=== PATIENT | female | born 1975 | race Caucasian/White ===

== ENCOUNTER 2019-07-19 14:01 | Emergency (ER) | payer SELFPAY ==
[2019-07-19 14:10] VITALS: BP 116/72; PULSE 78; RESP 16; TEMP 36.6; O2SAT 99
--- NOTE | 2019-07-19 14:37 | ED.URI ---
HPI - URI/Sore Throat General Chief Complaint: Upper Respiratory Infection Stated Complaint: Headache/ear pain/dizziness Time Seen by Provider: 07/19/19 14:38 Source: patient and RN notes reviewed Mode of arrival: ambulatory Limitations: no limitations History of Present Illness HPI Narrative: 44-year-old female presents with concern for 3 to 5-day history of sinus congestion, sinus pressure, ear pain, postnasal drainage, generalized body aches, headache, malaise, fatigue. She denies fever,, chills, sweats. Reports taking Aleve with little relief. MD elicited complaint: other (ear pain) Related Data Home Medications Medication Instructions Recorded Confirmed Probiotic 04/23/19 Allergies Allergy/AdvReac Type Severity Reaction Status Date / Time codeine Allergy Unknown Unknown Verified 07/19/19 14:07 latex Allergy Unknown Unknown Verified 07/19/19 14:07 aspirin AdvReac Mild Nausea Verified 07/19/19 14:07 hydrocodone AdvReac Unknown MAKES HER Verified 07/19/19 14:07 JO Review of Systems Review of Systems: Narrative: CONSTITUTIONAL: Reports malaise, fatigue. Denies chills, sweats, or fever. EYES: Denies visual changes, redness, or discharge. ENT: Reports rhinorrhea, congestion, otalgia. Denies sinus pain and sore throat. CARDIOVASCULAR: Denies chest pain, palpitations, or edema. RESPIRATORY: Reports morning cough. Denies dyspnea. GASTROINTESTINAL: Denies abdominal pain, nausea, vomiting, diarrhea SKIN: Denies rash or itching. MUSCULOSKELETAL: Reports myalgia. NEUROLOGIC: Reports headache. All systems reviewed & are unremarkable except as noted in HPI and below PMFSH Social History Social History Smoking status: Smoker, status unknown Alcohol intake: never Gender identity (if verbalized by the patient): Female Comments At time of signature, agree with nursing past medical, surgical, social and family history. There is no relevant family history pertinent to the presenting complaint Exam Narrative: Exam Narrative: GENERAL: Well-appearing, well-nourished, and in no acute distress. HEAD: Normocephalic EYES: PERRLA, conjunctivae clear ENT: Nares clear, turbinates edematous and erythematous, clear discharge. Mucous membranes moist. TM pearly patel with dull light reflex bilaterally; no tragal tenderness. Oropharynx not erythematous without lesions. Tonsils not enlarged and without exudate, no drooling, no hoarseness, no trismus. NECK: Supple. No lymphadenopathy CHEST: Clear to auscultation, breath sounds equal. No wheezing, rhonchi, rales, or stridor. No respiratory distress, speaks in full sentences. HEART: Regular rate and rhythm. No murmur heard. Normal peripheral pulses. SKIN: Warm, dry, no rash. NEURO: Alert and oriented x3. PSYCH: Normal mood and affect Course Course Emergency Course: Patient is aware of diagnosis, understands and agrees to treatment plan. Anticipatory guidance given. Patient agrees to follow-up as directed and is aware of reasons to seek care at the emergency department. Portions of this record may have been created with voice recognition software Vital Signs Vital signs: Vital Signs Temperature 97.8 F 07/19/19 14:10 Pulse Rate 78 07/19/19 14:10 Respiratory Rate 16 07/19/19 14:10 Blood Pressure 116/72 07/19/19 14:10 Pulse Oximetry 99 07/19/19 14:10 Temperature 97.8 F 07/19/19 14:10 Pulse Rate 78 07/19/19 14:10 Respiratory Rate 16 07/19/19 14:10 Blood Pressure 116/72 07/19/19 14:10 Pulse Oximetry 99 07/19/19 14:10 Reviewed. MDM - URI/Sore Throat MDM Narrative Medical decision making narrative: Differential diagnosis considered: Strep pharyngitis, allergic rhinitis, upper respiratory tract infection, sinusitis, rhinosinusitis, nasopharyngitis. viral pharyngitis, otitis media, otitis externa, pneumonia, bronchitis, viral cough syndrome, viral syndrome, and influenza.
== END 2019-07-19 14:52 | disposition home or self-care (01) ==
PROVIDERS: Emergency Provider Nurse Practitioner; PCP Family Medicine
DX: J06.9 Acute upper respiratory infection, unspecified (principal)
CPT/HCPCS: 99213; G0463

== ENCOUNTER 2019-12-14 10:55 | Outpatient (CLI) | payer OTHER, SELFPAY ==
--- NOTE | ~2019-12-14 | XR_ITS ---
EXAMINATION: XR shoulder RT min 2V DATE: 12/14/2019 11:19 INDICATION: Right shoulder pain. TECHNIQUE: 4 views of right shoulder were obtained. COMPARISON: Right shoulder radiographs 02/08/2011 FINDINGS: Bone alignment is normal. No fracture. Glenohumeral joint is normal. There is mild acromioc lavicular joint osteoarthritis. IMPRESSION: 1. Mild right acromioclavicular joint osteoarthritis. Reviewed, dictated and finalized at location A.
== END 2019-12-14 10:56 | disposition home or self-care (01) ==
LOC: ANHIMG 11:00
PROVIDERS: PCP Family Medicine; Visit Provider Nurse Practitioner Family
DX: M19.011 Primary osteoarthritis, right shoulder (principal)
CPT/HCPCS: 73030

== ENCOUNTER 2020-01-17 14:15 | Outpatient (RCR) | payer OTHER, SELFPAY ==
[2019-12-27 09:26] VITALS: BP_SYST 110
--- NOTE | 2019-12-27 10:28 | PTOPEVAL ---
PHYSICAL THERAPY EVALUATION AND PLAN OF CARE Thank you for referring Kathy Almonte to [facility]. Kathy has been scheduled to participate in physical therapy 2x/week for 3weeks. Please review, sign, date and return this plan of care ZHANG. I agree with and certify that the following plan of care is medically necessary. 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 Started taking Gabapenton 2 days ago and notes maybe a very mild relief. She does have a history of neck and back pain that radiates to the shoulder, but has never had this lack of ROM before. Work, driving, sleep, grooming all are difficult Self Report Pain Assessment Right Shoulder(s) Reported Pain Level 8 Pain Description Aching,Soreness Pain Frequency Chronic,Continuous Lowest Pain Intensity 5 Greatest Pain Intensity 9 Pain Aggravating Factors Lifting Other Pain Aggravating Factors lying on that side Scapular/ Shoulder Range of Motion Right Shoulder Flexion - Active 119 Shoulder Flexion - Passive 140 Shoulder Abduction - Active 78 Shoulder Abduction - Passive 110 Shoulder Medial Rotation - Active PSIS Query Text:Reach Behind the Back Shoulder Lateral Rotation - Active ear lobe Query Text:Reach Behind the Head Scapular/Shoulder Range of Motion Muscle Length Restriction,Soft Limitations Tissue Restriction Scapular/Shoulder Right Shoulder Flexion Strength 3- Fair - Shoulder Extension Strength 3 Fair Shoulder Abduction Strength 3- Fair - Shoulder Medial Rotation Strength 3 Fair Shoulder Lateral Rotation Strength 3 Fair Posture Head/C-Spine Posture Neutral Position Thoracic Spine Posture Fixed Scoliosis on (R) Scapula Posture (L) Protracted,(R) Protracted, (L) Elevated,(R) Elevated Palpation generally tender to palpation throughout shoulder and periscapular muscualature;
--- NOTE | 2020-01-17 15:07 | PTOPEVAL ---
PHYSICAL THERAPY DISCHARGE NOTE Thank you for referring Kathy Almonte to [facility].?I recommend d/c from PT at this time. I am unable to rule out rotator cuff tear despite some progress toward meeting functional goals. I recommend further imaging studies before further intervention. Please review, sign, date and return this plan of care ZHANG. I agree with and certify that the following plan of care is medically necessary. Referring Physician Date Attending Provider: Yevgeniy Agrawal, SENIOR FINANCIAL ACCOUNTANT Discharge Diagnosis right shoulder pain Onset September 2019 Additional Evaluation Detail chronic neck and back pain Subjective Information reports that her shoulder is Query Text:As Reported By Patient/ so-so. States that today she Family continues to feel symptoms pulling down from the neck into the shoulder blade and in the shoulder. She stopped taking gabapenton and prednisone because they were affecting her poorly and has been taking Aleeve. Notes that even writing while she is studying is very painful on the shoulder. She notes some progress in function, but pain levels remain about the same as initial visit. Self Report Pain Assessment Right Shoulder(s) Reported Pain Level 5 Pain Description Aching,Soreness Pain Frequency Chronic,Continuous Pain Aggravating Factors Lifting Other Pain Aggravating Factors lying on that side Pain Score Pain Score 5: Self Report Additional Pain Score Comments with movements increase pain; when relaxed no pain Upper Extremity Range of Motion Scapular/ Shoulder Range of Motion Right Shoulder Flexion - Active 141 Shoulder Abduction - Active 100 Shoulder Medial Rotation - Active PSIS Query Text:Reach Behind the Back Shoulder Lateral Rotation - Active C7 Query Text:Reach Behind the Head Scapular/Shoulder Range of Motion Muscle Length Restriction,Soft Limitations Tissue Restriction Scapular/Shoulder Range of Motion continues to have a catch in Comments shoulder when performing ROM Upper Extremity Muscle Strength Testing Scapular/Shoulder Right Shoulder Flexion Strength 3 Fair Shoulder Extension Strength 3+ Fair + Shoulder Abduction Strength 3 Fair Shoulder Medial Rotation Strength 4 Good Shoulder Lateral Rotation Strength 3+ Fair + Special Tests-Upper Extremity Shoulder Special Tests Empty Can (supraspinatus) Test Positive Right Drop Arm Evi
== END 2020-03-13 14:02 | disposition home or self-care (01) ==
LOC: ANHPT 14:15
PROVIDERS: PCP Family Medicine; Visit Provider Nurse Practitioner Family
DX: M25.511 Pain in right shoulder (principal)
CPT/HCPCS: 97110; 97140; 97161

== ENCOUNTER 2020-02-07 09:20 | Outpatient (CLI) | payer OTHER, SELFPAY ==
--- NOTE | ~2020-02-07 | MR_ITS ---
EXAMINATION: MR shoulder RT wo con DATE: 02/07/2020 14:49 INDICATION: Partial right rotator cuff tear. TECHNIQUE: Magnetic resonance imaging (MRI) of the right shoulder was performed without intravenous c ontrast. Sequences included axial PD-weighted FS FSE, coronal oblique PD-weighted FS FSE and T2-weigh norma FS FSE, and sagittal oblique T2-weighted FS FSE and T1-weighted FSE. COMPARISON: Right shoulder radiographs 12/14/2019 FINDINGS: Coracoacromial arch: The acromion undersurface is curved in morphology (type II). Subacromial spurring is noted. There is mild acromioclavicular joint osteoarthritis. There is mild subacromial/subdeltoid bursitis. Rotator cuff: There is mild supraspinatus and infraspinatus tendinopathy. Teres minor tendon is normal. There is mi ld subscapularis tendinopathy. No tear. There is no asymmetric fatty atrophy of the rotator cuff musc le bellies. Biceps tendon and glenoid labrum: Biceps tendon is in bicipital groove. There is degeneration of superior labrum without well-defined t ear. Fluid: There is no glenohumeral joint effusion. Bones/cartilage: Glenoid cartilage is normal. Humeral head cartilage is normal. IMPRESSION: 1. Mild rotator cuff tendinopathy. No tear. 2. Mild subacromial/subdeltoid bursitis. 3. Mild acromioclavicular joint osteoarthritis. Reviewed, dictated and finalized at location A.
== END 2020-02-07 09:21 | disposition home or self-care (01) ==
PROVIDERS: PCP Family Medicine; Visit Provider Orthopaedic Surgery
DX: M75.101 Unspecified rotator cuff tear or rupture of right shoulder, not specified as traumatic (principal); M19.011 Primary osteoarthritis, right shoulder; M75.51 Bursitis of right shoulder
CPT/HCPCS: 73221

== ENCOUNTER 2020-06-23 10:40 | Outpatient (CLI) | payer OTHER, SELFPAY ==
--- NOTE | ~2020-06-23 | MR_ITS ---
EXAMINATION: MR cervical spine wo con EXAM DATE: 06/23/2020 11:51 INDICATION: Cervical spinal stenosis. TECHNIQUE: Multi-sequential, multiplanar MR images of the cervical spine were obtained without contra st. Axial T2, axial T2 MERGE sequence. Sagittal T1, T2, T2 fat saturation images also obtained. Cor relation is made to CT cervical spine 06/20/2017. FINDINGS: There is a hemangioma in posterior aspect of T3. There is moderate loss of the C5-C6 disc height. The spinal cord signal intensity and intrinsic morphology is normal. Cervicomedullary junctio n is normal in appearance. The vertebral bodies are aligned in the AP dimension. Paraspinal soft tiss ue is unremarkable. Level by level evaluation: C2-C3: Disc does not extend beyond the endplate margin. Uncovertebral joint arthropathy: None. Facet joint arthropathy: Mild bilateral. Neural foraminal stenosis: No stenosis. Central canal stenosis: No stenosis. C3-C4: Disc does not extend beyond the endplate margin. Uncovertebral joint arthropathy: None. Facet joint arthropathy: Mild bilateral. Neural foraminal stenosis: No stenosis. Central canal stenosis: No stenosis. C4-C5: Disc does not extend beyond the endplate margin. Uncovertebral joint arthropathy: Mild left. Facet joint arthropathy: Mild bilateral. Neural foraminal stenosis: No stenosis. Central canal stenosis: No stenosis. C5-C6: There is a mild diffuse disc bulge. Uncovertebral joint arthropathy: Moderate left, mild to moderate right. Facet joint arthropathy: Mild bilateral. Neural foraminal stenosis: Moderate left. Central canal stenosis: Mild. C6-C7: There is a minimal diffuse disc bulge. Uncovertebral joint arthropathy: Mild bilateral. Facet joint arthropathy: Mild bilateral. Neural foraminal stenosis: No stenosis. Central canal stenosis: No stenosis. C7-T1: Disc does not extend beyond the endplate margin. Uncovertebral joint arthropathy: Minimal. Facet joint arthropathy: Minimal. Neural foraminal stenosis: No stenosis. Central canal stenosis: No stenosis. IMPRESSION: 1. C5-6 moderate left neural foraminal stenosis. 2. Otherwise mild spondylosis. Reviewed, dictated and finalized at location B. EL CUTTER
== END 2020-06-23 10:41 | disposition home or self-care (01) ==
PROVIDERS: PCP Family Medicine; Visit Provider Physician Assistant Surgical
DX: M48.02 Spinal stenosis, cervical region (principal); M47.892 Other spondylosis, cervical region
CPT/HCPCS: 72141

== ENCOUNTER 2020-11-12 11:51 | Emergency (ER) | payer OTHER, SELFPAY ==
--- NOTE | ~2020-11-12 | XR_ITS ---
[XR ribs RT 2V w CXR 2V ] INDICATION: Right rib pain after twisting injury TECHNIQUE: Frontal projection of the upper right ribs, frontal projection of the lower right ribs, ob lique projection of all the right ribs, frontal inspiratory chest x-ray for interpretation. FINDINGS: There are no displaced rib fractures identified. There are no soft tissue abnormality see n. The lungs are clear. There is a hiatal hernia. IMPRESSION: 1:No displaced rib fractures. Reviewed, dictated and finalized at location A.
[2020-11-12 11:53] VITALS: BP 138/85; PULSE 106; RESP 18; TEMP 35.9; O2SAT 97
[2020-11-12 12:02] VITALS: BP 138/85; PULSE 106; RESP 18; TEMP 35.9; O2SAT 97
[2020-11-12] MEDS: KETOROLAC (*BKC) 60 MG/2 ML VIAL IM (13:02)
--- NOTE | 2020-11-12 13:31 | ED.GENADULT ---
HPI - General Adult General Chief complaint: Unspecified <Connor Cash PA-C - Last Filed: 11/12/20 13:40> Stated complaint: something popped in my chest <Connor Cash PA-C - Last Filed: 11/12/20 13:40> Time Seen by Provider: 11/12/20 12:11 <Connor Cash PA-C - Last Filed: 11/12/20 13:40> Source: patient and RN notes reviewed <Connor Cash PA-C - Last Filed: 11/12/20 13:40> Mode of arrival: ambulatory <CRICKET Carrera Last Filed: 11/12/20 13:40> Limitations: no limitations <Connor Cash PA-C - Last Filed: 11/12/20 13:40> History of Present Illness HPI narrative: Patient is a 45-year-old female who presents with right lateral rib pain was bending over an object and felt a pop and has since had moderate aching pain symptoms began today just prior to arrival has not taken anything for symptoms denies URI symptoms or other complaints radiation of pain on arrival does not appear uncomfortable or distressed <Connor Cash PA-C - Last Filed: 11/12/20 13:40> Related Data Home medications: Home Medications Medication Instructions Recorded Confirmed azithromycin 11/12/20 cetirizine mg 11/12/20 prednisone 11/12/20 <Connor Cash PA-C - Last Filed: 11/12/20 13:40> Allergies/adverse reactions: Allergies Allergy/AdvReac Type Severity Reaction Status Date / Time codeine Allergy Unknown Unknown Verified 11/12/20 11:54 latex Allergy Unknown Unknown Verified 11/12/20 11:54 aspirin AdvReac Mild Nausea Verified 11/12/20 11:54 hydrocodone AdvReac Unknown MAKES HER Verified 11/12/20 11:54 LOOPY AND SHAKEY <Connor Cash PA-C - Last Filed: 11/12/20 13:40> Review of Systems Review of Systems: All systems reviewed & are unremarkable except as noted in HPI and below <Connor Cash PA-C - Last Filed: 11/12/20 13:40> PMFSH Past Medical History Medical History: Medical History (Updated 11/12/20 @ 13:40 by Connor Cash PA-C) Anxiety Arthritis Celiac disease Depression Hiatal hernia with GERD and esophagitis HSV-1 (herpes simplex virus 1) infection IBS (irritable bowel syndrome) Migraine PMDD (premenstrual dysphoric disorder) Vulvar cancer <Connor Cash PA-C - Last Filed: 11/12/20 13:40> Surgical History Surgical History: Surgical History H/O tubal ligation History of bladder surgery Ablation 2011 History of orthopedic surgery Right ankle, hardware from a trampoline accident <Connor Cash PA-C - Last Filed: 11/12/20 13:40> Family History Family History: Family History Grandparent Family history of cardiac disorder Father Family history of heart disease in male family member before age 55 Other Hypertension <Connor Cash PA-C - Last Filed: 11/12/20 13:40> Social History Social History: Social History Smoking status: Smoker, status unknown Alcohol intake: never Gender identity (if verbalized by the patient): Female <Connor Cash PA-C - Last Filed: 11/12/20 13:40> Exam Narrative: Exam Narrative: GENERAL: Well-appearing, obese, and in no acute distress. HEAD: Normocephalic, atraumatic. EYES: PERRLA and EOMI. ENT: Nares clear, no rhinorrhea or epistaxis. Mucous membranes moist. CHEST: Clear to auscultation. No respiratory distress. No wheezes rales or rhonchi. Tenderness of the right lateral breast rib region HEART: Regular rate and rhythm. No murmur heard. EXTREMITIES: Normal range of motion. No edema. SKIN: Warm, dry, no rash. NEURO: No focal deficits. Alert and oriented x3. Cranial nerves II through XII grossly intact PSYCH: Normal mood and affect. <Connor Cash PA-C - Last Filed: 11/12/20 13:40> Course Course Emergency Course: Patient in the room
[2020-11-12 13:55] VITALS: BP 146/81; PULSE 87; RESP 18; O2SAT 99
== END 2020-11-12 13:56 | disposition home or self-care (01) ==
PROVIDERS: Emergency Provider General Practice; PCP Nurse Practitioner Family
DX: R07.89 Other chest pain (principal); K90.0 Celiac disease; F31.9 Bipolar disorder, unspecified; K21.00 Gastro-esophageal reflux disease with esophagitis, without bleeding; K44.9 Diaphragmatic hernia without obstruction or gangrene; K58.9 Irritable bowel syndrome, unspecified; M19.90 Unspecified osteoarthritis, unspecified site; Z85.44 Personal history of malignant neoplasm of other female genital organs
CPT/HCPCS: 71046; 71100; 96372; 99283; J1885

== ENCOUNTER 2021-07-18 10:53 | Outpatient (CLI) | payer OTHER, SELFPAY ==
--- NOTE | ~2021-07-18 | MR_ITS ---
EXAMINATION: MR wrist RT wo con DATE: 07/18/2021 12:13 INDICATION: Right hand pain. TECHNIQUE: Magnetic resonance imaging (MRI) of the wrist was performed without intravenous contrast. Sequences performed include coronal T1-weighted FSE, coronal PD-weighted FS FSE, axial PD-weighted FS FSE, axial PD-weighted FSE, sagittal PD-weighted FSE, and sagittal PD-weighted FS FSE. COMPARISON: Right wrist radiographs 09/21/2012, right forearm radiographs 10/07/2018 FINDINGS: Intrinsic ligaments: The scapholunate and lunotriquetral ligaments are intact, but motion artifact decreases sensitivity. Triangular fibrocartilage complex (TFCC): The triangular fibrocartilage is intact, but motion artifact decreases sensitivity. Extensor wrist: The extensor tendons are normal. Flexor wrist: The flexor tendons are normal. The median nerve is unremarkable. Guyon's canal: The ulnar nerve is normal. Bones/other: Bone alignment is normal. No fracture. There is a 6 mm nonaggressive lytic lesion in proximal scaphoi d, likely a subchondral cyst. There is a 12 x 11 x 8 mm ganglion cyst palmar to radioscaphoid joint. IMPRESSION: 1. Mild osteoarthritis of radioscaphoid joint. 2. 12 mm ganglion cyst palmar to radioscaphoid joint. Reviewed, dictated and finalized at location A. NICAL TRAINING MANAGER
== END 2021-07-18 10:54 | disposition home or self-care (01) ==
LOC: ANHIMG 10:58
PROVIDERS: PCP Nurse Practitioner Family; Visit Provider Orthopaedic Surgery Hand Surgery
DX: M79.641 Pain in right hand (principal)
CPT/HCPCS: 73221

== ENCOUNTER 2021-10-25 16:01 | Outpatient (CLI) | payer OTHER, SELFPAY ==
--- NOTE | ~2021-10-25 | XR_ITS ---
XR ribs LT 2V DATE: 10/25/2021 16:15 INDICATION: Left rib pain. [place] pop under left breast today TECHNIQUE: 3 views of left ribs COMPARISON: 11/12/2020 PA and lateral chest FINDINGS: No left rib fracture is detected. Normal heart size. The left lung appears clear. No left pleural effusion or pneumothorax is detected. Moderately large hiatal hernia with air-fluid level. IMPRESSION: No detected left rib fracture Hiatal hernia Reviewed, dictated and finalized at location A.
== END 2021-10-25 16:02 | disposition home or self-care (01) ==
PROVIDERS: PCP Nurse Practitioner Family; Visit Provider Nurse Practitioner Family
DX: R07.81 Pleurodynia (principal); K44.9 Diaphragmatic hernia without obstruction or gangrene
CPT/HCPCS: 71100

== ENCOUNTER 2021-11-08 10:03 | Outpatient (CLI) | payer OTHER, SELFPAY ==
--- NOTE | ~2021-11-08 | MR_ITS ---
EXAMINATION: MR shoulder RT wo con DATE: 11/08/2021 10:50 INDICATION: Right shoulder tendinitis TECHNIQUE: Magnetic resonance imaging (MRI) of the right shoulder was performed without intravenous c ontrast. Sequences included axial PD-weighted FS FSE, coronal oblique PD-weighted FS FSE, coronal obl ique T2-weighted FS FSE, sagittal PD-weighted FS FSE, and sagittal T1-weighted SE. COMPARISON: None. FINDINGS: Coracoacromial arch: The acromion undersurface is curved in morphology (type II). The coracoacromial ligament is normal. A cromioclavicular joint is normal. Rotator cuff: Mild supraspinatus tendinopathy with small partial-thickness tear extending 6 mm AP along the superio r facet footplate and involving up to one half of the tendon thickness with a thin intact bursal side of the tendon. No evident retraction of the bursal side of the tendon suggesting the tear remains in trasubstance although bursal sided involvement cannot be absolutely excluded. The infraspinatus, chau s minor and subscapularis tendons are normal. Normal rotator cuff muscle bulk and signal. Biceps tendon, glenoid labrum and glenohumeral cartilage: Moderate tendinopathy without discrete tear of the intra-articular portion of the long head biceps te ndon. The extra articular portion of the tendon is normal with small amount of surrounding fluid sign al consistent with mild tenosynovitis. There is associated SLAP tear of the superior glenoid labrum b eginning anteriorly at the 1:00 position and extends posteriorly to the 10:00 position. Glenohumeral cartilage is normal. Fluid: Physiologic amount of fluid in the glenohumeral joint. No loose osteochondral bodies. Small amount o f fluid in the subacromial/subdeltoid bursa consistent with mild bursitis. Bones: Normal marrow signal with no edema, fracture or abnormal marrow replacing process. Mild cystic change at the superior facet of the greater tuberosity likely related to chronic supraspinatus tendon disea se. IMPRESSION: 1. Mild subscapularis tendinopathy with small moderate severity partial-thickness tear, unclear wheth er intrasubstance bursal sided although favor the former. 2. SLAP tear of the superior to posterosuperior glenoid labrum. 3. Mild bicipital tenosynovitis with moderate tendinopathy without discrete tear of the intra-articul ar portion of the tendon. Reviewed, dictated and finalized at location B. IMPRESSION: 1. Mild subscapularis tendinopathy with small moderate severity partial-thickne ss tear, unclear whether intrasubstance bursal sided although favor the former. 2. SLAP tear of the superior to posterosuperior glenoid labrum. 3. Mild bicipital tenosynovitis with moderate tendinopathy without discrete tea r of the intra-articular portion of the tendon.
== END 2021-11-08 10:04 | disposition home or self-care (01) ==
PROVIDERS: PCP Nurse Practitioner Family; Visit Provider Orthopaedic Surgery
DX: S43.431A Superior glenoid labrum lesion of right shoulder, initial encounter (principal); X58.XXXA Exposure to other specified factors, initial encounter; M75.21 Bicipital tendinitis, right shoulder
CPT/HCPCS: 73221

== ENCOUNTER 2022-05-29 16:57 | Emergency (ER) | payer OTHER, SELFPAY ==
[2022-05-29 17:46] VITALS: BP 122/71; PULSE 64; RESP 16; TEMP 36.3; O2SAT 100
--- NOTE | 2022-05-29 18:10 | ED.URI ---
HPI - URI/Sore Throat General Chief Complaint: Upper Respiratory Infection Stated Complaint: mckinnon/diarrhea Time Seen by Provider: 05/29/22 18:10 Source: patient and RN notes reviewed Mode of arrival: ambulatory Limitations: no limitations History of Present Illness HPI Narrative: 47-year-old female here for complaint of sinus pressure, postnasal drainage, headache for 1 week. Endorses she started with diarrhea today. History of IBS. She reports associated abdominal cramping and mild intermittent nausea, and felt shaky today. Denies dizziness, vision changes, cough, shortness of breath, wheezing, fevers or chills. She is taking cetirizine and Flonase for symptoms. 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 She has had 2 negative COVID tests at home since onset of symptoms. MD elicited complaint: cough Related Data Home Medications Medication Instructions Recorded Confirmed cetirizine 10 mg tablet (Zyrtec) 10 mg PO DAILY 11/12/20 03/06/22 acidophilus 100 million 1 cap PO DAILY 03/06/22 03/06/22 cell-pectin, citrus 10 mg capsule bupropion HCl 100 mg tablet,12 hr 100 mg PO BID 03/06/22 03/06/22 sustained-release celecoxib 200 mg capsule 200 mg PO DAILY 03/06/22 03/06/22 cyanocobalamin (vitamin B-12) 1,000 mcg subcut DAILY 03/06/22 03/06/22 1,000 mcg/mL injection solution ergocalciferol (vitamin D2) 1,250 1,250 mcg PO WEEKLY 03/06/22 03/06/22 mcg (50,000 unit) capsule naltrexone 50 mg tablet 50 mg PO DAILY 03/06/22 03/06/22 pantoprazole 40 mg tablet,delayed mg PO 05/29/22 05/29/22 release Allergies Allergy/AdvReac Type Severity Reaction Status Date / Time latex Allergy Severe Rash Verified 05/29/22 17:47 codeine Allergy Intermediate Nausea and Verified 05/29/22 17:47 Vomiting hydrocodone AdvReac Intermediate MAKES HER Verified 05/29/22 17:47 LOOPY AND SHAKEY aspirin AdvReac Mild Other Verified 05/29/22 17:47 Review of Systems Review of Systems: Per HPI [facility] Past Medical History Medical History Anxiety Arthritis Celiac disease Depression Hiatal hernia with GERD and esophagitis HSV-1 (herpes simplex virus 1) infection IBS (irritable bowel syndrome) Migraine Obesity PMDD (premenstrual dysphoric disorder) Vulvar cancer Surgical History Surgical History H/O tubal ligation History of bladder surgery Ablation 2011 History of orthopedic surgery Right ankle, hardware from a trampoline accident Family History Family History Grandparent Family history of cardiac disorder Father Family history of heart disease in male family member before age 55 Other Hypertension Social History Social History Smoking packs per day: 0.5 Smoking cigarettes per day: 10.0 Years smoked: 28 Smoking pack-years: 14.00 Smoking status: Current every day smoker Tobacco type: cigarettes Alcohol intake: never Substance use: current Gender identity (if verbalized by the patient): Female Spiritual care concerns: No Exam Narrative: GENERAL: well-appearing EYES: PERRLA, conjunctivae clear ENT: Mucous membranes moist. TMs pearly patel with dull light reflex bilaterally; no tragal tenderness. Oropharynx without lesions or exudate CHEST: Clear to auscultation, breath sounds equal. No wheezing, rhonchi, rales, or stridor. No respiratory distress, speaks in full sentences. HEART: Regular rate and rhythm. No murmur heard. SKIN: Warm, dry, no rash. NEURO: Alert and oriented x3. PSYCH: Normal mood and affect Course Course Emergency Course: Patient is aware of diagnosis, understands and agrees to treatment plan. Anticipatory guidance given. Patient agrees to follow-up as directed and is aware of reasons to seek care at the emergency department.
== END 2022-05-29 18:34 | disposition home or self-care (01) ==
PROVIDERS: Emergency Provider Nurse Practitioner Family; PCP Family Medicine
DX: J06.9 Acute upper respiratory infection, unspecified (principal); R19.7 Diarrhea, unspecified; F17.210 Nicotine dependence, cigarettes, uncomplicated; M19.90 Unspecified osteoarthritis, unspecified site; K90.0 Celiac disease; E66.9 Obesity, unspecified; Z68.35 Body mass index [BMI] 35.0-35.9, adult; Z85.44 Personal history of malignant neoplasm of other female genital organs; F41.9 Anxiety disorder, unspecified; F32.A Depression, unspecified
CPT/HCPCS: 99211; G0463

== ENCOUNTER 2022-06-27 10:39 | Emergency (ER) | payer OTHER, SELFPAY ==
[2022-06-27 10:48] VITALS: BP 121/80; PULSE 75; RESP 14; TEMP 36.5; O2SAT 100
[2022-06-27 10:50] VITALS: BP 121/80; PULSE 75; RESP 14; TEMP 36.5; O2SAT 100
--- NOTE | 2022-06-27 11:25 | ECG_ITS ---
Measurements Intervals [place] Rate: 68 P: 29 [place]: 152 QRS: -7 QRSD: 88 T: 29 QT: 369 QTc: 392 Interpretive Statements SINUS RHYTHM LOW QRS VOLTAGE IN PRECORDIAL LEADS [QRS DEFLECTION < 1.0 mV IN CHEST LEADS] INTERPRETATION BASED ON A DEFAULT AGE OF 40 YEARS COMPARED TO ECG 08/13/2018 12:17:22 NO SIGNIFICANT CHANGES Electronically Signed On 06-27-2022 15:47:29 RIFLE CASE REPAIRER by Leyla Padilla M.D.
--- NOTE | 2022-06-27 11:25 | ED.DIZZY ---
HPI - Dizziness General Chief Complaint: Dizziness Stated Complaint: Dizziness Time Seen by Provider: 06/27/22 11:08 Source: patient Mode of arrival: ambulatory Limitations: no limitations History of Present Illness HPI Narrative: Patient presents today complaining of 2 episodes of near-syncope yesterday. First was when she returned to work after having COVID last week. 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 States she felt like she was moving back and forth but was not. She managed to finish cutting her client's hair, but then had to go sit down. States it took approximately 90 minutes for her to feel better. She left work to return home to lay down. States she has felt increased weakness in her body from head to toe and developed a right frontal headache that she currently rates 4/10. Later on in the night she was bending over for hare in her kitchen and felt another episode of dizziness. Patient states, ?I have not felt the same since? these episodes. States, ?I don't feel functional. Patient had COVID last week and was prescribed Paxlovid by her PCP. States she finished this medication 4 days ago. Reports that her symptoms had been improving until she started feeling these symptoms yesterday. History of migraines. Patient states she is unable to tell whether or not her current headache is similar to previous headaches because her headaches are variable. She had an appointment this morning to follow-up with her PCP regarding these episodes, but they called her to cancel. Denies chest pain, shortness of breath, abdominal pain. Related Data Home Medications Medication Instructions Recorded Confirmed cetirizine 10 mg tablet (Zyrtec) 10 mg PO DAILY 11/12/20 06/27/22 bupropion HCl 100 mg tablet,12 hr 100 mg PO BID 03/06/22 06/27/22 sustained-release celecoxib 200 mg capsule 200 mg PO DAILY 03/06/22 06/27/22 cyanocobalamin (vitamin B-12) 1,000 mcg subcut DAILY 03/06/22 06/27/22 1,000 mcg/mL injection solution ergocalciferol (vitamin D2) 1,250 1,250 mcg PO WEEKLY 03/06/22 06/27/22 mcg (50,000 unit) capsule naltrexone 50 mg tablet 50 mg PO DAILY 03/06/22 06/27/22 pantoprazole 40 mg tablet,delayed 40 mg PO DIRECTED 05/29/22 06/27/22 release Allergies Allergy/AdvReac Type Severity Reaction Status Date / Time latex Allergy Severe Rash Verified 05/29/22 17:47 codeine Allergy Intermediate Nausea and Verified 05/29/22 17:47 Vomiting hydrocodone AdvReac Intermediate MAKES HER Verified 05/29/22 17:47 LOOPY AND SHAKEY aspirin AdvReac Mild Other Verified 05/29/22 17:47 Review of Systems Review of Systems: CONSTITUTIONAL: Denies body aches, fever, chills, or sweats. EYES: Denies visual changes, redness, or discharge. ENT: Denies rhinorrhea, congestion, sore throat, or otalgia. CARDIOVASCULAR: Denies chest pain, palpitations, or edema. RESPIRATORY: Denies cough or dyspnea. GASTROINTESTINAL: Denies abdominal pain, vomiting, or diarrhea.+ nausea GENITOURINARY: Denies dysuria or hematuria. SKIN: Denies rash, itching, or wounds. MUSCULOSKELETAL: Denies back pain, joint pain, or myalgia. NEUROLOGIC: Denies numbness, tingling. + weakness, headache PSYCH: Denies depression or anxiety. [facility] Past Medical History Medical History Anxiety Arthritis Celiac disease Depression Hiatal hernia with GERD and esophagitis HSV-1 (herpes simplex virus 1) infection IBS (irritable bowel syndrome) Migraine Obesity PMDD (premenstrual dysphoric disorder) Vulvar cancer Surgical History Surgical History H/O tubal ligation History of bladder surgery Ablation 2011 History of orthopedic surgery Right ankle, hardware from a trampoline accident Family History Family History Grandpare
== END 2022-06-27 11:39 | disposition short-term general hospital (02) ==
PROVIDERS: Emergency Provider Nurse Practitioner; PCP Nurse Practitioner Family
DX: R55 Syncope and collapse (principal); R51.9 Headache, unspecified; F17.210 Nicotine dependence, cigarettes, uncomplicated; M19.90 Unspecified osteoarthritis, unspecified site; K90.0 Celiac disease; E66.9 Obesity, unspecified; Z68.34 Body mass index [BMI] 34.0-34.9, adult; Z85.40 Personal history of malignant neoplasm of unspecified female genital organ
CPT/HCPCS: 93005; 99213; G0463

== ENCOUNTER 2022-06-27 12:28 | Emergency (ER) | payer OTHER, SELFPAY ==
[2022-06-27] VITALS (13 sets, daily range): BP systolic 106–134; BP diastolic 61–92; PULSE 72–107; RESP 8–17; TEMP 36.4; O2SAT 91–100
--- NOTE | ~2022-06-27 | CT_ITS ---
EXAMINATION: CTA BRAIN/CAROTID DATE: 06/27/2022 18:36 INDICATION: Dizziness TECHNIQUE: Computed tomographic angiography (CTA) of the head and neck was performed with 100 mL Omni paque-350 intravenous contrast. Multiplanar reconstructions and maximum intensity projection 3D-recon structions of the carotid arteries and of the intracranial arteries were created by the technologist on a separate workstation. Precontrast CT of the head was also obtained. Automated exposure control and iterative reconstruction technique were employed.The dose-length product was 1577.03 mGy-cm. COMPARISON: Head CT dated 06/20/2017 FINDINGS: Carotid arteries: Normal caliber aortic arch with no atherosclerotic plaque or dissection. Normal variant common origin of the innominate and left common carotid arteries. There is minimal atherosclerotic plaque with 0% stenosis of the right carotid bulb relative to normal distal artery lumen diameter (NASCET criteria). There is small amount of atherosclerotic plaque with 0% stenosis of the left carotid bulb relative t o normal distal artery lumen diameter. Visualized upper lungs are clear. Superior mediastinum and cer vical soft tissues are unremarkable. Moderate cervical spondylosis. Head: No acute intracranial hemorrhage, acute infarction or abnormal extra axial fluid collection. Ventricl es are normal and symmetric. No mass/mass effect. The orbits, paranasal sinuses and mastoid air cells are normal. No abnormally enhancing brain lesions on the CT angiogram images. Intracranial arteries There is no hemodynamically significant stenosis in the vertebral, basilar and internal carotid arter ies. Vertebral arteries are codominant. There are no aneurysms identified. Both A1 and P1 segments a re patent. Cerebral arterial arborization appears symmetric. IMPRESSION: 1. Normal brain. No acute intracranial process or abnormally enhancing brain lesions. 2. 0% stenosis of the right and left carotid bulbs relative to normal distal artery lumen diameter (N ASCET criteria). 3. Normal cerebral CT angiogram. Reviewed, dictated and finalized at location A. ER'S ASSISTANT IMPRESSION: 1. Normal brain. No acute intracranial process or abnormally enhancing brain le sions. 2. 0% stenosis of the right and left carotid bulbs relative to normal distal ar andrea lumen diameter (NASCET criteria). 3. Normal cerebral CT angiogram.
--- NOTE | ~2022-06-27 | XR_ITS ---
EXAMINATION: XR chest 1V portable DATE: 06/27/2022 18:04 INDICATION: 2 episodes of syncope TECHNIQUE: frontal view of the chest was obtained. COMPARISON: Chest radiograph dated 11/12/2020 FINDINGS: The lungs remain clear with no focal airspace opacities, pulmonary edema, pleural effusion or pneumot horax. Heart size is normal. Small hiatal hernia projecting along the left side of the lower thoracic spine. IMPRESSION: 1. No acute cardiopulmonary disease. 2. Small hiatal hernia. Reviewed, dictated and finalized at location A. E EATER
--- NOTE | 2022-06-27 12:40 | ECG_ITS ---
Measurements Intervals [place] Rate: 85 P: 40 [place]: 143 QRS: -7 QRSD: 91 T: 25 QT: 336 QTc: 401 Interpretive Statements SINUS RHYTHM WITH MARKED SINUS ARRHYTHMIA LOW QRS VOLTAGE IN PRECORDIAL LEADS [QRS DEFLECTION < 1.0 mV IN CHEST LEADS] COMPARED TO ECG 06/27/2022 11:34:53 SINUS ARRHYTHMIA NOW PRESENT Electronically Signed On 06-27-2022 15:48:45 PRIVACY COMPLIANCE MANAGER by Leyla Padilla M.D.
[2022-06-27 12:56] LABS: Basophils Percent Auto 0.4 % (0.2-1.2); Eosinophils Absolute Auto 0.1 K/mm3 (0-0.3); Eosinophils Percent Auto 1.7 % (0-4.4); Hematocrit 38.8 % (37.0-47.0); Hemoglobin 12.9 g/dL (12.0-15.0); Immature Granulocyte Absolute 0.02 K/mm3 (0.00-0.031); Immature Granulocyte Percent A 0.3 % (0-0.5); Lymphocytes Absolute Auto 2.61 K/mm3 (0.9-3.2); Lymphocytes Percent Auto 33.8 % (18.3-44.2); Mean Corpuscular HGB Conc 33.2 g/dl (32-36); Mean Corpuscular Hemoglobin 29.5 pg (26-34); Mean Corpuscular Volume 88.8 fl (80-100); Mean Platelet Volume 9.2 fl (7.4-10.4); Monocytes Absolute Auto 0.4 K/mm3 (0.1-0.6); Monocytes Percent Auto 5.7 % (2.6-8.5); Neutrophils Absolute Auto 4.5 K/mm3 (1.3-6.7); Neutrophils Percent Auto 58.1 % (45.5-73.1); Platelet Count Result 298 k/mm3 (150-375); Red Blood Count 4.37 M/mm3 (4.2-5.4); Red Cell Distribution Width 12.2 % (11.5-14.5); White Blood Count 7.7 K/mm3 (4.5-10.0)
[2022-06-27 13:04] LABS: Alanine Aminotransferase 18 U/L (6-35); Albumin Level 4.6 g/dL (3.5-5.1); Alkaline Phosphatase 69 U/L (38-126); Anion Gap 7 mmol/L (8-16); Aspartate Amino Transferase 19 U/L (14-36); Bilirubin,Total 0.5 mg/dL (0.2-1.3); Blood Urea Nitrogen 12 mg/dL (7-17); Calcium 9.4 mg/dL (8.4-10.2); Carbon Dioxide 30 mmol/L (22-30); Chloride 104 mmol/L (98-107); Estimated CRCL calculation 97 ml/min; Estimated Glomerular Filt Rate > 60; Glucose 93 mg/dL (65-110); Potassium 4.1 mmol/L (3.4-5.0); Sodium 141 mmol/L (137-145)
[2022-06-27 16:27] LABS: Appearance Urine Slightly Cloudy (Clear); Bilirubin Urine Negative (Negative); Blood Urine Negative (Negative); Color Urine Yellow (Yellow); Glucose Urine UA Negative (Negative); Ketones Urine Negative (Negative); Leukocyte Esterase Ur Negative LEU/UL (Negative); Nitrate Urine Negative (Negative); Protein Urine Negative (Negative); Urobilinogen Urine 0.2 mg/dL (<2.0); pH Urine 5.5 (5.0-9.0)
[2022-06-27] MEDS: SODIUM CHLORIDE 0.9% IV 1,000 ML 999 ML IV CONT (16:30)
[2022-06-27 16:31] LABS: Mucus Urine Rare /lpf; Squamous Epithelial Cell Urine Rare /hpf (Few); WBC Urine 0-3 /hpf
[2022-06-27 16:36] LABS: Add Urine Microscopic? YES
[2022-06-27 16:37] LABS: Partial Thromboplastin Time 23.9 SECONDS (22.3-36.8); Prothrombin Time 12.6 Seconds (11.1-14.7)
[2022-06-27 16:39] LABS: Troponin I < 0.012 ng/mL (0.000-0.034)
[2022-06-27 17:34] LABS: D Dimer 0.31 ug/mL (<0.48)
--- NOTE | 2022-06-27 19:35 | PC.NURSE ---
First encounter w/ pt. Pt resting comfortably in bed, updated pt on POC, all needs addressed, no question at this time.
--- NOTE | 2022-06-27 20:29 | ED.GENADULT ---
HPI - General Adult General Chief complaint: Syncope Stated complaint: near syncope Time Seen by Provider: 06/27/22 15:35 Source: RN notes reviewed History of Present Illness HPI narrative: Patient presents emergency department from home for near syncopal episode. Patient states that last night she had been cutting hair when she had approximately 45-minute episode where she felt slightly off balance and fell like the people in front of her were getting closer and farther away from her she said that resolved after approximately 45 seconds and about a minute later had another 15-second episode. She states that during that time she had no feelings that her heart was racing and she had no chest pain or shortness of breath she had no numbness or weakness to the extremities. She states that she was in 5 to the rest the evening and then had a brief episode of dizziness and she returned home. She states that she has had no symptoms today she denies any vision changes chest pain shortness of breath numbness or weakness to the extremities abdominal pain nausea or vomiting. She states that she did have COVID-19 last week and was diagnosed last Friday and been on Paxlovid with last dose this past Friday states she has not been experiencing any shortness of breath Related Data Home Medications Medication Instructions Recorded Confirmed cetirizine 10 mg tablet (Zyrtec) 10 mg PO DAILY 11/12/20 06/27/22 bupropion HCl 100 mg tablet,12 hr 100 mg PO BID 03/06/22 06/27/22 sustained-release celecoxib 200 mg capsule 200 mg PO DAILY 03/06/22 06/27/22 cyanocobalamin (vitamin B-12) 1,000 mcg subcut DAILY 03/06/22 06/27/22 1,000 mcg/mL injection solution ergocalciferol (vitamin D2) 1,250 1,250 mcg PO WEEKLY 03/06/22 06/27/22 mcg (50,000 unit) capsule naltrexone 50 mg tablet 50 mg PO DAILY 03/06/22 06/27/22 pantoprazole 40 mg tablet,delayed 40 mg PO DIRECTED 05/29/22 06/27/22 release Allergies Allergy/AdvReac Type Severity Reaction Status Date / Time latex Allergy Severe Rash Verified 05/29/22 17:47 codeine Allergy Intermediate Nausea and Verified 05/29/22 17:47 Vomiting hydrocodone AdvReac Intermediate MAKES HER Verified 05/29/22 17:47 LOOPY AND SHAKEY aspirin AdvReac Mild Other Verified 05/29/22 17:47 Review of Systems Review of Systems: Gen.: Denies fevers or chills Eyes: Denies eye pain or visual change ENT: Denies congestion Respiratory: Denies shortness of breath or cough CV: Denies chest pain or palpitations GI: Denies abdominal pain nausea, emesis or diarrhea Musculoskeletal: Denies back pain or muscle pain Neuro: See HPI Skin: Denies rash Except as documented, all other systems reviewed and negative [facility] Past Medical History Medical History Anxiety Arthritis Celiac disease Depression Hiatal hernia with GERD and esophagitis HSV-1 (herpes simplex virus 1) infection IBS (irritable bowel syndrome) Migraine Obesity PMDD (premenstrual dysphoric disorder) Vulvar cancer Surgical History Surgical History H/O tubal ligation History of bladder surgery Ablation 2011 History of orthopedic surgery Right ankle, hardware from a trampoline accident Family History Family History Grandparent Family history of cardiac disorder Father Family history of heart disease in male family member before age 55 Other Hypertension Social History Social History Smoking packs per day: 0.5 Smoking cigarettes per day: 10.0 Years smoked: 28 Smoking pack-years: 14.00 Smoking status: Current every day smoker Tobacco type: cigarettes Alcohol intake: never Substance use: current Living arrangements: with family Gender identity (if verbalized by the patient): Female Yvan
== END 2022-06-27 21:22 | disposition home or self-care (01) ==
PROVIDERS: Emergency Medicine; Emergency Provider Emergency Medicine; PCP Nurse Practitioner Family
DX: R55 Syncope and collapse (principal); R42 Dizziness and giddiness; F17.210 Nicotine dependence, cigarettes, uncomplicated; F41.9 Anxiety disorder, unspecified; M19.90 Unspecified osteoarthritis, unspecified site; F32.9 Major depressive disorder, single episode, unspecified
CPT/HCPCS: 36415; 70496; 70498; 71045; 80053; 81001; 81025; 84484; 85025; 85380; 85610; 85730; 93005; 96360; 99284; J7030; Q9967

== ENCOUNTER 2022-10-02 08:57 | Outpatient (CLI) | payer OTHER, SELFPAY | END 2022-10-02 08:58 | disposition home or self-care (01) | LOC: ANHAUDIO 08:58 | PROVIDERS: PCP Nurse Practitioner Family; Visit Provider Nurse Practitioner Family | DX: H91.90 Unspecified hearing loss, unspecified ear (principal) | CPT/HCPCS: 92552; 92556; 92567 ==

== ENCOUNTER 2022-10-09 01:41 | Day surgery (SDC) | payer OTHER, SELFPAY ==
[2022-10-02 11:23] VITALS: BMI 35.2
--- NOTE | 2022-10-02 11:31 | PC.NURSE ---
Report to the Outpatient Waiting Room, entrance under the green pavilion located off [facility], at time 0800 on date 10/09/22. Planned Procedure Time: 1000. Time changes happen often and if your time is changed the preop area will call you the afternoon before. - You and your visitor will be asked to self-screen and do not enter if you have any COVID symptoms. - A mask is optional within the hospital at this time. Patients may have clear liquids (water, carbonated beverages, clear teas, apple juice) until 3 hours prior to surgery with a maximum of 20 ounces. - No food from midnight until time of surgery Take the following medications with a SIP of water the morning of surgery: BUPROPION DO NOT STOP ANY OF YOUR OTHER PRESCRIPTION MEDICATIONS PRIOR TO SURGERY?EXCEPT THE FOLLOWING Medications to discontinue per physician: VITAMINS/SUPPLEMENTS Date to take last dose: 10/05/22 Please no make-up, nail serbian, hairspray, perfume, deodorant, or body powder the day of surgery. No jewelry (including any body piercings) or valuables the day of surgery, leave them at home. Please take a shower or bath the night before, or the morning of, surgery with an antibacterial soap. Wear comfortable, loose fitting clothing. - Jewelry must be removed prior to entering the operating room. Rings and piercings that are not removed may be cut off. - The hospital will not accept responsibility for valuables. - Please leave all valuables, including medications, at home the day of surgery. If you are going home after surgery, a licensed armored truck driver must drive you home. - NO public transportation without another adult if you receive anesthesia. - We recommend that an adult stay with you for 24 hours following discharge. - We also recommend that you do not drive, make important decision, drink alcoholic beverages, or take any drugs that were not prescribed by your health care provider for at least 24 hours after your discharge time. Follow any additional instructions given to you from your surgeon. If you or anyone in your household have experienced Covid symptoms in the past week, please notify your surgeon or the nurse liaison at the phone number below for possible testing. Telephone instructions given to PT - TOBIAS HERNANDEZ and asked if any additional questions and then verbalized understanding. Patient advised to call surgeon office or pre surgery nurse liaison [phone] if any additional questions.
--- NOTE | 2022-10-03 11:59 | PM.IMHP ---
H&P: HPI History of Present Illness Date/Time: 10/03/22 11:59 Chief Complaint: The patient is a 47-year-old female who sees Dr. Munroe regarding her right shoulder. The patient has a chronic ongoing history of pain in the right shoulder that radiates into her upper arm. She has pain with trying to do anything heavy repetitive, particular with overhead motion reports painful giving way with trying to do anything heavy. The patient has tried anti-inflammatories cortisone and physical therapy without significant relief. The patient underwent an MRI scan of the right shoulder that shows supraspinatus tendinopathy with small partial-thickness tear extending 6 mm AP along the superior footplate of all Coulter 50% of the tendon thickness with a thin intact bursal side of the tendon. Infraspinatus and teres minor and subscapularis tendons appear to be normal. Normal rotator cuff muscle bulk and signal are noted. There is moderate tendinopathy of the biceps tendon without discrete tear of the intra-articular portion of the long head of the biceps tendon. There is an associated SLAP tear with superior glenoid labrum beginning at the anterior 1 o'clock position extending to the posterior 10 o'clock position. Glenohumeral cartilage appears to be normal. Mild cystic changes are noted at the greater tuberosity related to chronic supraspinatus tendinopathy. At this point the patient has failed conservative measures as discussed further treatment options in detail with Dr. Munroe she would now like to proceed with surgical intervention. Review of Systems Review of Systems: Ten point review of systems otherwise negative [facility] Past Medical History Medical History Anxiety Arthritis Celiac disease Depression Hiatal hernia with GERD and esophagitis HSV-1 (herpes simplex virus 1) infection IBS (irritable bowel syndrome) Migraine Obesity PMDD (premenstrual dysphoric disorder) Vulvar cancer Surgical History Surgical History H/O tubal ligation History of bladder surgery Ablation 2011 History of orthopedic surgery Right ankle, hardware from a trampoline accident Family History Family History Grandparent Family history of cardiac disorder Father Family history of heart disease in male family member before age 55 Other Hypertension Social History Social History Smoking packs per day: 0.25 Smoking cigarettes per day: 5.0 Years smoked: 30 Smoking pack-years: 7.50 Smoking status: Current some day smoker Tobacco type: cigarettes Additional smoking assessment comments: HAS BEEN CUTING BACK RECENTLY Alcohol intake: never Substance use: never Substance use type: does not use Living arrangements: with family Gender identity (if verbalized by the patient): Female Spiritual care concerns: No Meds Home Medications and Allergies Home Medications Medication Instructions Recorded Confirmed Type cetirizine 10 mg tablet (Zyrtec) 10 mg PO DAILY 11/12/20 10/02/22 History bupropion HCl 100 mg tablet,12 hr 100 mg PO BID 03/06/22 10/02/22 History sustained-release celecoxib 200 mg capsule 200 mg PO DAILY 03/06/22 10/02/22 History naltrexone 50 mg tablet 50 mg PO HS 03/06/22 10/02/22 History pantoprazole 40 mg tablet,delayed 40 mg PO DIRECTED 05/29/22 10/02/22 History release meclizine 12.5 mg tablet 12.5 mg PO TID PRN dizziness #10 06/27/22 10/02/22 Rx tabs Lactobacillus 1 cap PO DAILY 10/02/22 10/02/22 History acidophilus-Bifidobac.animalis 2.5 billion cell capsule (Daily Probiotic) cyanocobalamin (vitamin B-12) 1,000 mcg PO DAILY 10/02/22 10/02/22 History 1,000 mcg tablet Allergies Allergy/AdvReac Type Severity Reaction Status Date / Time latex Allergy Severe Rash Verif
[2022-10-09] VITALS (7 sets, daily range): BP systolic 96–113; BP diastolic 48–82; PULSE 60–82; RESP 11–16; TEMP 36.1–36.3; O2SAT 92–100
--- NOTE | 2022-10-09 06:43 | WPDHPUPDATE1 ---
History and Physical Update Update Date/Time: 10/09/22 06:43 History and Physical has been reviewed, including an updated exam of the patient. There are NO changes in the patient's condition. Risks, benefits, and alternatives have been discussed and questions answered. Patient agrees to proceed with procedure.
[2022-10-09] MEDS: LACTATED RINGERS 1,000 ML 30 ML IV CONT ×2 (08:40→11:47)
[2022-10-09] MEDS: ACETAMINOPHEN 500 MG TABLET 1000 MG PO (08:54)
[2022-10-09] MEDS: KETOROLAC 15 MG/ML VIAL (*BKC) IV PUSH (08:58)
--- NOTE | 2022-10-09 09:23 | WPDANESEPPF ---
Anes - Initial Pre Proc Eval Procedure: Operation Date: 10/09/22 10:00 Proposed Procedures p Right Shoulder Arthroscopy, Acromioplasty, Open Distal Clavicle Excision, Right Rotator Cuff Repair, Proceed as Indicated - Eyal Munroe MD Date/Time: 10/09/22 09:23 Surgeon: Eyal Munroe MD Pre Op Diagnosis: Rot Cuff Tear Rt Shoulder Patient Data Age: 47 Gender: F Height: 1.55 m Weight: 86 kg Allergies Allergy/AdvReac Type Severity Reaction Status Date / Time latex Allergy Severe Rash Verified 10/09/22 08:15 codeine Allergy Intermediate Nausea and Verified 10/09/22 08:15 Vomiting hydrocodone AdvReac Intermediate MAKES HER Verified 10/09/22 08:15 LOOPY AND SHAKEY aspirin AdvReac Mild Other Verified 10/09/22 08:15 Home Medications Medication Instructions Recorded Confirmed Type cetirizine 10 mg tablet (Zyrtec) 10 mg PO DAILY 11/12/20 10/09/22 History bupropion HCl 100 mg tablet,12 hr 100 mg PO BID 03/06/22 10/09/22 History sustained-release celecoxib 200 mg capsule 200 mg PO DAILY 03/06/22 10/09/22 History naltrexone 50 mg tablet 50 mg PO HS 03/06/22 10/09/22 History pantoprazole 40 mg tablet,delayed 40 mg PO DIRECTED 05/29/22 10/09/22 History release meclizine 12.5 mg tablet 12.5 mg PO TID PRN dizziness #10 06/27/22 10/09/22 Rx tabs Lactobacillus 1 cap PO DAILY 10/02/22 10/09/22 History acidophilus-Bifidobac.animalis 2.5 billion cell capsule (Daily Probiotic) cyanocobalamin (vitamin B-12) 1,000 mcg PO DAILY 10/02/22 10/09/22 History 1,000 mcg tablet Patient hx anesthesia problems: none Family hx anesthesia problems: none Results Review: All pre-operative results and documents have been reviewed as part of the pre-operative evaluation. [facility] Past Medical History Medical History Anxiety Arthritis Celiac disease Depression Hiatal hernia with GERD and esophagitis HSV-1 (herpes simplex virus 1) infection IBS (irritable bowel syndrome) Migraine Obesity PMDD (premenstrual dysphoric disorder) Vulvar cancer Surgical History Surgical History H/O tubal ligation History of bladder surgery Ablation 2011 History of orthopedic surgery Right ankle, hardware from a trampoline accident Family History Family History Grandparent Family history of cardiac disorder Father Family history of heart disease in male family member before age 55 Other Hypertension Social History Social History Smoking packs per day: 0.25 Smoking cigarettes per day: 5.0 Years smoked: 30 Smoking pack-years: 7.50 Smoking status: Current some day smoker Tobacco type: cigarettes Additional smoking assessment comments: HAS BEEN CUTING BACK RECENTLY Alcohol intake: never Substance use: never Substance use type: does not use Living arrangements: with family Gender identity (if verbalized by the patient): Female Spiritual care concerns: No Anes - Eval Final PreProcedure Day of Procedure 10/09/22 09:23 Patient weight: obese Heart: regular rate and rhythm Lungs: clear to auscultation Airway: Mallampati scale class II Neurological: alert and oriented Last oral intake: >/= 8 hours ASA classification: II Emergent: no Anesthetic plan: proceed Anesthesia type and monitoring: general ETT and standard monitoring Results Review: All pre-operative results and documents have been reviewed as part of the pre-operative evaluation. Informed Consent: The patient's anesthetic plan and its attendant risks and benefits were discussed with the patient/family/POA. Questions were solicited and answers provided to the satisfaction of the patient/family/POA.
--- NOTE | 2022-10-09 09:34 | WPDANESPNB ---
Anes - Peripheral Nerve Block Date/Time: 10/09/22 09:34 I have discussed with the patient/family/POA the placement of a peripheral nerve block for post-operative pain management, including associated risks, benefits, complications, and side effects. Alternative methods of post-operative analgesia were detailed. Questions were solicited and answers provided to the satisfaction of the patient/family/POA. Time-Out: A pre-procedural Time-Out was completed immediately before starting the procedure and confirmed: Patient Identification, Site, Procedure, Patient Position and the Availability of Requisite Equipment. Clinical Indications: Acute post-operative pain management requested by the operative surgeon. Nerve Block Insertion Note Anes-nerve block: interscalene right Patient position: supine Skin prep: chlorhexidine Needle: 22 gauge, stimulating, insulated echogenic needle. Needle length: 50 mm Technique: ultrasound Injectate: bupivacaine 0.5% with epi 5 mcg/ml (30cc- no epi) Observations: tolerated well Complications: none Procedure start time:: 951 Procedure end time:: 954
[2022-10-09] MEDS: ceFAZolin 2 GM/D5W 50 ML 2 GM/50 ML BAG IVPB (10:16)
[2022-10-09] MEDS: LIDO 1%/EPINEPHRINE 1:100,000 20 ML VIAL 30 ML INFILTRATE (10:53)
--- NOTE | 2022-10-09 11:24 | P.OP_ITS ---
Procedure Note - Detailed Date of Procedure 10/09/22 Pre-op Diagnosis Rot Cuff Tear Rt Shoulder A/C joint Arthrosis Right Post-op Diagnosis Same Procedure Performed Rotator cuff repair, distal clavicle excision Surgeon Eyal Munroe MD Junior Software Developer Adarsh Nicole Anesthesia General Description of Procedure Patient brought to the operative room #9. A general anesthetic was administered placed in the beach chair position the RIGHT shoulder exposed.? After sterile prep and drape standard posterior and lateral portals were used for arthroscopy. The joint itself looked reasonably good the biceps tendon was intact.? She had labral tearing which was debrided. She had fraying and tearing of the rotator cuff area in the supraspinatus tear region. This was gently debrided.? The subacromial space had an intense bursa, this was debrided with a shaver and acromioplasty performed arthroscopically.? She was quite tight initially. I then proceeded to open the shoulder. A longitudinal incision made from the AC joint distalward over the shoulder.? Dissection carried down to the fascia. The fascia overlying the acromioclavicular joint was split. The AC joint found and a distal clavicle excision performed removing 3 to 4 millimeters of bone.? The edges beveled.? The deltoid was then split from the tip of the acromion. The remainder of the bursa was debrided.? The rotator cuff was torn in the supraspinatous area. The tear was dime-nickel size. This was debrided and repaired to bone using #2 Ethibond suture.? At this point the deltoid was repaired to itself,the acromion and the trapezius #2 Ethibond. The skin was closed with 2-0 Vicryl and lisy.? Sterile dressing applied patient tolerated well left the operating room satisfactory condition. Estimated Blood Loss 50 Drains No Packing No Pathology None sent Complications No immediate complications Condition Stable Disposition PACU
--- NOTE | 2022-10-09 12:15 | PM.OP ---
Procedure Note - Brief Procedure Note - Brief Date of procedure: 10/09/22 Preop diagnosis- impingement, AC joint arthrosis, slap tear, Rot Cuff Tear Rt Shoulder postop diagnosis -same, status post right shoulder arthroscopy acromioplasty, debridement SLAP tear, open distal clavicle excision rotator cuff debridement and repair right shoulder Procedure performed: right shoulder arthroscopy acromioplasty debridement of SLAP tear, open distal clavicle excision, debridement near full-thickness tear rotator cuff tendon and repair of the rotator cuff tendon right shoulder Surgeon: surgeon -Eyal Munroe MD event marketing assistant-NAN Bill Description of procedure: patient was taken the operating room on August 09 2022 I entered the room at 10:20 a.m.. At that point I assisted with positioning the patient on the operating table in the beach chair positioner, and then assisted with a sterile prep and drape. Dr. Munroe then entered the room and commence with the surgical procedure throughout the surgery assisted with positioning of the right arm, manipulation of the arthroscope, then wound retraction during the open portion of the procedure and the hemostasis with suction and cautery, and again manipulation of the right arm. Once the surgical procedure was complete I then irrigated the wound thoroughly cauterized eating remaining bleeders and began with closure of the subcutaneous layers with 2-0 Vicryl followed by surgical lisy on his superficial portion of the skin. I then applied a sterile dressing with Xeroform gauze 4 x 4 gauze and foam tape. I then applied a shoulder immobilizer to the right upper extremity. The patient was then awakened from anesthesia and I assisted with transport of the patient from the operating table to the stretcher for discharge to recovery. Total blood loss was approximately 20 cc. No intraoperative complications were noted. Patient was in stable condition to and expected to be discharged from the recovery room to home. I exited the room at 11:40 a.m.
[2022-10-09] MEDS: ONDANSETRON HCL ODT 4 MG TABLET PO (14:28)
--- NOTE | 2022-10-09 14:28 | SUR.PHASEII ---
PATIENT DRESSED WITH ASSISTANCE FROM 2 RN'S AND SPOUSE. RIGHT SHOULDER IMMOBILIZER REMOVED AND REATTACHED.
== END 2022-10-09 14:29 | disposition home or self-care (01) ==
PROVIDERS: PCP Nurse Practitioner Family; Visit Provider Orthopaedic Surgery
PROC: (CPT 29805; principal; 2022-10-09 10:00)
DX: M75.101 Unspecified rotator cuff tear or rupture of right shoulder, not specified as traumatic (principal); M19.011 Primary osteoarthritis, right shoulder; G89.18 Other acute postprocedural pain; K90.0 Celiac disease; F32.A Depression, unspecified; F41.9 Anxiety disorder, unspecified; E66.9 Obesity, unspecified; Z68.35 Body mass index [BMI] 35.0-35.9, adult; F17.210 Nicotine dependence, cigarettes, uncomplicated
CPT/HCPCS: 23412; 23120; 64415; A4565; A9270; J0330; J0690; J1100; J1170; J1885; J2250; J2405; J2704; J3010; J7120

== ENCOUNTER 2023-07-08 13:01 | Emergency (ER) | payer OTHER, SELFPAY ==
[2023-07-08 13:10] VITALS: BP 105/57; PULSE 80; RESP 16; TEMP 36.8; O2SAT 100
--- NOTE | 2023-07-08 13:28 | ED.SKABFB ---
HPI - Skin/Abscess/Foreign Bdy General Chief complaint: Skin/Abscess/Foreign Body Stated complaint: right finger irritated Time Seen by Provider: 07/08/23 13:28 History of Present Illness HPI narrative: 48-year-old female presents to [facility] with complaint of dull pain and redness at cuticle of 2nd digit right hand x2 days that is worse with movement. Patient endorses history of paronychia. Patient endorses stiffness in joint of 2nd digit left hand for 2 days. Patient denies radiating pain, numbness, tingling. Patient has not attempted to treat at home. Related Data Home Medications Medication Instructions Recorded Confirmed cetirizine 10 mg tablet (Zyrtec) 10 mg PO DAILY 11/12/20 07/08/23 bupropion HCl 100 mg tablet,12 hr 100 mg PO BID 03/06/22 07/08/23 sustained-release celecoxib 200 mg capsule 200 mg PO DAILY 03/06/22 07/08/23 naltrexone 50 mg tablet 50 mg PO HS 03/06/22 07/08/23 pantoprazole 40 mg tablet,delayed 40 mg PO DIRECTED 05/29/22 07/08/23 release Lactobacillus 1 cap PO DAILY 10/02/22 07/08/23 acidophilus-Bifidobac.animalis 2.5 billion cell capsule (Daily Probiotic) cyanocobalamin (vitamin B-12) 1,000 mcg PO DAILY 10/02/22 07/08/23 1,000 mcg tablet Allergies Allergy/AdvReac Type Severity Reaction Status Date / Time latex Allergy Severe Rash Verified 07/08/23 13:24 codeine Allergy Intermediate Nausea and Verified 07/08/23 13:24 Vomiting hydrocodone AdvReac Intermediate MAKES HER Verified 07/08/23 13:24 LOOPY AND SHAKEY aspirin AdvReac Mild Other Verified 07/08/23 13:24 Review of Systems Constitutional: Constitutional: Reports as per HPI, Denies chills and Denies fever(s) Eyes: Eyes: Reports no additional eye complaints Cardiovascular: Cardiovascular: Reports as per HPI and Reports no additional cardiovascular complaints Respiratory: Respiratory: Reports no additional respiratory complaints Musculoskeletal: Musculoskeletal: Reports stiffness (2nd digit of right hand) Integumentary/Breasts: Skin/Breast: Reports skin pain and Reports skin swelling (2nd digit of right hand) Neurologic: Reports system reviewed and no additional complaints, except as documented, Reports numbness and Reports tingling PMFSH Past Medical History Medical History Anxiety Arthritis Celiac disease Depression Hiatal hernia with GERD and esophagitis HSV-1 (herpes simplex virus 1) infection IBS (irritable bowel syndrome) Migraine Obesity PMDD (premenstrual dysphoric disorder) Vulvar cancer Surgical History Surgical History H/O tubal ligation History of bladder surgery Ablation 2011 History of orthopedic surgery Right ankle, hardware from a trampoline accident Family History Family History Grandparent Family history of cardiac disorder Father Family history of heart disease in male family member before age 55 Other Hypertension Social History Social History Smoking packs per day: 0.25 Smoking cigarettes per day: 5.0 Years smoked: 30 Smoking pack-years: 7.50 Smoking status: Current some day smoker Tobacco type: cigarettes Additional smoking assessment comments: HAS BEEN CUTING BACK RECENTLY Alcohol intake: never Substance use: never Substance use type: does not use Living arrangements: with family Gender identity (if verbalized by the patient): Female Spiritual care concerns: No Exam Const: General: cooperative, no acute distress, well developed, alert, awake, Physically active, well groomed and well nourished Orientation/consciousness: patient oriented x3 Limitations: no limitations HENMT: Head: normal to inspection Ears: external ears normal Face/Nose/Sinus: Normal external nose present Eyes: General: appearance normal, b
== END 2023-07-08 13:59 | disposition home or self-care (01) ==
PROVIDERS: Emergency Provider Nurse Practitioner Family; PCP Nurse Practitioner Family
DX: L03.011 Cellulitis of right finger (principal); F17.210 Nicotine dependence, cigarettes, uncomplicated; M19.90 Unspecified osteoarthritis, unspecified site; K90.0 Celiac disease; E66.9 Obesity, unspecified; Z68.35 Body mass index [BMI] 35.0-35.9, adult; F41.9 Anxiety disorder, unspecified; F32.A Depression, unspecified; Z85.44 Personal history of malignant neoplasm of other female genital organs
CPT/HCPCS: 99213; G0463

== ENCOUNTER 2023-08-21 16:28 | Emergency (ER) | payer OTHER, SELFPAY ==
--- NOTE | 2023-08-21 16:34 | ED.GENADULT ---
HPI - General Adult General Chief complaint: Back Pain/Injury Stated complaint: Lower Back Irritation Time Seen by Provider: 08/21/23 16:40 Source: patient, RN notes reviewed and old records reviewed Mode of arrival: ambulatory Limitations: no limitations History of Present Illness HPI narrative: 48-year-old female with complaints of low back pain. Denies any loss retention bowel or bladder. No rashes, erythema, ecchymosis . Denies any abdominal pain. A walks with a normal gait. Describes it in more of a pulling or sharp pain comes and goes. Nothing constant. No midline tenderness. No trauma Symptoms started this morning Onset (ago): hour(s) Related Data Home Medications Medication Instructions Recorded Confirmed cetirizine 10 mg tablet (Zyrtec) 10 mg PO DAILY 11/12/20 08/21/23 bupropion HCl 100 mg tablet,12 hr 100 mg PO BID 03/06/22 08/21/23 sustained-release celecoxib 200 mg capsule 200 mg PO DAILY 03/06/22 08/21/23 naltrexone 50 mg tablet 50 mg PO HS 03/06/22 08/21/23 pantoprazole 40 mg tablet,delayed 40 mg PO DIRECTED 05/29/22 08/21/23 release Lactobacillus 1 cap PO DAILY 10/02/22 08/21/23 acidophilus-Bifidobac.animalis 2.5 billion cell capsule (Daily Probiotic) cyanocobalamin (vitamin B-12) 1,000 mcg PO DAILY 10/02/22 08/21/23 1,000 mcg tablet Allergies Allergy/AdvReac Type Severity Reaction Status Date / Time latex Allergy Severe Rash Verified 08/21/23 16:40 codeine Allergy Intermediate Nausea and Verified 08/21/23 16:40 Vomiting hydrocodone AdvReac Intermediate MAKES HER Verified 08/21/23 16:40 LOOPY AND SHAKEY aspirin AdvReac Mild Other Verified 08/21/23 16:40 Review of Systems Review of Systems: All systems reviewed & are unremarkable except as noted in HPI and below Constitutional: Constitutional: Reports no additional constitutional complaints Eyes: Eyes: Reports no additional eye complaints ENT: Reports system reviewed and no additional complaints, except as documented Cardiovascular: Cardiovascular: Reports no additional cardiovascular complaints, Denies chest pain and Denies dyspnea Respiratory: Respiratory: Reports no additional respiratory complaints, Denies chest congestion, Denies cough and Denies dyspnea Gastrointestinal: Gastrointestinal: Reports no additional gastrointestinal complaints, Denies abdominal pain, Denies nausea and Denies vomiting Musculoskeletal: Musculoskeletal: Reports as per HPI Integumentary/Breasts: Skin/Breast: Reports system reviewed and no additional complaints, except as docu Neurologic: Reports system reviewed and no additional complaints, except as documented Psychiatric: Psychiatric: Reports no additional psychiatric complaints Allergic/Immunologic: Allergic/Immunologic: Reports no additional allergic/immunologic complaints PMFSH Past Medical History Medical History Anxiety Arthritis Celiac disease Depression Hiatal hernia with GERD and esophagitis HSV-1 (herpes simplex virus 1) infection IBS (irritable bowel syndrome) Migraine Obesity PMDD (premenstrual dysphoric disorder) Vulvar cancer Surgical History Surgical History H/O tubal ligation History of bladder surgery Ablation 2011 History of orthopedic surgery Right ankle, hardware from a trampoline accident Family History Family History Grandparent Family history of cardiac disorder Father Family history of heart disease in male family member before age 55 Other Hypertension Social History Social History Smoking packs per day: 0.25 Smoking cigarettes per day: 5.0 Years smoked: 30 Smoking pack-years: 7.50 Smoking status: Current some day smoker Tobacco type: cigarettes Additional smoking assessment comments: HAS BEEN
[2023-08-21 16:38] VITALS: BP 115/88; PULSE 80; RESP 16; TEMP 36.8; O2SAT 99
== END 2023-08-21 17:05 | disposition home or self-care (01) ==
PROVIDERS: Emergency Provider Nurse Practitioner; PCP Family Medicine
DX: S39.012A Strain of muscle, fascia and tendon of lower back, initial encounter (principal); X58.XXXA Exposure to other specified factors, initial encounter; M62.830 Muscle spasm of back; F41.9 Anxiety disorder, unspecified; F17.210 Nicotine dependence, cigarettes, uncomplicated; M19.90 Unspecified osteoarthritis, unspecified site; K90.0 Celiac disease; E66.9 Obesity, unspecified; Z68.35 Body mass index [BMI] 35.0-35.9, adult; Z85.44 Personal history of malignant neoplasm of other female genital organs
CPT/HCPCS: 99213; G0463

== ENCOUNTER 2024-03-30 09:51 | Outpatient (CLI) | payer OTHER, SELFPAY ==
--- NOTE | ~2024-03-30 | CT_ITS ---
EXAMINATION: CT abdomen pelvis w con DATE: 03/30/2024 10:17 INDICATION: Neoplasm of vulva. TECHNIQUE: Computed tomography (CT) of the abdomen and pelvis was performed with 100 mL Omnipaque 350 intravenous contrast. Automated exposure control and iterative reconstruction technique were employe d. The dose-length product was 1033.37 mGy-cm. COMPARISON: CT abdomen and pelvis 12/31/2018 FINDINGS: The visualized portions of the lung bases are clear without pneumonia or pleural effusion. The heart size is normal. No pericardial effusion. There is a moderate-sized sliding hiatal hernia. T he liver, gallbladder, pancreas, adrenal glands, and kidneys are normal. Calcifications in the spleen are consistent with old granulomatous disease. There is diverticulosis of the colon without evidence of diverticulitis. The appendix is normal. There are no pathologically enlarged lymph nodes. There i s physiologic fluid in the pelvis. There is mild thoracolumbar spondylosis. IMPRESSION: 1. No evidence of metastatic disease. 2. Moderate-sized sliding hiatal hernia. Reviewed, dictated and finalized at location A. [place] [employer]
== END 2024-03-30 09:52 | disposition home or self-care (01) ==
LOC: ANHIMG 09:52
PROVIDERS: PCP Nurse Practitioner Family; Visit Provider Obstetrics & Gynecology Gynecology
DX: C51.9 Malignant neoplasm of vulva, unspecified (principal); K44.9 Diaphragmatic hernia without obstruction or gangrene
CPT/HCPCS: 74177; Q9967

== ENCOUNTER 2024-06-21 18:56 | Emergency (ER) | payer OTHER, SELFPAY ==
--- NOTE | ~2024-06-21 | XR_ITS ---
EXAM: XR thoracic spine 3V DATE: 06/21/2024 21:26 HISTORY: trauma . COMPARISON: x-ray chest and ribs 11/12/2020. FINDINGS: Vertebral body alignment intact. Decreased mineralization. Mild stable anterior wedge defo rmity at multiple levels in the midthoracic spine. Mild multilevel degenerative disc disease. No trau matic malalignment or fracture. Visualized lung parenchyma is clear. IMPRESSION: No traumatic malalignment or fracture detected in the thoracic spine. Reviewed, dictated and finalized at location K. WELL FISHING TOOL TECHNICIAN IMPRESSION: No traumatic malalignment or fracture detected in the thoracic spin e.
--- NOTE | ~2024-06-21 | XR_ITS ---
EXAMINATION: [id number] Exam Date/Time: 06/21/2024 21:15 SCRAP KETTLE TENDER HISTORY: Fall/SOA Comparison: 11/12/2020, 10/25/2021. RESULT: Lines, tubes, and devices: None. Lungs and pleura: Clear. Cardiomediastinal silhouette: Hiatal hernia. Otherwise normal. Other: No acute osseous or upper abdominal finding. IMPRESSION: No acute cardiopulmonary process. No acute osseous finding in the ribs. Reviewed, dictated and finalized at location K. P KETTLE TENDER
--- NOTE | ~2024-06-21 | CT_ITS ---
EXAMINATION: CT brain wo con DATE: 06/21/2024 21:17 INDICATION: head injury . TECHNIQUE: Computed tomography (CT) of the head was performed without intravenous contrast. The mA wa s adjusted according to patient size. Iterative reconstruction technique was employed. The dose-lengt h product was 605.33 mGy-cm. COMPARISON: 06/27/2022. FINDINGS: No acute intracranial hemorrhage or extra-axial fluid collection. No hydrocephalus, mass, or herniation. No acute ischemic infarct. Unremarkable dural venous sinus attenuation. No acute osseous abnormality. The aerated spaces are clear. IMPRESSION: No acute intracranial process. Reviewed, dictated and finalized at location K. FACTURING INSPECTOR
--- OUTSIDE RECORDS SUMMARY | 2024-06-21 18:59 | XMS_ITS | Encounter Summary ---
Author Organization [facility] Health Address [address] [place] [address] Care Team Providers Care Environmental Services Specialist Name Role Phone Unknown, Provider Primary Care Provider Geri Alatorre MD Primary Care Provider Yevgeniy Agrawal [facility] Primary Care Provider Shy Lafleur [facility] Primary Care Provider + Reason for Visit * Reason Onset Date Comments Results 09/29/2019 Encounter Details Date Type Department Care Team (Late st Contact Info) Description 09/29/2019 Telephone [facility] [address] [place], [place] [id number] Rober Villatoro MD [address] [facility] [address] [place], [place] [id number] Results Social History Tobacco Use Types Packs/Day Years Used Date Smoking Tobacco: Every Day Smokeless Tobacco: Never Alcohol Use Standard Drinks/Week Comments No 0 (1 standard drink = 0.6 oz pur e alcohol) Sex and Gender Information Value Date Recorded Sex Assigned at Not on file Gender Identity Not on file Sexual Orientation Not on file documented as of this encounter Miscellaneous Notes * Telephone Encounter - Meliza Gan RN - 09/29/2019 10:42 AM CDT Patient aware will discuss with Irving and call patient on Thurs * Telephone Encounter - Mary Crouch - 09/29/2019 10:24 AM CDT Pt called in wanting to review her test results. Pt can be reached at . documented in this encounter Plan of Treatment Upcoming Encounters Date Type Department Care Team (Late st Contact Info) Description 03/14/2025 2:30 PM CDT Office Visit [facility] - CLINICAL ATHLETIC INSTRUCTOR [address] [place] [address] Rober Villatoro MD [address] [facility] [address] [place] [address] documented as of this encounter Visit Diagnoses Not on filedocumented in this encounter Care Teams Environmental Services Specialist Relationship Specialty Start Date End Date Unknown, Provider PCP - General 10/09/17 04/26/20 Geri Garcia MD [address] [place] [id number] PCP - General 04/27/20 10/03/20 Yevgeniy Agrawal [facility] [address] [place] [id number] PCP - General 10/04/20 03/14/24 Shy Lafleur [employer] MACHINE OPERATOR [address] [place] [id number] PCP - General Family Medicine 03/15/24 documented as of this encounter
--- OUTSIDE RECORDS SUMMARY | 2024-06-21 18:59 | XMS_ITS | CONTINUITY OF CARE DOCUMENT ---
Author Name daquan markdior Address Unknown Organization [facility] Address [address] [place] [address] Phone [phone] Care Team Providers Care Curtain Mender Name Role Phone Mayelin CARDOSO, Chente Unavailable [phone] BOUCHRA CARDOSO RASHMIN Unavailable BOUCHRA CARDOSO RASHMIN Unavailable PROBLEMS Condition Status Date Provider Notes CHEST PAIN-06/30 NUC EF 59 active ? León Pearsno RN OBESITY active ? Chente Dick MD SYNCOPE active ? Chente Dick MD DIZZINESS-06/30 ECHO EF 60 active ? León Pearson RN SLEEP APNEA active Chente Dick MD ENCOUNTERS Date Type Provider Location Encounter Diagnosis - In-person encounter Office Visit Chente Dick MD [facility] - In-person encounter Office Visit Chente Dick MD [facility] - In-person encounter Office Visit Chente Dick MD [facility] CHEST PAIN-06/30 NUC EF 59OBESITYSYNCOPEDI ZZINESS-06/30 ECHO EF 60SLEEP APNEA VITAL SIGNS Date Observation Value Provider blood pressure, diastolic 68 mm[Hg] Donnell Pearson RN blood pressure, systolic 113 mm[Hg] León Pearson RN pulse rate 64 /min León Pearson RN oxygen saturation, oximetry 98 % León Pearson RN respiratory rate E&M 16 /min León gipson RN Body Mass Index (Ratio) 32.27 kg/m2 León Pearson RN height E&M 61.5 [in_i] León Pearson RN weight E&M 173 [lb_av] León Pearson RN blood pressure, diastolic 80 mm[Hg] Brit seph [place] blood pressure, systolic 120 mm[Hg] Gilberto eph [place] pulse rate 90 /min Juan [place] oxygen saturation, oximetry 97 % Juan [place] respiratory rate E&M 16 /min Juan [place] weight E&M 192 [lb_av] Juan [place] blood pressure, diastolic 70 mm[Hg] Donnell Pearson RN blood pressure, systolic 109 mm[Hg] León Pearson RN pulse rate 78 /min León Pearson RN oxygen saturation, oximetry 100 % León Pearson RN respiratory rate E&M 16 /min León gipson RN weight E&M 195 [lb_av] León Pearson RN ALLERGIES Allergy Name Onset Date Reaction Criticality Status CODEINE High Criticality active ASPIRIN High Criticality active RESULTS Date Observation Value Provider Reference Range Interpretation Location 7 D-dimer quantitative mcg/mL 0.8 ug/mL Juan Diego Saavedra 7 platelet count 231 10*3/mm3 Juan Diego Saavedra 7 hematocrit, blood 38.7 % Juan Diego Saavedra 7 B-type natriuretic peptide <10 Juan Diego Saavedra 7 creatinine, serum 0.61 mg/dL Juan Diego Saavedra 7 potassium, serum 3.7 mmol/L Juan Diego Saavedra 7 sodium, serum 139 mmol/L Juan Diego Saavedra HISTORY OF MEDICATION USE Medication Status Instructions Dates Provider Indications Com ments CHANTIX 0.5 MG ORAL TABLET active in the evening León Pearson RN BUSPIRONE HCL 5 MG ORAL TABLET completed 1 tab twice a day - 3 León Pearson RN AUGMENTIN TABS completed 500mg once a day - 3 León Pearson RN ACIDOPHILUS PROBIOTIC CAPSULE completed daily - 3 León Pearson RN MULTIVITAMINS TABS completed 1 tablet by mouth daily - 3 León Pearson RN VALTREX TABLET completed as needed - 3 León Pearson RN ALEVE TABLET active as needed Juan Patelcherelle FLONASE 50 MCG/ACT NASAL SUSPENSION completed 1 spray into each nostril at bedtime - 4 León Pearson RN TRAZODONE HCL 50 MG ORAL TABLET completed 1 tablet by mouth at bedtime - 4 León Pearson RN SOCIAL HISTORY Date Observation Value Provider smoking history, tot al pack/year 24 León Pearson RN seatbelt usage 100 % Chente Dick MD alcohol counseling no Chente lundberg MD drug use no Chente Torres passive cigarette sm lane exposure no León Pearson RN smoking history, tot al pack/day 3 cigs León Pearson RN smoking history, tot al pack/year 23 León Pearson RN cigarette use yes León Pearson RN smoking, date started 1989 Rod vides RN social history revie wed E&M reviewed León Pearson RN smoking status smoker - current status un known Chente Dick MD social history E&M L leydi with family/friends E thnicity: CaucasianMarital Status: Chente Dick MD social history revie wed E&M reviewed León Pearson RN drug use none Chente Torres social history E&M L leydi with family/friends E thnicity: León Pearson RN social history revie wed E&M reviewed León Pearson RN physical exercise, frequency, days per week yes [employer] caffeine use, averag e drinks per day yes [employer] alcohol use, average drinks per day social basis only [employer] number of years as a smoker 10 years or more [employer] smoking status Smoker [employer] MENTAL STATUS Date Observation Value Provider assessment of judgme nt and insight E&M Alert and oriented to time, place and person. Mood and affect are normal. León Pearson RN assessment of judgme nt and insight E&M Alert and oriented to time, place and person. Mood and affect are normal. León Pearson RN assessment of judgme nt and insight E&M Alert and oriented to time, place and person. Mood and affect are normal. León Pearson RN INSURANCE PROVIDERS Payer name Policy type / Coverage type [place] red green party ID [facility] Medicaid 0 [id number] TREATMENT PLAN Date Name Performer routine: B P today: 113/68 Prior BP: 120/80 (08/20/2011) N uclear Stress Findings: 1. Normal myocardial perfusion imaging after vasodilator stress with Regadenoson. 2 . Normal left ventricular systolic function with a calculated ejection fraction of 59%. 3 . No obvious significant scintigraphic evidence of myocardial ischemia or scar. (07/04/2011) S tress Echo Findings: Contrast enhancement was employed after initial imaging due t o sub-optimal quality related to co-morbidity defined by p atient's body habitus. Maximal Exercise Stress Echocardiogram, NEGATIVE for myocardial ischemia. - [facility] (07/25/2011) H CT: 38.7 (07/24/2011) Platelets: 231 (07/24/2011) C reat: 0.61 (07/24/2011) Na+: 139 (07/24/2011) K+: 3.7 (07/24/2011) O rders: E KG (CPT-39663) Chente Dick MD routine: B P today: 113/68 Prior BP: 120/80 (08/20/2011) H CT: 38.7 (07/24/2011) Platelets: 231 (07/24/2011) C reat: 0.61 (07/24/2011) Na+: 139 (07/24/2011) K+: 3.7 (07/24/2011) Nuclear Stress Findings: 1. Normal myocardial perfusion imaging after vasodilator stress with Regadenoson. 2 . Normal left ventricular systolic function with a calculated ejection fraction of 59%. 3 . No obvious significant scintigraphic evidence of myocardial ischemia or scar. (07/04/2011) S tress Echo Findings: Contrast enhancement was employed after initial imaging due t o sub-optimal quality related to co-morbidity defined by p aleida's body habitus. Maximal Exercise Stress Echocardiogram, NEGATIVE for myocardial ischemia. - [facility] (07/25/2011) Chente Dick MD routine: T he following medications were removed from the medication list: Buspirone Hcl 5 Mg Tabs (Buspirone hcl) ..... 1 tab twice a day BP today: 113/68 Prior BP: 120/80 (08/20/2011) H CT: 38.7 (07/24/2011) Platelets: 231 (07/24/2011) C reat: 0.61 (07/24/2011) Na+: 139 (07/24/2011) K+: 3.7 (07/24/2011) Nuclear Stress Findings: 1. Normal myocardial perfusion imaging after vasodilator stress with Regadenoson. 2 . Normal left ventricular systolic function with a calculated ejection fraction of 59%. 3 . No obvious significant scintigraphic evidence of myocardial ischemia or scar. (07/04/2011) S tress Echo Findings: Contrast enhancement was employed after initial imaging due t o sub-optimal quality related to co-morbidity defined by p aleida's body habitus. Maximal Exercise Stress Echocardiogram, NEGATIVE for myocardial ischemia. - [facility] (07/25/2011) Chente Dick MD follow up: O rders: E KG (CPT-08219) BP today: 120/80 Prior BP: 109/70 (07/02/2011) N uclear Stress Findings: 1. Normal myocardial perfusion imaging after vasodilator stress with Regadenoson. 2 . Normal left ventricular systolic function with a calculated ejection fraction of 59%. 3 . No obvious significant scintigraphic evidence of myocardial ischemia or scar. (07/04/2011) E chocardiogram: Normal left ventricular systolic function. Normal left ventricular size. Normal left ventricular wall thickness. Normal left ventricular diastolic function. Normal E/E` 9.0. Left ventricular ejection fraction is estimated at 60%. The mitral valve is normal in appearance and function. Aortic valve leaflets appear structurally normal. Velocities, as well as gradients across the aortic valve are normal. No evidence of aortic insufficiency. Normal appearing tricuspid valve leaflets. There is mild tricuspid regurgitation. IVC is normal in size with normal respiratory response. Estimated peak pulmonary a rtery systolic pressure is 29.0 mmHg. - [facility] (07/02/2011) Chente Dick MD follow up: B P today: 120/80 Prior BP: 109/70 (07/02/2011) N uclear Stress Findings: 1. Normal myocardial perfusion imaging after vasodilator stress with Regadenoson. 2 . Normal left ventricular systolic function with a calculated ejection fraction of 59%. 3 . No obvious significant scintigraphic evidence of myocardial ischemia or scar. (07/04/2011) E chocardiogram: Normal left ventricular systolic function. Normal left ventricular size. Normal left ventricular wall thickness. Normal left ventricular diastolic function. Normal E/E` 9.0. Left ventricular ejection fraction is estimated at 60%. The mitral valve is normal in appearance and function. Aortic valve leaflets appear structurally normal. Velocities, as well as gradients across the aortic valve are normal. No evidence of aortic insufficiency. Normal appearing tricuspid valve leaflets. There is mild tricuspid regurgitation. IVC is normal in size with normal respiratory response. Estimated peak pulmonary artery systolic pressure is 29.0 mmHg. - [facility] (07/02/2011) Chente Dick MD follow up: H er updated medication list for this problem includes: Buspirone Hcl 5 Mg Tabs (Buspirone hcl) ..... 1 tab twice a day BP today: 120/80 Prior BP: 109/70 (07/02/2011) N uclear Stress Findings: 1. Normal myocardial perfusion imaging after vasodilator stress with Regadenoson. 2 . Normal left ventricular systolic function with a calculated ejection fraction of 59%. 3. No obvious significant scintigraphic evidence of myocardial ischemia or scar. (07/04/2011) E chocardiogram: Normal left ventricular systolic function. Normal left ventricular size. Normal left ventricular wall thickness. Normal left ventricular diastolic function. Normal E/E` 9.0. Left ventricular ejection fraction is estimated at 60%. The mitral valve is normal in appearance and function. Aortic valve leaflets appear structurally normal. Velocities, as well as gradients across the aortic valve are normal. No evidence of aortic insufficiency. Normal appearing tricuspid valve leaflets. There is mild tricuspid regurgitation. IVC is normal in size with normal respiratory response. Estimated peak pulmonary a rtery systolic pressure is 29.0 mmHg. - [facility] (07/02/2011) Chente Dick MD chest pain : B P today: 109/70 Prior BP: / () Orders: S tress Test - Adenosine (51631) C omplete Echo (CPT-80893) Chente Dick MD chest pain : O rders: S tress Test - Adenosine (59289) C omplete Echo (CPT-77523) S leep Study (*) Chente Dick MD chest pain : B P today: 109/70 Prior BP: / () Orders: S tress Test - Adenosine (02837) C omplete Echo (CPT-59465) Chente Dick MD Date Name Sleep Study Complete Echo Stress Test - Adenos ine HISTORY OF PROCEDURES Procedure Date Procedure Name Provider Procedure Notes S tatus EKG Chente Dick MD complete d EKG Cehnte Dick MD complete d
--- OUTSIDE RECORDS SUMMARY | 2024-06-21 18:59 | XMS_ITS | Encounter Summary ---
Author Organization [facility] Health Address [address] [place] [address] Care Team Providers Care Electric Tool Repairer Name Role Phone AgrawalYevgeniy FLIGHT COORDINATOR-LICENSING COORDINATOR Primary Care Provider Shy Lafleur FLIGHT COORDINATOR-LICENSING COORDINATOR Primary Care Provider + Reason for Visit * Reason Onset Date Comments Pre Authorization 03/02/2024 Encounter Details Date Type Department Care Team (Late st Contact Info) Description 03/02/2024 Telephone [facility]OTHER [address] [place] [address] Rober Villatoro MD [address] [facility] [address] [place], [place] [id number] Pre Authorization Social History Tobacco Use Types Packs/Day Years Used Date Smoking Tobacco: Every Day Cigarettes 0.5 27 Smokeless Tobacco: Never Comments:has cut down Alcohol Use Standard Drinks/Week Comments No 0 (1 standard drink = 0.6 oz pur e alcohol) PHQ-2 Answer Date Recorded PHQ2 TOTAL SCORE 0 02/19/2021 Sex and Gender Information Value Date Recorded Sex Assigned at Not on file Gender Identity Not on file Sexual Orientation Not on file documented as of this encounter Miscellaneous Notes * Telephone Encounter - Solitario Foxa - 03/02/2024 10:44 AM CDT [facility] is calling updating the status for authorization was denied for ct scan 19163 forabdomen and pelvic. CB: [phone] documented in this encounter Plan of Treatment Upcoming Encounters Date Type Department Care Team (Late st Contact Info) Description 03/14/2025 2:30 PM CDT Office Visit [facility] - [place] [place] [address] [place] [address] Rober Villatoro MD [address] [place] [address] documented as of this encounter Goals Goal Patient Goal Type Associated Problems Recent Progress Patient-Stated? Author Mobility General No Dena Hartmann, RN Note: Expected end date: 08/16/2021 The goal is to maintain or improve your mobility at the optimum level for you. Interventions: documented as of this encounter Visit Diagnoses Not on filedocumented in this encounter Care Teams Electric Tool Repairer Relationship Specialty Start Date End Date Yevgeniy Agrawal, FLIGHT COORDINATOR-LICENSING COORDINATOR [address] [place] [address] PCP - General 10/04/20 03/14/24 Shy Lafleur FLIGHT COORDINATOR-LICENSING COORDINATOR [address] [place] [phone] PCP - General Family Medicine 03/15/24 documented as of this encounter
--- OUTSIDE RECORDS SUMMARY | 2024-06-21 18:59 | XMS_ITS | Encounter Summary ---
Author Organization [facility] Health Address [address] [place] [address] Care Team Providers Care Wire Technician Name Role Phone AgrawalYevgeniy DOOR TO DOOR SELLING DISTRIBUTOR-COP WINDER Primary Care Provider Shy Lafleur DOOR TO DOOR SELLING DISTRIBUTOR-COP WINDER Primary Care Provider + Encounter Details Date Type Department Care Team (Late st Contact Info) Description 02/19/2021 Telephone [facility] [address] [place] [address] Mariya Enciso MD [address] [phone] Social History Tobacco Use Types Packs/Day Years [...] on file Sexual Orientation Not on file COVID-19 Exposure Response Date Recorded In the last month, have you been in contact with someone who was confirmed or suspected to have Coronavirus / COVID-19? No / Unsure 02/01/2021 11:22 AM CDT documented as of this encounter Miscellaneous Notes * Telephone Encounter - Jazzy Rivera - 02/19/2021 8:08 AM CDT Current Provider name: Dr. Mariya Enciso Reason for call: Ms. Kathy Medina just called in and had sent [employer] message, she can't drive over to this morn's appt because of her arm, she would like to know if we could change her 9:20 Appt w/Dr. Enciso to TEL or VID what ever is best. Please advise. Patient Call Back number: [phone] documented in this encounter Plan of Treatment Upcoming Encounters Date Type Department Care Team (Late st Contact Info) Description 03/14/2025 2:30 PM CDT Office Visit [facility] - [facility]E RECYCLER [address] [place] [address] Rober Villatoro MD [address] [facility] [address] [place] [address] documented as of this encounter Visit Diagnoses Not on filedocumented in this encounter Care Teams Wire Technician Relationship Specialty Start Date End Date Yevgeniy Agrawal APRN-NICOLAS [address] [place] [phone] PCP - General 10/04/20 03/14/24 Shy Lafleur APRN-COP WINDER [address] [place] [phone] PCP - General Family Medicine 03/15/24 documented as of this encounter
--- OUTSIDE RECORDS SUMMARY | 2024-06-21 18:59 | XMS_ITS | Referral Summary ---
Author Organization [facility] Address [address] [place] [address] Care Team Providers Care Respiratory Clinician Name Role Phone Shy Lafleur Cyn GOTTLIEB-CAR SERVICER Primary Care Provider + Source Comments [facility],non[facility] Affiliates and Associated Physician Practices is amultiple site organization consisting of ambulatory clinics and hospital sitesin [place], [place], [place]. This disclosure is being madepursuant to the Care Everywhere program and may not contain all information available regarding this patient. Last updated 18.[facility] [employer] Encounters Date Type Department Care Team Description 03/23/2024 Telephone [facility] - CIGARETTE MAKING MACHINE HOPPER FEEDER [address], [facility] [address] [place] [address] Rober Villatoro MD Question from Last 3 Months Allergies Active Allergy Reactions Criticality Noted Date Comments Adhesive Sensitivity Urticaria Medium 11/04/2019 Aspirin GI Discomfort Low 11/04/2019 Reaction: GI upset, Codeine Nausea and/or Vomiting Low 12/21/2018 Hydrocodone-Acetaminop hen Dizziness Low 11/04/2019 Reaction: Dizziness, Latex Urticaria High 11/04/2019 Hives Medications * Be aware that medications may not be up to date on this document. Alwaysverify current medications with the patient. Medication Sig Dispensed Refills Start Date End Date Status Lactobacillus (PROBIOTIC ACIDOPHILUS PO) Take 500 mg by mouth once daily Active VITAMIN D PO Take 3,000 Units by mouth once daily Active CELECOXIB PO Take by mouth once daily Active pantoprazole EC (Protonix) 20 MG tablet Take 1 (one) tablet by mouth once daily Active cetirizine (ZyrTEC) 10 MG tablet Active buPROPion SR 12hr (Wellbutrin-SR) 150 MG tablet Take 1 (one) tablet by mouth 2 times daily 09/03/2023 Active Active Problems Problem Noted Date Diagnosed Date Ankle pain 04/27/2020 Anxiety 04/27/2020 Cellulitis and abscess of toe 04/27/2020 Herpes simplex 04/27/2020 Irritable bowel syndrome 04/27/2020 Migraine 04/27/2020 Obesity 04/27/2020 Premenstrual dysphoric disorder 04/27/2020 Tobacco dependence syndrome 04/27/2020 Tonsillitis 04/27/2020 Vertigo 04/27/2020 Pain in joint of right shoulder 02/08/2020 Tendinitis of right shoulder 02/08/2020 Incomplete tear of rotator cuff 2020 Spinal stenosis in cervical region 2020 Malignant neoplasm of vulva 01/02/2015 Tobacco use 01/02/2015 Sleep apnea 07/02/2011 Resolved Problems Problem Noted Date Diagnosed Date Resolved Date Diarrhea 04/27/2020 05/25/2020 Sinusitis 04/27/2020 05/25/2020 Immunizations Name Administration Dates Next Due INFLUENZA VACCINE, QUADR. (F LUZONE; FLULAVAL; FLUARIX; AFLURIA QUADRIVALENT; 6MO+), 0.5 ML (IIV4) 03/10/2020,03/18/2014 MMR 05/21/2019 TDAP (7yrs+) 03/15/2014 Social History Tobacco Use Types Packs/Day Years [...] on file Sexual Orientation Not on file Last Filed Vital Signs Vital Sign Reading Time Taken Comments Blood Pressure 118/70 03/15/2024 2:27 PM CDT Pulse 72 02/01/2021 10:37 AM CDT irre g Temperature 36.9 ??C (98.4 ??F) 02/01/2021 10:37 AM C DT Respiratory Rate - - Oxygen Saturation - - Inhaled Oxygen Concentration - - Weight 82 kg (180 lb 12.8 oz) 03/15/2024 2:27 PM CDT Height 154.9 cm (5' 1 ) 03/15/2024 2:27 PM CDT Body Mass Index 34.16 03/15/2024 2:27 PM CDT Plan of Treatment Upcoming Encounters Date Type Department Care Team (Late st Contact Info) Description 03/14/2025 2:30 PM CDT Office Visit [facility] - CIGARETTE MAKING MACHINE HOPPER FEEDER [address] [place] [phone] Rober Villatoro MD [address] [place] [address] Goals Goal Patient Goal Type Associated Problems Recent Progress Patient-Stated? Author Mobility General No Dena Hartmann RN Note: Expected end date: 08/16/2021 The goal is to maintain or improve your mobility at the optimum level for you. Interventions: Procedures Procedure Name Priority Date/Time Associated Diagnosis Comments HPV DETECTION HIGH RISK FITO Routine 02/18/2022 10:47 AM CDT Malignant neoplasm of vulva (HCC) HEPATITIS C RNA QUANTITATIVE 02/05/2021 12:06 PM CDT Polyarthralgia from Last 3 Months or Most Recently Relevant to Health Maintenance Results * HPV DETECTION HIGH RISK FITO (02/18/2022 10:47 AM CDT) High Risk Human Papilloma Result Not detected Not detected 02/22/2022 3:14 PM CDT [facility] High Risk Human Papilloma Interp 02/22/2022 3:14 PM CDT [facility] Comment:High Risk Human Brian lloma Virus was Not Detected. Pathology/Cytolo gy MISCELLANEOUS SAMPLES / Unknown 02/18/2022 10:47 AM CDT 02/19/2022 11:54 AM CDT Narrative [facility] - 02/22/2022 3:14 PM CDT Nucleic acid isolated from the specimen was analyzed with a nucleic acid amplification test (FDA approved Gen-Probe HPV Assay) to detect high risk human papilloma virus (Types: 16, 18, 31, 33, 35, 39, 45, 51, 52, 56, 58, 59, 66, and 68). ??The reference range is Not Detected . Comment: These test results should not be used as the sole basis for clinical assessment and treatment of patients. ??These results should always be correlated with other available data (cytology, histology, and clinical information). Rober Villatoro MD LAB - MICROBIOLOGY O RODRIGUEZ Performing Organization Address [facility] Co de Phone Number [facility] [phone] * HEPATITIS C RNA QUANTITATIVE (02/05/2021 12:06 PM CDT) Pathologist [facility] Hepatitis C Virus RNA, Quantitative Real Time PCR <15 NOT DETECTED NOT DETECTED IU/mL [employer] Hepatitis C Virus RNA, Quantitative Real Time PCR <1.18 NOT DETECTED NOT DETECTED Log IU/mL [employer] Comment: This test was performed using Real-Time Polymerase Chain Reaction. Reportable Range: 15 IU/mL to 100,000,000 IU/mL (1.18 Log IU/mL to 8.00 Log IU/mL). ?? The analytical performance characteristics of this assay have been determined by [employer]. The modifications have not been cleared or approved by the FDA. This assay has been validated pursuant to the CLIA regulations and is used for clinical purposes. ?? For more information on this test, go to: http://education.Formula XO.Lvmae/faq/XGV25e8 (This link is being provided for informational/ educational purposes only.) Test Performed at: [employer] ??[id number] CARLOS MANUEL SALCEDO DO,MPH 02/05/2021 12:0 6 PM CDT 02/05/2021 12:13 PM CDT Mariya Enciso MD LAB - CHEMISTRY [address] [address] [place] [address] from Last 3 Months or Most Recently Relevant to Health Maintenance Care Teams Respiratory Clinician Relationship Specialty Start Date End Date Shy Lafleur, COMPENSATION COORDINATOR-CAR SERVICER [address] [place] [address] [place] [address] PCP - General Family Medicine 03/15/24
--- OUTSIDE RECORDS SUMMARY | 2024-06-21 18:59 | XMS_ITS ---
Author Organization [facility] [address] Address [address] [place] [address] Care Team Providers Care Automotive Manager Name Role Phone Shy Lafleur NP Primary Care Provider [phone] Active Problems Patient Care Coordination No te Formatting of this note migh t be different from the original. Haydee Harding NP 02/26/2023 12:07 PM This is a 48-year-old female patient presenting to the clinic today in consultation for a hiatal hernia. Patient was referred to the clinic by Dr. Riley Briceño. She has a medical history significant for migraines, vulvar cancer, IBS, arthritis, depression, STIs, heartburn, and torn rotator cuff. She is a current everyday half a pack per day smoker. She underwent an EGD on 01/09/[address] Riley Briceño which reveals: Findings: The duodenum was normal. No ulcers, lesions, or masses were noted. Biopsies were taken to rule out malabsorption given her history of villous blunting in her small bowel. Stomach was grossly normal. AJ turn maneuver revealed a normal fundus. Esophagus revealed a hiatal hernia and possible Gandhi's. Biopsies were taken. Again noted was a large esophageal diverticulum in the esophagus. Blood loss: Minimal. Impression: As above. Plan: Check biopsy results. Continue with PPI. Referred to surgery for her hiatal hernia (and diverticulum). Final pathology on the biopsies obtained during EGD on 01/09/2023 reveal: Esophagus, endoscopic biopsy: Gastric type glandular mucosa without intestinal metaplasia or dysplasia. Duodenum, endoscopic biopsy: No pathologic findings. There is mention of a previous CT of the abdomen and pelvis completed in 2019 which revealed a mild to moderate sliding hiatal hernia. She underwent an esophagram on 02/17/2023 which revealed the following: FINDINGS: Emergency Medical Technician/Driver image is unremarkable. Limited evaluation of the pharynx demonstrates no aspiration or penetration. Mucosal relief image demonstrates no obvious ulceration. Esophageal motility is normal. Cine images demonstrate filling of a approximately 5.4 x 4.3 cm rounded structure projecting to the left of the distal esophagus. Subsequently, there is injection of contrast from this structure retrograde into the esophagus. There appears to be a small sliding type hiatal hernia. No free spillage of contrast is seen. Visualized portions of the duodenum grossly are unremarkable. IMPRESSION: Cine images demonstrate filling of approximately 5.4 x 4.3 cm rounded structure to the left of the distal esophagus. Contrast subsequently ejects from this rounded structure retrograde into the distal esophagus. 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 Additionally, there is a small sliding type hiatal hernia. Recommend correlation with endoscopic findings. Additionally, a CT may be helpful for further evaluation A CT chest was ordered and is scheduled to be completed prior to her appointment on 03/10/2023. She is here for further surgical evaluation and discussion. Haydee Harding NP 04/23/2023 10:11 AM This is a 48-year-old female patient returning to the clinic today regarding a symptomatic esophageal diverticulum. She was originally referred to the clinic by Dr. Riley Briceño. She has a medical history significant for migraines, vulvar cancer, IBS, arthritis, depression, STIs, heartburn, and torn rotator cuff. She is a current everyday half a pack per day smoker. She was last seen in the clinic on 03/10/2023 and at that time the following plan was determined: Typically this is felt to be associated with a motility disorder, possibly achalasia. On the CT scan today she did have a fluid-filled esophagus for much of the length. This would also fit with a motility disorder. The treatment would be to resect the diverticulum but to do myotomy that extends from the level of the diverticulum down onto the stomach. The operation could be done with a minimally invasive approach, but her BMI of 36.6 [address] logging operator the way of excellent visualization for the minimally invasive approach. I am also disappointed that she is smoking. I asked her to consider stopping smoking. She recently got back to work after taking time off from work due to her shoulder surgery. She was asking if it would be possible that she could not have the operation until after the of the year. She seems to be pretty stable with the current level of obstruction to her swallowing. I could do the operation sooner, but it is up to her. We decided on having her return on April 14, Friday, (of note, patient had to cancel for illness and is therefore following up today, 04/28/2023) for a follow-up visit. We will discuss her swallowing. We will check progress on her weight loss and check progress on her smoking cessation. At that point we could book a specific day for the operation and set her up for some pre testing. She is here for further evaluation and discussion. Haydee Harding NP 07/04/2023 11:24 AM This is a 48-year-old female patient returning to the clinic today for further evaluation regarding undergoing surgery for achalasia and epiphrenic diverticulum. She was originally referred to the clinic by Dr. Riley Briceño. She has a medical history significant for migraines, vulvar cancer, IBS, arthritis, depression, STIs, heartburn, and torn rotator cuff. She is a current everyday half a pack per day smoker. She was last seen on 04/28/2023 and at that time wanted to try to lose some more weight prior to surgery and we agreed see her back in 3 months to follow-up on weight loss and see if she is ready to have surgery. She is here for further evaluation and discussion. Haydee Harding NP 10/08/2023 1424 This is a 48-year-old female patient returning to the clinic today for a three- month follow-up. She was last seen in the clinic on 07/14/2023 for an epiphrenic diverticulum. She has a past medical history significant for achalasia, arthritis, depression, epiphrenic diverticulum, heartburn, hiatal hernia, irritable bowel syndrome, malignant neoplasm of vulva, migraines, and rotator cuff tear. She continues to be a quarter pack per day smoker. 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 She will need a myotomy of the distal esophagus and proximal stomach. She will also need a resection of the diverticulum and extension of the myotomy up onto the esophagus along the level equal to or higher than the neck of the diverticulum. Likely this would require laparoscopic and possibly thoracoscopic access. Right now she is just barely meeting the threshold of a BMI of 35 or lower. She wants to continue to try to lose some weight. We discussed all of this during our visit. I am very pleased with her progress. 1. Esophageal function and dysphagia: Return in 3 months with a follow-up visit. 2. Smoking Cessation - she is continues to smoke. We discussed the impact of continued tobacco use and offered tobacco cessation counseling. . 3. Nutrition - BMI is Body mass index is 34.96 kg/m??. and stable for the past year. 4. Dyspnea - she has has mild dyspnea on exertion but is functioning well Return to clinic 3 months . She is here for further discussion and evaluation. Haydee HardingPARVIN 02/17/2024 1528 This is a 49-year-old female patient returning to the clinic today for a three- month follow-up regarding achalasia and an acquired epinephric diverticulum. She was initially referred to the clinic by Dr. Riley Briceño. She has a past medical history significant for achalasia, arthritis, depression, epiphrenic diverticulum, heartburn, hiatal hernia, irritable bowel syndrome, malignant neoplasm of vulva, migraines, and rotator cuff tear. She continues to be a quarter pack per day smoker. She was last seen in the clinic on 10/20/2023 at which time the plan consisted of: She is back for follow-up visit. We have been having multiple follow-up visits as she addresses issues such as smoking and obesity while planning for an elective operation on her epiphrenic diverticulum and achalasia. She has not made much progress on the smoking or obesity issue. Her weight is up a few lb and she continues to smoke. She is currently in a gap at her primary care office. Her primary care left and a couple of the mid levels left and they physician continuing the practice is inundated. She does not think she will get in for a while. She has been trying different foods to maintain her nutrition while decreasing calories. She has issues with gluten intolerance and lactose intolerance as well as solid food intolerance due to the achalasia. The combination of all these things makes it very difficult for her to the diet and lose weight. We discussed all of this during our visit. I we talked about the possibility of just doing the operation. Even though she has morbidly obese, she has a hard time eating a good diet and it seems increasingly hard to imagine that she will be able to stop smoking to reduce the morbidity of the operation. However, after some discussion, she really wants to try 1 more time. We can send her to a dietitian to get some ideas about foods that she might be able to eat which are high nutrition low-calorie and tolerable for someone with achalasia. I would also consider offering her a nicotine replacement therapy in the form of a patch. She has had Chantix in the past which gave her some vivid dreams. She is open to the idea of trying nicotine replacement therapy in the form of a patch. Since last visit, the patient has had a telephone visit with a registered dietitian who has helped her come up with healthy food choices as well as a restricted calorie diet. She also reports that she has been started on Phentermine by her PCP since last visit. She is here for further discussion and evaluation. Problem Noted Date Diagnosed Date Lipoma 10/20/2023 Dry eyes 06/01/2023 Achalasia 04/28/2023 Abdominal pain 04/21/2023 Chest pain, unspecified 04/21/2023 [place] 04/21/2023 Depressive disorder 04/21/2023 Diarrhea 04/21/2023 Syncope 04/21/2023 Acquired esophageal diverticulum 04/21/2023 Acute sinusitis 04/20/2023 Carpal tunnel syndrome of right wrist 01/16/2023 Low serum creatinine 09/18/2022 Upper respiratory infection 09/04/2022 Hearing loss 08/27/2022 Tear of right rotator cuff 11/15/2021 Ganglion cyst of volar aspect of right wrist Hyperlipidemia 07/31/2021 Vitamin D deficiency 07/31/2021 Pain in right hand 07/23/2021 Neck pain 06/28/2020 Obesity 04/27/2020 Overview (07/14/2023): BMI 35 recent outpatient visit Ankle pain 04/27/2020 Anxiety 04/27/2020 Cellulitis and abscess of toe 04/27/2020 Herpes simplex 04/27/2020 Irritable bowel syndrome 04/27/2020 Migraine 04/27/2020 Premenstrual dysphoric disorder 04/27/2020 Tonsillitis 04/27/2020 Tobacco dependence syndrome 04/27/2020 Vertigo 04/27/2020 Pain in joint of right shoulder 02/08/2020 Tendinitis of right shoulder 02/08/2020 Incomplete tear of rotator cuff 2020 Spinal stenosis in cervical region 2020 Tobacco use 01/02/2015 Malignant neoplasm of vulva 05/01/2012 Overview (04/21/2023): colpo Dec 2014 Sleep apnea 07/02/2011 Current Oncology Plans No current plan information found. Past Plans No past plan information found. Radiation Treatments * No radiation treatments are documented for this patient in [facility]. Treatments may have been administered in another system. Lifetime Dose Tracking * Chemical Lifetime Dose Automatic Entry Manual Entr y Fluoro Time 0.85 minutes 0.85 minutes 0 minutes Air kerma at the reference point (Ka,r) 17.6 mGy 1 7.6 mGy 0 mGy
--- OUTSIDE RECORDS SUMMARY | 2024-06-21 18:59 | XMS_ITS | Patient Health Summary ---
Author Organization [facility] iPling Address [address] [place] [address] Care Team Providers Care Asian Studies Professor Name Role Phone Shy Lafleur Cyn GOTTLIEB-SECURITY MESSENGER Primary Care Provider + Note from [facility] [place],non-owned Affiliates and Associated Physician Practices is amultiple site organization consisting of ambulatory clinics and hospital sitesin [place], [place], [place] and [place]. This disclosure is being madepursuant to the Care Everywhere program and may not contain all information available regarding this patient. Last updated 18.[facility] Allergies * Adhesive Sensitivity(Urticaria) -Medium Criticality * Aspirin(GI Discomfort) -Low Criticality * Codeine(Nausea and/or Vomiting) -Low Criticality * Hydrocodone-Acetaminophen(Dizziness) -Low Criticality * Latex(Urticaria) -High Criticality Medications * Be aware that medications may not be up to date on this document. Alwaysverify current medications with the patient. * Lactobacillus (PROBIOTIC ACIDOPHILUS PO) Take 500 mg by mouth once daily * VITAMIN D PO Take 3,000 Units by mouth once daily * CELECOXIB PO Take by mouth once daily * pantoprazole EC (Protonix) 20 MG tablet Take 1 (one) tablet by mouth once daily * cetirizine (ZyrTEC) 10 MG tablet * buPROPion SR 12hr (Wellbutrin-SR) 150 MG tablet(Started 09/03/2023) Take 1 (one) tablet by mouth 2 times daily Active Problems Problem Noted Date Diagnosed Date [...] Diarrhea 04/27/2020 05/25/2020 Sinusitis 04/27/2020 05/25/2020 Immunizations * INFLUENZA VACCINE, QUADR. (FLUZONE; FLULAVAL; FLUARIX; AFLURIA QUADRIVALENT; 6MO+), 0.5 ML (IIV4)(Given 03/10/2020, 03/18/2014) * MMR(Given 05/21/2019) * TDAP (7yrs+)(Given 03/15/2014) Social History Tobacco Use Types Packs/Day Years [...] Mass Index 34.16 03/15/2024 2:27 PM CDT Procedures * PAP IMAGE-GUIDED(Performed 03/15/2024) Performed for Malignant neoplasm of vulva (HCC) * PAP IMAGE-GUIDED(Performed 02/24/2023) Performed for Malignant neoplasm of vulva (HCC) * PAP IMAGE-GUIDED W HPV(Performed 02/18/2022) Performed for Malignant neoplasm of vulva (HCC) * HPV DETECTION HIGH RISK FTIO(Performed 02/18/2022) Performed for Malignant neoplasm of vulva (HCC) * XR CERVICAL SPINE 2 OR 3VW(Performed 04/20/2021) Performed for Back pain, unspecified back location, unspecified back pain laterality, unspecified chronicity * XR LUMBAR SPINE 2 OR 3VW(Performed 04/20/2021) Performed for Back pain, unspecified back location, unspecified back pain laterality, unspecified chronicity * XR THORACIC SPINE 2VW(Performed 04/20/2021) Performed for Back pain, unspecified back location, unspecified back pain laterality, unspecified chronicity * LAB RESULTS ORDER(Performed 02/09/2021) * QUANTIFERON-TB GOLD PLUS 1-TUBE(Performed 02/05/2021) Performed for Polyarthralgia * ALDOLASE(Performed 02/05/2021) Performed for Polyarthralgia * HEPATITIS C RNA QUANTITATIVE(Performed 02/05/2021) Performed for Polyarthralgia * HEPATITIS B CORE ANTIBODY TOTAL(Performed 02/05/2021) Performed for Polyarthralgia * HEPATITIS B SURFACE ANTIBODY(Performed 02/05/2021) Performed for Polyarthralgia * DNA ANTIBODY DS CRITHIDIA W/REFLEX TITER(Performed 02/05/2021) Performed for Polyarthralgia * CENTROMERE B ANTIBODIES(Performed 02/05/2021) Performed for Polyarthralgia * CYCLIC CITRULLINATED PEPTIDE(CCP) AB IGG(Performed 02/05/2021) Performed for Polyarthralgia * SS-A/SS-B (SJOGREN'S) ANTIBODY PANEL(Performed 02/05/2021) Performed for Polyarthralgia * STARR (SM)+CORONER TECHNICIAN ANTIBODY PANEL(Performed 02/05/2021) Performed for Polyarthralgia * SCLERODERMA 70 (SCL) ANTIBODY(Performed 02/05/2021) Performed for Polyarthralgia * C-REACTIVE PROTEIN(Performed 02/05/2021) Performed for Polyarthralgia * RHEUMATOID FACTOR BLOOD QUANTITATIVE(Performed 02/05/2021) Performed for Polyarthralgia * DNA ANTIBODY DOUBLE STRANDED(Performed 02/05/2021) Performed for Polyarthralgia * BLOOD SCREEN W/REFLEX TITER(Performed 02/05/2021) Performed for Polyarthralgia * CBC W AUTO DIFFERENTIAL(Performed 02/05/2021) Performed for Polyarthralgia * ERYTHROCYTE SEDIMENTATION RATE(Performed 02/05/2021) Performed for Polyarthralgia * HLA TYPING B27(Performed 02/05/2021) Performed for Polyarthralgia * CK BLOOD(Performed 02/05/2021) Performed for Polyarthralgia * HEPATIC FUNCTION PANEL(Performed 02/05/2021) Performed for Polyarthralgia * CREATININE BLOOD(Performed 02/05/2021) Performed for Polyarthralgia * IMAGING/RADIOLOGY/XRAY RESULTS ORDER(Performed 11/05/2019) * PA BIOPSY OF UTERUS LINING(Performed 11/04/2019) Performed for Thickened endometrium, Pap smear abnormality of cervix/human papillomavirus (HPV) positive * PAP IMAGE-GUIDED W HPV(Performed 11/04/2019) Performed for Pap smear abnormality of cervix/human papillomavirus (HPV) positive * HPV DETECTION HIGH RISK FITO(Performed 11/04/2019) Performed for Pap smear abnormality of cervix/human papillomavirus (HPV) positive * PATHOLOGY TISSUE(Performed 11/04/2019) Performed for Thickened endometrium * PA US PELVIC NONOB REAL-TIME IMG COMPLETE(Performed 11/04/2019) Performed for Amenorrhea, Absence of menstruation * PA SONO EXAM, TRANSVAGINAL(Performed 11/04/2019) Performed for Amenorrhea, Absence of menstruation * ESTRADIOL(Performed 09/27/2019) Performed for Fatigue, unspecified type, Absence of menstruation * FSH + LH PANEL(Performed 09/27/2019) Performed for Fatigue, unspecified type, Absence of menstruation * THYROID PANEL W TSH (TSH,T4,T3 UPTAKE,FTI)(Performed 09/27/2019) Performed for Fatigue, unspecified type, Absence of menstruation * PAP IMAGE-GUIDED W HPV(Performed 02/13/2018) Performed for KHRIS III (vulvar intraepithelial neoplasia III) * HPV DETECTION HIGH RISK FITO(Performed 02/13/2018) Performed for KHRIS III (vulvar intraepithelial neoplasia III) * PATHOLOGY/GENETICS HISTORICAL-ONBASE(Performed 07/10/2017) * PATHOLOGY/GENETICS HISTORICAL-ONBASE(Performed 07/10/2017) * PATHOLOGY TISSUE(Performed 09/26/2016) * PATHOLOGY TISSUE(Performed 09/26/2016) * PATHOLOGY/GENETICS HISTORICAL-ONBASE(Performed 09/26/2016) * LAB HISTORICAL RESULTS-ONBASE(Performed 09/26/2016) * LAB HISTORICAL RESULTS-ONBASE(Performed 09/26/2016) * TSH+FREE T4 PANEL(Performed 07/05/2016) * PATHOLOGY/GENETICS HISTORICAL-ONBASE(Performed 07/05/2016) * PATHOLOGY/GENETICS HISTORICAL-ONBASE(Performed 07/05/2016) * CULTURE STREP GROUP A(Performed 11/08/2013) Results * PAP IMAGE-GUIDED (03/15/2024 3:49 PM CDT) Only the most recent of2 resultswithin the time period is included. Case Report Gynecologic Cytology Report ? Case: [id number] ? Authorizing Provider: ??Rober Villatoro MD ? Collected: ? 03/15/2024 03:49 PM ? Ordering Location: ? [facility] - ??Received: ?03/16/2024 11:42 AM ? FUR DYER ? First Screen: ?Lizandro Weinberg, CT(ASCP) ? Rescreen: ?Moisés Aranda ? Specimen: ?THINPREP - IMAGE GUIDED, Cervix/Endocervix ? 03/18/2024 9:48 AM CDT [facility] LMP postmenopausal 03/18/2024 9:48 AM CDT [facility] Menstrual Status Postmenopausal 02/18 9:48 AM CDT [facility] Specimen Adequacy Satisfactory for evaluation, endocervical/tranf ormation zone absent in a menopausal/post menopausal patient. 03/18/2024 9:48 AM CDT [facility] Categorization Negative for intraepithelial lesion or malignancy. 03/18/2024 9:48 AM CDT [facility] Interpretation DRUM SAW OPERATOR Negative for intraepithelial lesion or malignancy. 03/18/2024 9:48 AM CDT [facility] Other Atrophic changes. 9:48 AM CDT [facility] Pap Footnote The Pap Smear is a screening test. False positive and false negative results occur. Negative results do not preclude abnormalities, thus clinical correlation is required. This specimen was evaluated by the ThinPrep Imaging System along with an additional manual rescreening by a political science faculty member and/or pathologist. 03/18/2024 9:48 AM CDT [facility] Embedded Images 9:48 AM CDT [facility] Pathology/Cytolo gy MISCELLANEOUS SAMPLES / Unknown 03/15/2024 3:49 PM CDT 03/16/2024 11:42 AM CDT Rober Villatoro MD LAB - PATHOLOGY/CYTO LOGY ORDERABLES Performing Organization Address [facility] de Phone Number [facility] [address] [phone] * HPV DETECTION HIGH RISK FITO (02/18/2022 10:47 AM CDT) Only the most recent of3 resultswithin the time period is included. High Risk Human Papilloma Result Not detected Not detected 02/22/2022 3:14 PM CDT [facility] High Risk Human Papilloma Interp 02/22/2022 3:14 PM CDT [facility] Comment:High Risk Human Brian lloma Virus was Not Detected. Pathology/Cytolo gy MISCELLANEOUS SAMPLES / Unknown 02/18/2022 10:47 AM CDT 02/19/2022 11:54 AM CDT Narrative [facility] - 02/22/2022 3:14 PM CDT [...] Rober Villatoro MD LAB - MICROBIOLOGY O RDERABLES Performing Organization Address [facility] Co de Phone Number [facility] [address] [place] [address], [facility] [phone] * PAP IMAGE-GUIDED W HPV (02/18/2022 10:47 AM CDT) Only the most recent of3 resultswithin the time period is included. Case Report Gynecologic Cytology Report ? Case: [id number] ? Authorizing Provider: ??Rober Villatoro MD ? Collected: ? 02/18/2022 10:47 AM ? Ordering Location: ? [facility] ? Received: ?02/19/2022 11:54 AM ? Gynecology and Women's ? [facility] ? First Screen: ?George Todd ? Specimen: ?THINPREP - NON ??IMAGE GUIDED, Cervix/Endocervix ? 02/22/2022 3:45 PM CDT [facility] LMP tubal ligation 02/22/2022 3:45 PM CDT [facility] Menstrual Status None Applicable 11/2021 3:45 PM CDT [facility] Specimen Adequacy Satisfactory for evaluation, endocervical/tranf ormation zone absent in a menopausal/post menopausal patient. 02/22/2022 3:45 PM CDT [facility] Categorization Negative for intraepithelial lesion or malignancy. 02/22/2022 3:45 PM CDT [facility] Interpretation DRUM SAW OPERATOR Negative for intraepithelial lesion or malignancy. 02/22/2022 3:45 PM CDT [facility] Pap Footnote The Pap Smear is a screening test. False positive and false negative results occur. Negative results do not preclude abnormalities, thus clinical correlation is required. This specimen was evaluated by the ThinPrep Imaging System along with an additional manual rescreening by a political science faculty member and/or pathologist. 02/22/2022 3:45 PM CDT [facility] Embedded Images 3:45 PM CDT [facility] Pathology/Cytolo gy MISCELLANEOUS SAMPLES / Unknown 02/18/2022 10:47 AM CDT 02/19/2022 11:54 AM CDT Rober Villatoro MD LAB - PATHOLOGY/CYTO LOGY ORDERABLES Performing Organization Address City/State/[facility] Co de Phone Number [facility] [address] [phone] * XR CERVICAL SPINE 2 OR 3VW (04/20/2021 12:09 PM GYMNASTICS INSTRUCTOR) Anatomical Region Laterality Modality Spine Radiographic Angelique ging 04/20/2021 1:09 PM GYMNASTICS INSTRUCTOR Impressions 04/20/2021 1:12 PM GYMNASTICS INSTRUCTOR IMPRESSION: 1. Cervical spine: Mild degenerative changes at C5-6 and C6-7. 2. Thoracic spine: Normal. 3. Lumbar spine: Minimal facet degeneration in the lower lumbar spine. This report was electronically signed by CALIXTO SANCHEZ MD ??on 04/20/2021 1:12 PM . Narrative 04/20/2021 1:12 PM GYMNASTICS INSTRUCTOR Exam: XR THORACIC SPINE 2VW XR CERVICAL SPINE 2 VW XR LUMBAR SPINE 2 VW History: ??M54.9: Back pain, unspecified back location, unspecified back pain laterality, unspecified chronicity Comparison: None Findings: Cervical spine: C7 is partly obscured by the shoulders on the lateral view. There is no fracture or subluxation. There is mild degenerative disc and joint disease at C5-6 and C6-7. The upper cervical disc spaces are maintained. There is nonspecific straightening. Thoracic spine: There is no fracture or subluxation. The intervertebral disc spaces are maintained. Lumbar spine: There is no fracture or subluxation. Intervertebral disc spaces are maintained. There is mild facet sclerosis in the lower lumbar spine. Procedure Note Calixto Sanchez MD - 04/20/2021 Exam: XR THORACIC SPINE 2VW XR CERVICAL SPINE 2 VW XR LUMBAR SPINE 2 VW History: M54.9: Back pain, unspecified back location, unspecified back pain laterality, unspecified chronicity Comparison: None Findings: Cervical spine: C7 is partly obscured by the shoulders on the lateral view. There is no fracture or subluxation. There is mild degenerative disc and jointdisease at C5-6 and C6-7. The upper cervical disc spaces are maintained. Thereis nonspecific straightening. Thoracic spine: There is no fracture or subluxation. The intervertebral disc spaces are maintained. Lumbar spine: There is no fracture or subluxation. Intervertebral disc spaces are maintained. There is mild facet sclerosis in the lower lumbar spine. IMPRESSION: 1. Cervical spine: Mild degenerative changes at C5-6 and C6-7. 2. Thoracic spine: Normal. 3. Lumbar spine: Minimal facet degeneration in the lower lumbar spine. This report was electronically signed by CALIXTO SANCHEZ MD on04/20/2021 1:12 PM . [facility] * XR LUMBAR SPINE 2 OR 3VW (04/20/2021 12:08 PM GYMNASTICS INSTRUCTOR) Anatomical Region Laterality Modality Spine Radiographic Angelique ging 04/20/2021 1:09 PM GYMNASTICS INSTRUCTOR Impressions 04/20/2021 1:12 PM GYMNASTICS INSTRUCTOR IMPRESSION: 1. Cervical spine: Mild degenerative changes at C5-6 and C6-7. 2. Thoracic spine: Normal. 3. Lumbar spine: Minimal facet degeneration in the lower lumbar spine. This report was electronically signed by CALIXTO SANCHEZ MD ??on 04/20/2021 1:12 PM . Narrative 04/20/2021 1:12 PM GYMNASTICS INSTRUCTOR Exam: XR THORACIC SPINE 2VW XR CERVICAL SPINE 2 VW XR LUMBAR SPINE 2 VW History: ??M54.9: Back pain, unspecified back location, unspecified back pain laterality, unspecified chronicity Comparison: None Findings: Cervical spine: C7 is partly obscured by the shoulders on the lateral view. There is no fracture or subluxation. There is mild degenerative disc and joint disease at C5-6 and C6-7. The upper cervical disc spaces are maintained. There is nonspecific straightening. Thoracic spine: There is no fracture or subluxation. The intervertebral disc spaces are maintained. Lumbar spine: There is no fracture or subluxation. Intervertebral disc spaces are maintained. There is mild facet sclerosis in the lower lumbar spine. Procedure Note Calixto Sanchez MD - 04/20/2021 Exam: XR THORACIC SPINE 2VW XR CERVICAL SPINE 2 VW XR LUMBAR SPINE 2 VW History: M54.9: Back pain, unspecified back location, unspecified back pain laterality, unspecified chronicity Comparison: None Findings: Cervical spine: C7 is partly obscured by the shoulders on the lateral view. There is no fracture or subluxation. There is mild degenerative disc and jointdisease at C5-6 and C6-7. The upper cervical disc spaces are maintained. Thereis nonspecific straightening. Thoracic spine: There is no fracture or subluxation. The intervertebral disc spaces are maintained. Lumbar spine: There is no fracture or subluxation. Intervertebral disc spaces are maintained. There is mild facet sclerosis in the lower lumbar spine. IMPRESSION: 1. Cervical spine: Mild degenerative changes at C5-6 and C6-7. 2. Thoracic spine: Normal. 3. Lumbar spine: Minimal facet degeneration in the lower lumbar spine. This report was electronically signed by CALIXTO SANCHEZ MD on04/20/2021 1:12 PM . [facility]DER[facility] * XR THORACIC SPINE 2VW (04/20/2021 12:08 PM GYMNASTICS INSTRUCTOR) Anatomical Region Laterality Modality Spine Radiographic Angelique ging 04/20/2021 1:09 PM GYMNASTICS INSTRUCTOR Impressions 04/20/2021 1:12 PM GYMNASTICS INSTRUCTOR IMPRESSION: 1. Cervical spine: Mild degenerative changes at C5-6 and C6-7. 2. Thoracic spine: Normal. 3. Lumbar spine: Minimal facet degeneration in the lower lumbar spine. This report was electronically signed by CALIXTO SANCHEZ MD ??on 04/20/2021 1:12 PM . Narrative 04/20/2021 1:12 PM GYMNASTICS INSTRUCTOR Exam: XR THORACIC SPINE 2VW XR CERVICAL SPINE 2 VW XR LUMBAR SPINE 2 VW History: ??M54.9: Back pain, unspecified back location, unspecified back pain laterality, unspecified chronicity Comparison: None Findings: Cervical spine: C7 is partly obscured by the shoulders on the lateral view. There is no fracture or subluxation. There is mild degenerative disc and joint disease at C5-6 and C6-7. The upper cervical disc spaces are maintained. There is nonspecific straightening. Thoracic spine: There is no fracture or subluxation. The intervertebral disc spaces are maintained. Lumbar spine: There is no fracture or subluxation. Intervertebral disc spaces are maintained. There is mild facet sclerosis in the lower lumbar spine. Procedure Note Calixto Sanchez MD - 04/20/2021 Exam: XR THORACIC SPINE 2VW XR CERVICAL SPINE 2 VW XR LUMBAR SPINE 2 VW History: M54.9: Back pain, unspecified back location, unspecified back pain laterality, unspecified chronicity Comparison: None Findings: Cervical spine: C7 is partly obscured by the shoulders on the lateral view. There is no fracture or subluxation. There is mild degenerative disc and jointdisease at C5-6 and C6-7. The upper cervical disc spaces are maintained. Thereis nonspecific straightening. Thoracic spine: There is no fracture or subluxation. The intervertebral disc spaces are maintained. Lumbar spine: There is no fracture or subluxation. Intervertebral disc spaces are maintained. There is mild facet sclerosis in the lower lumbar spine. IMPRESSION: 1. Cervical spine: Mild degenerative changes at C5-6 and C6-7. 2. Thoracic spine: Normal. 3. Lumbar spine: Minimal facet degeneration in the lower lumbar spine. This report was electronically signed by CALIXTO SANCHEZ MD on04/20/2021 1:12 PM . [facility] * LAB RESULTS ORDER (02/09/2021) 02/09/2021 Narrative 02/09/2021 Ordered by an unspecified provider. Scanned Document LAB - THERAPEUTIC DR HILLIARD MONITORING ORDERABLES * QUANTIFERON-TB GOLD PLUS 1-TUBE (02/05/2021 12:06 PM CDT) Pathologist [facility] QuantiFERON TB Gold Plus NEGATIVE NEGATIVE [facility] Comment: Negative test result. M. tuberculosis complex infection unlikely. NIL 0.01 IU/mL [facility] MITOGEN MINUS NIL RESULT 9.76 IU/mL [facility] TB1-NIL 0.01 IU/mL [facility] TB2-NIL 0.00 IU/mL [facility] Comment: The Nil tube value reflects the background interferon gamma immune response of the patient's blood sample. This value has been subtracted from the patient's displayed TB and Mitogen results. Lower than expected results with the Mitogen tube prevent false-negative Quantiferon readings by detecting a patient with a potential immune suppressive condition and/or suboptimal pre-analytical specimen handling. The TB1 Antigen tube is coated with the M. tuberculosis-specific antigens designed to elicit responses from TB antigen primed CD4+ helper T-lymphocytes. The TB2 Antigen tube is coated with the M. tuberculosis-specific antigens designed to elicit responses from TB antigen primed CD4+ helper and CD8+ cytotoxic T-lymphocytes. For additional information, please refer to https://education.[employer]/faq/ZMS758 (This link is being provided for informational/ educational purposes only.) Test Performed at: [facility] [id number] [place], [place] ??[phone] CARLOS MANUEL SALCEDO DO,MPH 02/05/2021 12:0 6 PM CDT 02/05/2021 12:13 PM CDT Mariya Enciso MD LAB - CHEMISTRY LYNNETTE BUTCHER [facility] Organization Address City/State/ZIP Co de Phone Number [facility] [address] [place] [phone] * STARR (SM)+CORONER TECHNICIAN ANTIBODY PANEL (02/05/2021 12:06 PM CDT) SM Antibody <1.0 NEG <1.0 NEG AI [facility] SM/CORONER TECHNICIAN Antibody <1.0 NEG <1.0 NEG AI [facility] Comment: Test Performed at: [facility] [id number] [place], [place] ??[phone] CARLOS MANUEL SALCEDO DO,MPH 02/05/2021 12:0 6 PM CDT 02/05/2021 12:13 PM CDT Mariya Enciso MD LAB - SEROLOGY ORDER SACHI Performing Organization Address City/[facility] [place] [address] * DNA ANTIBODY DS CRITHIDIA W/REFLEX TITER (02/05/2021 12:06 PM CDT) dsDNA Antibody Crithidia IFA NEGATIVE NEGATIVE [facility] Comment: Test Performed at: [facility] [address] ??[phone] BARBARA JUAREZ MD 02/05/2021 12:0 6 PM CDT 02/05/2021 12:13 PM CDT Mariya Enciso MD LAB - HEMATOLOGY ORD ERABLES Performing Organization Address City/[facility]/[place] [address] * CENTROMERE B ANTIBODIES (02/05/2021 12:06 PM CDT) Centromere B Antibody <1.0 NEG <1.0 NEG AI [facility] Comment: Test Performed at: [facility] [address] [place], [place] ??[phone] CARLOS MANUEL SALCEDO DO,MPH 02/05/2021 12:0 6 PM CDT 02/05/2021 12:13 PM CDT Mariya Enciso MD LAB - SEROLOGY ORDER SACHI Performing Organization Address [facility] de Phone Number [facility] [address] [place] [address] * HEPATITIS C RNA QUANTITATIVE (02/05/2021 12:06 PM CDT) Pathologist [facility] Hepatitis C Virus RNA, Quantitative Real Time PCR <15 NOT DETECTED NOT DETECTED IU/mL [facility] Hepatitis C Virus RNA, Quantitative Real Time PCR <1.18 NOT DETECTED NOT DETECTED Log IU/mL [facility] Comment: This test was performed using Real-Time Polymerase Chain Reaction. Reportable Range: 15 IU/mL to 100,000,000 IU/mL (1.18 Log IU/mL to 8.00 Log IU/mL). ?? The analytical performance characteristics of this assay have been determined by [facility]. The modifications have not been cleared or approved by the FDA. This assay has been validated pursuant to the CLIA regulations and is used for clinical purposes. ?? For more information on this test, go to: http://education.[employer]/faq/XXV73q8 (This link is being provided for informational/ educational purposes only.) Test Performed at: [facility] [id number] [place], [place] ??[phone] CARLOS MANUEL SALCEDO DO,MPH 02/05/2021 12:0 6 PM CDT 02/05/2021 12:13 PM CDT Mariya Enciso MD LAB - CHEMISTRY LYNNETTE BUTCHER Performing Organization Address [facility] Co de Phone Number [facility] [id number] [place] [address] * RHEUMATOID FACTOR BLOOD QUANTITATIVE (02/05/2021 12:06 PM CDT) Pathologist [facility] Rheumatoid Factor <14 <14 IU/mL [facility] Comment: Test Performed at: [facility] [id number] [place], [place] ??[phone] CARLOS MANUEL SALCEDO DO,MPH 02/05/2021 12:0 6 PM CDT 02/05/2021 12:13 PM CDT Mariya Enciso MD LAB - CHEMISTRY LYNNETTE BUTCHER Performing Organization Address [facility] Co de Phone Number [facility] [id number] [place] [address] * C-REACTIVE PROTEIN (02/05/2021 12:06 PM CDT) Pathologist [facility] C-Reactive Protein 3.0 <8.0 mg/L [facility] Comment: Test Performed at: [facility] [address] [place], [place] ??[phone] CARLOS MANUEL SALCEDO DO,MPH 02/05/2021 12:0 6 PM CDT 02/05/2021 12:13 PM CDT Mariya Enciso MD LAB - CHEMISTRY LYNNETTE BUTCHER Performing Organization Address [facility] de Phone Number [address] [address] * BLOOD SCREEN W/REFLEX TITER (02/05/2021 12:06 PM CDT) [facility] Screen NEGATIVE NEGATIVE [facility] Comment: IFA is a first line screen for detecting the presence of up to approximately 150 autoantibodies in various autoimmune diseases. A negative IFA result suggests an -associated autoimmune disease is not present at this time, but is not definitive. If there is high clinical suspicion for Sjogren's syndrome, testing for anti-SS-A/Ro antibody should be considered. Anti-Brit-1 antibody should be considered for clinically suspected inflammatory myopathies. AC-0: Negative International Consensus on Patterns (https://doi.org/10.1515/nwsj-4103-2323) For additional information, please refer to http://education.Visual Mining.Smart Energy/faq/WRF571 (This link is being provided for informational/ educational purposes only.) ?? Test Performed at: [facility] [address] [place], [place] ??[address] CARLO SMANUEL SALCEDO DO,MPH 02/05/2021 12:0 6 PM CDT 02/05/2021 12:13 PM CDT Mariya Enciso MD LAB - CHEMISTRY LYNNETTE BUTCHER Performing Organization Address [facility] Co de Phone Number [facility] [address] [place] [address] * SS-A/SS-B (SJOGREN'S) ANTIBODY PANEL (02/05/2021 12:06 PM CDT) Sjogren's Antibodies (SSA) <1.0 NEG <1.0 NEG AI [facility] Sjogren's Antibodies (SSB) <1.0 NEG <1.0 NEG AI [facility] Comment: Test Performed at: [facility] [address] [place], [place] ??[address] CARLOS MANUEL SALCEDO DO,MPH 02/05/2021 12:0 6 PM CDT 02/05/2021 12:13 PM CDT Mariya Enciso MD LAB - CHEMISTRY LYNNETTE BUTCHER Performing Organization Address [facility] de Phone Number [facility] [address] [place] [address] * HLA TYPING B27 (02/05/2021 12:06 PM CDT) HLA-B27 Antigen NEGATIVE NEGATIVE [facility] Comment: Test Performed at: [facility] [address] ??[phone] BARBARA JUAREZ MD 02/05/2021 12:0 6 PM CDT 02/05/2021 12:13 PM CDT Mariya Enciso MD LAB - CHEMISTRY LYNNETTE BUTCHER Performing Organization Address [facility] Co de Phone Number [facility] [address] [place] [address] * SCLERODERMA 70 (SCL) ANTIBODY (02/05/2021 12:06 PM CDT) SCL-70 Antibody <1.0 NEG <1.0 NEG AI [facility] Comment: Test Performed at: [facility] [address] [place], [place] ??[address] CARLOS MANUEL SALCEDO DO,MPH 02/05/2021 12:0 6 PM CDT 02/05/2021 12:13 PM CDT Mariya Enciso MD LAB - CHEMISTRY TRUDIEnedina LOOCOURTNEY Performing Organization Address [facility] Phone Number [facility] [address] [place] [address] * DNA ANTIBODY DOUBLE STRANDED (02/05/2021 12:06 PM CDT) dsDNA Antibody <1 IU/mL [facility] Comment: ? IU/mL ? Interpretation ? < or = 4 ?Negative ? 5-9 ? Indeterminate ? > or = 10 ?? Positive Test Performed at: [facility] [address] [place], [place] ??[address] CARLOS MANUEL SALCEDO DO,MPH 02/05/2021 12:0 6 PM CDT 02/05/2021 12:13 PM CDT Mariya Enciso MD LAB - HEMATOLOGY TRUDI WALLER Performing Organization Address [facility] de Phone Number [facility] [address] [place] [address] * ALDOLASE (02/05/2021 12:06 PM CDT) Aldolase 4.4 < OR = 8.1 U/L [facility] Comment: Test Performed at: [facility] [address] [facility], [place] ??[phone] CARLOS MANUEL SALCEDO DO,MPH 02/05/2021 12:0 6 PM CDT 02/05/2021 12:13 PM CDT Mariya Enciso MD LAB - CHEMISTRY LYNNETTE BUTCHER Performing Organization Address [facility] Co de Phone Number [facility] [address] [place] [address] * CYCLIC CITRULLINATED PEPTIDE(CCP) AB IGG (02/05/2021 12:06 PM CDT) Pathologist [facility] Cyclic Citrullinated Peptide Antibody IgG <16 UNITS [facility] Comment: Reference Range Negative: ?<20 Weak Positive: ? 20-39 Moderate Positive: ?? 40-59 Strong Positive: ? >59 Test Performed at: [facility] [address] [place], [place] ??[address] CARLOS MANUEL SALCEDO DO,MPH 02/05/2021 12:0 6 PM CDT 02/05/2021 12:13 PM CDT Mariya Enciso MD LAB - CHEMISTRY LYNNETTE BUTCHER Performing Organization Address [facility] Co de Phone Number [facility] [address] [place] [phone] * ERYTHROCYTE SEDIMENTATION RATE (02/05/2021 12:06 PM CDT) [facility] Erythrocyte Sedimentation Rate Westergren 14 < OR = 20 mm/h [facility] Comment: Test Performed at: [facility] [address] [place], [place] ??[address] CARLOS MANUEL SALCEDO DO,MPH 02/05/2021 12:0 6 PM CDT 02/05/2021 12:13 PM CDT Mariya Enciso MD LAB - HEMATOLOGY ORD SRIDHAR Performing Organization Address [facility] Co de Phone Number [facility] [address] [place] [address] * CBC WITH DIFFERENTIAL (02/05/2021 12:06 PM CDT) [facility] White Blood Cell Count 7.6 3.8 - 10.8 Thousand/u L [facility] RBC 4.41 3.80 - 5.10 Million/uL [facility] Hemoglobin 12.7 11.7 - 15.5 g/dL [facility] Hematocrit 38.6 35.0 - 45.0 % [facility] MCV 87.5 80.0 - 100.0 fL [facility] MCH 28.8 27.0 - 33.0 pg [facility] MCHC 32.9 32.0 - 36.0 g/dL [facility] RDW 13.0 11.0 - 15.0 % [facility] Platelet Count 251 140 - 400 Thousand/u L [facility] MPV 9.9 7.5 - 12.5 fL [facility] Neutrophil Absolute 4636 1500 - 7800 cells/uL [facility] Lymphocytes Absolute 2272 850 - 3900 cells/uL [facility] Absolute Monocytes 441 200 - 950 cells/uL [facility] Eosinophils Absolute 182 15 - 500 cells/uL [facility] Basophils Absolute 68 0 - 200 cells/uL [facility] Granulocytes % 61 % [facility] Lymphocytes % 29.9 % [facility] Monocytes % 5.8 % [facility] Eosinophils % 2.4 % [facility] Basophils % 0.9 % [facility] Comment: Test Performed at: [facility] [address] [place], [place] ??[address] CARLOS MANUEL SALCEDO DO,MPH 02/05/2021 12:0 6 PM CDT 02/05/2021 12:13 PM CDT Mariya Enciso MD LAB - HEMATOLOGY ORD ERABLES [facility] [address] [place] [address] * HEPATIC FUNCTION PANEL (02/05/2021 12:06 PM CDT) Protein Total 6.3 6.1 - 8.1 g/dL [facility] Albumin 4.0 3.6 - 5.1 g/dL [facility] Globulin Total 2.3 1.9 - 3.7 g/dL (calc) [facility] Albumin/Globulin Ratio 1.7 1.0 - 2.5 (calc) [facility] Bilirubin Total 0.3 0.2 - 1.2 mg/dL [facility] Bilirubin Direct 0.1 < OR = 0.2 mg/dL [facility] Bilirubin Indirect 0.2 0.2 - 1.2 mg/dL (calc) [facility] Alkaline Phosphatase 64 31 - 125 U/L [facility] AST 13 10 - 35 U/L [facility] ALT 12 6 - 29 U/L [facility] Comment: Test Performed at: [facility] [place], [place] ??[address] CARLOS MANUEL SALCEDO DO,MPH 02/05/2021 12:0 6 PM CDT 02/05/2021 12:13 PM CDT Mariya Enciso MD LAB - CHEMISTRY LYNNETTE BUTCHER Performing Organization Address [facility] Co de Phone Number [facility] [phone] [place], [place] [phone] * HEPATITIS B SURFACE ANTIBODY (02/05/2021 12:06 PM CDT) Hepatitis B Virus Surface Antibody NON-REACTI VE NON-REACT CARL [facility] Comment: Test Performed at: [facility] [address] [place], [place] ??[address] CARLOS MANUEL SALCEDO DO,MPH 02/05/2021 12:0 6 PM CDT 02/05/2021 12:13 PM CDT Mariya Enciso MD LAB - CHEMISTRY LYNNETTE BUTCHER Performing Organization Address [facility] Co de Phone Number [facility] [address] [place] [address] * HEPATITIS B CORE ANTIBODY (02/05/2021 12:06 PM CDT) Pathologist [facility] Hepatitis B Core Virus Antibody Total NON-REACTI VE NON-REACT CARL [facility] Comment: Test Performed at: [facility] [address] [place], [place] ??[address] CARLOS MANUEL SALCEDO DO,MPH 02/05/2021 12:0 6 PM CDT 02/05/2021 12:13 PM CDT Mariya Enciso MD LAB - CHEMISTRY LYNNETTE BUTCHER Performing Organization Address [facility] Co de Phone Number [facility] [address] [place] [address] * CREATININE BLOOD (02/05/2021 12:06 PM CDT) Pathologist [facility] Creatinine 0.58 0.50 - 1.10 mg/dL [facility] eGFR by MDRD 110 > OR = 60 mL/min/1.7 3m2 [facility] eGFR by MDRD 127 > OR = 60 mL/min/1.7 3m2 [facility] Comment: Test Performed at: [facility] [address] [place], [place] ??[address] CARLOS MANUEL SALCEDO DO,MPH 02/05/2021 12:0 6 PM CDT 02/05/2021 12:13 PM CDT Mariya Enciso MD LAB - CHEMISTRY LYNNETTE BUTCHER Performing Organization Address [facility] Co de Phone Number [facility] [address] [place] [address] * CK BLOOD (02/05/2021 12:06 PM CDT) CK 37 29 - 143 U/L [facility] Comment: Test Performed at: [facility] [address] [place] [address] ??[phone] CARLOS MANUEL SALCEDO DO,MPH 02/05/2021 12:0 6 PM CDT 02/05/2021 12:13 PM CDT Mariya Enciso MD LAB - CHEMISTRY LYNNETTE BUTCHER Performing Organization Address [facility] de Phone Number [facility] [address] [place] [address] * IMAGING RADIOLOGY XRAY RESULTS ORDER (11/05/2019 7:09 AM CDT) Anatomical Region Laterality Modality Other Narrative 11/05/2019 7:09 AM CDT Ordered by an unspecified provider. Scanned Document IMAGING * PA BIOPSY OF UTERUS LINING (11/04/2019 3:43 PM CDT) Narrative Rober Villatoro MD - 11/04/2019 3:43 PM CDT Rober Villatoro MD ? 11/04/2019 ??3:45 PM Endometrial Biopsy - Procedure Note Pre-operative diagnosis:postmenopausal bleeding Post-operative diagnosis: postmenopausal bleeding Procedure Details: The patient was assured to not be either because of menopause or by a negative urine test. ??The risks, benefits, and alternatives were discussed in detail with the patient with emphasis on infection, pain,and perforation. ??The patient was placed in a dorsal lithotomy position. ??A speculum was used to visualize the cervical os after an exam was performed to confirm uterine position and size. ??The cervix was cleaned with multiple swabs of Betadine (unless allergic to topical iodine, in which case hibiclens was used). ??The cervix was grasped with a ring forceps, and a Pipelle was placed through the cervix into the endometrial cavity.Moderate tissue was recovered and sent for pathological examination in formalin. ??The grasping instrument was removed, and the cervix assured to be haemostatic. The patient tolerated the procedure well. Condition: Good Complications: None Sample: Endometrial sample to pathology. Plan: The patient was instructed to watch for a fever and to call with any problems. ??She was asked to take 400 mg of ibuprofen if not allergic and to follow up in 3 weeks. Rober Villatoro MD PROCEDURE/MINOR SURG ICAL ORDERABLES * PATHOLOGY TISSUE (11/04/2019 3:29 PM CDT) Only the most recent of3 resultswithin the time period is included. Case Report Surgical Pathology Report ? Case: [id number] ? Authorizing Provider: ??Rober Villatoro MD ? Collected: ? 11/04/2019 03:29 PM ? Ordering Location: ? [facility] ? Received: ?11/08/2019 02:06 PM ? Gynecology and Women's ? [facility] ? Pathologist: ? Jerica Valiente MD ? Specimen: ?Endometrium ? 11/09/2019 11:31 AM [facility] Final Diagnosis Endometrium, biopsy: - Scant benign endometrial epithelium - Benign cervical tissue - Negative for dysplasia or malignancy 11/09/2019 11:31 AM [facility] Microscopic Description and Comment Performed. 11/09/2019 11:31 AM [facility] Clinical History 11/09/2019 11:31 AM [facility] Gross Description The requisition and specimen(s) are labeled with the patient's name, Kathy Medina. Received in formalin, specimen A, EMB , is an aggregate of brown-monte tissue measuring 2.0 x 1.2 x 0.1 cm. Submitted in toto cassette A1. KK 11/09/2019 11:31 AM [facility] Disclaimer The performance characteristics of all immunohistochemical and indirect immunofluorescence stains (if any) cited in this report were determined by the Histopathology Laboratory of [facility]. Some of these tests were developed by our own laboratory and have not been cleared or approved by the US Food and Drug Administration. The FDA does not require this test to go through premarket FDA review. These tests are used for clinical purposes. They should not be regarded as investigational or for research. This laboratory is certified under the Clinical Laboratory Improvement Amendments (CLIA) as qualified to perform high complexity clinical laboratory testing. This case has been personally reviewed and interpreted by the attending (teaching) pathologist. 11/09/2019 11:31 AM CDT [facility] Embedded Images 11/09/2019 11:31 AM CDT [facility] Pathology/Cytolo gy ENTIRE ENDOMETRIUM / Unknown 11/04/2019 3:29 PM CDT 11/08/2019 2:06 PM CDT Rober Villatoro MD LAB - PATHOLOGY/CYTO LOGY ORDERABLES [facility] [address] [place] [address], [facility] [phone] * PA SONO EXAM, TRANSVAGINAL, PA US PELVIC NONOB REAL-TIME IMG COMPLETE (11/04/2019 2:00 PM CDT) Narrative , May - 11/04/2019 2:00 PM CDT May ? 11/04/2019 ??2:01 PM Documentation in [employer]. Rober Villatoro MD PROCEDURE/MINOR SURG ICAL ORDERABLES * THYROID PANEL W TSH (TSH,T4,T3 UPTAKE,FTI) (09/27/2019 11:13 AM CDT) T3 Uptake 26 22 - 35 % [facility] T4 Total 6.7 5.1 - 11.9 mcg/dL [facility] Thyroxine Free Index 1.7 1.4 - 3.8 [facility] TSH 1.04 mIU/L [facility] Comment: ?Reference Range ?> or = 20 Years ??0.40-4.50 ? Ranges ?First trimester ?0.26-2.66 ?Second trimester ?? 0.55-2.73 ?Third trimester ?0.43-2.91 Test Performed at: [facility] [address] [place], [place] ??[address] CARLOS MANUEL SALCEDO DO,MPH Blood BLOOD SPECIMEN / Unknown 09/27/2019 11:13 AM CDT 09/27/2019 11:14 AM CDT Rober Villatoro MD LAB - CHEMISTRY LYNNETTE BUTCHER [facility] [address] [place] [address] * ESTRADIOL (09/27/2019 11:13 AM CDT) [facility] Estradiol 148 pg/mL [facility] Comment: ?Reference Range ?Follicular Phase: ?19-144 ?Mid-Cycle: ? 64-357 ?Luteal Phase: ?56-214 ?Postmenopausal: ?< or = 31 ? Reference range established on post-pubertal patient population. No pre-pubertal reference range established using this assay. For any patients for whom low Estradiol levels are anticipated (e.g. males, pre-pubertal children and hypogonadal/post-menopausal females), the NPC III [facility] Estradiol, Ultrasensitive, LCMSMS assay is recommended (order code 07647). ?? Please note: patients being treated with the drug fulvestrant (Faslodex(R)) have demonstrated significant interference in immunoassay methods for estradiol measurement. The cross reactivity could lead to falsely elevated estradiol test results leading to an inappropriate clinical assessment of estrogen status. NPC III order code 62539-[id number], Ultrasensitive LC/MS/MS demonstrates negligible cross reactivity with fulvestrant. REPORT COMMENT: FASTING:NO Test Performed at: [facility] [address] [place], [place] ??[address] CARLOS MANUEL SALCEDO DO,MPH Blood BLOOD SPECIMEN / Unknown 09/27/2019 11:13 AM CDT 09/27/2019 11:14 AM CDT Rober Villatoro MD LAB - CHEMISTRY LYNNETTE BUTCHER Performing Organization Address [facility] de Phone Number [facility] [address] [place] [phone] * FSH + LH PANEL (09/27/2019 11:13 AM CDT) FSH 27.9 mIU/mL [facility] Comment: ?Reference Range ? Follicular Phase ? 2.5-10.2 ? Mid-cycle Peak ? 3.1-17.7 ? Luteal Phase ? 1.5- 9.1 ? Postmenopausal ? 23.0-116.3 ? LH 26.7 mIU/mL [facility] Comment: ?Reference Range Follicular Phase ??1.9-12.5 Mid-Cycle Peak ?8.7-76.3 Luteal Phase ?0.5-16.9 Postmenopausal ?10.0-54.7 Test Performed at: [facility] [address] [place], [place] ??[address] CARLOS MANUEL SALCEDO DO,MPH Blood BLOOD SPECIMEN / Unknown 09/27/2019 11:13 AM CDT 09/27/2019 11:14 AM CDT Rober Villatoro MD LAB - CHEMISTRY LYNNETTE BUTCHER Performing Organization Address [facility] de Phone Number [facility] [address] [place] [address] * PATHOLOGY/GENETICS HISTORICAL-ONBASE (07/10/2017) Only the most recent of5 resultswithin the time period is included. 07/10/2017 Rober Villatoro MD LAB - CHEMISTRY LYNNETTE BUTCHER Performing Organization Address [facility] de Phone Number [facility] [address] * LAB HISTORICAL RESULTS-ONBASE (09/26/2016) Only the most recent of2 resultswithin the time period is included. 09/26/2016 Historical Provider LAB - CHEMISTRY Napoleon FRIAS Performing Organization Address [facility] de Phone Number [facility] [address] * TSH+FREE T4 PANEL (07/05/2016 4:16 PM GYMNASTICS INSTRUCTOR) TSH 0.73 mIU/L [facility]) Comment: ?Reference Range ?> or = 20 Years ??0.40-4.50 ? Ranges ?First trimester ?0.26-2.66 ?Second trimester ?? 0.55-2.73 ?Third trimester ?0.43-2.91 T4 Free 1.1 0.8 - 1.8 ng/dL [facility] ([facility]) Comment: REPORT COMMENT: FASTING:NO Test Performed at: [facility] [address] [place], [place] ??[address] CARLOS MANUEL SALCEDO DO,MPH 07/05/2016 4:16 PM GYMNASTICS INSTRUCTOR 07/05/2016 4:17 PM GYMNASTICS INSTRUCTOR Rober Villatoro MD LAB - CHEMISTRY LYNNETTE BUTCHER Performing Organization Address [facility] de Phone Number [facility] ([facility]) * CULTURE STREP GROUP A (11/08/2013 12:45 PM CDT) Culture Beta Strep No Growth of Groups A, C or G Beta Streptococc us. [facility] Throat swab (specimen) ENTIRE THROAT (SURFACE REGION OF NECK) / Unknown 11/08/2013 12:45 PM CDT 11/08/2013 9:55 PM CDT Narrative [facility] - 11/10/2013 1:07 PM CDT LudwigSpecimen#[id number] Ludwig Loc/Rm/Bed: EXPCARE C// Historical Provider MD LAB - MICROBIOLOG Y ORDERABLES [facility] [address] [phone] Care Teams Asian Studies Professor Relationship Specialty Start Date End Date Shy Lafleur, PRODUCT SAFETY TECHNICAL ASSISTANT-SECURITY MESSENGER [address] [place] [phone] PCP - General Family Medicine 03/15/24
--- OUTSIDE RECORDS SUMMARY | 2024-06-21 18:59 | XMS_ITS | Referral Summary ---
Author Organization [facility] [address] Address [address] [place] [address] Care Team Providers Care Dental Assistant Teacher Name Role Phone Shy Lafleur NP Primary Care Provider Encounters Date Type Department Care Team Description 06/14/2024 Orders Only [facility] PreAdmission Testing [address] [place] [address] Lilian Lafleur RN 05/14/2024 Orders Only [facility] [address] [facility] [address] [place] [address] Haydee Harding NP 05/14/2024 Telephone [facility] Floor 5 [place] [address] Zee Ryan NP 05/04/2024 Orders Only [facility] Floor 5 [place] [address] Brady Duran NP Gastroesophageal reflux disease, unspecified whether esophagitis present (Primary Dx) 04/29/2024 Orders Only [facility] [address] [place] [address] Unknown, Notinfile from Last 3 Months Allergies Active Allergy Reactions Criticality Noted Date Comments Adhesive Tape-Silicones Aspirin Stomach upset Reaction: GI upset, Codeine Nausea And Vomiting,Nausea & Vomiting Low 12/21/2018 Hydrocodone-Acetamino phen Dizziness Reaction: Dizziness, Latex Hives High Reaction: Hives, Phentermine-Topiramat e Swelling Medium 02/23/2024 Medications buPROPion SR (WELLBUTRIN SR) 100 mg 12 hr tablet Take 150 mg by mouth 2 (two) times a day Active cetirizine (ZyrTEC) 10 mg tablet Take 1 tablet (10 mg total) by mouth daily Active cholecalciferol, vitamin D3, (cholecalciferol , vit D3,,bulk,) 100,000 unit/gram powder Take 3,000 Units by mouth daily Active Lactobacillus acidophilus (Probiotic Acidophilus) 250 million cell capsule Take 500 mg by mouth daily Active celecoxib, bulk, 100 % powder Take by mouth daily Active vitamin B complex/folic acid (B COMPLEX 1, WITH FOLIC ACID, ORAL) Take by mouth Acti ve ergocalciferol (VITAMIN D) 50,000 unit capsule Take 1 capsule (50,000 Units total) by mouth [address] (PROTONIX) 40 mg EC tabletIndication s:Gastroesophage al reflux disease, unspecified whether esophagitis present Take 1 tablet (40 mg total) by mouth daily 30 tablet 4 Active chlorhexidine (PERIDEX) 0.12 % oral rinseIndications :Mouth Infection Prevention Swish and spit 15 mL 3 (three) times a day for 5 days Bronte teeth three times daily. After brushing teeth, swish solution in mouth for 30 seconds and then spit out. Do not rinse mouth, eat, or drink for 1 hour after using. 225 mL 5 06/02/19 25 Active Problems Patient Care Coordination No te [...] on 02/17/2023 which revealed the following: FINDINGS: Supervisor Multifocal Lens image is unremarkable. Limited evaluation of the [...] approach, but her BMI of 36.[address] of excellent visualization for the [...] decided on having her return on April 14Friday, (of note, patient had to cancel for [...] here for further discussion and evaluation. Haydee Harding NP 02/17/2024 1528 This is a 49-year-old female [...] Abdominal pain 04/21/2023 Chest pain, unspecified 04/21/2023 [place] 04/21/2023 Depressive disorder 04/21/2023 Diarrhea 04/21/2023 Syncope [...] (04/21/2023): colpo Dec 2014 Sleep apnea 07/02/2011 Immunizations Name Administration Dates Next Due Influenza, Unspecified 03/03/2023 Sars-CoV-2, Unspecified 03/03/2023 Social History Tobacco Use Types Packs/Day Years Used Date Smoking Tobacco: Every Day Cigarettes Smokeless Tobacco: Never Tobacco Cessation:Ready to Q uit: Not Asked; Counseling Given: Not Answered Alcohol Use Standard Drinks/Week Comments Not Currently 0 (1 standard drink = 0.6 oz pur e alcohol) AUDIT-C Answer Date Recorded Frequency of Alcohol Consumption Not on file 03/10/2023 Q2: How many drinks containi ng alcohol do you have on a typical day when you are drinking? Patient does not drink Frequency of Binge Drinking Not on file 02/17 Personal Safety Answer Date Recorded Have you ever been in or are you currently in a harmful physical or emotional relationship or is someone making you feel afraid or unsafe? Denies 10/09/2023 Comments No Sex and Gender Information Value Date Recorded Sex Assigned at Not on file Legal Sex Female 4:05 AM SCOURER Gender Identity Not on file Sexual Orientation Not on file Last Filed Vital Signs Vital Sign Reading Time Taken Comments Blood Pressure 126/78 02/23/2024 1:36 PM CDT Pulse 80 02/23/2024 1:36 PM CDT Temperature 36.7 ??C (98.1 ??F) 02/23/2024 1:36 PM CD T Respiratory Rate 16 02/23/2024 1:36 PM CDT Oxygen Saturation 98% 02/23/2024 1:36 PM CDT Inhaled Oxygen Concentration - - Weight 82.3 kg (181 lb 6.4 oz) 02/23/2024 1:36 P M CDT Height 154.9 cm (5' 1 ) 10/09/2023 1:43 PM CDT Body Mass Index 34.28 10/09/2023 1:43 PM CDT Plan of Treatment Upcoming Encounters Date Type Department Care Team (Latest Contact Info) Description 06/30/2024 8:25 AM SCOURER Hospital Encounter [facility] [place] [address] [place] [address] Jeyson Angelo MD [address] [facility] 8233-09-17 [place] [address] 06/30/2024 8:25 AM SCOURER Anesthesia Event [facility] OR [address] [place] [address] Janae Myers NP [address] [place] [address] 06/30/2024 8:25 AM SCOURER - 06/30/2024 11:55 AM SCOURER Surgery [facility] OR [address] [place] [address] Jeyson Angelo MD [address] [facility] 8233-09-17 [place] [address] ROBOTIC ASSISTED LAPAROSCOPIC HELLER MYOTOMY WITH RESECTION OF AN ESOPHAGEAL DIVERTICULUM Scheduled Procedures Name Priority Associated Diagnoses Date/Ti me XI MYOTOMY - LAPAROSCOPIC ROBOTIC ASSISTED - HELLER Achalasia 06/30/2024 8:25 AM SCOURER Procedures Procedure Name Priority Date/Time Associated Diagnosis Comments SURGICAL PATHOLOGY Routine 04/29/2024 12 :00 AM SCOURER from Last 3 Months Results * Surgical pathology (04/29/2024 12:00 AM SCOURER) Skin, shave biopsy 04/29/2024 04/30/2024 7:21 AM SCOURER Narrative 05/04/2024 11:03 AM SCOURER [facility] results best viewed via link to PDF [facility] [address] [place] [address] [address], [place] [address] ? [email or web address] Note to Patients: ??This report may contain a detailed description of human tissue sent by a health care provider to the laboratory for pathologic evaluation. ??The content of this report is essential for diagnosis and may provide important critical findings. ??This information may be unfamiliar to patients to review without a medical professional present. ?? It is advised that the patient review this report in the presence of a health care provider who can answer questions and explain the details. FINAL REPORT Patient Information: PATIENT NAME: ??KATHY MEDINA ? SEX: ??F ? : ??1975 (Age: 49) ? Specimen Information: COLLECTED: ??04/29/2024 ? RECEIVED: ??04/30/2024 ? REPORTED: ??05/04/2024 ? Submitting Physician Information: Malka Barber, [facility], [address] [place] [address] ??[phone], ? DERMATOPATHOLOGY REPORT RESULTS ?? DIAGNOSIS: SKIN, RIGHT FOREHEAD, SHAVE BIOPSY: ? 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 Note: The specimen reveals an unremarkable epidermis with some pityrosporum yeast forms in the stratum corneum adjacent to follicular ostia. Within the dermis, there is mild superficial fibrosis and increased vasculature. A mixed lymphohistiocytic inflammatory infiltrate is also seen in association with follicular structures. There is no evidence of a malignant neoplasm in the sections examined. The differential diagnosis includes pityrosporum perifolliculitis or an early fibrous papule. Multiple sections have been cut and studied. chaya/spng By this signature, I attest that the above diagnosis is based upon my personal examination of the slides(and/or other material indicated in the diagnosis). Emmanuel Mireles MD, PhD ?? Report Electronically Reviewed and Signed Out By ??Emmanuel Mireles MD, PhD 05/04/2024 11:03:23 CLINICAL INFORMATION NEOPLASM, OF UNCERTAIN ??BEHAVIOR VS BASAL CELL CARCINOMA VS ACTINIC DAMAGE ?? SPECIMEN DATA MICROSCOPIC DESCRIPTION: The epidermis is unremarkable. There are dilated blood vessels within the upper part of the dermis with mild fibrosis. There are lymphocytes and histiocytes around hair follicles. Pityrosporum yeast forms are seen within the stratum corneum. (L73.8, R23.8) GROSS DESCRIPTION: Received in a formalin-containing bottle is a superficial fragment of pale monte, finely scaling, and semi-translucent skin measuring 0.6 by 0.5 by 0.1 cm. The surgical margin is inked blue. The specimen is sectioned into 2 pieces and submitted entirely in a single cassette. Due to shrinkage, measurements may be different than those at the time of procedure. chaya/mxf ICD-9 A; ZSD.27 ? Clerical Data A; 74701 The characteristics of special, immunohistochemical, and immunofluorescence stains and in-situ hybridization tests performed by the [facility] were deemed acceptable in ongoing quality assurance coach measures and in compliance with regulations drawn from the Clinical Laboratory Improvement Act le3902 (CLIA '88). Control reactions for all stains performed were deemed adequate and appropriate by a pathologist prior to evaluation of patient tissue. Some diagnoses were rendered with the assistance of laboratory-developed tests utilizing analyte-specific reagents; the performance characteristic of these tests were determined by [facility] and are not cleared or approved by the [place] Food an Drug administration. Laboratory developed test may only be performed in a facility that is certified by the [facility] as a high-complexity laboratory under CLIA '88. These tests are used for clinical purposes and are not investigational. us Notinfile Unknown LAB PATHOLOGY ORDERABLES Final Result from Last 3 Months Insurance [facility] Care Teams Dental Assistant Teacher Relationship Specialty Start Date End Date Shy Lafleur NP [address] [place] [address] [place] [address] PCP - General Family Medicine 02/23/24
--- OUTSIDE RECORDS SUMMARY | 2024-06-21 18:59 | XMS_ITS | Clinical Summary ---
Author Organization [facility] Address [facility] [place], [place] [address] [place] [address] Care Team Providers Care Industrial Cafeteria Manager Name Role Phone Unavailable Primary Care Provider Unavailabl e Social History Tobacco Use Types Packs/Day Years Used Date Smoking Tobacco: Never Assessed Comments Unknown Sex and Gender Information Value Date Recorded Sex Assigned at Not on file Legal Sex Female 7:22 PM CDT Gender Identity Not on file Sexual Orientation Not on file Plan of Treatment Health Maintenance Due Date Last Done Comments Cervical Cancer Screening Pa p Smear (Age 30 to 64) Every 3 Years 1974 Colorectal Cancer Screening Colonoscopy (10 Years) 1974 Annual Physical 1977 Hepatitis C 01/05/1992 DTaP, Tdap and Td Vaccines ( 1 - Tdap) 1993 Hepatitis B Vaccines (1 of 3 - 19+ 3-dose series) 1993 Cervical Cancer Screening Pa p with HPV Testing (Age 30 to 64) Every 5 Years 01/05/2004 Cervical Cancer Screening with HPV 01/05/2004 Mammogram Screening 2014 Zoster Vaccines (1 of 2) 01/05/2024 COVID-19 Vaccine (2023-2 5 season) 2024 Influenza Adult (#1) 2024 Meningococcal B Vaccine Aged Out No l onger eligible based on patient's age to complete this topic Meningococcal Vaccine Aged Out No oleg ronald eligible based on patient's age to complete this topic Pneumococcal Vaccine: Pediat rics (0 to 5 Years) and At-Risk Patients (6 to 64 Years) Aged Out No longer eligible b ased on patient's age to complete this topic RSV Immunizations Under 20 Months Aged Out No longer eligible based on patient's age to complete this topic
--- OUTSIDE RECORDS SUMMARY | 2024-06-21 18:59 | XMS_ITS | Continuity of Care Document ---
Author Organization [facility] Address [address] [place] [address] Phone Care Team Providers Care Business Account Specialist Name Role Phone Bunch OD, Griffin Unavailable Unavailable Procedures Procedure Date Eye Exam & Treatment Refraction Advance Directives Directive Yes / No Effective Date File Name No Information Encounters Encounter Description Practice Location Reason(s) For Visit Diagnoses Date Provider Providers Copied on Encounter [facility], [address], [place], [place], [id number], [place] tel:[phone] [address] [facility] No Information [phone] Bunch OD Griffin. [address] , [address], [place], [address], [place]. tel:[phone] Family History Family Member Type Diagnosis Age At Onset No Information Payers Payer name Insurance type Covered alliance party ID Authoriza tion(s) [facility] [id number] Social History Type Description Quantity Date Captured Comments Sex Female Smoking Status No Information Chief Complaint And Reason For Visit No Information Reason For Referral Reason For Referral No Information History Of Present Illness Encounter Date Complaint History Of Prese nt Illness No Information Functional Status Date Functional Assessmen t No Information Instructions Date Instruction Additional Infor mation No Information Assessments Type Assessment Date No Information Patient Care Teams Name Effective Dates (start - stop) Status Members No Information
--- OUTSIDE RECORDS SUMMARY | 2024-06-21 18:59 | XMS_ITS | Clinical Summary ---
Author Organization [facility] Address [address] [place] [address] Care Team Providers Care Cotton Broker Name Role Phone Miquel Shykate Addison APRN-INSURANCE VERIFICATION CLERK Primary Care Provider + Source Comments [facility],non-[facility] Affiliates and Associated Physician Practices is amultiple site organization consisting of ambulatory clinics and hospital sitesin [place], [place], [place] and [place]. This disclosure is being madepursuant to the Care Everywhere program and may not contain all information available regarding this patient. Last updated 18.[facility] Allergies Active Allergy Reactions Criticality Noted Date [...] Date Diarrhea 04/27/2020 05/25/2020 Sinusitis 04/27/2020 05/25/2020 Encounters Date Type Department Care Team Description 03/23/2024 Telephone [facility] - SOYFREEZE OPERATOR [address], [facility] [address] [place] [address] Rober Villatoro MD Question from Last 3 Months Immunizations Name Administration Dates Next Due INFLUENZA VACCINE, QUADR. (F LUZONE; FLULAVAL; FLUARIX; AFLURIA QUADRIVALENT; 6MO+), 0.5 ML (IIV4) 03/10/2020,03/18/2014 MMR 05/21/2019 TDAP (7yrs+) 03/15/2014 Family History Medical History Relation Name Comments Arthritis - Osteo Mother Cancer - Breast Other Cancer - Prostate Paternal Grandfather Relation Name Status Comments Mother Other Paternal Grandfather Social History Tobacco Use Types Packs/Day Years [...] Description 03/14/2025 2:30 PM CDT Office Visit [facility] - SOYFREEZE OPERATOR [address] [facility] [address] [place] [address] Rober Villatoro MD [address] [facility] [address] [place] [address] Health Maintenance Due Date Last Done Comments COLOGUARD (AGES 45-75) - COLON CA SCREENING 1974 COLON MONITORING 1974 COLONOSCOPY - COLON CA SCREENING 1974 CT COLONOGRAPHY - COLON CA SCREENING 1974 Colorectal Cancer Screening 1974 FIT - COLON CA SCREENING 1974 FLEX SIG - COLON CA SCREENING 1974 LIPID TESTING 1974 MAMMOGRAM 1974 HIV SCREENING 1989 HEPATITIS B VACCINE (1 of 3 - 19+ 3-dose series) 1993 PNEUMOCOCCAL VACCINE 50+ (1 of 2 - PCV) 1993 SCREENING FOR DIABETES 02/24/2023 ZOSTER VACCINE (1 of 2) 01/05/2024 COVID-19 VACCINE ( season) 2024 05/15/2021, 04/18/2021, 09/04/2020, Additional history exists INFLUENZA VACCINE (#1) 2024 , 03/10/2020, 03/18/2014 DTAP/TDAP/TD VACCINES (2 - Td or Tdap) 03/15/2024 03/15/2014 DEPRESSION SCREENING 05/19/2024 PAP with HPV 02/18/2027 02/18/2022, 10/17, 02/13/2018 HEPATITIS C SCREENING Completed 02/05/2021 HIB VACCINE Aged Out No longer eligi ble based on patient's age to complete this topic HPV VACCINE Aged Out No longer eligi ble based on patient's age to complete this topic MENINGOCOCCAL (Group B) VACCINE Aged Out No longer eligible based on patient's age to complete this topic MENINGOCOCCAL VACCINE Aged Out No oleg ronald eligible based on patient's age to complete this topic Goals Goal Patient Goal Type Associated Problems [...] detected Not detected 02/22/2022 3:14 PM CDT [facility] High Risk Human Papilloma Interp 02/22/2022 3:14 PM CDT [facility] Comment:High Risk Human Brian lloma Virus was Not Detected. Pathology/Cytolo gy MISCELLANEOUS SAMPLES / Unknown 02/18/2022 10:47 AM CDT 02/19/2022 11:54 AM CDT Narrative [facility] - 02/22/2022 3:14 PM CDT [...] information). Rober Villatoro MD LAB - MICROBIOLOGY Napoleon FRIAS [facility] [address] [facility] [place] [address], [facility] [phone] * HEPATITIS C RNA QUANTITATIVE (02/05/2021 12:06 PM CDT) Hepatitis C Virus RNA, Quantitative Real Time [...] of this assay have been determined by [employer]. The modifications have not been cleared or approved by the FDA. This assay has been validated pursuant to the CLIA regulations and is used for clinical purposes. ?? For more information on this test, go to: http://education.Rapid[employer]/faq/TFZ66o0 (This link is being provided for informational/ educational purposes only.) Test Performed at: [facility] [address] [place], [place] ??[address] CARLOS MANUEL SALCEDO DO,MPH 02/05/2021 12:0 6 PM CDT 02/05/2021 12:13 PM CDT Mariya Enciso MD LAB - CHEMISTRY LYNNETTE BUTCHER Performing Organization Address City/[facility]/ZIP Co de Phone Number [facility] [address] [place] [address] from Last 3 Months or Most Recently Relevant to Health Maintenance Care Teams Cotton Broker Relationship Specialty Start Date End Date Shy Lafleur, JEWEL BEARING TURNER-INSURANCE VERIFICATION CLERK [address] [place] [address] JACQUELINE Martins [address] PCP - General Family Medicine 03/15/24
--- OUTSIDE RECORDS SUMMARY | 2024-06-21 18:59 | XMS_ITS | Encounter Summary ---
Author Organization [facility] Address [address] [facility] [place] [address] Care Team Providers Care Lift Truck Operator Name Role Phone Shy Lafleur Cyn EXHAUST AND MUFFLER FITTER-DEMAND INSPECTOR Primary Care Provider + Reason for Visit * Reason Onset Date Comments Question 03/19/2024 Encounter Details Date Type Department Care Team (Late st Contact Info) Description 03/19/2024 Telephone [facility] - LOCKSTITCH WAISTBAND SETTER [address] [facility], [address] [place] [address] Rober Villatoro MD [address] [facility] [address] [place] [address] Question Social History Tobacco Use Types Packs/Day Years [...] encounter Miscellaneous Notes * Telephone Encounter - Janneth Rose - 03/19/2024 1:09 PM CDT Regino from [facility] calling to get an authorization from the insurance co. for pt to get a ct abdomin [place] .. ( [place] [id number]) Please fx to #[phone] B# [phone] documented in this encounter Plan of Treatment Upcoming Encounters Date Type Department Care Team (Late st Contact Info) Description 03/14/2025 2:30 PM CDT Office Visit [facility] - LOCKSTITCH WAISTBAND SETTER [address] [facility] [address] [place] [address] Rober Villatoro MD [address] [facility] [address] [place] [address] documented as of this encounter Goals Goal Patient Goal Type Associated Problems Recent Progress Patient-Stated? Author Mobility General No Dena Hartmann, RN Note: Expected end date: 08/16/2021 The goal is to maintain or improve your mobility at the optimum level for you. Interventions: documented as of this encounter Visit Diagnoses Not on filedocumented in this encounter Care Teams Lift Truck Operator Relationship Specialty Start Date End Date Shy Lafleur, EXHAUST AND MUFFLER FITTER-DEMAND INSPECTOR [address] [place] [address] [place] [phone] PCP - General Family Medicine 03/15/24 documented as of this encounter
--- OUTSIDE RECORDS SUMMARY | 2024-06-21 19:00 | XMS_ITS | Encounter Summary ---
Author Organization [facility] Address [address] [facility] [place] [address] Care Team Providers Care Oim Architect Name Role Phone AgrawalYevgeniy ENVIRONMENTAL DIRECTOR-OCCUP THER Primary Care Provider Shy Lalfeur ENVIRONMENTAL DIRECTOR-OCCUP THER Primary Care Provider + Reason for Visit * Reason Onset Date Comments Reschedule Appointment 01/31/2022 Encounter Details Date Type Department Care Team (Late st Contact Info) Description 01/31/2022 Telephone [facility] [address] [place], [place] [id number] Rober Villatoro MD [address] [facility] [address] [place], [place] [id number] Reschedule Appointment Social History Tobacco Use Types Packs/Day Years [...] encounter Miscellaneous Notes * Telephone Encounter - Skylar Bella - 01/31/2022 10:38 AM CDT Pt called to cancel appointemnt and reschedule visit with nurse. She is not feeling well. documented in this encounter Plan of Treatment Upcoming Encounters Date Type Department Care Team (Late st Contact Info) Description 03/14/2025 2:30 PM CDT Office Visit [facility] - RN AMBULATORY [address] [facility] [address] [place] [address] Rober Villatoro MD [address] [facility] [address] [place] [address] documented as of this encounter Goals Goal Patient Goal Type Associated Problems Recent Progress Patient-Stated? Author Mobility General No Dena Hartmann, RN Note: Expected end date: 08/16/2021 The goal is to maintain or improve your mobility at the optimum level for you. Interventions: documented as of this encounter Visit Diagnoses Not on filedocumented in this encounter Care Teams Oim Architect Relationship Specialty Start Date End Date Yevgeniy Agrawal, ENVIRONMENTAL DIRECTOR-OCCUP THER [address] [place] [phone] PCP - General 10/04/20 03/14/24 Shy Lafleur APRN-OCCUP THER [address] [place] [phone] PCP - General Family Medicine 03/15/24 documented as of this encounter
--- OUTSIDE RECORDS SUMMARY | 2024-06-21 19:00 | XMS_ITS | Clinical Summary ---
Author Organization [facility] [address] Address [address] [place] [address] Care Team Providers Care Services Host Name Role Phone Shy Lafleur NP Primary Care Provider Allergies Active Allergy Reactions Criticality Noted Date [...] 1 capsule (50,000 Units total) by mouth 02/12/[address] (PROTONIX) 40 mg EC tabletIndication s:Gastroesophage al reflux disease, unspecified whether esophagitis present Take 1 tablet (40 mg total) by mouth daily 30 tablet 4 Active chlorhexidine (PERIDEX) 0.12 % oral rinseIndications :Mouth Infection Prevention Swish and spit 15 mL 3 (three) times a day for 5 days [place] teeth three times daily. 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 Limited evaluation of the [...] approach, but her BMI of 36.[address] of excellent visualization for the [...] here for further evaluation and discussion. Haydee Harding, PARVIN 07/04/2023 11:24 AM This is a 48-year-old [...] evaluation and discussion. Haydee Harding NP 10/08/2023 1421 This is a 48-year-old female patient returning [...] Abdominal pain 04/21/2023 Chest pain, unspecified 04/21/2023 [place] 04/21/2023 Depressive disorder 04/21/2023 Diarrhea 04/21/2023 Syncope [...] (04/21/2023): colpo Dec 2014 Sleep apnea 07/02/2011 Encounters Date Type Department Care Team Description 06/14/2024 Orders Only [facility] PreAdmission Testing [address] [place] [address] Lilian Lafleur RN 05/14/2024 Orders Only [facility] Surgery [address] [place] [id number] Haydee Harding NP 05/14/2024 Telephone [facility] Surgery [address] [place] [address] Zee Ryan NP 05/04/2024 Orders Only [facility] Surgery [address] [place] [address] Brady Duran NP Gastroesophageal reflux disease, unspecified whether esophagitis present (Primary Dx) 04/29/2024 Orders Only [facility] [address] [place] [address] Unknown, Notinfile from Last 3 Months Immunizations Name Administration Dates Next Due Influenza, Unspecified 03/03/2023 Sars-CoV-2, Unspecified 03/03/2023 Surgical History Surgery Date Site/Laterality Comments TUBAL LIGATION ANKLE SURGERY VULVA SURGERY ablation Medical History Medical History Date Comments Migraines Malignant neoplasm of vulva (HCC) IBS (irritable bowel syndrome) Arthritis Depression Heartburn Rotator cuff tear Epiphrenic diverticulum Achalasia Hiatal hernia Family History Medical History Relation Name Comments Breast cancer Father's Sister 1 Breast cancer Father's Sister 2 Prostate cancer Maternal Grandfather Relation Name Status Comments Father Alive Father's Sister 1 Father's Sister 2 Alive Maternal Grandfather Mother Alive Social History Tobacco Use Types Packs/Day Years [...] on file Legal Sex Female 4:05 AM SENIOR TECHNICAL RECRUITER Gender Identity Not on file Sexual Orientation Not on file Obstetrics History Last Filed Vital Signs Vital Sign Reading [...] (Latest Contact Info) Description 06/30/2024 8:25 AM SENIOR TECHNICAL RECRUITER Hospital Encounter [facility] OR [address] [place] [address] Jeyson Angelo MD [address] [facility] [id number] [place], [place] [id number] 06/30/2024 8:25 AM SENIOR TECHNICAL RECRUITER Anesthesia Event [facility] OR [address] [place] [address] Janae Myers, SPEECH LANGUAGE PATHOLOGY ASSISTANT [address] [place] [address] 06/30/2024 8:25 AM SENIOR TECHNICAL RECRUITER - 06/30/2024 11:55 AM SENIOR TECHNICAL RECRUITER Surgery [facility] OR [address] [place] [address] Jeyson Angelo MD [address] [facility] [id number] [place] [address] ROBOTIC ASSISTED LAPAROSCOPIC HELLER MYOTOMY WITH RESECTION OF AN ESOPHAGEAL DIVERTICULUM Scheduled Procedures Name Priority Associated Diagnoses Date/Ti me XI MYOTOMY - LAPAROSCOPIC ROBOTIC ASSISTED - HELLER Achalasia 06/30/2024 8:25 AM SENIOR TECHNICAL RECRUITER Health Maintenance Due Date Last Done Comments Breast Cancer Screening-Mammogram 1974 Colon Cancer Screening-Colonoscopy 1974 Depression Screening 1974 Hepatitis C Screening 1974 Pneumococcal vaccine <65 (1 of 2 - PCV) 01/05/1980 Hepatitis B Screening 01/05/1992 Regular Well Visit/Exam 18-64 01/05/1992 Cervical Cancer Screening 02/18/2023 02/18/2022 Zoster Vaccine (1 of 2) 01/05/2024 Covid-19 Vaccine (6 - 2023-2 5 season) 2024 03/03/2023, 05/15/2021, 04/18/2021, Additional history exists Influenza Vaccine (#1) 2024 , 03/10/2020, 03/18/2014 DTaP/Tdap/Td Vaccine (2 - Td or Tdap) 03/15/2024 03/15/2014 Procedures Procedure Name Priority Date/Time Associated Diagnosis Comments SURGICAL PATHOLOGY Routine 04/29/2024 12 :00 AM SENIOR TECHNICAL RECRUITER from Last 3 Months Results * Surgical pathology (04/29/2024 12:00 AM SENIOR TECHNICAL RECRUITER) Skin, shave biopsy 04/29/2024 04/30/2024 7:21 AM SENIOR TECHNICAL RECRUITER Narrative 05/04/2024 11:03 AM SENIOR TECHNICAL RECRUITER [facility] results best viewed via link to PDF [facility] [address] [place] [address] [address] ??[address] [address] ? [email or web address] Note to Patients: ??This report may contain [...] ??05/04/2024 ? Submitting Physician Information: Malka Barber, [facility], [address] [place] [address] ??[id number], ? DERMATOPATHOLOGY REPORT RESULTS ?? DIAGNOSIS: SKIN, [...] ICD-9 A; ZSD.27 ? Clerical Data A; 88588 The characteristics of special, immunohistochemical, and immunofluorescence stains and in-situ hybridization tests performed by the [facility] were deemed acceptable in ongoing supplier quality manager measures and in compliance with regulations drawn from the Clinical Laboratory Improvement Act gs7304 (CLIA '88). Control reactions for all stains performed were deemed adequate and appropriate by a pathologist prior to evaluation of patient tissue. Some diagnoses were rendered with the assistance of laboratory-developed tests utilizing analyte-specific reagents; the performance characteristic of these tests were determined by [facility] and are not cleared or approved by the [place] Food an Drug administration. Laboratory developed test may only be performed in a facility that is certified by the [facility] as a high-complexity laboratory under CLIA '88. These tests are used for clinical purposes and are not investigational. us Notinfile Unknown LAB PATHOLOGY ORDERABLES Final Result from Last 3 Months Insurance [facility] Care Teams Services Host Relationship Specialty Start Date End Date Shy Lafleur NP [address] [place] [address] [address] [place] [phone] PCP - General Family Medicine 02/23/24
--- OUTSIDE RECORDS SUMMARY | 2024-06-21 19:00 | XMS_ITS | Data Portability ---
Author Organization [place] [facility], Main Office Address [address] [place] [address] Care Team Providers Care Feed Preparation Operator Name Role Phone DONNA THORPE Primary Care Provider [phone] DONNA THORPE Referring Provider Assessment Encounter Date Assessment Date Assessment LastModified by Organization Details LastModified Time 03/15/2024 03/15/2024 The patient has some recurrent neck pain that radiates to the shoulder a bit on the right side. She has had a previous rotator cuff repair done a little over a year ago done by Dr. Munroe. She is thinking that the shoulder is functioning well she thinks most of the pain is radiating from the neck, x-rays today do show some degenerative changes mostly at C5-6 with loss of disc height and small marginal osteophytes. I also reviewed the patient's previous MRI scan done 3-1/2 years ago of the C-spine this did show some mild disc bulging without significant stenosis around C5-6 and C6-7. We talked about treatment options today in detail for now she would like to have a course of physical therapy and get a refill of her Celebrex. She was given Celebrex 200 mg to take daily we will try 6 weeks of physical therapy it I will see her back if her symptoms continue or worsen we will get an MRI scan of her neck and possibly refer her for epidural steroid injections. For now the pain is not limiting her daily activities does keep her awake at night a little bit at worst her pain is about a 4 on a scale of 1-10 it is livable but she would like to be better if she could we will try the above measures and go from there. She voiced understanding agrees above plan certainly if her symptoms worsen suddenly or change she will call. [email or web address] Not available 03/15/2024 12:41:04 Plan of Treatment Reminders Order Date Submit Date Provider Last Modified By Organization Details Last Modified Time Details Appointments None recorded. Lab vitamin D, 25-hydroxy , total, serum 2023 024 [email or web address] 477 [facility] (Lab), [address] [place], [address], 4 08:06:24 CBC w/ auto diff 2023 024 [email or web address] ([facility]), [address] [place], [address], 4 08:19:19 TSH, serum or plasma 2023 024 [email or web address] (Lab), [address] [place], [address], 4 08:19:19 CMP, serum or plasma 2023 [email or web address] [place] [address] (Lab), [address] [place], [address], 4 08:06:24 glycohemog lobin, total, blood 2023 [email or web address] [place] [address] (Lab), [address] [place], [address], 4 08:06:24 lipid panel, serum 2023 [email or web address] [place] [address] (Lab), [address] [place], [address], 4 08:06:24 hepatic function panel, serum 2023 [email or web address] [place] [address] (Lab), [address] [place], [address], 08:06:[address] referral - Please call patient to schedule an appointmen t. Thank you. 2023 [email or web address] [facility], [address] [facility] Gianni Gutierrez, [address], [place], [address], 08:55:09 physical therapist referral [address] [facility], [address], [place], [address], 13:21:50 dermatolog ist referral - Please call patient to schedule an appointmen t. Thank you. 2023 024 [email or web address] Malka Barber REUSE TECHNICIAN, [address] [facility], [place], [address], 08:53:55 Procedures None recorded. Surgeries None recorded. Imaging XR, cervical spine, 2 or 3 view 2023 [email or web address] [facility], [address], [place], [address], 4 12:38:58 XR, shoulder 2023 024 [email or web address] [facility], [address], [place], [address], 4 12:36:33 Medication Orders phentermin e 15 mg capsule 2023 [id number], [address] [facility], [place], [place], [id number], 4 10:59:58 bupropion HCl SR 150 mg tablet,12 hr sustained- release 2023 024 [facility]808, [address] [place], [place], [id number], 11:16:21 loratadine 10 mg tablet 2023 024 [facility]80722, [address] [place], [place], [id number], 4 10:59:41 celecoxib 200 mg capsule 2023 024 [email or web address] [facility]87406, [address] [place], [place], [id number], 4 12:24:05 ergocalcif trung (vitamin D2) 1,250 mcg (50,000 unit) capsule 2023 [facility] #65725, [address] [place], [place], [id number], 4 10:11:10 Zepbound 2.5 mg/0.5 mL subcutaneo us pen injector 2023 [facility] #39772, [address] [place], [place], [id number], 10:26:46 Patient TargetsNo targets recorded. Patient InstructionsNo instructions recorded. Reason for Referral Psychologist Referral for Po or focus Please call patient to schedule an appointment. Thank you. Referring Physician: [facility], Encounter Date: 01/26/2024 Physical Therapist Referral for Neck pain Referring Physician: Adarsh Nicole, Orthopedic Surgery, Encounter Date: 03/15/2024 Evaluation Analyst Referral for S kin lesion Please call patient to schedule an appointment. Thank you. Referring Physician: [facility], Encounter Date: 03/16/2024 Results Created Date Observation Date Name Description Value Unit Range Abnormal Flag Note LastModifiedBy Organization Detail LastModifiedTime 06/16/19 25 06/16/2024 rapid flu (A+B) Flu A negati ve Not Available [address], [place], [address], 06/16/2024 14:31:39 06/16/19 25 06/16/2024 rapid flu (A+B) Flu B negati ve Not Available [address], [place], [address], 06/16/2024 14:31:39 06/16/19 25 06/16/2024 rapid strep group A, throa t STREP A negati ve Not Available [address], [place], [address], 06/16/2024 14:31:23 03/15/20 24 XR, shoul juan No observ ation record ed. [email or web address] [facility] [address] [facility] [address], [place], [address], 03/15/2024 12:36:31 03/15/20 24 XR, cervi evelina spine , 2 or 3 view No observ ation record ed. [email or web address] [facility] [address] [facility] [address], [place], [address], 03/15/2024 12:38:56 03/30/20 24 03/30/2024 CT, abdom en + pelvi s, w/ contr ast No observ ation record ed. [email or web address] [facility] [address] [facility] [address] [facility] [address], [place], [address], 03/31/2024 12:00:41 Result Notes None recorded. Problems Name Problem SNOMED Code Status Onset Date Resolution Date Notes Provider Name and Address Organization Details Recorded Time Irritable bowel syndrome 65804100 Active Not Available [facility] 3 02:50:48 Tendinitis of right shoulder 4340168577249 101 Active 2019 Not Available [facility] 3 02:50:48 Rupture of rotator cuff of right shoulder 5956454144293 9103 Active 2021 Not Available [facility] 3 02:50:48 Ganglion cyst of right volar wrist 9903054074619 9109 Active 2021 Not Available [facility] 3 02:50:48 Pain of right shoulder joint 6028531181648 9100 Active 2019 Not Available [facility] 3 02:50:48 Cobalamin deficiency 961242778 Active 2021 Not Available [facility] 3 02:50:48 Cellulitis and abscess of toe 368979885 Active Not Available [facility] 3 02:50:48 [place] - lesion 550337543 Active Not Available [facility] 3 02:50:48 Partial thickness rotator cuff tear 734165703 Active 2019 Not Available [facility] 3 02:50:48 Abdominal pain 05199301 Active Not Available [facility] 3 02:50:48 Ankle pain 840688248 Active Not Available [facility] 3 02:50:48 Pain in right hand 8995430492188 09 Active 2021 Not Available [facility] 3 02:50:48 Vitamin D deficiency 89379023 Active 2021 Not Available [facility] 3 02:50:48 Depressive disorder 27515848 Active Not Available [facility] 3 02:50:49 Sinusitis 20590305 Active Not Available [facility] 3 02:50:49 Migraine 30946418 Active Not Available [facility] 3 02:50:49 Vertigo 179189106 Active Not Available [facility] 3 02:50:49 Obesity 858035115 Active Not Available [facility] 3 02:50:49 Anxiety 13085065 Active Not Available [facility] 3 02:50:49 Hyperlipid emia 20834845 Active 2021 Not Available [facility] 3 02:50:49 Premenstru al dysphoric disorder 495285 Active Not Available [facility] 3 02:50:49 Diarrhea 62608245 Active Not Available [facility] 3 02:50:49 Obstructiv e sleep apnea syndrome 08839131 Active Not Available [facility] 3 02:50:49 Neck pain 11368121 Active 2020 Not Available [facility] 3 02:50:49 Spinal stenosis in cervical region 50934219 Active 2019 Not Available [facility] 3 02:50:50 Herpes simplex 53442429 Active Not Available [facility] 3 02:50:50 Tobacco dependence syndrome 07161972 Active Not Available [facility] 3 02:50:50 Tonsilliti s 06906285 Active Not Available [facility] 3 02:50:50 Lipoma 48053730 Active Not Available [facility] 3 02:50:50 Primary malignant neoplasm of vulva 50929526 Active colpo Dec 2014 Not Available [facility] 3 02:50:50 Hearing loss 80801876 Active 2022 BOBBY Hahn [address], [address] [facility], [place], [address] , [facility] 3 18:08:50 Upper respirator y infection 32708160 Active 2022 BOBBY Hahn [address], [address], [place], [address] , [place] [facility] 3 10:40:54 Serum creatinine below reference range 701805419 Active 2022 BOBBY Hahn [address], [address], [place], [address] , [place] [facility] 3 11:23:11 Partial thickness rotator cuff tear 676768639 Active 2022 Any restrepo, [facility] 3 16:53:57 Carpal tunnel syndrome of right wrist 5859113961225 08 Active 2022 Any restrepo, [facility] 3 13:01:55 Acute sinusitis 70736185 Active 2022 Geri Garcia MD [address], [address], [place], [address] , [facility] 3 13:10:43 Dry eyes 368067870 Active 2023 Geri Garcia MD [address], [address], [place], [address] , [facility] 4 12:57:41 Seasonal allergic rhinitis 859685417 Active 2023 MAYRA Spence [address], [address], [place], [address] , [facility] 4 09:51:37 Poor focus 749180075 Active 2023 MAYRA Spence [address], [address], [place], [address] , [facility] 4 09:58:13 Cervical spondylosi s 824458163 Active 2023 NAN Bustos [address], [address], [place], [address] , [facility] 4 12:39:15 Skin lesion 98050870 Active 2023 MAYRA Spence [address], [address], [place], [address] , [facility] 4 10:27:07 Seasonal allergy 248995618 Active 2024 MAYRA Spence [address], [address], [place], [address] , [facility] 5 12:05:26 Sore throat 582492511 Active 2024 Chaparrita Gomez RN null, [place] [facility] 14:31:30 Problem Notes None recorded. Procedures Surgical History Date Name Laterality Status Provider Name and Address Organization Details Recorded Time 08/16/19 Ortho - Cortisone Injection completed Eyal Munroe MD [address] [facility], [facility] [address], [place], [address], [place] [facility] 28msec 08/15/2022 11:38:00 procedure on ankle completed Clarissa Satish, [employer] [place] [facility] 03/15/2024 10:56:12 Shoulder completed Clarissa Satish, [employer] [place] [facility] 03/15/2024 10:56:38 Ablation completed Clarissa Satish, [employer] [place] [facility] 03/15/2024 10:57:42 Endoscopy completed Not Available [facility] 0 07/17/2022 02:44:34 Tubal Ligation completed Clarissa Gas s, [employer] [place] [facility] 03/15/2024 10:56:23 Colonoscopy completed Not Available [facility] 07/17/2022 02:44:34 Imaging Results Imaging Date Name Status LastModified by Organiz ation Details LastModified Time 03/15/2024 XR, shoulder completed [email or web address] [facility] [address] [facility] [address], [place], [address], 03/15/2024 12:36:31 03/15/2024 XR, cervical spine, 2 or 3 view completed [email or web address] [facility] [address] [facility] [address], [place], [address], 03/15/2024 12:38:56 03/30/2024 CT, abdomen + pelvis, w/ contrast completed [address] [facility] [facility] [address], [place], [address], 03/31/2024 12:00:41 Procedure Notes None recorded. Medical Equipment None Reported. Allergies Allergen ID Allergen Name Allergen Category Reaction Reaction Severity Criticality Documentation Date Start Date Code Code System Note Provider Name and Address Organization Details Recorded Time 4748 acetamino phen / hydrocodo ne medicatio n Not available Not available Not available 07/17/2022 48648 2 RxNorm Not Available [facility] 3 03:00:32 4749 acetamino phen / oxycodone medicatio n Not available Not available Not available 07/17/2022 96122 3 RxNorm Not Available [facility] 3 03:00:32 4750 codeine medicatio n Not available Not available Not available 07/17/2022 2670 RxNorm sick, dizzy Clarissa Satish, FLARE BRE[employer]ER null, [facility] 3 10:48:56 4751 aspirin medicatio n Not available Not available Not available 07/17/2022 1191 RxNorm Not Available [facility] 3 03:00:32 25822 phentermi ne medicatio n facial swelling severe high 02/09/20242023 8152 RxNorm Juaquin Damon RN null, [facility] 4 10:11:33 Medications Name Sig Start Date Stop Date Status Note LastModified by Organization Details LastModified Time pain relief lidocaine 4% patch 5s APPLY 1 PATCH TOPICALLY TO THE SKIN EVERY DAY NEEDED 08/15 completed Not Available Not Available Not Available celecoxib 200 mg capsule TAKE 1 CAPSULE BY MOUTH EVERY DAY active Not Available Not Available No t Available cyclobenzap rine 10 mg tablet TAKE 1 TABLET BY MOUTH THREE TIMES DAILY NEEDED FOR MUSCLE SPASM 06/27 completed Not Available Not Available Not Available amoxicillin 500 mg capsule TK 1 C PO TID FOR 10 DAYS active Not Available Not Available No t Available medroxyprog esterone 10 mg tablet 10/04 completed Not Available Not Available Not Available bupropion HCl SR 150 mg tablet,12 hr sustained-r elease TAKE 1 TABLET BY MOUTH TWICE DAILY active Not Available Not Available No t Available Colace 100 mg capsule Take 1 capsule twice a day by oral route. 10/04 completed Not Available Not Available Not Available prednisone 10 mg tablet Take 1 tablet every day by oral route for 10 days. 08/15 completed Not Available Not Available Not Available nicotine 14 mg/24 hr daily transdermal patch Apply 1 patch every day by transderm al route. active Not Available Not Available No t Available cetirizine 10 mg tablet TAKE 1 TABLET BY MOUTH EVERY DAY active Not Available Not Available No t Available azithromyci n 250 mg tablet TK 2 TS PO ON DAY 1, THEN TK 1 T PO D FOR 4 DAYS 01/25 completed Not Available Not Available Not Available valacyclovi r 1 gram tablet Take 1 tablet every 8 hours by oral route for 7 days. active Not Available Not Available No t Available hydrocodone 5 mg-acetamin ophen 325 mg tablet TK 1 T PO Q 6 H active Not Available Not Available No t Available ondansetron HCl 8 mg tablet TK 1 T PO Q 8 H FOR 14 DAYS PRN active Not Available Not Available No t Available promethazin e 12.5 mg tablet TK 1 T PO Q 6 H PRN FOR NAUSEA/VO MITING 10/04 completed Not Available Not Available Not Available naltrexone 50 mg tablet TAKE 1 TABLET BY MOUTH EVERY DAY 01/25 completed Not Available Not Available Not Available prednisone 20 mg tablet TAKE 2 TABLETS BY MOUTH DAILY FOR 5 DAYS 08/15 completed Not Available Not Available Not Available rizatriptan 10 mg tablet TK 1 T PO Q 2 H PRF MIGRAINE HENDRICKS UNTIL RESPONSE. NOT TO EXCEED 3 DOSES IN 24 H 10/04 completed Not Available Not Available Not Available prednisone 5 mg tablet TAKE 1 TABLET BY MOUTH EVERY DAY FOR 5 DAYS 06/27 completed Not Available Not Available Not Available phentermine 15 mg capsule TAKE 1 CAPSULE BY MOUTH EVERY DAY 03/15 completed Not Available Not Available Not Available hydroxyzine pamoate 50 mg capsule 1-2 po x 1 30 minutes prior to flight active Not Available Not Available No t Available diphenoxyla te-atropine 2.5 mg-0.025 mg tablet 10/04 completed Not Available Not Available Not Available topiramate 25 mg tablet TAKE 1 TABLET BY MOUTH TWICE DAILY 03/20 completed Not Available Not Available Not Available meclizine 12.5 mg tablet TAKE 1 TABLET BY MOUTH THREE TIMES DAILY NEEDED FOR DIZZINESS 11/21 completed Not Available Not Available Not Available phentermine 37.5 mg tablet Take 1 tablet every day by oral route for 30 days. active Not Available Not Available No t Available valacyclovi r 500 mg tablet TK ONE T PO D active Not Available Not Available No t Available ciprofloxac in 500 mg tablet TK 1 T PO Q 12 H 10/04 completed Not Available Not Available Not Available sulfamethox azole 800 mg-trimetho prim 160 mg tablet TAKE 1 TABLET BY MOUTH EVERY 12 HOURS 01/25 completed Not Available Not Available Not Available peg-electro lyte solution 420 gram oral solution TAKE DIRECTED BY OFFICE 08/15 completed Not Available Not Available Not Available tramadol 50 mg tablet Take 1 tablet every 6 hours by oral route. 08/15 completed Not Available Not Available Not Available bupropion HCl SR 100 mg tablet,12 hr sustained-r elease TAKE 1 TABLET BY MOUTH TWICE DAILY 01/25 completed Not Available Not Available Not Available prednisone 10 mg tablets in a dose pack Take 1 tab by mouth, 3 times a day for 3 daysTake 1 tab by mouth 2 times a day for 2 daysTake 1 tab by mouth once a day for 1 day 08/15 completed Not Available Not Available Not Available meloxicam 7.5 mg tablet TK 1 T PO QD PRN 10/04 completed Not Available Not Available Not Available amoxicillin 875 mg tablet Take 1 tablet every 12 hours by oral route for 7 days. active Not Available Not Available No t Available famotidine 20 mg tablet 10/04 completed Not Available Not Available Not Available dicyclomine 20 mg tablet TK 1 T PO TID PRF ABD CRAMPS active Not Available Not Available No t Available Kenalog 10 mg/mL suspension for injection Take 20 mg by injection route. 11/21 completed [facility]: 0003- 0494- 20 Not Available Not Available Not Available baclofen 10 mg tablet TAKE 1 TABLET BY MOUTH THREE TIMES DAILY NEEDED FOR MUSCLE PAIN 01/25 completed Not Available Not Available Not Available hydrocodone 7.5 mg-acetamin ophen 325 mg tablet TAKE 1 TABLET BY MOUTH EVERY 4 HOURS NEEDED FOR PAIN 11/21 completed Not Available Not Available Not Available cephalexin 500 mg capsule TK ONE C PO Q 6 H active Not Available Not Available No t Available pantoprazol e 40 mg tablet,terra yed release TAKE 1 TABLET BY MOUTH DAILY active Not Available Not Available No t Available neomycin-po lymyxin-dex ameth 3.5 mg/mL-10,00 0 unit/mL-0.1 % eye drops INSTILL 1 DROP INTO AFFECTED EYE(S) BY OPHTHALMI C ROUTE EVERY 4 hours while awake x 7 days 01/25 completed Not Available Not Available Not Available buspirone 10 mg tablet Take 1/2 tab by oral route twice a day as directed. 10/04 completed Not Available Not Available Not Available lidocaine 5 % topical patch APPLY ONE PATCH TOPICALLY TO MOST PAINFUL AREA ONCE DAILY. LEAVE ON FOR UP TO 12 HOURS. 01/25 completed Not Available Not Available Not Available promethazin e 25 mg tablet TAKE 1/2 TABLET BY MOUTH EVERY 6 HOURS NEEDED FOR NAUSEA 08/15 completed Not Available Not Available Not Available gabapentin 300 mg capsule Take 2 capsules 3 times a day by oral route as needed for 30 days. 06/29 completed Not Available Not Available Not Available diclofenac sodium 75 mg tablet,terra yed release Take 1 tablet twice a day by oral route. 11/21 completed Not Available Not Available Not Available ergocalcife rol (vitamin D2) 1,250 mcg (50,000 unit) capsule TAKE 1 CAPSULE BY MOUTH EVERY WEEK active Not Available Not Available No t Available Cheratussin AC 10 mg-100 mg/5 mL oral liquid TK 10ML PO QHS active Not Available Not Available No t Available ibuprofen 600 mg tablet TAKE 1 TABLET BY MOUTH FOUR TIMES DAILY NEEDED FOR FEVER OR PAIN 06/27 completed Not Available Not Available Not Available polyethylen e glycol 3350 17 gram/dose oral powder 1 capful in 4-8 ounces liquid po qday prn constipat ion 10/04 completed Not Available Not Available Not Available levofloxaci n 500 mg tablet Take 1 tablet every 24 hours by oral route for 7 days. active Not Available Not Available No t Available levofloxaci n 750 mg tablet Take 1 tablet every day by oral route for 5 days. active Not Available Not Available No t Available methylpredn isolone 4 mg tablets in a dose pack FOLLOW PACKAGE DIRECTION S 06/27 completed Not Available Not Available Not Available ondansetron 4 mg disintegrat ing tablet 10/04 completed Not Available Not Available Not Available fluoxetine 20 mg capsule TK 2 CS PO QD active Not Available Not Available No t Available fluticasone propionate 50 mcg/actuati on nasal spray,suspe nsion SHAKE LIQUID AND USE 2 SPRAYS IN EACH NOSTRIL EVERY NIGHT AT BEDTIME 08/15 completed Not Available Not Available Not Available dicyclomine 10 mg capsule Take 1 capsule 3 times a day by oral route as needed. active Not Available Not Available No t Available ipratropium bromide 21 mcg (0.03 %) nasal spray INSTILL 2 SPRAYS IN EACH NOSTRIL TID PRN FOR DRAINAGE 06/29 completed Not Available Not Available Not Available loratadine 10 mg tablet TAKE 1 TABLET BY MOUTH EVERY DAY. 03/15 completed Not Available Not Available Not Available amoxicillin 875 mg-potassiu m clavulanate 125 mg tablet TK 1 T PO BID active Not Available Not Available No t Available Ventolin HFA 90 mcg/actuati on aerosol inhaler INL 2 PUFFS PO Q 4 H active Not Available Not Available No t Available hydroxyzine pamoate 25 mg capsule TAKE 1 CAPSULE BY MOUTH THREE TIMES DAILY NEEDED active Not Available Not Available No t Available nicotine 21mg/24hr-1 4mg/24hr-7m g/24hr daily transderm patches,seq uentl FOLLOW PACKAGE DIRECTION S active Not Available Not Available No t Available cyclobenzap rine 5 mg tablet TAKE 1 TABLET THREE TIMES DAILY NEEDED FOR PAIN 03/15 completed Not Available Not Available Not Available chlorhexidi ne gluconate 0.12 % mouthwash active Not Available Not Available No t Available sumatriptan 06/27 completed Not Available Not Available Not Available lidocaine (PF) 10 mg/mL (1 %) injection solution In office injection administe red by the provider 06/29 completed [facility]: 0409- 4276- 17 Not Available Not Available Not Available lidocaine (PF) 20 mg/mL (2 %) injection solution Take 80 mg by injection route. 08/15 completed Not Available Not Available Not Available Chantix 0.5 mg tablet TK 1 T PO QD active Not Available Not Available No t Available peg 3350 240 gram-electr olytes 22.72 gram-6.72 g-5.84 g powdr for soln 10/04 completed Not Available Not Available Not Available ketorolac 30 mg/mL injection solution Inject 1 mL every 6 hours by intraveno us route. 08/15 completed Not Available Not Available Not Available ropivacaine (PF) 5 mg/mL (0.5 %) injection solution Take 20 mg by injection route. 01/25 completed Not Available Not Available Not Available Chantix Starting Month Box 0.5 mg (11)-1 mg (42) tablets in dose pack U UTD active Not Available Not Available No t Available Contrave 8 mg-90 mg tablet,exte nded release 1 po qhs x 1 week then 1 po bid x 1 week then 1 po qAM and 2 po qhs x 1 week then 2 po bid 08/15 completed Not Available Not Available Not Available Lidocaine Pain Relief 4 % topical patch Apply 1 patch every day by topical route as needed. 08/15 completed Not Available Not Available Not Available ID NOW COVID-19 Test Kit TEST DIRECTED TODAY 07/03 completed Not Available Not Available Not Available BinaxNOW COVID-19 Ag Self Test kit TEST DIRECTED TODAY active Not Available Not Available No t Available Paxlovid 300 mg (150 mg x 2)-100 mg tablets in a dose pack TK 2 NIRMATREL VIR TS AND 1 RITONAVIR T TOGETHER PO BID FOR 5 DAYS TWICE DAILY 08/15 completed Not Available Not Available Not Available Zepbound 2.5 mg/0.5 mL subcutaneou s pen injector ADMINISTE R 2.5 MG UNDER THE SKIN EVERY WEEK active Not Available Not Available No t Available Vitals Date Recorded Body height Body mass index (BMI) Body weight Body temperature Heart rate Oxygen saturation Oxygen saturation in Arterial blood by Pulse oximetry Systolic blood pressure Diastolic blood pressure Provider Name and Address Organization Details Last Updated DateTime 4 154.94 cm 35.4 kg/m2 59965.5 2 g 97.3 [degF] 65 /min 99 % 99 % 139 mm[Hg] 65 mm[Hg] Socorro Ron MA [facility] 4 09:11:05 Date Recorded Body height Body mass index (BMI) Body weight Provider Name and Address Organization Details Last Updated DateTime 03/15/2024 154.94 cm 34 kg/m2 32142.63 g Clarissa Covarrubias CNA [facility] 03/15/2024 10:53:05 Date Recorded Body height Body mass index (BMI) Body weight Body temperature Heart rate Oxygen saturation Oxygen saturation in Arterial blood by Pulse oximetry Systolic blood pressure Diastolic blood pressure Provider Name and Address Organization Details Last Updated DateTime 154.94 cm 34.2 kg/m2 96642.2 2 g 97.7 [degF] 70 /min 99 % 99 % 130 mm[Hg] 76 mm[Hg] Juaquin Damon RN [employer] [facility] 4 10:05:39 Date Recorded Body height Provider Name an d Address Organization Details Last Updated DateTime 06/16/2024 154.94 cm Chaparrita Gomez RN [employer] 06/16/2024 14:30:22 Social History Question Answer Notes LastModified by Organizat ion Details LastModified Time Tobacco Smoking Status Current Every Day Smoker Marlin restrepo [employer] [facility] 11/21/2022 13:56:41 Do You Have An Advance Directive? No [id number] Information not available 07/17/2022 What Is Your Level Of Alcohol Consumption? None [email or web address] Information not available 11/21/2022 What Is Your Level Of Caffeine Consumption? Moderate [id number] Information not available 07/17/2022 How Much Tobacco Do You Chew? None [id number] Information not available 07/17/2022 In The 14 Days Before Symptom Onset, Have You Had Close Contact With A Laboratory-confir med COVID-19 While That Case Was Ill? No Information not available 09/18/2022 In The 14 Days Before Symptom Onset, Have You Had Close Contact With A Person Who Is Under Investigation For COVID-19 While That Person Was Ill? No [email or web address] Information not available 09/18/2022 What Type Of Diet Are You Following? REGULAR [id number] Information not available 07/17/2022 Which Illicit Or Recreational Drugs Have You Used? None Information not available 09/18/2022 Do You Or Have You Ever Used E-cigarettes Or Vape? Never Used Electronic Cigarettes [email or web address] Information not available 09/18/2022 Are There Any Guns Present In Your Home? No [email or web address] Information not available 09/18/2022 What Was The Date Of Your Most Recent Tobacco Screening? 07/03/2021 [email or web address] Information not available 09/18/2022 Do You Use Your Seat Belt Or Car Seat Routinely? Yes [email or web address] Information not available 09/18/2022 At What Age Did You Start Smoking Tobacco? 17 [email or web address] Information not available 09/18/2022 Do You Or Have You Ever Used Smokeless Tobacco? Never Used Smokeless Tobacco [id number] Information not available 07/17/2022 How Much Tobacco Do You Smoke? 0.25 PPD 1 Pack In 2 Weeks Information not available 03/15/2024 Do You Participate In Social Media? Yes [email or web address] Information not available 09/18/2022 Do You Feel Stressed (tense, Restless, Nervous, Or Anxious, Or Unable To Sleep At Night)? [id number] [email or web address] Information not available 09/18/2022 Do You Use Sunscreen Routinely? Yes [email or web address] Information not available 09/18/2022 Sex: Female Functional Status Question Answer Note LastModified by Organizat ion Details LastModified Time What is your exercise level? None [id number] Information not available 07/17/2022 Mental Status None recorded. Family History Relationship Description Onset Age of this Age Resolved Age Notes LastModified by Organization Details LastModified Time Maternal Grandfather Mitral valve prolapse Not available 2022 10:28:34 Maternal Grandfather Family history of malignant neoplasm [email or web address] Not available 2022 10:28:34 Maternal Grandmother Mitral valve prolapse [email or web address] Not available 2022 10:28:34 Maternal Grandmother Hypertensive disorder [id number] Not available 07/17/2022 02:44:37 Father Family history of stroke [email or web address] Not available 2022 10:28:34 Father Hypertensive disorder Not available 2022 10:52:48 Father Heart disease [id number] Not available 07/17/2022 02:44:37 Paternal Grandmother Diabetes mellitus Not available 2022 10:53:29 Mother Complication of anesthesia Not available 03/15 10:53:50 Mother Diabetes mellitus Not available 2023 10:55:02 Sister Family history of stroke multip le sister s Not available 03/15/2024 10:54:36 Unspecified Relation Blood coagulation disorder mother 's side Not available 03/15/2024 10:54:52 Medical History Condition Response BLINDNESS N RHEUMATIC FEVER N KIDNEY STONES N BLADDER PROBLEMS N MRSA N OTHER # 1 N POLIO N LUNG DISEASE/DISORDER N RADIATION / CHEMOTHERAPY N COPD N Other # 2 N BLOOD DISEASES N SURGERY N EAR OR HEARING PROBLEMS N MUMPS N BOWEL PROBLEMS N FEMALE PROBLEMS / INFECTIONS N DEPRESSION (INCLUDING POST ) N STROKE/TIA N THYROID DISEASE N ULCERS N BENIGN PROSTATIC HYPERPLASIA N MEASLES N CERVICALGIA N TB SKIN TEST N MYOCARDIAL INFARCTION N PARAPELGIA N OBESITY N GERD/NAUSEA N ANEURYSM N URINARY/BLADDER/KIDNEY PROBLEMS Y CORONARY ARTERY DISEASE (CAD) N MENIERE'S DISEASE N ADDICTION CONCERNS N ENDOMETRIOSIS N USE OF BLOOD THINNERS N SKIN PROBLEMS Y EMPHYSEMA N GASTROINTESTINAL DISORDER N MUSCLE,JOINT OR BONE PROBLEMS N GASTROINTESTINAL BLEEDING N BLOOD CLOTS N ASTHMA N CATARACTS N USE OF NSAIDS Y ERECTILE DYSFUNCTION N GI PROBLEMS N CHF N Low Testosterone N NEUROPATHY N INFERTILITY N AIDS/HIV N FRACTURES N CHEMOTHERAPY / RADIATION N VISION/EYE PROBLEMS N LIVER DISEASE N MALE HYPOGONADISM N HYPERTENSION N TOURETTE'S N ANXIETY DISORDER N BLOOD TRANSFUSION N ANEMIA/BLOOD DISORDER N CHRONIC EAR INFECTIONS N BRONCHITIS N TUBERCULOSIS N GLAUCOMA N FOOT PROBLEM N DIVERTICULITIS N CHICKENPOX N SLEEP APNEA N ALLERGIES/HAYFEVER N INFECTIOUS DISEASE N HEART ARRHYTHMIA N PROSTATE N INSOMNIA N HIGH CHOLESTEROL / HYPERLIPIDEMIA N HYPERTHYROIDISM N EYE PROBLEMS N EATING DISORDER N EDEMA N CHRONIC PAIN SYNDROME N CONSTIPATION N CAROTID BLOCKAGE N BACK / NECK PROBLEMS N HAVE YOU BEEN HOSPITALIZED OR SEEN IN [facility] IN THE PAST YEAR ? N ATHEROSCLEROSIS N BREAST PROBLEMS N DIALYSIS N ECZEMA N FIBROMYALGIA N OSTEOPOROSIS N ARTHRITIS Y NO SIGNIFICANT PAST MEDICAL HISTORY N APPENDICITIS N DIABETES, TYPE N BAD TEETH N HEARTBURN / REFLUX N ADD/ADHD N AUTISM SPECTRUM DISORDER (ASD) N HEPATITIS / LIVER DISEASE N PULMONARY DISEASE N GOUT N SLEEP DISORDER N ALZHEIMER'S DISEASE N PAIN N HERPES N DEMENTIA N HEADACHES/MIGRAINES N SEIZURES/EPILEPSY N VASCULAR DISEASE N PACEMAKER N DIZZINESS N HEART DISEASE/HEART PROBLEMS N KIDNEY DISEASE N DEVELOPMENTAL OR BEHAVIORAL DISORDERS N MULTIPLE SCLEROSIS N SCARLET FEVER N MENTAL DISORDER/ILLNESS N CARDIAC ARRHYTHMIA N CANCER: SPECIFY Y PNEUMONIA N ATRIAL FIBRILLATION N Gall Stones N PULMONARY EMBOLISM N AUTOIMMUNE DISEASE N Gynecological History Statement/Question Response Abnormal Pap N Date of LMP Sexually Active? Y Weight gain Y Dislike of Light during Menstrual Headac he N Menses Monthly Y STIs/STDs N Current Control Method None Breast Problems none Discharge none Obstetrics History GPAL:G 0 P 0 0 0 0 Immunizations Vaccine Type Date Status Note Provider Nam e and Address Organization Details Recorded Time COVID-19, mRNA, LNP-S, PF, 30 mcg/0.3 mL dose 04/18/2021 completed Danielle Pineda APRN [address], [address], [place], [address], [employer] 01/27/2024 10:53:05 COVID-19, mRNA, LNP-S, PF, 100 mcg/0.5mL dose or 50 mcg/0.25mL dose 09/04/2020 completed Danielle Pineda APRN [address], [address], [place], [address], [employer] 01/27/2024 10:53:04 COVID-19, mRNA, LNP-S, PF, 100 mcg/0.5mL dose or 50 mcg/0.25mL dose 08/13/2020 completed Danielle Pineda APRN [address], [address], [place], [address], [employer] 01/27/2024 10:53:04 MMR 05/21/2019 completed Not Available [facility] 07/17/2022 03:00:18 Influenza, split virus, quadrivalent, PF 03/18/2014 completed Not Available [facility] 3 03:00:18 Tdap 03/15/2014 completed Not Available [facility] 07/17/2022 03:00:18 Influenza, split virus, quadrivalent, PF 03/10/2020 completed Not Available [facility] 3 03:00:18 COVID-19, mRNA, LNP-S, PF, 30 mcg/0.3 mL dose 08/13/2020 completed Danielle Pineda APRN [address], [address], [place], [address], [facility] [employer] 01/27/2024 10:53:04 COVID-19, mRNA, LNP-S, PF, 30 mcg/0.3 mL dose 09/04/2020 completed Danielle Pineda APRN [address], [address], [place], [address], [facility] [facility] 01/27/2024 10:53:04 COVID-19, mRNA, LNP-S, PF, 30 mcg/0.3 mL dose 05/15/2021 completed Danielle Pineda APRN [address], [address], [place], [address], [facility] [employer] [facility] 01/27/2024 10:53:05 Influenza, MDCK, quadrivalent, PF 03/03/2023 completed Danielle Pineda APRN [address], [address], [place], [address], [facility] [employer] [facility] 01/27/2024 10:53:11 COVID-19, mRNA, LNP-S, PF, 50 mcg/0.5 mL 03/03/2023 completed Danielle Pineda APRN [address], [address], [place], [address], [facility] [facility] 01/27/2024 10:53:11 Past Encounters Encounter ID Performer Location Encounter Start Date Encounter Closed Date Diagnosis/Indication Diagnosis SNOMED-CT Code Diagnosis ICD10 Code Diagnosis Note [id number] [facility] [address] [place] [address] 07/27/2020 00:00:00 07/27/2020 11:50:02 [id number] [facility] [place] [address] [place] [address] 08/08/2020 00:00:00 08/08/2020 21:10:42 [id number] [facility] [address] [place] [address] 08/10/2020 00:00:00 08/10/2020 12:29:38 [id number] [facility] [address] [place] [address] 09/15/2020 00:00:00 09/15/2020 12:37:27 [id number] [facility] [place] [address] [place] [address] 10/12/2020 00:00:00 10/12/2020 19:50:33 [id number] [facility] [place] [address] [place] [address] 10/19/2020 00:00:00 10/19/2020 10:34:20 [id number] [facility] [place] [address] [place] [address] 12/06/2020 00:00:00 12/06/2020 10:38:40 [id number] [facility] [place] [address] [place] [address] 12/18/2020 00:00:00 12/18/2020 12:06:11 [id number] [facility] [place] [address] [place] [address] 03/08/2021 00:00:00 03/08/2021 16:12:53 [id number] [facility] [place] [address] [place] [address] 06/05/2021 00:00:00 06/05/2021 13:43:23 [id number] [facility] [place] [address] [place] [address] 07/03/2021 00:00:00 07/03/2021 16:24:09 [id number] [facility] [place] [address] [place] [address] 07/24/2021 00:00:00 07/24/2021 12:32:34 [id number] [facility] [place] [address] [place] [address] 07/30/2021 00:00:00 07/30/2021 16:21:30 [id number] [facility] [place] [address] [place] [address] 08/30/2021 00:00:00 08/30/2021 10:29:55 [id number] [facility] [place] [address] [place] [address] 10/25/2021 00:00:00 10/25/2021 16:40:12 [id number] [facility] [place] [address] [place], [place] [address] 11/13/2021 00:00:00 11/13/2021 10:38:36 [id number] [facility] [place] [address] [place], [place] [address] 11/15/2021 00:00:00 11/15/2021 10:16:46 [id number] [facility] [place] [address] [place] [address] 01/17/2022 00:00:00 01/17/2022 09:46:22 [id number] [facility] [place] [address] [place] [address] 05/17/2022 00:00:00 05/17/2022 20:31:44 [id number] Eyal Munroe MD [facility] [place] [address] [place] [address] 08/15/2022 10:32:19 08/15/2022 12:30:53 Neck pain 34099443 M54.2 Spinal leoncio nosis in cervical region 86883570 M48.02 Partial th ickness rotator cuff tear 997309509 M75.102 Rupture of rotator cuff of right shoulder 5811105523 8774428 M75.101 [id number] BOBBY Hahn [facility] [place] [address] [place] [address] 09/04/2022 10:12:21 09/04/2022 10:47:54 Cobalamin deficiency 545490285 E53.8 Hearing loss 30120593 H9 1.90 New problemAud iology referral generated prior to office visit.Pt in office for problem visit with c/o having hearing loss for a long time. States she has been using closed captioning on her tv for at least 7-8 years. Pt states she feels like the sx have gotten worse over the last 6 months. States she is having a lot of trouble hearing people close to her when there is a lot of ambient noise. Denies any hx of significan t ear infections or ear trauma. States she does remember having to lay on one side more to be able to hear more clearly, but isn't sure which side it is. Hyperlipidemia 67981992 E78.5 Discussed need for regular exercise, increase intake of water/vege tables/fib er. Decrease the amount of greasy/fat ty/fried foods in diet. Consider/s tart taking a daily fish oil supplement . Obesity 182797064 E66.9 Advised eat 3 meals daily with 1-2 healthy snacks, eliminate caloric drinks, no grazing btw meals, reduce packaged foods, portion control, modificati on of cooking style, low fat/low sugar items, 30 minutes of exercise at least 3x/week, reduce emotional/ stress eating, increase fruits/veg etables, take 15-20 minutes to eat. Vitamin D deficiency 347 11350 E55.9 Upper resp iratory infection 67289886 J06.9 New complaintP atient presented with symptoms of upper respirator y infection. Advised to drink plenty of fluids, run a cool-mist humidifier in room at night, gargle salt water for sore throat, and get plenty of rest. Patient should avoid over-exert ion and reduce exposure to irritants such as smoke, cold, dry air, and dust.Treat ment currently involves symptomati c relief. Patient may take acetaminop hen or ibuprofen as directed to reduce fever and body aches. Antihistam ine and decongesta nt usage was discussed and recommenda tions made.Varun nt understood these instructio ns and will follow up in the office in 10 days to 2 weeks if symptoms not improving. [id number] BOBBY Hahn [facility] [address] [place] [address] 09/18/2022 10:28:10 09/18/2022 11:42:54 Hyperlipidemia 08738283 E78.5 Chronictot al 226, ldl 151 (09/04/22)D iscussed need for regular exercise, increase intake of water/vege tables/fib er. Decrease the amount of greasy/fat ty/fried foods in diet. Consider/s tart taking a daily fish oil supplement . Patient in formed - test result 796131512 Z71.2 Reviewed lab results with patient. Discussed abnormal cholestero l levels, low serum creatinine and treatment recommenda tions as above. Serum crea tinine below reference range 505921779 R79.89 New finding on labsEncour aged pt to increase water intake to 2-3L per day, decrease or eliminate intake of sugary/caf feinated beverages. Hearing loss 54279993 H9 1.90 No change since last visit.Jesus ology referral generated prior to office visit. Pt advised referral has been sent twice. Documented sent with fax confirmati ons on 08/28 & 09/04. Pain of ri ght shoulder joint 7243740172 2488836 M25.511 ChronicCur rently scheduled for surgery on 10/09/[address] Munroe. Per patient, clearance completed by NAN Bustos (ortho).Re viewed ortho note from Dr. Munroe (08/15/22): Patient returns shoulder pain right. Note she has made a good effort to live with it and this is failed. She stopped smoking . She would like to try to get her surgery done. She would like a shot of cortisone today this is done with 20 mg Kenalog 4 cc 1% lidocaine we will schedule her for surgery now with rotator cuff repair right presumed discussed risks benefits limitation s and alternativ es in detailpart ial thickness rotator cuff tear [id number] Eyal Munroe MD [facility] [place] [address] [place] [address] 10/22/2022 14:37:59 10/22/2022 15:14:23 Rupture of rotator cuff of right shoulder 8254203234 3630469 M75.101 [id number] Eyal Munroe MD [facility] [place] [address] [place] [address] 11/21/2022 13:34:44 11/21/2022 14:43:31 Tendinitis of right shoulder 5803271504 941815 M75.91 Rupture of rotator cuff of right shoulder 4145645591 2880733 M75.101 Pain of ri ght shoulder joint 1910448739 4066302 M25.[id number] [facility] [place] [address] [place] [address] 12/19/2022 10:47:02 12/19/2022 11:46:23 Rupture of rotator cuff of right shoulder 7052792520 2060787 M75.101 Tendinitis of right shoulder 8913374156 985176 M75.[id number] [facility] [place] [address] [place] [address] 01/16/2023 12:50:55 01/16/2023 13:23:52 Rupture of rotator cuff of right shoulder 5540096123 5860978 M75.101 Tendinitis of right shoulder 1396278999 969066 M75.91 Carpal scott nancy syndrome of right wrist 5326410824 09745 G56.[id number] [facility] [place] [address] [place] [address] 02/13/2023 14:04:28 02/13/2023 14:40:49 Partial thickness rotator cuff tear 550471444 M75.102 Carpal scott nancy syndrome of right wrist 9033788216 43128 G56.01 [id number] MD [facility] [place] [address] [place] [address] 06/05/2023 14:46:04 06/05/2023 17:33:[id number] [facility] [place] [address] [place] [address] 01/26/2024 08:58:49 01/26/2024 10:38:45 Adult health examination 986194259 Z00.00 Z00.01 Discussed medication compliance and routine follow up.Discuss ed annual eye and dental exams.Disc ussed healthy diet and exercise.W ill check screening labs as listed below.Moody noscopy and Mammogram UTD.Review ed vaccine records and made recommenda tions. Hyperlipidemia 19750729 E78.5 Will check labs as listed below. Vitamin D deficiency 347 67897 E55.9 Will update labs as listed below. Tobacco de pendence syndrome 85713822 F17.200 Patient has attempted to quit smoking, was successful for a few weeks and then started again. Patient is not open to assistance with smoking cessation. Primary ma lignant neoplasm of vulva 43520698 C51.[address] Villatoro at [facility]-n ext appt in February.NAN Sanchez will be updated in February. Rupture of rotator cuff of right shoulder 9399029244 0749496 M75.101 Doing well, no concerns at this time. Depressive disorder 3548 9007 F32.A Patient is doing well.Will continue medication as listed below. Obesity 758771380 E66.9 Will start medication as listed below. Patient will follow up in one month, sooner if needed.Susie fair is aware that this medication is a controlled substance and a stimulant. Discussed controlled substance policy with patient, patient verbalized understand ing.Patien t verbalized understand ing of potential side effects. Seasonal a llergic rhinitis 488015848 J30.2 Patient does not believe that Cetirizine is working like it use to, would like to switch to Loratadine . Poor focus 873813564 H52 .7 Patient would like to speak with therapist about OCD/ADHD. Patient does not want to be put on medication , patient would like to learn ways to work through symptoms. [id number] MAYRA Spence [facility] [place] [address] [place] [address] 02/06/2024 09:14:27 02/06/2024 09:31:01 [id number] NAN Bustos [facility] [place] [address] [place] [address] 03/15/2024 10:39:59 03/15/2024 11:54:34 Tendinitis of right shoulder 0815483679 749693 M75.91 Pain of ri ght shoulder joint 7960972337 2708962 M25.511 Neck pain 89949148 M54.2 Cervical spondylosis 387 922157 M47.945 [id number] MAYRA Spence [facility] [place] [facility] [address] [place] [address] 03/16/2024 10:00:44 03/16/2024 11:18:15 Vitamin D deficiency 69253519 E55.9 Will update labs as listed below. Dietary ma nagement surveillance 418319532 Z71.3 BMI 34.2 Skin lesion 11217357 L98 .[id number] [facility] Primary Care [facility] [address] [place] [address] 06/16/2024 14:16:29 06/16/2024 14:33:30 Health Concerns Section Related Observation LastModified by Organization Detai ls LastModified Time None Recorded Concern Status LastModified by Organization Details LastModified Time None Recorded Advance Directives Directive N: Payers Encounter Date Sequence Insurance Name Policy Number Policy Pires Covered Member ID Pires Member ID Guarantor Name 01/26/2024 1 [facility] ON OR AFTER 11/16/20 (MEDICAID REPLACEMENT - HMO) Kathy Medina [id number] Kathy Medina 02/06/2024 1 [facility] ON OR AFTER 11/16/20 (MEDICAID REPLACEMENT - HMO) Kathy Medina [id number] Kathy Medina 03/15/2024 1 [facility] ON OR AFTER 11/16/20 (MEDICAID REPLACEMENT - HMO) Kathy Medina [id number] Kathy Medina 03/16/2024 1 [facility] ON OR AFTER 11/16/20 (MEDICAID REPLACEMENT - HMO) Kathy Medina [id number] Kathy Medina 06/16/2024 1 [facility] ON OR AFTER 11/16/20 (MEDICAID REPLACEMENT - HMO) Kathy Medina [id number] Kathykate Medina Notes Date Note Type Note Provider Name and Address Organization Details Recorded Time 01/26/2024 text/html Patient is a 49 year old female that presents to the office for annual wellness and to establish care with new provider. Patient reports she is doing well overall. Patient [facility] [facility], next appointment is in February, will have PAP updated at that time. Patient continues to see Dr. Enriquez at [facility] for her epiphrenic diverticulum and celiac disease. Patient reports she is needing to have surgery however she has to lose weight first. Patient has tried numerous diets and has spoken to a legal secretary without success of weight loss. Patient reports her primary problem is low metabolism as she does not have a large appetite and has difficulties eating due to dysphagia. Patient reports it was recommended by her previous PCP to start Ozempic however she has no interest in injectable medications as they have the possibility for causing stomach paralysis which she does not need with her current medical diagnoses. Patient discusses concerns with trouble focusing. Patient reports this has been an issue for many years however she has learned ways to deal with it or adjust her lifestyle to be more accommodating. It was suggested many years ago that patient start medication for ADHD however she does not wish to take medications. She would like to speak with a therapist of some sort to see if they have helpful advice. Patient denies chest pain and shortness of breath, nausea vomiting and diarrhea. labs-orderedmammog indira-unsure (Ludwig)colonosc upz-YLDAka-KRQLkzj o-XZOVtbm-UYSXckdv les-aware Shy Lafleur, INSTALLATION & MAINTENANCE EXECUTIVE-C [address] [facility], [facility] [address], [place], [address], [facility] 28msec 01/26/2024 11:48:11 03/15/2024 text/html The patient returns we have not seen her for over a year now. Dr. Munroe did a rotator cuff repair right shoulder about 13-14 months ago. She states her right shoulder is doing well in terms of function she will occasionally have some discomfort she thinks this is mostly emanating from her neck however. She has been previously known to have some degenerative changes in her neck with some radiating pain from her neck to her shoulder. She denies any weakness or radicular pain down the arm occasionally she will get some numbness and tingling in her hand but she also has a history of carpal tunnel syndrome. She states recently her neck pain has been bothering her more she also ran out of Celebrex which has made her neck pain also more significant. Because we have not seen her for more than a year she was asked to make an appointment. She denies any trauma or injury to her neck or her shoulder nothing new going on basically a recurrence of her neck pain that has been chronic in nature. She had an MRI scan of her neck 3-1/2 years ago which showed some degenerative change around C5-6 and C6-7 and some small disc bulging. She comes in today for recheck and evaluation of recurrent neck pain and shoulder pain as described. Overall though she thinks her rotator cuff is functioning well and she is pleased with the results of the shoulder. New past medical history sheet was reviewed and signed on the intake sheet of today's date drug allergies current medications family social history previous surgical history 10 point review of systems was reviewed and discussed in detail today with the patient. NAN Bustos [address], [address], [place], [address], [place] 03/15/2024 12:41:26 03/16/2024 text/html Patient is a 49 year old female that presents to the office for medication follow up. Patient switched from Loratidine back to Cetirizine as she did not think that Loratidine was helping. Patient has switched to soy shakes and is tolerating them more than her previous protein shakes due to her lactose intolerance. Patient is still unable to eat much. Patient is going to be having surgery in May. Patient requesting referral to dermatology for skin lesion on left forehead. Patient reports it has been present for about 6 months, has not changed in shape or size however she had one about 15 years ago that had to be removed due to history of cancer. Patient's concern came from her MUSICAL THERAPIST when there were changes noticed in her pelvic region which she is currently having testing done on. MAYRA Spence [address], [address], [place], [address], [place] 03/16/2024 10:52:26 OBGyn Episode No OBEpisode recorded.
[2024-06-21 19:11] VITALS: BP 119/78; PULSE 80; RESP 15; TEMP 36.5; O2SAT 100
--- NOTE | 2024-06-21 20:51 | ED.GENADULT ---
HPI - General Adult General Chief complaint: Fall Stated complaint: fall, HI and mid back pain Time Seen by Provider: 06/21/24 20:24 History of Present Illness HPI narrative: Patient is a 49-year-old female who presents ER after a fall. Was walking down a ramp when she slipped and fell backwards striking her head. She had a clipping her here which cause sudden pain on the right posterior aspect. She then developed tingling and hot sensation along the left anterior aspect of her periorbital region. She does not think she lost consciousness. She is not on blood thinners. She has also had some pain shooting down her mid back between the shoulder blades. No numbness or tingling arms or legs. Pain is worse with physical movement and deep breath. No dyspnea. Related Data Home Medications ?Medication ?Instructions ?Recorded ?Confirmed ?Last Taken ?Type cetirizine 10 mg tablet (Zyrtec) 10 mg PO DAILY 11/12/20 08/21/23 Unknown History bupropion HCl 100 mg tablet,12 hr 100 mg PO BID 03/06/22 08/21/23 10/09/22 06:50 History sustained-release celecoxib 200 mg capsule 200 mg PO DAILY 03/06/22 08/21/23 Unknown History naltrexone 50 mg tablet 50 mg PO HS 03/06/22 08/21/23 Unknown History pantoprazole 40 mg tablet,delayed 40 mg PO DIRECTED 05/29/22 08/21/23 Unknown History release Lactobacillus 1 cap PO DAILY 10/02/22 08/21/23 Unknown History acidophilus-Bifidobac.animalis 2.5 billion cell capsule (Daily Probiotic) cyanocobalamin (vitamin B-12) 1,000 mcg PO DAILY 10/02/22 08/21/23 Unknown History 1,000 mcg tablet Allergies Allergy/AdvReac Type Severity Reaction Status Date / Time latex Allergy Severe Rash Verified 08/21/23 16:40 codeine Allergy Intermediate Nausea and Verified 08/21/23 16:40 Vomiting hydrocodone AdvReac Intermediate MAKES HER Verified 08/21/23 16:40 LOOPY AND SHAKEY aspirin AdvReac Mild Other Verified 08/21/23 16:40 phentermine AdvReac Unknown Unknown Verified 06/21/24 19:21 topiramate AdvReac Unknown Unknown Verified 06/21/24 19:21 Review of Systems Review of Systems: All systems reviewed & are unremarkable except as noted in HPI and below Constitutional: Constitutional: Reports no additional constitutional complaints Cardiovascular: Cardiovascular: Reports no additional cardiovascular complaints Respiratory: Respiratory: Reports no additional respiratory complaints Musculoskeletal: Musculoskeletal: Reports no additional musculoskeletal complaints [facility] Past Medical History Medical History Anxiety Arthritis Celiac disease Depression Hiatal hernia with GERD and esophagitis HSV-1 (herpes simplex virus 1) infection IBS (irritable bowel syndrome) Migraine Obesity PMDD (premenstrual dysphoric disorder) Vulvar cancer Surgical History Surgical History H/O tubal ligation History of bladder surgery Ablation 2011 History of orthopedic surgery Right ankle, hardware from a trampoline accident Family History Family History Grandparent Family history of cardiac disorder Father Family history of heart disease in male family member before age 55 Other Hypertension Social History Social History Smoking packs per day: 0.25 Smoking cigarettes per day: 5.0 Years smoked: 30 Smoking pack-years: 7.50 Smoking status: Current some day smoker Tobacco type: cigarettes Additional smoking assessment comments: HAS BEEN CUTING BACK RECENTLY Alcohol intake: never Substance use: never Substance use type: does not use Living arrangements: with family Gender identity (if verbalized by the patient): Female Spiritual care concerns: No Exam Narrative: GENERAL: Well-appearing, well-nourished, and in no acute distress. HEAD: Normocephalic, atraumatic. ENT: Mucous membranes moist. CHEST: Clear to auscultation. No respiratory distress. HEART: Regular rate and rhythm. Normal peripheral pulses. Back: Tenderness in paraspinal regions of the midthoracic vertebrae between the T spine and the scapula. No step-offs or bruising of the back. No midline tenderness of cervical spine or L-spine. EXTREMITIES: Normal range of motion. No edema. SKIN: Warm, dry, no rash. NEURO: Alert and oriented x3. PSYCH: Normal mood and affect. Course Course Emergency Course: No acute fracture injury. Recommend patient continue her anti-inflammatories, add flexeril, discharge. Vital Signs Vital signs: Vital Signs Temperature 97.7 F 06/21/24 19:11 Pulse Rate 80 06/21/24 19:11 Respiratory Rate 15 06/21/24 19:11 Blood Pressure 119/78 06/21/24 19:11 Pulse Oximetry 100 06/21/24 19:11 Oxygen Delivery Room Air 06/21/24 19:11 Temperature 97.7 F 06/21/24 19:11 Pulse Rate 80 06/21/24 19:11 Respiratory Rate 15 06/21/24 19:11 Blood Pressure 119/78 06/21/24 19:11 Pulse Oximetry 100 06/21/24 19:11 Oxygen Delivery Room Air 06/21/24 19:11 Medical Decision Making Vital Signs Vital Signs: Vital Signs Temperature 97.7 F 06/21/24 19:11 Pulse Rate 80 06/21/24 19:11 Respiratory Rate 15 06/21/24 19:11 Blood Pressure 119/78 06/21/24 19:11 Pulse Oximetry 100 06/21/24 19:11 Oxygen Delivery Room Air 06/21/24 19:11 Temperature 97.7 F 06/21/24 19:11 Pulse Rate 80 06/21/24 19:11 Respiratory Rate 15 06/21/24 19:11 Blood Pressure 119/78 06/21/24 19:11 Pulse Oximetry 100 06/21/24 19:11 Oxygen Delivery Room Air 06/21/24 19:11 Imaging Data Radiologist's impression: ITS Impressions Head CT 06/21/24 21:19 IMPRESSION: No acute intracranial process. Ribs w/Chest X-Ray 06/21/24 21:31 IMPRESSION: No acute cardiopulmonary process. No acute osseous finding in the ribs. Thoracic Spine X-Ray 06/21/24 21:40 IMPRESSION: No traumatic malalignment or fracture detected in the thoracic spine. Discharge Plan Discharge Clinical Impression: Strain of thoracic spine Patient Disposition: Home, Self-Care Condition: Stable Instructions: Thoracic Back Strain (ED) Additional Instructions: Please return to the emergency department if you develop severe pain that is not controlled by pain medications or if you are unable to walk because of pain or weakness. Return to the emergency department immediately if you develop fevers, loss of bowel or bladder control (dribbling of urine or having accidents you wouldn't normally have), inability to urinate, numbness of your genital or anal area, or weakness/numbness of your legs or arms as these could all be signs of a serious medical emergency. Patient Language: Frisian Prescriptions: New cyclobenzaprine 10 mg tablet 10 mg PO TID PRN (Reason: muscle spasm) Qty: 20 0RF No Action pantoprazole 40 mg tablet,delayed release (DR/EC) 40 mg PO DIRECTED lidocaine [Lidoderm] 5 % adhesive patch,medicated 1 patch topical DAILY Qty: 15 0RF Rx Instructions: leave on most painful area for up to 12 hrs baclofen 10 mg tablet 10 mg PO TID PRN (Reason: muscle pain) Qty: 10 0RF cetirizine [Zyrtec] 10 mg tablet 10 mg PO DAILY celecoxib 200 mg capsule 200 mg PO DAILY naltrexone 50 mg tablet 50 mg PO HS Rx Instructions: GIVEN FOR WEIGHT LOSS bupropion HCl 100 mg tablet sustained-release 12 hr 100 mg PO BID Rx Instructions: GIVEN FOR WEIGHT LOSS meclizine 12.5 mg tablet 12.5 mg PO TID PRN (Reason: dizziness) Qty: 10 0RF cyanocobalamin (vitamin B-12) 1,000 mcg Tablet 1,000 mcg PO DAILY Daily Probiotic 2.5 billion cell Capsule 1 cap PO DAILY Follow-up/Referrals: Jacki,Shy Bailey VEHICLE MAINTENANCE TECHNICIAN [Primary Care Provider] - 1 Week
--- OUTSIDE RECORDS SUMMARY | 2024-06-21 20:52 | XMS_ITS | Encounter Summary ---
Author Organization [facility] Health Address [address] [place] [address] Care Team Providers Care Serologist Name Role Phone Unknown, Provider Primary Care Provider Geri Alatorre MD Primary Care Provider [phone] Yevgeniy Agrawal J2EE ARCHITECT-[facility] Primary Care Provider Shy Lafleur J2EE ARCHITECT[facility] Primary Care Provider + Reason for Visit * Reason Onset Date Comments Results 09/29/2019 Encounter Details Date Type Department Care Team (Late st Contact Info) Description 09/29/2019 Telephone [facility] [address] [place], [place] [id number] Rober Villatoro MD [address] [facility] [address] [place], [place] [id number] Results Social History Tobacco Use Types Packs/Day [...] Description 03/14/2025 2:30 PM CDT Office Visit [facility] - SOFTWARE REVERSE ENGINEER [address] [facility] [address] [place] [address] Rober Villatoro MD [address] [facility] [address] [place] [address] documented as of this encounter Visit Diagnoses Not on filedocumented in this encounter Care Teams Serologist Relationship Specialty Start Date End Date Unknown, Provider PCP - General 10/09/17 04/26/20 Geri Garcia MD [address] [place] [address] PCP - General 04/27/20 10/03/20 Yevgeniy Agrawal J2EE ARCHITECT-[facility] [employer] CRAFT CREWMAN [address] [place] [address] PCP - General 10/04/20 03/14/24 Shy Lafleur J2EE ARCHITECT-[employer]IVERINE ASSAULT CRAFT CREWMAN [address] [place] [address] PCP - General Family Medicine 03/15/24 documented as of this encounter
--- OUTSIDE RECORDS SUMMARY | 2024-06-21 20:52 | XMS_ITS | Continuity of Care Document ---
Author Organization [facility] Address [address] [place] [address] Phone Care Team Providers Care Choral Director Name Role Phone Bunch OD, Griffin Unavailable Unavailable Procedures Procedure Date Eye Exam & Treatment Refraction Advance Directives Directive Yes / No Effective Date File Name No Information Encounters Encounter Description Practice Location Reason(s) For Visit Diagnoses Date Provider Providers Copied on Encounter [facility], [address], [place], [place], [id number], [place] tel:[phone] [facility] No Information [phone] Bunch OD Griffin. [address] , [address], [place], [address], [place]. tel:[phone] Family History Family Member Type Diagnosis Age At Onset No Information Payers Payer name Insurance type Covered libertarian ID Authoriza tion(s) Medicaid [facility] [id number] Social History Type Description Quantity Date Captured [...]
--- OUTSIDE RECORDS SUMMARY | 2024-06-21 20:52 | XMS_ITS | Encounter Summary ---
Author Organization [facility] Health Address [address] [facility] [place] [address] Care Team Providers Care Scullion Chief Name Role Phone AgrawalYevgeniy FLASH DEVELOPER-CRIMINAL INTELLIGENCE SPECIALIST Primary Care Provider Shy Lafleur FLASH DEVELOPER-CRIMINAL INTELLIGENCE SPECIALIST Primary Care Provider + Reason for Visit * Reason Onset Date Comments Pre Authorization 03/02/2024 Encounter Details Date Type Department Care Team (Late st Contact Info) Description 03/02/2024 Telephone [facility] - DIRECTOR OF AVIATION [address] [facility] [address] [place] [address] Rober Villatoro MD [address] [facility] [address] [place], [place] [id number] Pre Authorization Social History Tobacco Use Types [...] Solitario Foxa - 03/02/2024 10:44 AM CDT [facility] is calling updating the status for authorization was denied [place] scan [address] forabdomen and pelvic. CB: [phone] documented in this encounter Plan of Treatment Upcoming Encounters Date Type Department Care Team (Late st Contact Info) Description 03/14/2025 2:30 PM CDT Office Visit [facility] - DIRECTOR OF AVIATION [address] [facility] [address] [place] [address] Rober Villatoro MD [address] [facility] [address] [place] [address] documented as of this encounter Goals Goal Patient Goal Type Associated Problems Recent Progress Patient-Stated? Author Mobility General No Dena Hartmann, RN Note: Expected end date: 08/16/2021 The goal is to maintain or improve your mobility at the optimum level for you. Interventions: documented as of this encounter Visit Diagnoses Not on filedocumented in this encounter Care Teams Scullion Chief Relationship Specialty Start Date End Date Yevgeniy Agrawal, FLASH DEVELOPER-CRIMINAL INTELLIGENCE SPECIALIST [address] [place] [address] PCP - General 10/04/20 03/14/24 Shy Lafleur FLASH DEVELOPER-CRIMINAL INTELLIGENCE SPECIALIST [address] [place] [phone] PCP - General Family Medicine 03/15/24 documented as of this encounter
--- OUTSIDE RECORDS SUMMARY | 2024-06-21 20:52 | XMS_ITS | Encounter Summary ---
Author Organization [facility] Health Address [address] [facility] [place] [address] Care Team Providers Care Chain Machine Operator Name Role Phone Shy Lafleur Cyn HARD METALS ENGRAVER HAND-REEL FILM INSPECTOR Primary Care Provider + Reason for Visit * Reason Onset Date Comments Question 03/19/2024 Encounter Details Date Type Department Care Team (Late st Contact Info) Description 03/19/2024 Telephone [facility] - PERFORMANCE MANAGEMENT CONSULTANT [address] [facility] [place] [address] Rober Villatoro MD [address] [facility] [address] [place] [address] Question Social History Tobacco Use Types Packs/Day [...] - 03/19/2024 1:09 PM CDT Regino from [facility] calling to get an authorization from the insurance co. for pt to get a ct abdomin scan .. ( [place] [address]) Please fx to #[phone] B# [phone] documented in this encounter Plan of Treatment Upcoming Encounters Date Type Department Care Team (Late st Contact Info) Description 03/14/2025 2:30 PM CDT Office Visit [facility] - PERFORMANCE MANAGEMENT CONSULTANT [address] [facility] [address] [place] [address] Rober Villatoro MD [address] [facility] [address] [place] [address] documented as of this encounter Goals Goal Patient Goal Type Associated Problems Recent Progress Patient-Stated? Author Mobility General No Dena Hartmann, RN Note: Expected end date: 08/16/2021 The goal is to maintain or improve your mobility at the optimum level for you. Interventions: documented as of this encounter Visit Diagnoses Not on filedocumented in this encounter Care Teams Chain Machine Operator Relationship Specialty Start Date End Date Shy Lafleur, HARD METALS ENGRAVER HAND-REEL FILM INSPECTOR [address] [place] [address] [place] [phone] PCP - General Family Medicine 03/15/24 documented as of this encounter
--- OUTSIDE RECORDS SUMMARY | 2024-06-21 20:52 | XMS_ITS | CONTINUITY OF CARE DOCUMENT ---
Author Name daquan markdior Address Unknown Organization [facility] Address [address] [place] [address] Phone [phone] Care Team Providers Care Linux Network Systems Administrator Name Role Phone Mayelin CARDOSO, Chente Unavailable BOUCHRA CARDOSO RASHMIN Unavailable BOUCHRA CARDOSO RASHMIN Unavailable [phone] PROBLEMS Condition Status Date Provider Notes CHEST PAIN-06/30 NUC EF 59 active ? León Pearson RN OBESITY active ? Chente Dick MD SYNCOPE active ? Chente Dick MD DIZZINESS-06/30 ECHO EF 60 active ? León Pearson RN SLEEP APNEA active Chente Dick MD ENCOUNTERS Date Type Provider Location Encounter Diagnosis - In-person encounter Office Visit Chente Dick MD [place] [facility] - In-person encounter Office Visit Chente Dick MD [place] [facility] - In-person encounter Office Visit Chente Dick MD [place] [facility] CHEST PAIN-06/30 NUC EF 59OBESITYSYNCOPEDI ZZINESS-06/30 [...] Policy type / Coverage type [employer] party ID [facility] Medicaid 0 [id number] TREATMENT PLAN Date Name Performer routine: B [...] Stress Echocardiogram, NEGATIVE for myocardial ischemia. - [facility] (07/25/2011) H CT: 38.7 (07/24/2011) Platelets: 231 (07/24/2011) C reat: 0.61 (07/24/2011) Na+: 139 (07/24/2011) K+: 3.7 (07/24/2011) O rders: E KG (CPT-18580) Chente Dick MD routine: B P today: [...] Stress Echocardiogram, NEGATIVE for myocardial ischemia. - [facility] (07/25/2011) Chente Dick MD routine: T he [...] Stress Echocardiogram, NEGATIVE for myocardial ischemia. - [facility] (07/25/2011) Chente Dick MD follow up: O rders: E KG (CPT-34548) BP today: 120/80 Prior BP: 109/70 (07/02/2011) [...] pressure is 29.0 mmHg. - [facility] (07/02/2011) hCente Dick MD chest pain : B P today: 109/70 Prior BP: / () Orders: S tress Test - Adenosine (78122) C omplete Echo (CPT-25234) Chente Dick MD chest pain : O rders: S tress Test - Adenosine (77816) C omplete Echo (CPT-13827) S leep Study (*) Chente Dick MD chest pain : B P today: 109/70 Prior BP: / () Orders: S tress Test - Adenosine (23334) C omplete Echo (CPT-83267) Chente Dick MD Date Name Sleep Study Complete Echo Stress Test - Adenos ine HISTORY OF PROCEDURES Procedure Date Procedure Name Provider Procedure Notes S tatus EKG Chente Dick MD complete d EKG Chente Dick MD complete d
--- OUTSIDE RECORDS SUMMARY | 2024-06-21 20:52 | XMS_ITS | Clinical Summary ---
Author Organization [facility] Address [address] [facility] [place] [address] Care Team Providers Care Loaders Name Role Phone Miquel Shykate Addison APRN-ASPHALT WORKER Primary Care Provider + Source Comments [facility],non-[facility] Affiliates and Associated Physician Practices is amultiple site organization consisting of ambulatory clinics and hospital sitesin [place], [place], [place] and [place]. This disclosure is being madepursuant to the Care Everywhere program and may not contain all information available regarding this patient. Last updated 18.[facility] Allergies Active Allergy Reactions Criticality Noted Date [...] Description 03/23/2024 Telephone [facility] - SURGERY AIDE [address], [facility] [address] [place] [address] Rober Villatoro MD Question from [...] CDT Office Visit [facility] SURGERY AIDE [address] [facility] [address] [place] [address] Rober Villatoro MD [address] [facility] [address] [place] [address] Health Maintenance Due Date Last Done Comments [...] detected Not detected 02/22/2022 3:14 PM CDT [facility] High Risk Human Papilloma Interp 02/22/2022 3:14 PM CDT [facility] Comment:High Risk Human Brian lloma Virus was Not Detected. Pathology/Cytolo gy MISCELLANEOUS SAMPLES / Unknown 02/18/2022 10:47 AM CDT 02/19/2022 11:54 AM CDT Narrative [facility] - 02/22/2022 3:14 PM CDT [...] Villatoro MD LAB - MICROBIOLOGY Napoleon FRIAS [facility] [address] [facility] [place] [address], [facility] [phone] * HEPATITIS C RNA QUANTITATIVE (02/05/2021 12:06 [...] of this assay have been determined by [employer]. The modifications have not been cleared or approved by the FDA. This assay has been validated pursuant to the CLIA regulations and is used for clinical purposes. ?? For more information on this test, go to: http://education.[employer]/faq/WYT56r9 (This link is being provided for informational/ educational purposes only.) Test Performed at: [facility] [address] [place], [place] ??[phone] CARLOS MANUEL SALCEDO DO,MPH 02/05/2021 12:0 6 PM CDT 02/05/2021 12:13 PM CDT Mariya Enciso MD LAB - CHEMISTRY LYNNETTE BUTCHER Performing Organization Address City/[facility]/ZIP Co de Phone Number [facility] [address] [place] [address] from Last 3 Months or Most Recently Relevant to Health Maintenance Care Teams Loaders Relationship Specialty Start Date End Date Shy Lafleur, CLINICAL DIETICIAN-ASPHALT WORKER [address] [place] [address] JACQUELINE Martins [phone] PCP - General Family Medicine 03/15/24
--- OUTSIDE RECORDS SUMMARY | 2024-06-21 20:52 | XMS_ITS | Clinical Summary ---
Author Organization [facility] [address] Address [address] [place] [address] Care Team Providers Care Staff Appraiser Name Role Phone Shy Lafleur NP Primary Care Provider [phone] Allergies Active Allergy Reactions Criticality Noted Date [...] (three) times a day for 5 days [place] teeth three times daily. After brushing teeth, [...] on 02/17/2023 which revealed the following: FINDINGS: Licensed Surveyor image is unremarkable. Limited evaluation of the [...] approach, but her BMI of 36.[address] loader the way of excellent visualization for the [...] evaluation and discussion. Haydee Harding NP 10/08/2023 1422 This is a 48-year-old female patient returning [...] Abdominal pain 04/21/2023 Chest pain, unspecified 04/21/2023 [place] 04/21/2023 Depressive disorder 04/21/2023 Diarrhea 04/21/2023 Syncope [...] Care Team Description 06/14/2024 Orders Only [facility] PreAdmission Testing [address] [place] [address] Lilian Lafleur RN 05/14/[address] [facility] [address] [facility] [address] [place] [phone] Haydee Harding NP 05/14/[address] [facility] Surgery [address] [facility] Floor 5 [place] [address] Zee Ryan NP 05/04/[address] [facility] Surgery [address] [facility] Floor [address] [place] [address] Brady Duran NP Gastroesophageal reflux disease, unspecified whether esophagitis present (Primary Dx) 04/29/2024 Orders Only [facility] [address] [place] [address] Unknown, Notinfile from Last 3 Months Immunizations [...] on file Legal Sex Female 4:05 AM SATELLITE TV TECHNICIAN INSTALLER Gender Identity Not on file Sexual Orientation [...] (Latest Contact Info) Description 06/30/2024 8:25 AM SATELLITE TV TECHNICIAN INSTALLER Hospital Encounter [facility] [place] [address] [place] [address] Jeyson Angelo MD [address] [facility] [id number] [place], [place] [phone] 06/30/2024 8:25 AM SATELLITE TV TECHNICIAN INSTALLER Anesthesia Event [facility] [place] [address] [place] [address] Janae Myers, KNIFE SETTER [address] [place] [address] 06/30/2024 8:25 AM SATELLITE TV TECHNICIAN INSTALLER - 06/30/2024 11:55 AM SATELLITE TV TECHNICIAN INSTALLER Surgery [facility] [place] [address] [place] [address] Jeyson Angelo MD [address] [facility] [id number] [place] [address] ROBOTIC ASSISTED LAPAROSCOPIC HELLER MYOTOMY WITH RESECTION OF AN ESOPHAGEAL DIVERTICULUM Scheduled Procedures Name Priority Associated Diagnoses Date/Ti me XI MYOTOMY - LAPAROSCOPIC ROBOTIC ASSISTED - HELLER Achalasia 06/30/2024 8:25 AM SATELLITE TV TECHNICIAN INSTALLER Health Maintenance Due Date Last Done Comments [...] SURGICAL PATHOLOGY Routine 04/29/2024 12 :00 AM SATELLITE TV TECHNICIAN INSTALLER from Last 3 Months Results * Surgical pathology (04/29/2024 12:00 AM SATELLITE TV TECHNICIAN INSTALLER) Skin, shave biopsy 04/29/2024 04/30/2024 7:21 AM SATELLITE TV TECHNICIAN INSTALLER Narrative 05/04/2024 11:03 AM SATELLITE TV TECHNICIAN INSTALLER [facility] results best viewed via link to PDF [facility] [address] [place] [address] Priyanka., ??[address], [place] [address] ? [email or web address] Note to Patients: ??This report may [...] ??05/04/2024 ? Submitting Physician Information: Malka Barber, [facility] Skin Care Center [facility], [address] [place] [address] ??[id number], ? DERMATOPATHOLOGY REPORT RESULTS ?? DIAGNOSIS: SKIN, [...] ICD-9 A; ZSD.27 ? Clerical Data A; 61914 The characteristics of special, immunohistochemical, and immunofluorescence stains and in-situ hybridization tests performed by the [facility] were deemed acceptable in ongoing supplier quality engineering manager measures and in compliance with regulations drawn from the Clinical Laboratory Improvement Act [id number] (CLIA '88). Control reactions for all stains performed were deemed adequate and appropriate by a pathologist prior to evaluation of patient tissue. Some diagnoses were rendered with the assistance of laboratory-developed tests utilizing analyte-specific reagents; the performance characteristic of these tests were determined by [facility] and are not cleared or approved by the US Food an Drug administration. Laboratory developed test may only be performed in a facility that is certified by the [facility] as a high-complexity laboratory under CLIA '88. These tests are used for clinical purposes and are not investigational. us Notinfile Unknown LAB PATHOLOGY ORDERABLES Final Result from Last 3 Months Insurance [facility] Care Teams Staff Appraiser Relationship Specialty Start Date End Date Shy Lafleur NP [address] [place] [address] DR [place] [phone] PCP - General Family Medicine 02/23/24
--- OUTSIDE RECORDS SUMMARY | 2024-06-21 20:52 | XMS_ITS ---
Author Organization [facility] [address] Address [address] [place] [address] Care Team Providers Care Market Consultant Name Role Phone Shy Lafleur NP Primary Care Provider [phone] Active Problems Patient Care Coordination No te [...] on 02/17/2023 which revealed the following: FINDINGS: Sdet image is unremarkable. 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 Treatments may have been administered in another system. Lifetime Dose Tracking * Chemical Lifetime Dose Automatic Entry Manual Entr y Fluoro Time 0.85 minutes 0.85 minutes 0 minutes Air kerma at the reference point (Ka,r) 17.6 mGy 1 7.6 mGy 0 mGy
--- OUTSIDE RECORDS SUMMARY | 2024-06-21 20:52 | XMS_ITS | Referral Summary ---
Author Organization [facility] Address [address] [facility] [place] [address] Care Team Providers Care Pipeline Superintendent Division Name Role Phone Shy Lafleur Cyn GOTTLIEB-LABORATORY CHIEF Primary Care Provider + Source Comments [facility],non-[facility] Affiliates and Associated Physician Practices is amultiple site organization consisting of ambulatory clinics and hospital sitesin [place], [place], [place] and [place]. This disclosure is being madepursuant to the Care Everywhere program and may not contain all information available regarding this patient. Last updated 18.[facility] [employer] Encounters Date Type Department Care Team Description 03/23/2024 Telephone [facility] - GRIEVANCE AND APPEALS SPECIALIST [address], [facility] [address] [place] [address] Rober Villatoro MD Question from [...] Description 03/14/2025 2:30 PM CDT Office Visit [facility] - GRIEVANCE AND APPEALS SPECIALIST [address] [place] [phone] Rober Villatoro MD [address] [facility] [address] [place] [address] Goals Goal Patient Goal Type Associated Problems [...] Human Papilloma Interp 02/22/2022 3:14 PM CDT [facility] Comment:High Risk Human Brian [...] - MICROBIOLOGY O RODRIGUEZ Performing Organization Address [facility] [[email or web address]] Co de Phone Number [facility] [address] [phone] * HEPATITIS C RNA QUANTITATIVE (02/05/2021 12:06 PM CDT) Pathologist [facility] Hepatitis C Virus RNA, Quantitative Real Time PCR <15 NOT DETECTED NOT DETECTED IU/mL [facility] Hepatitis C Virus RNA, Quantitative Real Time PCR <1.18 NOT DETECTED NOT DETECTED Log IU/mL [employer] Comment: This test was performed using Real-Time Polymerase Chain Reaction. Reportable Range: 15 IU/mL to 100,000,000 IU/mL (1.18 Log IU/mL to 8.00 Log IU/mL). ?? The analytical performance characteristics of this assay have been determined by [employer]. The modifications have not been cleared or approved by the FDA. This assay has been validated pursuant to the CLIA regulations and is used for clinical purposes. ?? For more information on this test, go to: http://education.[employer]/faq/FDP53v7 (This link is being provided for informational/ educational purposes only.) Test Performed at: [facility] ??[phone] CARLOS MANUEL SALCEDO DO,MPH 02/05/2021 12:0 6 PM CDT 02/05/2021 12:13 PM CDT Mariya Enciso MD LAB - CHEMISTRY LYNNETTE BUTCHER [facility] [address] [place] [address] from Last 3 Months or Most Recently Relevant to Health Maintenance Care Teams Pipeline Superintendent Division Relationship Specialty Start Date End Date Shy Lafleur, THERAPEUTIC RECREATION ASSISTANT-LABORATORY CHIEF [address] [place] [address] [place] [phone] PCP - General Family Medicine 03/15/24
--- OUTSIDE RECORDS SUMMARY | 2024-06-21 20:52 | XMS_ITS | Referral Summary ---
Author Organization [facility] [address] Address [address] [place] [address] Care Team Providers Care Candy Packer Name Role Phone Shy Lafleur NP Primary Care Provider Encounters Date Type Department Care Team Description 06/14/2024 Orders Only [facility] PreAdmission Testing [address] [place] [address] Lilian Lafleur RN 05/14/2024 Orders Only [facility] Surgery [address] [facility] [address] [place] [address] Haydee Harding NP 05/14/2024 Telephone [facility] Surgery [facility]0 [facility] Floor 5 [place] [address] Zee Ryan NP 05/04/2024 Orders Only [facility] Surgery [facility] Floor [address] [place] [address] Brady Duran NP Gastroesophageal reflux disease, unspecified whether esophagitis present (Primary Dx) 04/29/2024 Orders Only [facility] [address] [place] [address] Unknown, Notinfile from Last 3 Months Allergies [...] (three) times a day for 5 days [place] teeth three times daily. 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 for [...] Abdominal pain 04/21/2023 Chest pain, unspecified 04/21/2023 [place] 04/21/2023 Depressive disorder 04/21/2023 Diarrhea 04/21/2023 Syncope [...] on file Legal Sex Female 4:05 AM BUILDING ARCHITECTURAL DESIGNER Gender Identity Not on file Sexual Orientation [...] (Latest Contact Info) Description 06/30/2024 8:25 AM BUILDING ARCHITECTURAL DESIGNER Hospital Encounter [facility] OR [address] [place] [address] Jeyson Angelo MD [address] [facility] [id number] [place] [address] 06/30/2024 8:25 AM BUILDING ARCHITECTURAL DESIGNER Anesthesia Event [facility] OR [address] [place] [address] Janae Myers NP [address] [place] [address] 06/30/2024 8:25 AM BUILDING ARCHITECTURAL DESIGNER - 06/30/2024 11:55 AM BUILDING ARCHITECTURAL DESIGNER Surgery [facility] [place] [address] [place] [address] Jeyson Angelo MD [address] [facility] [id number] [place] [address] ROBOTIC ASSISTED LAPAROSCOPIC HELLER MYOTOMY WITH RESECTION OF AN ESOPHAGEAL DIVERTICULUM Scheduled Procedures Name Priority Associated Diagnoses Date/Ti me XI MYOTOMY - LAPAROSCOPIC ROBOTIC ASSISTED - HELLER Achalasia 06/30/2024 8:25 AM BUILDING ARCHITECTURAL DESIGNER Procedures Procedure Name Priority Date/Time Associated Diagnosis Comments SURGICAL PATHOLOGY Routine 04/29/2024 12 :00 AM BUILDING ARCHITECTURAL DESIGNER from Last 3 Months Results * Surgical pathology (04/29/2024 12:00 AM BUILDING ARCHITECTURAL DESIGNER) Skin, shave biopsy 04/29/2024 04/30/2024 7:21 AM BUILDING ARCHITECTURAL DESIGNER Narrative 05/04/2024 11:03 AM BUILDING ARCHITECTURAL DESIGNER [facility] results best viewed via link to PDF [facility] Derm[facility] [address] [place] [address] [employer]o., ??[address] [address] ? [email or web address] Note to Patients: ??This report may contain [...] [facility]- Skin Care Center [facility], [address] [place] [address] ??[phone], ? DERMATOPATHOLOGY REPORT RESULTS ?? DIAGNOSIS: SKIN, [...] slides(and/or other material indicated in the diagnosis). Emmanule Mireles MD, PhD ?? Report Electronically Reviewed [...] ICD-9 A; ZSD.27 ? Clerical Data A; 86610 The characteristics of special, immunohistochemical, and immunofluorescence stains and in-situ hybridization tests performed by the [facility] were deemed acceptable in ongoing quality control director measures and in compliance with regulations drawn from the Clinical Laboratory Improvement Act [id number] (CLIA '88). Control reactions for all stains performed were deemed adequate and appropriate by a pathologist prior to evaluation of patient tissue. Some diagnoses were rendered with the assistance of laboratory-developed tests utilizing analyte-specific reagents; the performance characteristic of these tests were determined by [facility] and are not cleared or approved by the US Food an Drug administration. Laboratory developed test may only be performed in a facility that is certified by the [facility] as a high-complexity laboratory under CLIA '88. These tests are used for clinical purposes and are not investigational. us Notinfile Unknown LAB PATHOLOGY ORDERABLES Final Result from Last 3 Months Insurance [facility] Care Teams Candy Packer Relationship Specialty Start Date End Date Shy Lafleur NP [address] [place] [address] [place] [address] PCP - General Family Medicine 02/23/24
--- OUTSIDE RECORDS SUMMARY | 2024-06-21 20:52 | XMS_ITS | Encounter Summary ---
Author Organization [facility] Address [address] [facility] [place] [address] Care Team Providers Care Membership Coordinator Name Role Phone AgrawalYevgeniy LAUNDRY PRESS OPERATOR-SENIOR LANDSCAPE ARCHITECT Primary Care Provider Shy Lafleur LAUNDRY PRESS OPERATOR-SENIOR LANDSCAPE ARCHITECT Primary Care Provider + Reason for Visit * Reason Onset Date Comments Reschedule Appointment 01/31/2022 Encounter Details Date Type Department Care Team (Late st Contact Info) Description 01/31/2022 Telephone [facility] [address] [place], [place] [phone] Rober Villatoro MD [address] [facility] [address] [place], [place] [id number] Reschedule Appointment Social History Tobacco Use Types [...] CDT Office Visit [facility] - MANAGER REPORT [address] [facility] [address] [place] [address] Rober Villatoro MD [address] [facility] [address] [place] [address] documented as of this encounter Goals Goal Patient Goal Type Associated Problems Recent Progress Patient-Stated? Author Mobility General No Dena Hartmann, RN Note: Expected end date: 08/16/2021 The goal is to maintain or improve your mobility at the optimum level for you. Interventions: documented as of this encounter Visit Diagnoses Not on filedocumented in this encounter Care Teams Membership Coordinator Relationship Specialty Start Date End Date Yevgeniy Agrawal, LAUNDRY PRESS OPERATOR-SENIOR LANDSCAPE ARCHITECT [address] [place] [address] PCP - General 10/04/20 03/14/24 Shy Lafleur APRN-SENIOR LANDSCAPE ARCHITECT [address] [place] [address] PCP - General Family Medicine 03/15/24 documented as of this encounter
--- OUTSIDE RECORDS SUMMARY | 2024-06-21 20:52 | XMS_ITS | Encounter Summary ---
Author Organization [facility] Address [address] [facility] [place] [address] Care Team Providers Care Pmo Lead Name Role Phone AgrawalYevgeniy BALANCE WHEEL HAND FILER-SUPERVISOR TANK CLEANING Primary Care Provider Shy Lafleur BALANCE WHEEL HAND FILER-SUPERVISOR TANK CLEANING Primary Care Provider + Encounter Details Date Type Department Care Team (Late st Contact Info) Description 02/19/2021 Telephone [facility] Rhe[facility] [address] [place] [address] Mariya Enciso MD [address] [address] Social History Tobacco Use Types Packs/Day Years [...] Medina just called in and had sent [employer] message, she can't drive over to this morn's appt because of her arm, she would like to know if we could change her 9:20 Appt w/Dr. Enciso to TEL or VID what ever is best. Please advise. Patient Call Back number: [phone] documented in this encounter Plan of Treatment Upcoming Encounters Date Type Department Care Team (Late st Contact Info) Description 03/14/2025 2:30 PM CDT Office Visit [facility] - GLOBAL REGULATORY LEAD [address] [facility] [address] [place] [address] Rober Villatoro MD [address] [facility] [address] [place] [address] documented as of this encounter Visit Diagnoses Not on filedocumented in this encounter Care Teams Pmo Lead Relationship Specialty Start Date End Date Yevgeniy Agrawal APRN-NICOLAS [address] [place] [phone] PCP - General 10/04/20 03/14/24 Shy Lafleur APRN-SUPERVISOR TANK CLEANING [address] [place] [phone] PCP - General Family Medicine 03/15/24 documented as of this encounter
--- OUTSIDE RECORDS SUMMARY | 2024-06-21 20:52 | XMS_ITS | Clinical Summary ---
Author Organization [facility] Address Counts include 234 beds at the [facility]6 [facility]. [place], [place] [address] [place] [address] Care Team Providers Care Quality Review Specialist Name Role Phone Unavailable Primary Care Provider [...]
--- OUTSIDE RECORDS SUMMARY | 2024-06-21 20:52 | XMS_ITS | Patient Health Summary ---
Author Organization [facility] Road[facility] Address [address] [facility] [place] [address] Care Team Providers Care Radar Air Traffic Controller Name Role Phone Shy Lafleur Cyn GOTTLIEB-CAR VARNISHER Primary Care Provider + Note from [facility],non-owned Affiliates and Associated Physician Practices is amultiple site organization consisting of ambulatory clinics and hospital sitesin [place], [place], [place] and [place]. This disclosure is being madepursuant to the Care Everywhere program and may not contain all information available regarding this patient. Last updated 18.[facility] Allergies * Adhesive Sensitivity(Urticaria) -Medium Criticality * [...] vulva (HCC) * HPV DETECTION HIGH RISK FITO(Performed 02/18/2022) Performed for Malignant neoplasm of vulva [...] PANEL(Performed 02/05/2021) Performed for Polyarthralgia * STARR (SM)+PLASTICS SUPERVISOR ANTIBODY PANEL(Performed 02/05/2021) Performed for Polyarthralgia * [...] Polyarthralgia * IMAGING/RADIOLOGY/XRAY RESULTS ORDER(Performed 11/05/2019) * LA BIOPSY OF UTERUS LINING(Performed 11/04/2019) Performed for Thickened endometrium, Pap smear abnormality of cervix/human papillomavirus (HPV) positive * PAP IMAGE-GUIDED W HPV(Performed 11/04/2019) Performed for Pap smear abnormality of cervix/human papillomavirus (HPV) positive * HPV DETECTION HIGH RISK FITO(Performed 11/04/2019) Performed for Pap smear abnormality of cervix/human papillomavirus (HPV) positive * PATHOLOGY TISSUE(Performed 11/04/2019) Performed for Thickened endometrium * LA US PELVIC NONOB REAL-TIME IMG COMPLETE(Performed 11/04/2019) Performed for Amenorrhea, Absence of menstruation * LA SONO EXAM, TRANSVAGINAL(Performed 11/04/2019) Performed for Amenorrhea, [...] Case Report Gynecologic Cytology Report ? Case: [id number] ? Authorizing Provider: ??Rober Villatoro MD ? Collected: ? 03/15/2024 03:49 PM ? Ordering Location: ? [facility] - ??Received: ?03/16/2024 11:42 AM ? LOCKMAKER ? First Screen: ?Lizandro Weinberg, CT(ASCP) ? [...] 9:48 AM CDT [facility] Interpretation DIRECTOR OF ANESTHESIA SERVICES Negative for intraepithelial lesion or malignancy. 03/18/2024 [...] with an additional manual rescreening by a hydro pneumatic tester and/or pathologist. 03/18/2024 9:48 AM CDT [facility] Embedded Images 9:48 AM CDT [facility] Pathology/Cytolo gy MISCELLANEOUS SAMPLES / Unknown 03/15/2024 3:49 PM CDT 03/16/2024 11:42 AM CDT Rober Villatoro MD LAB - PATHOLOGY/CYTO LOGY ORDERABLES Performing Organization Address [facility] de Phone Number [facility] [address] [phone] * HPV DETECTION HIGH RISK FITO (02/18/2022 10:47 AM CDT) Only the most recent of3 resultswithin the time period is included. High Risk Human Papilloma Result Not detected Not detected 02/22/2022 3:14 PM CDT [facility] High Risk Human Papilloma Interp 02/22/2022 3:14 PM CDT [facility] Comment:High Risk Human Brian lloma Virus was Not Detected. Pathology/Cytolo gy MISCELLANEOUS SAMPLES / Unknown 02/18/2022 10:47 AM CDT 02/19/2022 11:54 AM CDT Narrative [facility] - 02/22/2022 3:14 PM [...] - MICROBIOLOGY O RDERABLES Performing Organization Address [facility] Co de Phone Number [facility] [address] [place] [address], [facility] [phone] * PAP IMAGE-GUIDED W HPV (02/18/2022 10:47 AM CDT) Only the most recent of3 resultswithin the time period is included. Case Report Gynecologic Cytology Report ? Case: [id number] ? Authorizing Provider: ??Rober Villatoro MD ? [...] 3:45 PM CDT [facility] Interpretation DIRECTOR OF ANESTHESIA SERVICES Negative for intraepithelial lesion or malignancy. 02/22/2022 3:45 PM CDT [facility] Pap Footnote The Pap Smear is a screening test. False positive and false negative results occur. Negative results do not preclude abnormalities, thus clinical correlation is required. This specimen was evaluated by the ThinPrep Imaging System along with an additional manual rescreening by a hydro pneumatic tester and/or pathologist. 02/22/2022 3:45 PM CDT [facility] Embedded Images 3:45 PM CDT [facility] Pathology/Cytolo gy MISCELLANEOUS SAMPLES / Unknown 02/18/2022 10:47 AM CDT 02/19/2022 11:54 AM CDT Rober Villatoro MD LAB - PATHOLOGY/CYTO LOGY ORDERABLES Performing Organization Address City/State/[facility] Co de Phone Number [facility] [address] [phone] * XR CERVICAL SPINE 2 OR 3VW (04/20/2021 12:09 PM MANAGER MASS) Anatomical Region Laterality Modality Spine Radiographic Angelique ging 04/20/2021 1:09 PM MANAGER MASS Impressions 04/20/2021 1:12 PM MANAGER MASS IMPRESSION: 1. Cervical spine: Mild degenerative changes at C5-6 and C6-7. 2. Thoracic spine: Normal. 3. Lumbar spine: Minimal facet degeneration in the lower lumbar spine. This report was electronically signed by CALIXTO SANCHEZ MD ??on 04/20/2021 1:12 PM . Narrative 04/20/2021 1:12 PM MANAGER MASS Exam: XR THORACIC SPINE 2VW XR CERVICAL [...] SPINE 2 OR 3VW (04/20/2021 12:08 PM MANAGER MASS) Anatomical Region Laterality Modality Spine Radiographic Angelique ging 04/20/2021 1:09 PM MANAGER MASS Impressions 04/20/2021 1:12 PM MANAGER MASS IMPRESSION: 1. Cervical spine: Mild degenerative changes at C5-6 and C6-7. 2. Thoracic spine: Normal. 3. Lumbar spine: Minimal facet degeneration in the lower lumbar spine. This report was electronically signed by CALIXTO SANCHEZ MD ??on 04/20/2021 1:12 PM . Narrative 04/20/2021 1:12 PM MANAGER MASS Exam: XR THORACIC SPINE 2VW XR CERVICAL [...] XR THORACIC SPINE 2VW (04/20/2021 12:08 PM MANAGER MASS) Anatomical Region Laterality Modality Spine Radiographic Angelique ging 04/20/2021 1:09 PM MANAGER MASS Impressions 04/20/2021 1:12 PM MANAGER MASS IMPRESSION: 1. Cervical spine: Mild degenerative changes at C5-6 and C6-7. 2. Thoracic spine: Normal. 3. Lumbar spine: Minimal facet degeneration in the lower lumbar spine. This report was electronically signed by CALIXTO SANCHEZ MD ??on 04/20/2021 1:12 PM . Narrative 04/20/2021 1:12 PM MANAGER MASS Exam: XR THORACIC SPINE 2VW XR CERVICAL [...] 1-TUBE (02/05/2021 12:06 PM CDT) Pathologist [facility] QuantiFERON TB Gold Plus NEGATIVE NEGATIVE [facility] [...] T-lymphocytes. For additional information, please refer to https://education.RuckPack/faq/YUB193 (This link is being provided for informational/ educational purposes only.) Test Performed at: [facility] [address] [place], [place] ??[address] CARLOS MANUEL SALCEDO DO,MPH 02/05/2021 12:0 6 PM CDT 02/05/2021 12:13 PM CDT Mariya Enciso MD LAB - CHEMISTRY LYNNETTE BUTCHER [facility] Organization Address City/State/ZIP Co de Phone Number [facility] [address] [place] [phone] * STARR (SM)+PLASTICS SUPERVISOR ANTIBODY PANEL (02/05/2021 12:06 PM CDT) SM Antibody <1.0 NEG <1.0 NEG AI [facility] SM/PLASTICS SUPERVISOR Antibody <1.0 NEG <1.0 NEG AI [facility] Comment: Test Performed at: [facility] [place] [address] [place] ??[address] CARLOS MANUEL SALCEDO DO,MPH 02/05/2021 12:0 6 PM CDT 02/05/2021 12:13 PM CDT Mariya Enciso MD LAB - SEROLOGY ORDER SACHI Performing Organization Address City/[facility] [place] [address] * DNA ANTIBODY DS CRITHIDIA W/REFLEX TITER (02/05/2021 12:06 PM CDT) dsDNA Antibody Crithidia IFA NEGATIVE NEGATIVE [facility] Comment: Test Performed at: [facility] [address] ??[phone] BARBARA JUAREZ MD 02/05/2021 12:0 6 PM CDT 02/05/2021 12:13 PM CDT Mariya Enciso MD LAB - HEMATOLOGY ORD ERABLES Performing Organization Address City/[facility]/[place] [address] * CENTROMERE B ANTIBODIES (02/05/2021 12:06 PM CDT) Centromere B Antibody <1.0 NEG <1.0 NEG AI [facility] Comment: Test Performed at: [facility] [address] [place] ??[address] CARLOS MANUEL SALCEDO DO,MPH 02/05/2021 12:0 6 PM CDT 02/05/2021 12:13 PM CDT Mariya Enciso MD LAB - SEROLOGY ORDER SACHI Performing Organization Address [facility] de Phone Number [facility] [address] [place] [address] * HEPATITIS C RNA QUANTITATIVE (02/05/2021 12:06 PM CDT) Pathologist [facility] Hepatitis C Virus RNA, Quantitative Real Time [...] of this assay have been determined by [employer]. The modifications have not been cleared or approved by the FDA. This assay has been validated pursuant to the CLIA regulations and is used for clinical purposes. ?? For more information on this test, go to: http://education.RuckPack/faq/RUD07c3 (This link is being provided for informational/ educational purposes only.) Test Performed at: [facility] [address] [place], [place] ??[address] CARLOS MANUEL SALCEDO DO,MPH 02/05/2021 12:0 6 PM CDT 02/05/2021 12:13 PM CDT Mariya Enciso MD LAB - CHEMISTRY LYNNETTE BUTCHER Performing Organization Address [facility] Co de Phone Number [facility] [address] [place] [address] * RHEUMATOID FACTOR BLOOD QUANTITATIVE (02/05/2021 12:06 PM CDT) Pathologist [facility] Rheumatoid Factor <14 <14 IU/mL [facility] Comment: Test Performed at: [facility] [address] [place] ??[address] CARLOS MANUEL SALCEDO DO,MPH 02/05/2021 12:0 6 PM CDT 02/05/2021 12:13 PM CDT Mariya Enciso MD LAB - CHEMISTRY LYNNETTE BUTCHER Performing Organization Address [facility] Co de Phone Number [facility] [address] [place] [address] * C-REACTIVE PROTEIN (02/05/2021 12:06 PM CDT) Pathologist [facility] C-Reactive Protein 3.0 <8.0 mg/L [facility] Comment: Test Performed at: [facility] [place] [address] [place] ??[address] CARLOS MANUEL SALCEDO DO,MPH 02/05/2021 12:0 6 PM CDT 02/05/2021 12:13 PM CDT Mariya Enciso MD LAB - CHEMISTRY LYNNETTE BUTCHER Performing Organization Address [facility] de Phone Number [address] [address] * BLOOD SCREEN W/REFLEX TITER (02/05/2021 12:06 PM CDT) [facility] Screen NEGATIVE NEGATIVE [facility] Comment: IFA is [...] myopathies. AC-0: Negative International Consensus on Patterns (https://doi.org/10.1515/jcye-6136-1743) For additional information, please refer to http://education.Disruptive By Design.CityOdds/faq/AQX489 (This link is being provided for informational/ educational purposes only.) ?? Test Performed at: [facility] [address] [place], [place] ??[address] CARLOS MANUEL SALCEDO DO,MPH 02/05/2021 12:0 6 PM CDT 02/05/2021 12:13 PM CDT Mariya Enciso MD LAB - CHEMISTRY LYNNETTE BUTCHER Performing Organization Address [facility] Co de Phone Number [facility] [address] [place] [address] * SS-A/SS-B (SJOGREN'S) ANTIBODY PANEL (02/05/2021 12:06 PM CDT) Sjogren's Antibodies (SSA) <1.0 NEG <1.0 NEG AI [facility] Sjogren's Antibodies (SSB) <1.0 NEG <1.0 NEG AI [facility] Comment: Test Performed at: [facility] [address] [place] ??[address] CARLOS MANUEL SALCEDO DO,MPH 02/05/2021 12:0 6 PM CDT 02/05/2021 12:13 PM CDT Mariya Enciso MD LAB - CHEMISTRY LYNNETTE BUTCHER Performing Organization Address [facility] de Phone Number [facility] [address] [place] [address] * HLA TYPING B27 (02/05/2021 12:06 PM CDT) HLA-B27 Antigen NEGATIVE NEGATIVE [facility] Comment: Test Performed at: [facility] [address] ??[address] BARBARA JUAREZ MD 02/05/2021 12:0 6 PM CDT 02/05/2021 12:13 PM CDT Mariya Enciso MD LAB - CHEMISTRY LYNNETTE BUTCHER Performing Organization Address [facility] Co de Phone Number [facility] [address] [place] [address] * SCLERODERMA 70 (SCL) ANTIBODY (02/05/2021 12:06 PM CDT) SCL-70 Antibody <1.0 NEG <1.0 NEG AI [facility] Comment: Test Performed at: [facility] [address] [place], [place] ??[address] CARLOS MANUEL SALCEDO DO,MPH 02/05/2021 12:0 6 PM CDT 02/05/2021 12:13 PM CDT Mariya Enciso MD LAB - CHEMISTRY TRUDIEnedina LOOCOURTNEY Performing Organization Address [facility] Phone Number [facility] [address] [place] [address] * DNA ANTIBODY DOUBLE STRANDED (02/05/2021 12:06 PM CDT) dsDNA Antibody <1 IU/mL [facility] Comment: ? IU/mL ? Interpretation ? < or = 4 ?Negative ? 5-9 ? Indeterminate ? > or = 10 ?? Positive Test Performed at: [facility] [place] [address] [place], [place] ??[address] CARLOS MANUEL SALCEDO DO,MPH 02/05/2021 12:0 6 PM CDT 02/05/2021 12:13 PM CDT Mariya Enciso MD LAB - HEMATOLOGY TRUDI WALLER Performing Organization Address [facility] de Phone Number [facility] [address] [place] [address] * ALDOLASE (02/05/2021 12:06 PM CDT) Aldolase 4.4 < OR = 8.1 U/L [facility] Comment: Test Performed at: [facility] [place] [address] [facility] [place] [facility], [place] ??[address] CARLOS MANUEL SALCEDO DO,MPH 02/05/2021 12:0 6 PM CDT 02/05/2021 12:13 PM CDT Mariya Enciso MD LAB - CHEMISTRY LYNNETTE BUTCHER Performing Organization Address [facility] Co de Phone Number [facility] [address] [place] [address] * CYCLIC CITRULLINATED PEPTIDE(CCP) AB IGG (02/05/2021 12:06 PM CDT) Pathologist [facility] Cyclic Citrullinated Peptide Antibody IgG <16 UNITS [facility] Comment: Reference Range Negative: ?<20 Weak Positive: ? 20-39 Moderate Positive: ?? 40-59 Strong Positive: ? >59 Test Performed at: [facility] [address] [place] ??[address] CARLOS MANUEL SALCEDO DO,MPH 02/05/2021 12:0 6 PM CDT 02/05/2021 12:13 PM CDT Mariya Enciso MD LAB - CHEMISTRY LYNNETTE BUTCHER Performing Organization Address [facility] Co de Phone Number [facility] [address] [place] [phone] * ERYTHROCYTE SEDIMENTATION RATE (02/05/2021 12:06 PM CDT) [facility] Erythrocyte Sedimentation Rate Westergren 14 < OR = 20 mm/h [facility] Comment: Test Performed at: [facility] [address] [place] ??[address] CARLOS MANUEL SALCEDO DO,MPH 02/05/2021 12:0 6 PM CDT 02/05/2021 12:13 PM CDT Mariya Enciso MD LAB - HEMATOLOGY ORD SRIDHAR Performing Organization Address [facility] Co de Phone Number [facility] [address] [place] [address] * CBC WITH DIFFERENTIAL (02/05/2021 12:06 PM CDT) [facility] White Blood Cell Count 7.6 3.8 - [...] 0.9 % [facility] Comment: Test Performed at: [facility] [address] [place], [place] ??[address] CARLOS MANUEL SALCEDO DO,MPH 02/05/2021 12:0 6 PM CDT 02/05/2021 12:13 PM CDT Mariya Enciso MD LAB - HEMATOLOGY ORD ERABLES [facility] [address] [place] [address] * HEPATIC FUNCTION PANEL (02/05/2021 12:06 PM [...] 29 U/L [facility] Comment: Test Performed at: [employer] [place] ??[address] CARLOS MANUEL SALCEDO DO,MPH 02/05/2021 12:0 6 PM CDT 02/05/2021 12:13 PM CDT Mariya Enciso MD LAB - CHEMISTRY LYNNETTE BUTCHER Performing Organization Address [facility] Co de Phone Number [facility] [phone] [place], [place] [phone] * HEPATITIS B SURFACE ANTIBODY (02/05/2021 12:06 PM CDT) Hepatitis B Virus Surface Antibody NON-REACTI VE NON-REACT CARL [facility] Comment: Test Performed at: [facility] [address] [place], [place] ??[address] CARLOS MANUEL SALCEDO DO,MPH 02/05/2021 12:0 6 PM CDT 02/05/2021 12:13 PM CDT Mariya Enciso MD LAB - CHEMISTRY LYNNETTE BUTCHER Performing Organization Address [facility] Co de Phone Number [facility] [address] [place] [address] * HEPATITIS B CORE ANTIBODY (02/05/2021 12:06 PM CDT) Pathologist [facility] Hepatitis B Core Virus Antibody Total NON-REACTI VE NON-REACT CARL [facility] Comment: Test Performed at: [facility] [place] [address] [place], [place] ??[address] CARLOS MANUEL SALCEDO DO,MPH 02/05/2021 12:0 6 PM CDT 02/05/2021 12:13 PM CDT Mariya Enciso MD LAB - CHEMISTRY LYNNETTE BUTCHER Performing Organization Address City/[facility] Co de Phone Number [facility] [address] [place] [address] * CREATININE BLOOD (02/05/2021 12:06 PM CDT) Pathologist [facility] Creatinine 0.58 0.50 - 1.10 mg/dL [facility] eGFR by MDRD 110 > OR = 60 mL/min/1.7 3m2 [facility] eGFR by MDRD 127 > OR = 60 mL/min/1.7 3m2 [facility] Comment: Test Performed at: [facility] [address] [place], [place] ??[address] CARLOS MANUEL SALCEDO DO,MPH 02/05/2021 12:0 6 PM CDT 02/05/2021 12:13 PM CDT Mariya Enciso MD LAB - CHEMISTRY LYNNETTE BUTCHER Performing Organization Address [facility] Co de Phone Number [facility] [address] [place] [address] * CK BLOOD (02/05/2021 12:06 PM CDT) CK 37 29 - 143 U/L [facility] Comment: Test Performed at: [facility] [address] [place] [address] ??[phone] CARLOS MANUEL SALCEDO DO,MPH 02/05/2021 12:0 6 PM CDT 02/05/2021 12:13 PM CDT Mariya Enciso MD LAB - CHEMISTRY LYNNETTE BUTCHER Performing Organization Address [facility] de Phone Number [facility] [address] [place] [address] * IMAGING RADIOLOGY XRAY RESULTS ORDER (11/05/2019 7:09 AM CDT) Anatomical Region Laterality Modality Other Narrative 11/05/2019 7:09 AM CDT Ordered by an unspecified provider. Scanned Document IMAGING * LA BIOPSY OF UTERUS LINING (11/04/2019 3:43 PM [...] Case Report Surgical Pathology Report ? Case: [id number] ? Authorizing Provider: ??Rober Villatoro MD ? Collected: ? 11/04/2019 03:29 PM ? Ordering Location: ? [facility] ? Received: ?11/08/2019 02:06 PM ? [facility] ? Pathologist: ? Jerica Valiente MD ? Specimen: ?Endometrium ? 11/09/2019 11:31 AM [facility] Final Diagnosis Endometrium, biopsy: - Scant benign endometrial epithelium - Benign cervical tissue - Negative for dysplasia or malignancy 11/09/2019 11:31 AM [facility] Microscopic Description and Comment Performed. 11/09/2019 11:31 AM [facility] Clinical History 11/09/2019 11:31 AM [facility] Gross Description The requisition and specimen(s) are labeled with the patient's name, Kathy Medina. Received in formalin, specimen A, EMB , is an aggregate of brown-monte tissue measuring 2.0 x 1.2 x 0.1 cm. Submitted in toto cassette A1. KK 11/09/2019 11:31 AM [facility] Disclaimer The performance characteristics of all immunohistochemical and indirect immunofluorescence stains (if any) cited in this report were determined by the Histopathology Laboratory of [facility]. Some of these tests were developed by [...] attending (teaching) pathologist. 11/09/2019 11:31 AM CDT [facility] Embedded Images 11/09/2019 11:31 AM CDT [facility] Pathology/Cytolo gy ENTIRE ENDOMETRIUM / Unknown 11/04/2019 3:29 PM CDT 11/08/2019 2:06 PM CDT Rober Villatoro MD LAB - PATHOLOGY/CYTO LOGY ORDERABLES [facility] [address] [place] [address], [facility] [phone] * LA SONO EXAM, TRANSVAGINAL, LA US PELVIC NONOB REAL-TIME IMG COMPLETE (11/04/2019 [...] 0.55-2.73 ?Third trimester ?0.43-2.91 Test Performed at: [facility] [address] [place], [place] ??[address] CARLOS MANUEL SALCEDO DO,MPH Blood BLOOD SPECIMEN / Unknown 09/27/2019 11:13 AM CDT 09/27/2019 11:14 AM CDT Rober Villatoro MD LAB - CHEMISTRY LYNNETTE BUTCHER [facility] [address] [place] [address] * ESTRADIOL (09/27/2019 11:13 AM CDT) [facility] Estradiol 148 pg/mL [facility] Comment: ?Reference Range ?Follicular Phase: ?19-144 ?Mid-Cycle: ? 64-357 ?Luteal Phase: ?56-214 ?Postmenopausal: ?< or = 31 ? Reference range established on post-pubertal patient population. No pre-pubertal reference range established using this assay. For any patients for whom low Estradiol levels are anticipated (e.g. males, pre-pubertal children and hypogonadal/post-menopausal females), the [employer] Estradiol, Ultrasensitive, LCMSMS assay is recommended (order code 60900). ?? Please note: patients being treated with the drug fulvestrant (Faslodex(R)) have demonstrated significant interference in immunoassay methods for estradiol measurement. The cross reactivity could lead to falsely elevated estradiol test results leading to an inappropriate clinical assessment of estrogen status. [employer] order code 85189-[id number], Ultrasensitive LC/MS/MS demonstrates negligible cross reactivity with fulvestrant. REPORT COMMENT: FASTING:NO Test Performed at: [facility] [address] [place], [place] ??[address] CARLOS MANUEL SALCEDO DO,MPH Blood BLOOD SPECIMEN / Unknown 09/27/2019 11:13 AM CDT 09/27/2019 11:14 AM CDT Rober Villatoro MD LAB - CHEMISTRY LYNNETTE BUTCHER Performing Organization Address [facility] de Phone Number [facility] [address] [place] [phone] * FSH + LH PANEL (09/27/2019 11:13 AM CDT) FSH 27.9 mIU/mL [facility] Comment: ?Reference Range ? Follicular Phase ? 2.5-10.2 ? Mid-cycle Peak ? 3.1-17.7 ? Luteal Phase ? 1.5- 9.1 ? Postmenopausal ? 23.0-116.3 ? LH 26.7 mIU/mL [facility] Comment: ?Reference Range Follicular Phase ??1.9-12.5 Mid-Cycle Peak ?8.7-76.3 Luteal Phase ?0.5-16.9 Postmenopausal ?10.0-54.7 Test Performed at: [facility] [address] [place], [place] ??[address] CARLOS MANUEL SALCEDO DO,MPH Blood BLOOD SPECIMEN / Unknown 09/27/2019 11:13 AM CDT 09/27/2019 11:14 AM CDT Rober Villatoro MD LAB - CHEMISTRY LYNNETTE BUTCHER Performing Organization Address [facility] de Phone Number [facility] [address] [place] [address] * PATHOLOGY/GENETICS HISTORICAL-ONBASE (07/10/2017) Only the most recent of5 resultswithin the time period is included. 07/10/2017 Rober Villatoro MD LAB - CHEMISTRY LYNNETTE BUTCHER Performing Organization Address [facility] de Phone Number [facility] [address] * LAB HISTORICAL RESULTS-ONBASE (09/26/2016) Only the most recent of2 resultswithin the time period is included. 09/26/2016 Historical Provider LAB - CHEMISTRY Napoleon FRIAS Performing Organization Address [facility] de Phone Number [facility] [address] * TSH+FREE T4 PANEL (07/05/2016 4:16 PM MANAGER MASS) TSH 0.73 mIU/L [facility] ([facility]) Comment: ?Reference Range ?> or = 20 Years ??0.40-4.50 ? Ranges ?First trimester ?0.26-2.66 ?Second trimester ?? 0.55-2.73 ?Third trimester ?0.43-2.91 T4 Free 1.1 0.8 - 1.8 ng/dL [facility] ([facility]) Comment: REPORT COMMENT: FASTING:NO Test Performed at: [facility] [place] [address] [place] ??[id number] CARLOS MANUEL SALCEDO DO,MPH 07/05/2016 4:16 PM MANAGER MASS 07/05/2016 4:17 PM MANAGER MASS Rober Villatoro MD LAB - CHEMISTRY [place]NNETTE BUTCHER Performing Organization Address [facility] de Phone Number [facility] ([facility]) * CULTURE STREP GROUP A (11/08/2013 12:45 PM CDT) Culture Beta Strep No Growth of Groups A, C or G Beta Streptococc us. [facility] Throat swab (specimen) ENTIRE THROAT (SURFACE REGION OF NECK) / Unknown 11/08/2013 12:45 PM CDT 11/08/2013 9:55 PM CDT Narrative [facility] - 11/10/2013 1:07 PM CDT LudwigSpecimen#[id number] Ludwig Loc/Rm/Bed: EXPCARE C// Historical Provider MD LAB - MICROBIOLOG Y ORDERABLES [facility] [address] [phone] Care Teams Radar Air Traffic Controller Relationship Specialty Start Date End Date Shy Lafleur, CHIEF MECHANICAL ENGINEER-CAR VARNISHER [address] [place] [id number] PCP - General Family Medicine 03/15/24
[2024-06-21 22:17] VITALS: BP 111/76; PULSE 79; RESP 20; O2SAT 98
== END 2024-06-21 22:25 | disposition home or self-care (01) ==
PROVIDERS: Emergency Provider Emergency Medicine; PCP Nurse Practitioner Family
DX: S29.012A Strain of muscle and tendon of back wall of thorax, initial encounter (principal); M19.90 Unspecified osteoarthritis, unspecified site; K90.0 Celiac disease; K21.00 Gastro-esophageal reflux disease with esophagitis, without bleeding; K44.9 Diaphragmatic hernia without obstruction or gangrene; K58.9 Irritable bowel syndrome, unspecified; F32.A Depression, unspecified; F41.9 Anxiety disorder, unspecified; F17.210 Nicotine dependence, cigarettes, uncomplicated; Z85.44 Personal history of malignant neoplasm of other female genital organs; Z79.899 Other long term (current) drug therapy; W10.2XXA Fall (on)(from) incline, initial encounter
CPT/HCPCS: 70450; 71111; 72072; 99284

== ENCOUNTER 2024-09-11 15:13 | Emergency (ER) | payer MEDICAID, SELFPAY ==
--- NOTE | ~2024-09-11 | CT_ITS ---
CT abdomen pelvis w con Ordering provider: Genevieve Valverde APRN History: 49 years Female with . LLQ abdominal pain . Comparison: March 30, 2024 Technique: CT abdomen and pelvis with IV and without oral contrast. Automated exposure control and it erative reconstruction technique were employed. The dose-length product was 567.72 mGy-cm. 100 mL Omn ipaque 350 was given IV. Findings: VISUALIZED LOWER CHEST: Normal. UPPER ABDOMINAL ORGANS: Liver: Normal. Gallbladder: Contracted. Spleen: Normal. Benign calcifications. Stomach/duodenum: Small sliding hiatus hernia Pancreas: Normal. Adrenals: Normal. Kidneys: Normal. PELVIC ORGANS: The bladder is underfilled. Small follicles seen in the left ovary. BOWEL AND MESENTERY: Colon: No evidence of diverticulitis. Normal appendix. Small Bowel: Normal. No obstruction. Peritoneum/mesentery: No free air or free fluid. No mesenteric lymphadenopathy. RETROPERITONEUM: Mild atheromatous disease of the abdominal aorta. No retroperitoneal lymphadenopat hy. MUSCULOSKELETAL: Superficial soft tissues: Fat stranding is seen in the anterior abdominal wall. May be posttraumatic or injection. Otherwise, The superficial soft tissues are normal. Bones: Normal spine. IMPRESSION: 1. No evidence of appendicitis, diverticulitis or obstruction. 2. Small sliding hiatus hernia. Reviewed, dictated and finalized at location A.
--- OUTSIDE RECORDS SUMMARY | 2024-09-11 15:16 | XMS_ITS | Clinical Summary ---
Author Organization [facility] [address] Address [address] [place] [address] Care Team Providers Care Bulb Grower Name Role Phone Shy Lafleur NP Primary Care Provider [phone] Rober Villatoro MD Unavailable [phone] Jeyson Angelo MD Unavailable [phone] Allergies Active Allergy Reactions Criticality Noted Date Comments Adhesive Tape-Silicones Hives Medium Aspirin Stomach upset Low Reaction: GI upset, Codeine Nausea And Vomiting,Nausea & Vomiting Low 12/21/2018 Latex Hives High Reaction: Hives, Phentermine-Topiramat e Swelling Medium 02/23/2024 Medications buPROPion SR (WELLBUTRIN SR) 100 mg 12 hr tablet Take 150 mg by mouth 2 (two) times a day Active cetirizine (ZyrTEC) 10 mg tablet Take 1 tablet (10 mg total) by mouth daily Active celecoxib (CeleBREX) 50 mg capsule Take 1 capsule (50 mg total) by mouth daily Active nicotine (NICODERM CQ) [address] 1 patch on the skin daily Not using currently Active cyclobenzaprine (FLEXERIL) 10 mg tablet Take 1 tablet (10 mg total) by mouth nightly Active multivitamin tabletIndicatio ns:Vitamin Deficiency Prevention Take 1 tablet by mouth daily Flintstones vitamins Active ondansetron (ZOFRAN) 4 mg tablet Take 1 tablet (4 mg total) by mouth every 8 (eight) hours as needed for nausea or vomiting 20 tablet [address] (PROTONIX) 40 mg EC tabletIndicatio ns:Gastroesopha geal reflux disease, unspecified whether esophagitis present Take 1 tablet (40 mg total) by mouth daily 30 tablet [address] (PROTONIX) 40 mg EC tabletIndicatio ns:Gastroesopha geal reflux disease, unspecified whether esophagitis present Take 1 tablet (40 mg total) by mouth daily 30 tablet 5 025 Discontin ued(Reord er) Active Problems Patient Care Coordination No te [...] on 02/17/2023 which revealed the following: FINDINGS: Room Service Supervisor image is unremarkable. Limited evaluation of the [...] approach, but her BMI of 36.[address] of excellent visualization for the [...] BMI is Body mass index is 34.96 kg/m . and stable for the past year. 4. Dyspnea - she has has mild dyspnea on exertion but is functioning well Return to clinic 3 months . She is here for further discussion and evaluation. Haydee Hrading NP 02/17/2024 1528 This is a 49-year-old [...] Abdominal pain 04/21/2023 Chest pain, unspecified 04/21/2023 [place] 04/21/2023 Depressive disorder 04/21/2023 Diarrhea 04/21/2023 Syncope [...] Encounters Date Type Department Care Team Description 07/27/2024 Telephone [facility] Surgery [address] [place] [address] [place] [phone] Haydee Harding, PARVIN 07/20/2024 Orders Only [facility] Surgery [address] 8th [place] [address] [place] [address] Haydee Harding, PARVIN Hiatal hernia (Primary Dx) 07/19/2024 2:45 PM HAND ETCHER HELPER Office Visit [facility] Surgery [address] [place] [address] Haydee Harding NP Post-operative state (Primary Dx) 07/19/2024 11:15 AM HAND ETCHER HELPER - 07/19/2024 11:59 PM HAND ETCHER HELPER Hospital Encounter [facility] MOB 1 DIAG IMG [address] [place] [address] Achalasia Discharge Disposition: Discharge to home or self care 07/14/2024 Orders Only [facility] Surgery [address] 8th [place] [address] [place] [address] Haydee Harding, PARVIN Achalasia (Primary Dx) 07/06/2024 Orders Only [facility] Surgery [facility] [place] [address] Haydee Harding, PARVIN 07/01/2024 Telephone [facility] Cardiothoracic Surgery [facility] 8[address] Room [address] [address] Albania Schmidt RMA 07/01/2024 Telephone [facility] Surgery [facility] [place] [address] Amanda Rivera 06/30/2024 7:35 AM HAND ETCHER HELPER - 06/30/2024 11:05 AM HAND ETCHER HELPER Surgery [facility] OR [address] [place] [address] Jeyson Angelo MD ROBOTIC ASSISTED LAPAROSCOPIC HELLER MYOTOMY WITH RESECTION OF AN ESOPHAGEAL DIVERTICULUM 06/30/2024 7:29 AM HAND ETCHER HELPER Anesthesia Event [facility] OR [address] [place] [address] Gino Roe MD Taylor-White, Carlotta A., NP 06/30/2024 6:20 AM HAND ETCHER HELPER - 07/02/2024 12:11 PM HAND ETCHER HELPER Hospital Encounter [facility] [address] [place] [address] Jeyson Angelo MD Achalasia Discharge Disposition: Discharge to home or self care 06/23/2024 11:00 AM HAND ETCHER HELPER Pre-Admission Testing [facility] PreAdmission Testing [address] [place] [address] Pre-op exam 06/14/2024 Orders Only [facility] PreAdmission Testing [address] [place] [address] Lilian Lafleur RN from Last 3 Months Immunizations Immunization Administration Dates Next Due Influenza, Unspecified 03/03/2023 Sars-CoV-2, Unspecified 03/03/2023 Surgical History Surgery Date Site/Laterality Comments TUBAL LIGATION 05/19/1998 - 05/18/1999 ANKLE SURGERY 05/19/1995 - 05/18/1996 Right fracture VULVA SURGERY 05/19/2011 - 05/18/2012 ablation COLONOSCOPY SINUS ENDOSCOPY ARTHROSCOPY SHOULDER W/ OPEN ROTATOR CUFF REPAIR 05/19/2022 - 05/18/2023 Right Medical History Medical History Date Comments Migraines Malignant neoplasm of vulva (HCC) IBS (irritable bowel syndrome) Arthritis Depression Heartburn Rotator cuff tear Epiphrenic diverticulum Achalasia Hiatal hernia Acquired esophageal diverticulum Sleep apnea tested 10 years ago- mild- no cpap GERD (gastroesophageal reflux disease) Celiac disease Frequent urinary incontinence us es pad- daytime Anxiety ADHD (attention deficit hype ractivity disorder) not on medications History of fall 06/21/[address] scan and chest x-ray- no fracture- but thoracic brusing from fall Dysphagia sometime Wears glasses Dental crown present Family History Medical History Relation Name Comments Breast cancer Father's Sister 1 Breast cancer Father's Sister 2 Prostate cancer Maternal Grandfather Relation Name Status Comments Father Alive Father's Sister 1 Father's Sister 2 Alive Maternal Grandfather Mother Alive Social History Tobacco Use Types Packs/Day Years Used Date Smoking Tobacco: Former Cigarettes Q uit: 04/18/2024 Passive Smoke Exposure: Past Smokeless Tobacco: Former Tobacco Cessation:Counseling Given: Not Answered Alcohol Use Standard Drinks/Week Comments Not Currently 0 (1 standard drink = 0.6 oz pur e alcohol) [facility] Utilities Answer Date Recorded In the past 12 months has th e electric, gas, oil, or water company threatened to shut off services in your home? No 07/01/2024 Social Connection and Isolat ion Panel [NHANES] Answer Date Recorded In a typical week, how many times do you talk on the phone with family, friends, or neighbors? More than three times a week 07/01/2024 How often do you get togethe r with friends or relatives? More than three times a week 07/01/2024 How often do you attend chur ch or episcopal services? 1 to 4 times per year 07/01/2024 Do you belong to any clubs o r organizations such as tenriism groups, unions, fraternal or athletic groups, or school groups? No 07/01/2024 How often do you attend meet ings of the clubs or organizations you belong to? Never 07/01/2024 Are you , , di vorced, , never , or living with a partner? Living with partner 07/01/2024 AUDIT-C Answer Date Recorded Frequency of Alcohol Consumption Not on file 06/23/2024 Q2: How many drinks containi ng alcohol do you have on a typical day when you are drinking? Patient does not drink Frequency of Binge Drinking Not on file 09/2024 Overall Financial Resource Strain (CARDIA) Answe r Date Recorded How hard is it for you to pa y for the very basics like food, housing, medical care, and heating? Not hard at all 07/01/2024 Hunger Vital Sign Answer Date Recorded Within the past 12 months, y ou worried that your food would run out before you got the money to buy more. Never true 07/01/19 25 Within the past 12 months, t he food you bought just didn't last and you didn't have money to get more. Never true 07/01/2024 PRAPARE - Transportation Answer Date Re corded In the past 12 months, has l ack of transportation kept you from medical appointments or from getting medications? No 06/19 In the past 12 months, has l ack of transportation kept you from meetings, work, or from getting things needed for daily living? No 07/01/2024 Housing Stability Vital Sign Answer Dixon e Recorded In the last 12 months, was t here a time when you were not able to pay the mortgage or rent on time? No 07/01/2024 In the past 12 months, how m any times have you moved where you were living? 0 07/01/2024 At any time in the [facility], were you homeless or living in a halfway (including now)? No 07/01/2024 Personal Safety Answer Date Recorded Have you ever been in or are you currently in a harmful physical or emotional relationship or is someone making you feel afraid or unsafe? Denies 06/30/2024 Comments No Sex and Gender Information Value Date Recorded Sex Assigned at Not on file Legal Sex Female 4:05 AM HAND ETCHER HELPER Gender Identity Not on file Sexual Orientation Not on file Obstetrics History Last Filed Vital Signs Vital Sign Reading Time Taken Comments Blood Pressure 101/70 07/19/2024 2:18 PM HAND ETCHER HELPER Pulse 66 07/19/2024 2:16 PM HAND ETCHER HELPER Temperature 36.5 C (97.7 F) 07/19/2024 2:16 PM HAND ETCHER HELPER Respiratory Rate 16 07/19/2024 2:16 PM HAND ETCHER HELPER Oxygen Saturation 95% 07/19/2024 2:16 PM HAND ETCHER HELPER Inhaled Oxygen Concentration - - Weight 74.4 kg (164 lb) 07/19/2024 2:16 PM HAND ETCHER HELPER n o shoes Height 152.4 cm (5') 07/19/2024 2:16 PM HAND ETCHER HELPER no s hoes Body Mass Index 32.03 07/19/2024 2:16 PM HAND ETCHER HELPER Plan of Treatment Health Maintenance Due Date Last Done Comments Breast Cancer Screening-Mammogram 1974 Colon Cancer Screening-Colonoscopy 1974 Depression Screening 1974 Hepatitis C Screening 1974 Hepatitis B Screening 01/05/1992 Regular Well Visit/Exam 18-64 01/05/1992 Cervical Cancer Screening 02/18/2023 02/18/2022 Zoster Vaccine (1 of 2) 01/05/2024 Covid-19 Vaccine ( season) 2024 03/03/2023, 05/15/2021, 04/18/2021, Additional history exists DTaP/Tdap/Td Vaccine (2 - Td or Tdap) 03/15/2024 03/15/2014 Influenza Vaccine (Season Ended) 2025 03/03/2023, 03/10/2020, 03/18/2014 Pneumococcal vaccine <65 Aged Out No longer eligible based on patient's age to complete this topic Medical Devices Implanted Type Area Ethnoarchaeology Professor Device Identifier Shelf Expiration Date Model / Serial / Lot Wire-Inner Part Of Right Ankle-Plate And 7 Screws Right: Ankle Procedures Procedure Name Priority Date/Time Associated Diagnosis Comments XR CHEST PA LATERAL 2 VIEWS Schedule Routine, Read Routine (OP Routine) 07/19/2024 1:51 PM HAND ETCHER HELPER Achalasia EGFR Routine 07/02/2024 3:56 AM HAND ETCHER HELPER BASIC METABOLIC PANEL Routine 07/02/2024 3:56 AM HAND ETCHER HELPER CBC WITHOUT DIFFERENTIAL Routine 025 3:56 AM HAND ETCHER HELPER ECG 12-LEAD STAT 07/01/2024 3:27 PM HAND ETCHER HELPER FL ESOPHAGRAM, SINGLE CONTRAST IP Routine 0 07/01/2024 10:37 AM HAND ETCHER HELPER EGFR Routine 07/01/2024 2:37 AM HAND ETCHER HELPER BASIC METABOLIC PANEL Routine 07/01/2024 2:37 AM HAND ETCHER HELPER CBC WITHOUT DIFFERENTIAL Routine 025 2:37 AM HAND ETCHER HELPER PHOSPHORUS Routine 06/30/2024 4:43 PM HAND ETCHER HELPER MAGNESIUM Routine 06/30/2024 4:43 PM HAND ETCHER HELPER SURGICAL PATHOLOGY Routine 06/30/2024 9:41 AM HAND ETCHER HELPER Achalasia AK AN PROCEDURE PLACEHOLDER Routine 06/19 7:52 AM HAND ETCHER HELPER AK AN ELECTIVE ENDOTRACHEAL AIRWAY Routine 06/30/2024 7:52 AM HAND ETCHER HELPER ESOPHAGOGASTRODUODENOSCOPY 06/30 7:30 AM HAND ETCHER HELPER Achalasia XI MYOTOMY - LAPAROSCOPIC ROBOTIC ASSISTED - HELLER 06/30/2024 7:30 AM HAND ETCHER HELPER Achalasia B ABO / RH CONFIRMATION TESTING Routine 06/30/2024 6:43 AM HAND ETCHER HELPER EGFR Routine 06/23/2024 11:15 AM HAND ETCHER HELPER Pre-op exam DIFFERENTIAL AUTO Routine 06/23/2024 11:15 AM HAND ETCHER HELPER Pre-op exam ANTIBODY SCREEN Routine 06/23/2024 11:15 AM HAND ETCHER HELPER Pre-op exam ABO/RH Routine 06/23/2024 11:15 AM HAND ETCHER HELPER Pre-op exam COMPREHENSIVE METABOLIC PANEL Routine 11:15 AM HAND ETCHER HELPER Pre-op exam CBC WITH AUTO DIFFERENTIAL Routine 06/23 11:15 AM HAND ETCHER HELPER Pre-op exam TYPE AND SCREEN 14 DAY Routine 11:15 AM HAND ETCHER HELPER Pre-op exam from Last 3 Months Results * XR Chest Pa Lateral 2 Views (07/19/2024 1:51 PM HAND ETCHER HELPER) Anatomical Region Laterality Modality Body, Chest N/A Computed Radiogr aphy 07/22/2024 7:21 AM HAND ETCHER HELPER Narrative 07/22/2024 7:23 AM HAND ETCHER HELPER EXAM DESCRIPTION: XR CHEST PA LATERAL 2 VIEWS REASON FOR STUDY: Achalasia F/u on achalasia x 3 weeks, no complaints TECHNIQUE: Two views COMPARISON: 10/09/2023 FINDINGS: Heart size and vascularity appear normal. Aortic arch well-defined on the left. Band like density left mid lung bruno suggesting platelike atelectasis. No dense consolidations, effusions or pneumothorax. Bony hypertrophic change obscures the apices. IMPRESSION: Platelike atelectasis left mid lung field. THIS IS AN ELECTRONICALLY VERIFIED FINAL REPORT 07/22/2024 7:23 AM - Electronically signed by Thomas Mckeon M.D. RB: RB Report ID: [id number] Reading Location: [id number] Procedure Note Thomas Mckeon MD - 07/22/2024 EXAM DESCRIPTION: XR CHEST PA LATERAL 2 VIEWS REASON FOR STUDY: Achalasia F/u on achalasia x 3 weeks, no complaints TECHNIQUE: Two views COMPARISON: 10/09/2023 FINDINGS: Heart size and vascularity appear normal. Aortic arch well-defined on the left. Band like density left mid lung bruno suggesting platelike atelectasis. No dense consolidations, effusions or pneumothorax. Bony hypertrophic change obscures the apices. IMPRESSION: Platelike atelectasis left mid lung field. THIS IS AN ELECTRONICALLY VERIFIED FINAL REPORT 07/22/2024 7:23 AM - Electronically signed by Thomas Mckeon M.D. RB: TORI Report ID: [id number] Reading Location: [place] [address] [place] Haydee Harding SAMPLE SUPERVISOR IMG XR PROCEDURES Final Re sult * eGFR (07/02/2024 3:56 AM HAND ETCHER HELPER) eGFR >90 >=60 mL/min/1. 73 m2 Comment: Interpretive Data Reference Interval Normal >/= 90 mL/min/1.73m2 Mildly decreased* 60 - 89 mL/min/1.73m2 Mildly to moderately decreased 45 - 59 mL/min/1.73m2 Moderately to severely decreased 30 - 44 mL/min/1.73m2 Severely decreased 15 - 29 mL/min/1.73m2 Kidney Failure < 15 mL/min/1.73m2 *Relative to young adult level Estimated glomerular filtration rate is determined by the 2020 CKD-EPI equation recommended by the National Kidney Foundation (A Unifying Approach to GFR Estimation: Recommendations of the NKF-ASK Task Force on Reassessing the Inclusion of Race in Diagnosing Kidney Disease, JASN 202). The CKD-EPI equation should not be used for patients with unstable renal function and has not been validated in children and those over 70. Current interpretive data was last reviewed 2021. Blood 07/02/2024 3:56 AM HAND ETCHER HELPER 07/02/2024 4:37 AM HAND ETCHER HELPER [facility] [place] [facility] BLOOD ORDERABLES Yeny l Result Performing Organization Address [facility] Co de Phone Number [facility]ENTERFRANCIS[facility] [address] [place] [address] * (ABNORMAL) CBC without differential (07/02/2024 3:56 AM HAND ETCHER HELPER) WBC 14.5(H) 3.8 - 9.9 K/cumm Hgb 10.5(L) 11.9 - 15.5 g/dL [facility] Hct 31.7(L) 35.6 - 45.5 % [facility] Plt 184 150 - 400 K/cumm [facility] MPV 10.0 9.1 - 12.3 fL [facility] RBC 3.56(L) 3.90 - 5.20 M/cumm [facility] MCV 89.0 81.3 - 96.4 fL [facility] MCH 29.5 27.1 - 33.3 pg [facility] MCHC 33.1 32.3 - 35.7 g/dL [facility] RDW CV 12.6 11.1 - 14.9 % [facility] RDW SD 40.9 35.7 - 48.1 fL [facility] NRBC abs 0.00 0.00 - 0.01 K/cumm [facility] Blood 07/02/2024 3:56 AM HAND ETCHER HELPER 07/02/2024 4:37 AM HAND ETCHER HELPER [facility] [place] [facility] BLOOD ORDERABLES Yeny l Result Performing Organization Address [facility]/ZIP Co de Phone Number NAVARRO [address] [place] [address] * Basic metabolic panel (07/02/2024 3:56 AM HAND ETCHER HELPER) [facility] Sodium 138 135 - 145 mmol/L Potassium, pl 3.6 3.3 - 4.9 mmol/L [facility] Chloride 105 97 - 110 mmol/L [facility] CO2 26 22 - 32 mmol/L [facility] Anion gap 7 2 - 15 mmol/L [facility] BUN 13 6 - 25 mg/dL [facility] Creatinine 0.61 0.60 - 1.10 mg/dL [facility] Glucose 103 70 - 199 mg/dL [facility] Comment: Interpretive Data Fasting glucose >/= 126 mg/dl is diagnostic for diabetes. Fasting is defined as no caloric intake for at least 8 hours. Fasting glucose between 100 mg/dl to 125 mg/dl is diagnostic of prediabetes. In a patient with classic symptoms of hyperglycemia or hyperglycemic crisis, a random glucose >/= 200 mg/dl is diagnostic for diabetes. In the absence of unequivocal hyperglycemia, results should be confirmed by repeat testing. The classification and Diagnosis of Diabetes Diabetes Care 2021; 46: S19-S40. Current interpretive data was last revised 2022. Calcium 8.8 8.5 - 10.3 mg/dL [facility] Blood 07/02/2024 3:56 AM HAND ETCHER HELPER 07/02/2024 4:37 AM HAND ETCHER HELPER us Macariochris [place] LAB BLOOD ORDERABLES Yeny tellez Result [facility] [address] [facility] Department [place] [address] * ECG 12 lead (07/01/2024 3:27 PM HAND ETCHER HELPER) [facility] Ventricular Rate EKG/Min 112 BPM [facility] Atrial Rate 112 BPM [facility] AK-Interval (MSEC) 146 ms [facility] QRS-Interval (MSEC) 88 ms [facility] QT-Interval (MSEC) 322 ms [facility] QTc 439 ms [facility] P [place] 35 degrees [facility] R [place] -16 degrees [facility] T [place] 18 degrees [facility] Diagnosis Sinus tachycardia When compared with ECG of 24-JUL-2011 20:27, No significant change Confirmed by OSVALDO DO M.D. ([id number]) on 07/02/2024 8:37:38 PM [facility] 07/01/2024 3:27 PM HAND ETCHER HELPER 07/02/2024 8:37 PM HAND ETCHER HELPER Eyad [place] ECG ORDERABLES Final R esult [facility] * FL Esophagram, Single Contrast (07/01/2024 10:37 AM HAND ETCHER HELPER) Anatomical Region Laterality Modality Body N/A Computed Radiogr aphy, Computed Radiography 07/01/2024 10:4 4 AM HAND ETCHER HELPER Narrative 07/01/2024 10:49 AM HAND ETCHER HELPER EXAM DESCRIPTION: FL ESOPHAGRAM BARIUM SWALLOW TO STOMACH, SINGLE CONTRAST REASON FOR STUDY: Post esophageal diverticulum resection yesterday. Evaluate for leak. COMPARISON: Esophagram 02/17/2023 RADIATION DOSE: Dose: 238.6 mGy Reference Air Kerma (Ka,r) TECHNIQUE: Under fluoroscopic guidance, patient ingested water soluble contrast . FINDINGS: Initial architectural engineering teacher images show mild blunting of the left costophrenic angle likely related to atelectasis. Water-soluble was ingested. No high-grade stricture of the esophagus. Normal transient time across the GE junction. The patient was put in the semi recumbent position and was evaluated in both anterior oblique positions during drinking of water soluble contrast. Normal outline of the gastric fundus. No extraluminal contrast is seen. IMPRESSION: 1. No extraluminal contrast at the GE junction is seen to suggest leak. THIS IS AN ELECTRONICALLY VERIFIED FINAL REPORT 07/01/2024 10:49 AM - Electronically signed by Minor Siddiqui M.D. LB T: Report ID: [id number] Reading Location: [id number] Procedure Note Minor Siddiqui MD - 07/01/2024 EXAM DESCRIPTION: FL ESOPHAGRAM BARIUM SWALLOW TO STOMACH, SINGLECONTRAST REASON FOR STUDY: Post esophageal diverticulum resection yesterday. Evaluate for leak. COMPARISON: Esophagram 02/17/2023 RADIATION DOSE: Dose: 238.6 mGy Reference Air Kerma (Ka,r) TECHNIQUE: Under fluoroscopic guidance, patient ingested water soluble contrast . FINDINGS: Initial architectural engineering teacher images show mild blunting of the left costophrenic angle likely related to atelectasis. Water-soluble was ingested. No high-grade stricture of the esophagus. Normal transient time across theGE junction. The patient was put in the semi recumbent position and was evaluated in both anterior oblique positions during drinking of watersoluble contrast. Normal outline of the gastric fundus. No extraluminal contrastis seen. IMPRESSION: 1. No extraluminal contrast at the GE junction is seen to suggest leak. THIS IS AN ELECTRONICALLY VERIFIED FINAL REPORT 07/01/2024 10:49 AM - Electronically signed by Minor Siddiqui M.D. T: Report ID: [id number] Reading Location: [place] [address] Macario Connor [place] IM FLUOROSCOPY PROCEDURE S Final Result * eGFR (07/01/2024 2:37 AM HAND ETCHER HELPER) eGFR >90 >=60 mL/min/1. 73 m2 Comment: Interpretive Data Reference Interval Normal >/= 90 mL/min/1.73m2 Mildly decreased* 60 - 89 mL/min/1.73m2 Mildly to moderately decreased 45 - 59 mL/min/1.73m2 Moderately to severely decreased 30 - 44 mL/min/1.73m2 Severely decreased 15 - 29 mL/min/1.73m2 Kidney Failure < 15 mL/min/1.73m2 *Relative to young adult level Estimated glomerular filtration rate is determined by the 2020 CKD-EPI equation recommended by the National Kidney Foundation (A Unifying Approach to GFR Estimation: Recommendations of the NKF-ASK Task Force on Reassessing the Inclusion of Race in Diagnosing Kidney Disease, JASN 2020). The CKD-EPI equation should not be used for patients with unstable renal function and has not been validated in children and those over 70. Current interpretive data was last reviewed 2021. Blood 07/01/2024 2:37 AM HAND ETCHER HELPER 07/01/2024 3:24 AM HAND ETCHER HELPER Macario [place] LAB BLOOD ORDERABLES Yeny l Result Performing Organization Address City/[facility]/ZIP Co de Phone Number NAVARRO [address] [place] [place] [address] * (ABNORMAL) CBC without differential (07/01/2024 2:37 AM HAND ETCHER HELPER) WBC 16.8(H) 3.8 - 9.9 K/cumm Hgb 12.0 11.9 - 15.5 g/dL [facility] Hct 37.0 35.6 - 45.5 % [facility] Plt 214 150 - 400 K/cumm [facility] MPV 9.5 9.1 - 12.3 fL [facility] RBC 4.05 3.90 - 5.20 M/cumm [facility] MCV 91.4 81.3 - 96.4 fL [facility] MCH 29.6 27.1 - 33.3 pg [facility] MCHC 32.4 32.3 - 35.7 g/dL [facility] RDW CV 12.7 11.1 - 14.9 % [facility] RDW SD 41.6 35.7 - 48.1 fL [facility] NRBC abs 0.00 0.00 - 0.01 K/cumm [facility] Blood 07/01/2024 2:37 AM HAND ETCHER HELPER 07/01/2024 3:24 AM HAND ETCHER HELPER Macario [place] LAB BLOOD ORDERABLES Yeny l Result Performing Organization Address [facility] [facility]/ZIP Co de Phone Number NAVARRO [address] [address] * Basic metabolic panel (07/01/2024 2:37 AM HAND ETCHER HELPER) Sodium 139 135 - 145 mmol/L Potassium, pl 4.5 3.3 - 4.9 mmol/L [facility] Chloride 104 97 - 110 mmol/L [facility] CO2 28 22 - 32 mmol/L [facility] Anion gap 7 2 - 15 mmol/L [facility] BUN 19 6 - 25 mg/dL [facility] Creatinine 0.72 0.60 - 1.10 mg/dL [facility] Glucose 123 70 - 199 mg/dL [facility] Comment: Interpretive Data Fasting glucose >/= 126 mg/dl is diagnostic for diabetes. Fasting is defined as no caloric intake for at least 8 hours. Fasting glucose between 100 mg/dl to 125 mg/dl is diagnostic of prediabetes. In a patient with classic symptoms of hyperglycemia or hyperglycemic crisis, a random glucose >/= 200 mg/dl is diagnostic for diabetes. In the absence of unequivocal hyperglycemia, results should be confirmed by repeat testing. The classification and Diagnosis of Diabetes Diabetes Care 202; 46: S19-S40. Current interpretive data was last revised 2022. Calcium 9.2 8.5 - 10.3 mg/dL [facility] Blood 07/01/2024 2:37 AM HAND ETCHER HELPER 07/01/2024 3:24 AM HAND ETCHER HELPER [facility] [place] LAB BLOOD ORDERABLES Yeny l Result Performing Organization Address [facility] Co de Phone Number [address] [place] [address] * Phosphorus (06/30/2024 4:43 PM HAND ETCHER HELPER) [facility] Phosphorus, pl 3.7 2.3 - 4.5 mg/dL Blood 06/30/2024 4:43 PM HAND ETCHER HELPER 06/30/2024 5:08 PM HAND ETCHER HELPER [facility] Connor Rivera CO LAB BLOOD ORDERABLES Yeny l Result Performing Organization Address [facility] Co de Phone Number [address] [address] * Magnesium (06/30/2024 4:43 PM HAND ETCHER HELPER) [facility] Magnesium 1.5 1.4 - 2.5 mg/dL Blood 06/30/2024 4:43 PM HAND ETCHER HELPER 06/30/2024 5:08 PM HAND ETCHER HELPER us Macario [place] LAB BLOOD ORDERABLES Yeny rosalinda Result NAVARRO [address] Department [place] [address] * Surgical pathology (06/30/2024 9:41 AM HAND ETCHER HELPER) Tissue specimen (specimen) (Diverticulum, esophageal, small bowel or bladder) 06/30/2024 9:41 AM HAND ETCHER HELPER Narrative PATHOLOGY [facility] - 07/05/2024 1:53 PM HAND ETCHER HELPER [facility] Department of Pathology [address] [place] [id number] Note to Patients: This report may contain a detailed description of human tissue sent by a health care provider to the laboratory for pathologic evaluation. The content of this report is essential for diagnosis and may provide important critical findings. This information may be unfamiliar to patients to review without a medical professional present. It is advised that the patient review this report in the presence of a health care provider who can answer questions and explain the details. Final Report Patient Name: KATHY HERNANDEZ : 1975 (Age: 49) Gender: F Address: [address] [place] [address] Hospital #: [id number] Service: Cardiothoracic Location: Patient Type: [facility] INPATIENT Taken: 06/30/2024 Received: 06/30/2024 Accessioned: 06/30/2024 Reported: 07/05/2024 Physician(s): Susan Harry NP Diagnosis: A. Esophageal diverticulum, excision - Squame-lined diverticulum with chronic inflammation, fibrosis, and reactive epithelial changes - Negative for dysplasia or malignancy Rohit Wong MD Report Electronically Reviewed and Signed Out By Rohit Wong MD 07/05/2024 13:53:16 Specimen(s) Received: A: Esophageal Diverticulum Microscopic Description: Unless gross-only is specified, the final diagnosis for each specimen is based on a microscopic examination of each tissue sample. Clinical History: The patient is a 49-year-old woman with achalasia. Operative procedure: Robotic assisted laparoscopic Heller myotomy with resection of esophageal diverticulum. Gross Description Received in formalin, labeled with the patient s identifiers and esophageal diverticulum and consists of a 4.7 x 4.0 x 2.6 cm markedly disrupted, semi saccular fragment of esophageal tissue with a single stapled resection margin. The adventitial surface is red-brown and shaggy. Opening the specimen reveals a monte-purple, wrinkled, focally congested mucosa with flattened folds. No polyps or masses are grossly identified. Automotive Repair Technician sections are submitted as follows: A1 Stapled resection margin, en face A2-A3 Full-thickness sections of esophagus Sebastian Martinez jjmhb/07/01/2024 09:51 YONG Schaeffer, NAN ([facility]) Microscopic slide review and interpretation for this case was performed at [facility], Department of Surgical Pathology, [address] [facility], [id number], [place] [address] CLIA # [id number] Jeyson Angelo MD LAB PATHOLOGY ORDERABLES Yeny tellez Result PATHOLOGY [facility] * AK AN ELECTIVE ENDOTRACHEAL AIRWAY, AK AN PROCEDURE PLACEHOLDER (06/30/2024 7:52 AM HAND ETCHER HELPER) Narrative Shelley Munroe CRNA - 06/30/2024 7:52 AM HAND ETCHER HELPER Shelley Munroe CRNA 06/30/2024 7:59 AM Airway Patient location: OR Urgency: elective Indications for airway management: anesthesia Difficult airway: no Staff: Placed by: Anesthesiologist: Gino Roe MD DOUGH MAKER: Shelley Munroe CRNA Emergent airway documentation: Risks and benefits discussed: yes Consent obtained: yes Consent given by: patient Airway prep: Preoxygenated: yes Patient position: sniffing MILS maintained throughout: yes Mask difficulty assessment: 2 - vent by mask + OA or adjuvant Spontaneous ventilation during airway: absent Sedation level during airway: GA Final airway details: Final airway type: endotracheal airway Tube type: ETT ETT size: 7.0 mm Cuffed: yes Technique used for successful ETT placement: video laryngoscopy Devices/Methods used in placement: intubating stylet Insertion site: oral Blade type: Refugio Video blade type: CoPilot Blade size: 3 Cormack-Lehane (direct): grade III - view of epiglottis only Cormack-Lehane (video): grade I - full view of glottis Cuff volume: 5 mL Cuff inflated with: air ETT to teeth: 21 cm Placement verified by: auscultation and CO2 detection Airway secured with: prone view tape Number of attempts: 2 Ventilation between attempts: 2 hand mask and BVM Unsuccessful approach(es) for ETT: direct laryngoscopy Additional comments: RSI with cricoid pressure. Missed DL attempt per SRNA with most clear, small amount of particulate in ETT. Suction applied, positioned in trendelenburg, Dr. Roe to room, cricoid pressure maintained during mask ventilation. Successful glidescope placement per Dr. Roe. Bronchoscopy performed per Dr. Baum with small/ minimal amount of particulate removed via suction. SPO2 100% Gino Roe MD ANESTHESIA ORDERABLES Fi nal Result * ABO / Rh Confirmation Testing (06/30/2024 6:43 AM HAND ETCHER HELPER) ABO/Rh Confirmation AB Positive [facility] Blood 06/30/2024 6:43 AM HAND ETCHER HELPER 06/30/2024 6:58 AM HAND ETCHER HELPER Jeyson Angelo MD LAB BLOOD ORDERABLES Final Re sult [facility] [address] [facility] Department [place] [address] [facility] * eGFR (06/23/2024 11:15 AM HAND ETCHER HELPER) Pathologist [facility] eGFR >90 >=60 mL/min/1. 73 m2 Comment: Interpretive Data Reference Interval Normal >/= 90 mL/min/1.73m2 Mildly decreased* 60 - 89 mL/min/1.73m2 Mildly to moderately decreased 45 - 59 mL/min/1.73m2 Moderately to severely decreased 30 - 44 mL/min/1.73m2 Severely decreased 15 - 29 mL/min/1.73m2 Kidney Failure < 15 mL/min/1.73m2 *Relative to young adult level Estimated glomerular filtration rate is determined by the 2020 CKD-EPI equation recommended by the National Kidney Foundation (A Unifying Approach to GFR Estimation: Recommendations of the NKF-ASK Task Force on Reassessing the Inclusion of Race in Diagnosing Kidney Disease, JASN 2020). The CKD-EPI equation should not be used for patients with unstable renal function and has not been validated in children and those over 70. Current interpretive data was last reviewed 2021. Blood 06/23/2024 11:1 5 AM HAND ETCHER HELPER 06/23/2024 11:31 AM HAND ETCHER HELPER Haydee Harding SAMPLE SUPERVISOR LAB BLOOD ORDERABLES Final Result Performing Organization Address City/State/[facility] Co de Phone Number [facility] [address] [facility] Department [place] [address] * Differential, auto (06/23/2024 11:15 AM HAND ETCHER HELPER) Pathologist [facility] Neutrophil abs 3.9 1.5 - 6.5 K/cumm Imm gran abs 0.0 0.0 - 0.1 K/cumm [facility] Lymphocyte abs 2.2 0.8 - 3.3 K/cumm [facility] Monocyte abs 0.4 0.2 - 0.8 K/cumm [facility] Eosinophil abs 0.1 0.0 - 0.5 K/cumm [facility] Basophil abs 0.0 0.0 - 0.1 K/cumm [facility] Neutrophil pct 58.9 % [facility] Comment: Interpretive Data Percent cell count reference ranges are not reported, since discordance with absolute values may lead to misinterpretation of CBC data. Current Interpretive Data was last revised on 2017. Imm gran pct 0.2 % [facility] Comment: Interpretive Data Percent cell count reference ranges are not reported, since discordance with absolute values may lead to misinterpretation of CBC data. Current Interpretive Data was last revised on 2017. Lymphocyte pct 32.6 % [facility] Comment: Interpretive Data Percent cell count reference ranges are not reported, since discordance with absolute values may lead to misinterpretation of CBC data. Current Interpretive Data was last revised on 2017. Monocyte pct 5.9 % [facility] Comment: Interpretive Data Percent cell count reference ranges are not reported, since discordance with absolute values may lead to misinterpretation of CBC data. Current Interpretive Data was last revised on 2017. Eosinophil pct 1.8 % [facility] Comment: Interpretive Data Percent cell count reference ranges are not reported, since discordance with absolute values may lead to misinterpretation of CBC data. Current Interpretive Data was last revised on 2017. Basophil pct 0.6 % [facility] Comment: Interpretive Data Percent cell count reference ranges are not reported, since discordance with absolute values may lead to misinterpretation of CBC data. Current Interpretive Data was last revised on 2017. Blood 06/23/2024 11:1 5 AM HAND ETCHER HELPER 06/23/2024 11:31 AM HAND ETCHER HELPER us Haydee Harding SAMPLE SUPERVISOR LAB BLOOD ORDERABLES Final Result [place] [id number] [facility] Department [place] [address] * (ABNORMAL) CBC with auto differential (06/23/2024 11:15 AM HAND ETCHER HELPER) WBC 6.6 3.8 - 9.9 K/cumm Hgb 13.3 11.9 - 15.5 g/dL [facility] Hct 40.1 35.6 - 45.5 % [facility] Plt 260 150 - 400 K/cumm [facility] MPV 8.9(L) 9.1 - 12.3 fL [facility] RBC 4.57 3.90 - 5.20 M/cumm [facility] MCV 87.7 81.3 - 96.4 fL [facility] MCH 29.1 27.1 - 33.3 pg [facility] MCHC 33.2 32.3 - 35.7 g/dL [facility] RDW CV 12.5 11.1 - 14.9 % [facility] RDW SD 39.7 35.7 - 48.1 fL [facility] NRBC abs 0.00 0.00 - 0.01 K/cumm [facility] Blood 06/23/2024 11:1 5 AM HAND ETCHER HELPER 06/23/2024 11:31 AM HAND ETCHER HELPER us Haydee Harding NP LAB BLOOD ORDERABLES Final Result Performing Organization Address [facility] de Phone Number [address] [address] * ABO/Rh (06/23/2024 11:15 AM HAND ETCHER HELPER) ABO/Rh AB Positive Blood 06/23/2024 11:1 5 AM HAND ETCHER HELPER 06/23/2024 11:30 AM HAND ETCHER HELPER Narrative [facility] - 06/23/2024 12:14 PM HAND ETCHER HELPER Is this test being ordered in advance for a procedure?->Yes Expected date of procedure:->06/02/24 Has the patient been transfused in the past 3 months?->No Has the patient been in the past 3 months?->No us Haydee Harding NP LAB BLOOD BANK TEST ORDERA BLES Final Result Performing Organization Address [facility] de Phone Number [address] [address] * Antibody screen (06/23/2024 11:15 AM HAND ETCHER HELPER) Tom, indirect, Gel Interpretation Negative ABSC Blood 06/23/2024 11:1 5 AM HAND ETCHER HELPER 06/23/2024 11:30 AM HAND ETCHER HELPER Narrative [facility] - 06/23/2024 12:14 PM HAND ETCHER HELPER Is this test being ordered in advance for a procedure?->Yes Expected date of procedure:->06/02/24 Has the patient been transfused in the past 3 months?->No Has the patient been in the past 3 months?->No us Haydee D. Versluys SAMPLE SUPERVISOR LAB BLOOD BANK TEST ORDERA BLES Final Result [facility] [address] [facility] Department [place] [address] * (ABNORMAL) Comprehensive metabolic panel (06/23/2024 11:15 AM HAND ETCHER HELPER) Sodium 138 135 - 145 mmol/L Potassium, pl 4.0 3.3 - 4.9 mmol/L [facility] Comment:Hemolyzed; Potassium value may be falsely elevated by as much as 1.0 mmol/L. Suggest redraw and reanalysis. Chloride 104 97 - 110 mmol/L [facility] CO2 26 22 - 32 mmol/L [facility] Anion gap 8 2 - 15 mmol/L [facility] BUN 14 6 - 25 mg/dL [facility] Creatinine 0.59(L) 0.60 - 1.10 mg/dL [facility] Glucose 76 70 - 199 mg/dL [facility] Comment: Interpretive Data Fasting glucose >/= 126 mg/dl is diagnostic for diabetes. Fasting is defined as no caloric intake for at least 8 hours. Fasting glucose between 100 mg/dl to 125 mg/dl is diagnostic of prediabetes. In a patient with classic symptoms of hyperglycemia or hyperglycemic crisis, a random glucose >/= 200 mg/dl is diagnostic for diabetes. In the absence of unequivocal hyperglycemia, results should be confirmed by repeat testing. The classification and Diagnosis of Diabetes Diabetes Care 202; 46: S19-S40. Current interpretive data was last revised 2022. Calcium 9.4 8.5 - 10.3 mg/dL [facility] Bilirubin, total 0.3 0.1 - 1.2 mg/dL [facility] Protein, pl 7.1 6.5 - 8.5 g/dL [facility] Albumin 4.2 3.5 - 5.0 g/dL [facility] Alk phos 77 40 - 130 Units/L [facility] ALT 5(L) 7 - 45 Units/L [facility] AST 20 10 - 45 Units/L [facility] Comment:Hemolyzed; result ma y be falsely elevated Blood 06/23/2024 11:1 5 AM HAND ETCHER HELPER 06/23/2024 11:31 AM HAND ETCHER HELPER Haydee Harding SAMPLE SUPERVISOR LAB BLOOD ORDERABLES Final Result Performing Organization Address City/State/[facility] Co ar Phone Number [facility] [address] [facility] Department [place] [address] from Last 3 Months Insurance [employer] [facility] Advance Directives For more information, please contact: [phone] * Full Code (Latest Code Status on File) Date Activated Date Inactivated Comments 06/30/2024 2:47 PM 07/02/2024 4:11 PM Care Teams Bulb Grower Relationship Specialty Start Date End Date hSy Lafleur NP [address] [place] [address] PCP - General Family Medicine 02/23/24 Rober Villatoro MD [address] [facility] [address] [place] [address] Referring Physician Obstetrics and Gynecology 06/23/24 Jeyson Angelo MD [id number] [place] [address] Surgeon Thoracic Surgery 07/02/24
--- OUTSIDE RECORDS SUMMARY | 2024-09-11 15:16 | XMS_ITS | CONTINUITY OF CARE DOCUMENT ---
Author Name daquan markdior Address Unknown Organization [facility] Address [address] [facility] [address] [place] [address] Phone [phone] Care Team Providers Care Tile Picker Name Role Phone Mayelin CARDOSO, Chente Unavailable [phone] BOUCHRA CARDOSO RASHMIN Unavailable BOUCHRA CARDOSO RASHMIN [...] In-person encounter Office Visit Chente Dick MD [place] [facility] - In-person encounter Office Visit Chente Dick MD [place] [facility] - In-person encounter Office Visit Chente Dick MD [place] [facility] CHEST PAIN-06/30 NUC EF 59OBESITYSYNCOPEDI ZZINESS-06/30 [...] 7 platelet count 231 10*3/mm3 Juan Diego aSavedra 7 hematocrit, blood 38.7 % Juan Diego [...] PROBIOTIC CAPSULE completed daily - 3 León eParson RN MULTIVITAMINS TABS completed 1 tablet by [...] Policy type / Coverage type [place] [employer] party ID [facility] Medicaid 0 [id number] TREATMENT PLAN Date Name Performer routine: B [...] Stress Echocardiogram, NEGATIVE for myocardial ischemia. - [facility] (07/25/2011) H CT: 38.7 (07/24/2011) Platelets: 231 (07/24/2011) C reat: 0.61 (07/24/2011) Na+: 139 (07/24/2011) K+: 3.7 (07/24/2011) O rders: E KG (CPT-45140) Chente Dick MD routine: B P today: [...] Stress Echocardiogram, NEGATIVE for myocardial ischemia. - [facility] (07/25/2011) Chente Dick MD routine: T he [...] Stress Echocardiogram, NEGATIVE for myocardial ischemia. - [facility] (07/25/2011) Chente Dick MD follow up: O rders: E KG (CPT-12998) BP today: 120/80 Prior BP: 109/70 (07/02/2011) [...] () Orders: S tress Test - Adenosine (19600) C omplete Echo (CPT-83026) Chente Dick MD chest pain : O rders: S tress Test - Adenosine (21592) C omplete Echo (CPT-11928) S leep Study (*) Chente Dick MD chest pain : B P today: 109/70 Prior BP: / () Orders: S tress Test - Adenosine (86770) C omplete Echo (CPT-53145) Chente Dick MD Date Name Sleep Study Complete Echo Stress Test - Adenos ine HISTORY OF PROCEDURES Procedure Date Procedure Name Provider Procedure Notes S tatus EKG Chente Dick MD complete d EKG Chente Dick MD complete d
--- OUTSIDE RECORDS SUMMARY | 2024-09-11 15:16 | XMS_ITS | Referral Summary ---
Author Organization [facility] [address] Address [address] [place] [address] Care Team Providers Care Rda Name Role Phone Shy Lafleur NP Primary Care Provider Rober Villatoro MD Unavailable [phone] Jeyson Angelo MD Unavailable [phone] Encounters Date Type Department Care Team Description 07/27/2024 Telephone [facility] Surgery [address] [place] [address] [address] [place] [address] Haydee Harding, PARVIN 07/20/2024 Orders Only [facility] Surgery [address] [facility] Advanced [facility] 8th [place] [address] [place] [address] Haydee Harding, PROFESSOR OF PUBLIC ADMINISTRATION Hiatal hernia (Primary Dx) 07/19/2024 11:15 AM FORMING PROCESS LINE WORKER - 07/19/2024 11:59 PM FORMING PROCESS LINE WORKER Hospital Encounter [facility] MOB 1 DIAG IMG [address] [place] [address] Achalasia Discharge Disposition: Discharge to home or self care 07/19/2024 2:45 PM FORMING PROCESS LINE WORKER Office Visit [facility] Surgery [address] [place] [address] [address] [place] [address] Haydee Harding, PROFESSOR OF PUBLIC ADMINISTRATION Post-operative state (Primary Dx) 07/14/2024 Orders Only [facility] Surgery [address] [facility] 8th [place] [address] [place] [address] Hyadee Harding NP Achalasia (Primary Dx) 07/06/2024 Orders Only [facility] Surgery [address] [place] [address] Haydee Harding NP 06/30/2024 6:20 AM FORMING PROCESS LINE WORKER - 07/02/2024 12:11 PM FORMING PROCESS LINE WORKER Hospital Encounter [address] [address] Jeyson Angelo MD Achalasia Discharge Disposition: Discharge to home or self care 07/01/2024 Telephone [facility] Cardiothoracic Surgery [address] [facility] 8th Floor [address] Room [address] [address] Albania Schmidt RMA 07/01/2024 Telephone [facility] Surgery [address] [place] [address] Amanda Rivera 06/30/2024 7:35 AM FORMING PROCESS LINE WORKER - 06/30/2024 11:05 AM FORMING PROCESS LINE WORKER Surgery [facility] OR [address] [place] [address] Jeyson Angelo MD ROBOTIC ASSISTED LAPAROSCOPIC HELLER MYOTOMY WITH RESECTION OF AN ESOPHAGEAL DIVERTICULUM 06/30/2024 7:29 AM FORMING PROCESS LINE WORKER Anesthesia Event [facility] OR [address] [place] [address] Gino Roe MD Taylor-White, Carlotta A., NP 06/23/2024 11:00 AM FORMING PROCESS LINE WORKER Pre-Admission Testing [facility] PreAdmission Testing [address] [place] [address] Pre-op exam 06/14/2024 Orders Only [facility] PreAdmission Testing [address] [place] [address] Lilian Lafleur, RN from Last 3 Months Allergies Active Allergy [...] on 02/17/2023 which revealed the following: FINDINGS: Forming Process Line Worker image is unremarkable. Limited evaluation of the [...] approach, but her BMI of 36.6 [address] the way of excellent visualization for the minimally invasive approach. I am also disappointed that she is smoking. I asked her to consider stopping smoking. She recently got back to work after taking time off from work due to her shoulder surgery. She was asking if it would be possible that she could not have the operation until after the 1st of the year. She seems to be [...] evaluation and discussion. Haydee Harding NP 10/08/2023 [id number] This is a 48-year-old female patient returning [...] Abdominal pain 04/21/2023 Chest pain, unspecified 04/21/2023 [place] 04/21/2023 Depressive disorder 04/21/2023 Diarrhea 04/21/2023 Syncope [...] colpo Dec 2014 Sleep apnea 07/02/2011 Immunizations Immunization Administration Dates Next Due Influenza, Unspecified 03/03/2023 Sars-CoV-2, Unspecified 03/03/2023 Social History Tobacco Use Types Packs/Day Years Used Date Smoking Tobacco: Former Cigarettes Q uit: 04/18/2024 Passive Smoke Exposure: Past Smokeless Tobacco: Former Tobacco Cessation:Counseling Given: Not Answered Alcohol Use Standard Drinks/Week Comments Not Currently 0 (1 standard drink = 0.6 oz pur e alcohol) [facility] Utilities Answer Date Recorded In the past 12 months has e electric, gas, oil, or water Cuffed and Wanted threatened to shut off services in your [...] often do you attend chur ch or adventist services? 1 to 4 times per year 07/01/2024 Do you belong to any clubs o r organizations such as methodist groups, unions, fraternal or athletic groups, or [...] any time in the past 12 m [facility], were you homeless or living in a nursing home (including now)? No 07/01/2024 Personal Safety Answer Date Recorded Have you ever been in or are you currently in a harmful physical or emotional relationship or is someone making you feel afraid or unsafe? Denies 06/30/2024 Comments No Sex and Gender Information Value Date Recorded Sex Assigned at Not on file Legal Sex Female 4:05 AM FORMING PROCESS LINE WORKER Gender Identity Not on file Sexual Orientation Not on file Last Filed Vital Signs Vital Sign Reading Time Taken Comments Blood Pressure 101/70 07/19/2024 2:18 PM FORMING PROCESS LINE WORKER Pulse 66 07/19/2024 2:16 PM FORMING PROCESS LINE WORKER Temperature 36.5 C (97.7 F) 07/19/2024 2:16 PM FORMING PROCESS LINE WORKER Respiratory Rate 16 07/19/2024 2:16 PM FORMING PROCESS LINE WORKER Oxygen Saturation 95% 07/19/2024 2:16 PM FORMING PROCESS LINE WORKER Inhaled Oxygen Concentration - - Weight 74.4 kg (164 lb) 07/19/2024 2:16 PM FORMING PROCESS LINE WORKER n o shoes Height 152.4 cm (5') 07/19/2024 2:16 PM FORMING PROCESS LINE WORKER no s hoes Body Mass Index 32.03 07/19/2024 2:16 PM FORMING PROCESS LINE WORKER Plan of Treatment Not on file Medical Devices Implanted Type Area Freight Broker Agent Device Identifier Shelf Expiration Date Model / Serial / Lot Wire-Inner Part Of Right Ankle-Plate And 7 Screws Right: Ankle Procedures Procedure Name Priority Date/Time Associated Diagnosis Comments XR CHEST PA LATERAL 2 VIEWS Schedule Routine, Read Routine (OP Routine) 07/19/2024 1:51 PM FORMING PROCESS LINE WORKER Achalasia EGFR Routine 07/02/2024 3:56 AM FORMING PROCESS LINE WORKER BASIC METABOLIC PANEL Routine 07/02/2024 3:56 AM FORMING PROCESS LINE WORKER CBC WITHOUT DIFFERENTIAL Routine 025 3:56 AM FORMING PROCESS LINE WORKER ECG 12-LEAD STAT 07/01/2024 3:27 PM FORMING PROCESS LINE WORKER FL ESOPHAGRAM, SINGLE CONTRAST IP Routine 0 07/01/2024 10:37 AM FORMING PROCESS LINE WORKER EGFR Routine 07/01/2024 2:37 AM FORMING PROCESS LINE WORKER BASIC METABOLIC PANEL Routine 07/01/2024 2:37 AM FORMING PROCESS LINE WORKER CBC WITHOUT DIFFERENTIAL Routine 025 2:37 AM FORMING PROCESS LINE WORKER PHOSPHORUS Routine 06/30/2024 4:43 PM FORMING PROCESS LINE WORKER MAGNESIUM Routine 06/30/2024 4:43 PM FORMING PROCESS LINE WORKER SURGICAL PATHOLOGY Routine 06/30/2024 9:41 AM FORMING PROCESS LINE WORKER Achalasia MO AN PROCEDURE PLACEHOLDER Routine 06/19 7:52 AM FORMING PROCESS LINE WORKER MO AN ELECTIVE ENDOTRACHEAL AIRWAY Routine 06/30/2024 7:52 AM FORMING PROCESS LINE WORKER ESOPHAGOGASTRODUODENOSCOPY 06/30 7:30 AM FORMING PROCESS LINE WORKER Achalasia XI MYOTOMY - LAPAROSCOPIC ROBOTIC ASSISTED - HELLER 06/30/2024 7:30 AM FORMING PROCESS LINE WORKER Achalasia B ABO / RH CONFIRMATION TESTING Routine 06/30/2024 6:43 AM FORMING PROCESS LINE WORKER EGFR Routine 06/23/2024 11:15 AM FORMING PROCESS LINE WORKER Pre-op exam DIFFERENTIAL AUTO Routine 06/23/2024 11:15 AM FORMING PROCESS LINE WORKER Pre-op exam ANTIBODY SCREEN Routine 06/23/2024 11:15 AM FORMING PROCESS LINE WORKER Pre-op exam ABO/RH Routine 06/23/2024 11:15 AM FORMING PROCESS LINE WORKER Pre-op exam COMPREHENSIVE METABOLIC PANEL Routine 11:15 AM FORMING PROCESS LINE WORKER Pre-op exam CBC WITH AUTO DIFFERENTIAL Routine 06/23 11:15 AM FORMING PROCESS LINE WORKER Pre-op exam TYPE AND SCREEN 14 DAY Routine 11:15 AM FORMING PROCESS LINE WORKER Pre-op exam from Last 3 Months Results * XR Chest Pa Lateral 2 Views (07/19/2024 1:51 PM FORMING PROCESS LINE WORKER) Anatomical Region Laterality Modality Body, Chest N/A Computed Radiogr aphy 07/22/2024 7:21 AM FORMING PROCESS LINE WORKER Narrative 07/22/2024 7:23 AM FORMING PROCESS LINE WORKER EXAM DESCRIPTION: XR CHEST PA LATERAL 2 [...] Thomas Mckeon M.D. RB: RB Report ID: [id number] Reading Location: [place] [address] Procedure Note Thomas Mckeon MD - 07/22/2024 [...] Thomas Mckeon M.D. RB: RB Report ID: [id number] Reading Location: [place] [address] us Haydee Harding PROFESSOR OF PUBLIC ADMINISTRATION IMG XR PROCEDURES Final Re sult * eGFR (07/02/2024 3:56 AM FORMING PROCESS LINE WORKER) eGFR >90 >=60 mL/min/1. 73 m2 Comment: [...] last reviewed 2021. Blood 07/02/2024 3:56 AM FORMING PROCESS LINE WORKER 07/02/2024 4:37 AM FORMING PROCESS LINE WORKER Macario [place] LAB BLOOD ORDERABLES Yeny tellez Result [place] [address] [facility] Department [place] [address] * (ABNORMAL) CBC without differential (07/02/2024 3:56 AM FORMING PROCESS LINE WORKER) WBC 14.5(H) 3.8 - 9.9 K/cumm Hgb 10.5(L) 11.9 - 15.5 g/dL [facility] Hct 31.7(L) 35.6 - 45.5 % [facility] Plt 184 150 - 400 K/cumm [facility] MPV 10.0 9.1 - 12.3 fL [facility] RBC 3.56(L) 3.90 - 5.20 M/cumm [facility] MCV 89.0 81.3 - 96.4 fL [facility] MCH 29.5 27.1 - 33.3 pg [facility] MCHC 33.1 32.3 - 35.7 g/dL [facility] RDW CV 12.6 11.1 - 14.9 % [facility] RDW SD 40.9 35.7 - 48.1 fL [facility] NRBC abs 0.00 0.00 - 0.01 K/cumm [facility] Blood 07/02/2024 3:56 AM FORMING PROCESS LINE WORKER 07/02/2024 4:37 AM FORMING PROCESS LINE WORKER Macario [place] LAB BLOOD ORDERABLES Yeny l Result Performing Organization Address [facility] Co de Phone Number NAVARRO [address] [place] [address] * Basic metabolic panel (07/02/2024 3:56 AM FORMING PROCESS LINE WORKER) [facility] Sodium 138 135 - 145 mmol/L Potassium, pl 3.6 3.3 - 4.9 mmol/L [facility] Chloride 105 97 - 110 mmol/L [facility] CO2 26 22 - 32 mmol/L [facility] Anion gap 7 2 - 15 mmol/L [facility] BUN 13 6 - 25 mg/dL [facility] Creatinine 0.61 0.60 - 1.10 mg/dL [facility] Glucose 103 70 - 199 mg/dL [facility] Comment: Interpretive Data Fasting glucose >/= [...] 2022. Calcium 8.8 8.5 - 10.3 mg/dL [facility] Blood 07/02/2024 3:56 AM FORMING PROCESS LINE WORKER 07/02/2024 4:37 AM FORMING PROCESS LINE WORKER [facility] [place] LAB BLOOD ORDERABLES Yeny l Result Performing Organization Address [facility]/ZIP Co de Phone Number [address] [place] [employer] [place] [address] * ECG 12 lead (07/01/2024 3:27 PM FORMING PROCESS LINE WORKER) [facility] Ventricular Rate EKG/Min 112 BPM [facility] Atrial Rate 112 BPM [facility] MO-Interval (MSEC) 146 ms [facility] QRS-Interval (MSEC) 88 ms [facility] QT-Interval (MSEC) 322 ms [facility] QTc 439 ms [facility] P [place] 35 degrees [facility] R [place] -16 degrees [facility] T [place] 18 degrees [facility] Diagnosis Sinus tachycardia When compared with ECG of 24-JUL-2011 20:27, No significant change Confirmed by OSVALDO DO M.D. ([id number]) on 07/02/2024 8:37:38 PM [facility] 07/01/2024 3:27 PM FORMING PROCESS LINE WORKER 07/02/2024 8:37 PM FORMING PROCESS LINE WORKER us Eyad [place] ECG ORDERABLES Final R esult [facility] * [place] Esophagram, Single Contrast (07/01/2024 10:37 AM FORMING PROCESS LINE WORKER) Anatomical Region Laterality Modality Body N/A Computed Radiogr aphy, Computed Radiography 07/01/2024 10:4 4 AM FORMING PROCESS LINE WORKER Narrative 07/01/2024 10:49 AM FORMING PROCESS LINE WORKER EXAM DESCRIPTION: FL ESOPHAGRAM BARIUM SWALLOW TO STOMACH, SINGLE CONTRAST REASON FOR STUDY: Post esophageal diverticulum resection yesterday. Evaluate for leak. COMPARISON: Esophagram 02/17/2023 RADIATION DOSE: Dose: 238.6 mGy Reference Air Kerma (Ka,r) TECHNIQUE: Under fluoroscopic guidance, patient ingested water soluble contrast . FINDINGS: Initial chief ii dispatcher images show mild blunting of the left [...] Minor Siddiqui M.D. LB T: Report ID: [id number] Reading Location: [id number] Procedure Note Minor Siddiqui MD - 07/01/2024 EXAM DESCRIPTION: FL ESOPHAGRAM BARIUM SWALLOW TO STOMACH, SINGLECONTRAST REASON FOR STUDY: Post esophageal diverticulum resection yesterday. Evaluate for leak. COMPARISON: Esophagram 02/17/2023 RADIATION DOSE: Dose: 238.6 mGy Reference Air Kerma (Ka,r) TECHNIQUE: Under fluoroscopic guidance, patient ingested water soluble contrast . FINDINGS: Initial chief ii dispatcher images show mild blunting of the left [...] by Minor Siddiqui M.D. T: Report ID: [id number] Reading Location: [id number] [facility]ario [place] I[place] FLUOROSCOPY PROCEDURE S Final Result * eGFR (07/01/2024 2:37 AM FORMING PROCESS LINE WORKER) eGFR >90 >=60 mL/min/1. 73 m2 Comment: [...] last reviewed 2021. Blood 07/01/2024 2:37 AM FORMING PROCESS LINE WORKER 07/01/2024 3:24 AM FORMING PROCESS LINE WORKER [facility] [place] LAB BLOOD ORDERABLES Yeny l Result Performing Organization Address [facility] Co de Phone Number NAVARRO [address] [place] [address] * (ABNORMAL) CBC without differential (07/01/2024 2:37 AM FORMING PROCESS LINE WORKER) WBC 16.8(H) 3.8 - 9.9 K/cumm Hgb 12.0 11.9 - 15.5 g/dL [facility] Hct 37.0 35.6 - 45.5 % [facility] Plt 214 150 - 400 K/cumm [facility] MPV 9.5 9.1 - 12.3 fL [facility] RBC 4.05 3.90 - 5.20 M/cumm [facility] MCV 91.4 81.3 - 96.4 fL [facility] MCH 29.6 27.1 - 33.3 pg [facility] MCHC 32.4 32.3 - 35.7 g/dL [facility] RDW CV 12.7 11.1 - 14.9 % [facility] RDW SD 41.6 35.7 - 48.1 fL [facility] NRBC abs 0.00 0.00 - 0.01 K/cumm [facility] Blood 07/01/2024 2:37 AM FORMING PROCESS LINE WORKER 07/01/2024 3:24 AM FORMING PROCESS LINE WORKER [facility] [place] [facility] BLOOD ORDERABLES Yeny l Result Performing Organization Address [facility] Co de Phone Number ROSA[address] [place] [address] * Basic metabolic panel (07/01/2024 2:37 AM FORMING PROCESS LINE WORKER) Sodium 139 135 - 145 mmol/L Potassium, pl 4.5 3.3 - 4.9 mmol/L [facility] Chloride 104 97 - 110 mmol/L [facility] CO2 28 22 - 32 mmol/L [facility] Anion gap 7 2 - 15 mmol/L [facility] BUN 19 6 - 25 mg/dL [facility] Creatinine 0.72 0.60 - 1.10 mg/dL [facility] Glucose 123 70 - 199 mg/dL [facility] Comment: Interpretive Data Fasting glucose >/= [...] 2022. Calcium 9.2 8.5 - 10.3 mg/dL [facility] Blood 07/01/2024 2:37 AM FORMING PROCESS LINE WORKER 07/01/2024 3:24 AM FORMING PROCESS LINE WORKER [facility] Cononr [place] LAB BLOOD ORDERABLES Yeny l Result Performing Organization Address [facility] Co de Phone Number [address] [place] [address] * Phosphorus (06/30/2024 4:43 PM FORMING PROCESS LINE WORKER) Pathologist [facility] Phosphorus, pl 3.7 2.3 - 4.5 mg/dL Blood 06/30/2024 4:43 PM FORMING PROCESS LINE WORKER 06/30/2024 5:08 PM FORMING PROCESS LINE WORKER [facility] Connor [place] [facility] BLOOD ORDERABLES Yeny l Result Performing Organization Address [facility] Co de Phone Number [address] [place] [address] * Magnesium (06/30/2024 4:43 PM FORMING PROCESS LINE WORKER) Magnesium 1.5 1.4 - 2.5 mg/dL Blood 06/30/2024 4:43 PM FORMING PROCESS LINE WORKER 06/30/2024 5:08 PM FORMING PROCESS LINE WORKER Macariochris [place] LAB BLOOD ORDERABLES Yeny rosalinda Result NAVARRO [address] Department [place] [address] * Surgical pathology (06/30/2024 9:41 AM FORMING PROCESS LINE WORKER) Tissue specimen (specimen) (Diverticulum, esophageal, small bowel or bladder) 06/30/2024 9:41 AM FORMING PROCESS LINE WORKER Narrative PATHOLOGY [facility] - 07/05/2024 1:53 PM FORMING PROCESS LINE WORKER [facility] Department of Pathology [address] [place] [address] Note to Patients: This report may contain [...] : 1975 (Age: 49) Gender: F Address: [address] [place] [address] Hospital #: [id number] Service: Cardiothoracic Location: Patient Type: [facility] INPATIENT Taken: 06/30/2024 Received: 06/30/2024 Accessioned: 06/30/2024 [...] No polyps or masses are grossly identified. Quarter Backer sections are submitted as follows: A1 Stapled resection margin, en face A2-A3 Full-thickness sections of esophagus Sebastian Martinez jjmhb/07/01/2024 09:51 YONG Schaeffer, PA ([facility]) Microscopic slide review and interpretation for this case was performed at [facility], Department of Surgical Pathology, [address] [facility], [place] [id number], [place] [id number] CLIA # [id number] Jeyson Angelo MD LAB PATHOLOGY ORDERABLES Yeny rosalinda Result PATHOLOGY [facility] * MO AN ELECTIVE ENDOTRACHEAL AIRWAY, MO AN PROCEDURE PLACEHOLDER (06/30/2024 7:52 AM FORMING PROCESS LINE WORKER) Narrative Shelley Munroe CRNA - 06/30/2024 7:52 AM FORMING PROCESS LINE WORKER Shelley Munroe CRNA 06/30/2024 7:59 AM Airway Patient location: OR Urgency: elective Indications for airway management: anesthesia Difficult airway: no Staff: Placed by: Anesthesiologist: Gino Roe MD DIRECTOR SOFTWARE: Shelley Munroe CRNA Emergent airway documentation: Risks [...] with cricoid pressure. Missed DL attempt per SHALINI with most clear, small amount of particulate in ETT. Suction applied, positioned in trendelenburg, Dr. Roe to room, cricoid pressure maintained during mask ventilation. Successful glidescope placement per Dr. Roe. Bronchoscopy performed per Dr. Baum with small/ minimal amount of particulate removed via suction. SPO2 100% Gino Roe MD ANESTHESIA ORDERABLES Fi nal Result * ABO / Rh Confirmation Testing (06/30/2024 6:43 AM FORMING PROCESS LINE WORKER) Pathologist [facility] ABO/Rh Confirmation AB Positive [facility] Blood 06/30/2024 6:43 AM FORMING PROCESS LINE WORKER 06/30/2024 6:58 AM FORMING PROCESS LINE WORKER Jeyson Angelo MD LAB BLOOD ORDERABLES Final Re sult [facility] [address] [facility] Department [place] [address] [facility]HB * eGFR (06/23/2024 11:15 AM FORMING PROCESS LINE WORKER) Pathologist [facility] eGFR >90 >=60 mL/min/1. 73 m2 Comment: [...] reviewed 2021. Blood 06/23/2024 11:1 5 AM FORMING PROCESS LINE WORKER 06/23/2024 11:31 AM FORMING PROCESS LINE WORKER Haydee Harding PROFESSOR OF PUBLIC ADMINISTRATION LAB BLOOD ORDERABLES Final Result [facility] [address] [facility] Department [place] [address] * Differential, auto (06/23/2024 11:15 AM FORMING PROCESS LINE WORKER) Pathologist [facility] Neutrophil abs 3.9 1.5 - 6.5 K/cumm Imm gran abs 0.0 0.0 - 0.1 K/cumm [facility] Lymphocyte abs 2.2 0.8 - 3.3 K/cumm [facility] Monocyte abs 0.4 0.2 - 0.8 K/cumm [facility] Eosinophil abs 0.1 0.0 - 0.5 K/cumm [facility] Basophil abs 0.0 0.0 - 0.1 K/cumm [facility] Neutrophil pct 58.9 % [facility] Comment: Interpretive Data Percent cell count reference ranges are not reported, since discordance with absolute values may lead to misinterpretation of CBC data. Current Interpretive Data was last revised on 2017. Imm gran pct 0.2 % [facility] Comment: Interpretive Data Percent cell count reference ranges are not reported, since discordance with absolute values may lead to misinterpretation of CBC data. Current Interpretive Data was last revised on 2017. Lymphocyte pct 32.6 % [facility] Comment: Interpretive Data Percent cell count reference ranges are not reported, since discordance with absolute values may lead to misinterpretation of CBC data. Current Interpretive Data was last revised on 2017. Monocyte pct 5.9 % [facility] Comment: Interpretive Data Percent cell count reference ranges are not reported, since discordance with absolute values may lead to misinterpretation of CBC data. Current Interpretive Data was last revised on 2017. Eosinophil pct 1.8 % [facility] Comment: Interpretive Data Percent cell count reference ranges are not reported, since discordance with absolute values may lead to misinterpretation of CBC data. Current Interpretive Data was last revised on 2017. Basophil pct 0.6 % [facility] Comment: Interpretive Data Percent cell count reference ranges are not reported, since discordance with absolute values may lead to misinterpretation of CBC data. Current Interpretive Data was last revised on 2017. Blood 06/23/2024 11:1 5 AM FORMING PROCESS LINE WORKER 06/23/2024 11:31 AM FORMING PROCESS LINE WORKER Haydee Harding PROFESSOR OF PUBLIC ADMINISTRATION LAB BLOOD ORDERABLES Final Result [facility] [address] [facility] Department [place] [address] * (ABNORMAL) CBC with auto differential (06/23/2024 11:15 AM FORMING PROCESS LINE WORKER) WBC 6.6 3.8 - 9.9 K/cumm Hgb 13.3 11.9 - 15.5 g/dL [facility] Hct 40.1 35.6 - 45.5 % [facility] Plt 260 150 - 400 K/cumm [facility] MPV 8.9(L) 9.1 - 12.3 fL [facility] RBC 4.57 3.90 - 5.20 M/cumm [facility] MCV 87.7 81.3 - 96.4 fL [facility] MCH 29.1 27.1 - 33.3 pg [facility] MCHC 33.2 32.3 - 35.7 g/dL [facility] RDW CV 12.5 11.1 - 14.9 % [facility] RDW SD 39.7 35.7 - 48.1 fL [facility] NRBC abs 0.00 0.00 - 0.01 K/cumm [facility] Blood 06/23/2024 11:1 5 AM FORMING PROCESS LINE WORKER 06/23/2024 11:31 AM FORMING PROCESS LINE WORKER Haydee Harding NP LAB BLOOD ORDERABLES Final Result Performing Organization Address [facility] de Phone Number [address] [address] * ABO/Rh (06/23/2024 11:15 AM FORMING PROCESS LINE WORKER) ABO/Rh AB Positive Blood 06/23/2024 11:1 5 AM FORMING PROCESS LINE WORKER 06/23/2024 11:30 AM FORMING PROCESS LINE WORKER Narrative [facility] - 06/23/2024 12:14 PM FORMING PROCESS LINE WORKER Is this test being ordered in advance for a procedure?->Yes Expected date of procedure:->06/02/24 Has the patient been transfused in the past 3 months?->No Has the patient been in the past 3 months?->No Haydee Harding NP LAB BLOOD BANK TEST ORDERA BLES Final Result Performing Organization Address [facility] de Phone Number [address] [address] * Antibody screen (06/23/2024 11:15 AM FORMING PROCESS LINE WORKER) Tom, indirect, Gel Interpretation Negative ABSC Blood 06/23/2024 11:1 5 AM FORMING PROCESS LINE WORKER 06/23/2024 11:30 AM FORMING PROCESS LINE WORKER Narrative [facility] - 06/23/2024 12:14 PM FORMING PROCESS LINE WORKER Is this test being ordered in advance for a procedure?->Yes Expected date of procedure:->1/15/25 Has the patient been transfused in the past 3 months?->No Has the patient been in the past 3 months?->No us Haydee Harding PROFESSOR OF PUBLIC ADMINISTRATION LAB BLOOD BANK TEST ORDERA BLES Final Result [facility] [address] [facility] Department [place] [address] * (ABNORMAL) Comprehensive metabolic panel (06/23/2024 11:15 AM FORMING PROCESS LINE WORKER) Sodium 138 135 - 145 mmol/L Potassium, pl 4.0 3.3 - 4.9 mmol/L [facility] Comment:Hemolyzed; Potassium value may be falsely elevated by as much as 1.0 mmol/L. Suggest redraw and reanalysis. Chloride 104 97 - 110 mmol/L [facility] CO2 26 22 - 32 mmol/L [facility] Anion gap 8 2 - 15 mmol/L [facility] BUN 14 6 - 25 mg/dL [facility] Creatinine 0.59(L) 0.60 - 1.10 mg/dL [facility] Glucose 76 70 - 199 mg/dL [facility] Comment: Interpretive Data Fasting glucose >/= [...] 2022. Calcium 9.4 8.5 - 10.3 mg/dL [facility] Bilirubin, total 0.3 0.1 - 1.2 mg/dL [facility] Protein, pl 7.1 6.5 - 8.5 g/dL [facility] Albumin 4.2 3.5 - 5.0 g/dL [facility] Alk phos 77 40 - 130 Units/L [facility] ALT 5(L) 7 - 45 Units/L [facility] AST 20 10 - 45 Units/L [facility] Comment:Hemolyzed; result ma y be falsely elevated Blood 06/23/2024 11:1 5 AM FORMING PROCESS LINE WORKER 06/23/2024 11:31 AM FORMING PROCESS LINE WORKER Haydee Harding PROFESSOR OF PUBLIC ADMINISTRATION LAB BLOOD ORDERABLES Final Result [facility] [address] [facility] Department [place] [address] from Last 3 Months Insurance [facility] Advance Directives For more information, please contact: [phone] * Full Code (Latest Code Status on File) Date Activated Date Inactivated Comments 06/30/2024 2:47 PM 07/02/2024 4:11 PM Care Teams Rda Relationship Specialty Start Date End Date Shy Lafleur NP [address] [place] [address] PCP - General Family Medicine 02/23/24 Rober Villatoro MD [address] [facility] [address] [place] [address] Referring Physician Obstetrics and Gynecology 06/23/24 Jeyson Angelo MD [id number] [place] [address] Surgeon Thoracic Surgery 07/02/24
--- OUTSIDE RECORDS SUMMARY | 2024-09-11 15:16 | XMS_ITS | Clinical Summary ---
Author Organization [facility] Address [facility] [place] [address] Care Team Providers Care Medical Record Librarian Name Role Phone Unavailable Primary Care Provider [...] Screening with HPV 01/05/2004 Mammogram Screening 2014 Pneumococcal Vaccine: 50+ Ye ars (1 of 1 - PCV) 01/05/2024 Zoster Vaccines (1 of 2) 01/05/2024 COVID-19 Vaccine (2023-2 5 season) 2024 Meningococcal B Vaccine Aged Out No l onger eligible based on patient's age to complete this topic Meningococcal Vaccine Aged Out No oleg ronald eligible based on patient's age to complete this topic RSV Immunizations Under 20 Months Aged Out No longer eligible based on patient's age to complete this topic
--- OUTSIDE RECORDS SUMMARY | 2024-09-11 15:16 | XMS_ITS | Encounter Summary ---
Author Organization [facility] Address [address] [place] [address] Care Team Providers Care Booking Prizer Name Role Phone AgrawalYevgeniy COMPO CASTER-JOURNEYMAN PRESS OPERATOR Primary Care Provider Shy Lafluer COMPO CASTER-JOURNEYMAN PRESS OPERATOR Primary Care Provider + Reason for Visit * Reason Onset Date Comments Pre Authorization 03/02/2024 Encounter Details Date Type Department Care Team (Late st Contact Info) Description 03/02/2024 Telephone [facility] [address] [place] [address] Rober Villatoro MD [address] [facility] [address] [place], [place] [id number] Pre Authorization Social History Tobacco Use Types Packs/Day Years Used Date Smoking Tobacco: Every Day Cigarettes 0.5 27 Smokeless Tobacco: Never Comments:has cut down Alcohol Use Standard Drinks/Week Comments No 0 (1 standard drink = 0.6 oz pur e alcohol) PHQ-2 Answer Date Recorded PHQ2 TOTAL SCORE 0 02/19/2021 Comments No Sex and Gender Information Value Date Recorded Sex Assigned at Not on file 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 CB: [phone] documented in this encounter Plan of Treatment Upcoming Encounters Date Type Department Care Team (Late st Contact Info) Description 03/14/2025 2:30 PM CDT Office Visit [facility] [address] [place] [address] Rober Villatoro MD [address] [place] [address] documented as of this encounter Goals Goal Patient Goal Type Associated Problems Recent Progress Patient-Stated? Author Mobility General No Dena Hartmann RN Note: Expected end date: 08/16/2021 The goal is to maintain or improve your mobility at the optimum level for you. Interventions: documented as of this encounter Visit Diagnoses Not on filedocumented in this encounter Care Teams Booking Prizer Relationship Specialty Start Date End Date Yevgeniy Agrawal APRN-JOURNEYMAN PRESS OPERATOR [address] [place] [address] PCP - General 10/04/20 03/14/24 Shy Lafleur APRN-JOURNEYMAN PRESS OPERATOR [address] [place] [address] PCP - General Family Medicine 03/15/24 documented as of this encounter
--- OUTSIDE RECORDS SUMMARY | 2024-09-11 15:16 | XMS_ITS | Clinical Summary ---
Author Organization [facility] [employer] Address [address] [place] [address] Care Team Providers Care Drapery And Upholstery Measurer Name Role Phone Shy Lafleur Cyn GOTTLIEB-PHP MYSQL WEB DEVELOPER Primary Care Provider + Source Comments [facility] [employer],non-owned Affiliates and Associated Physician Practices is amultiple site organization consisting of ambulatory clinics and hospital sitesin [place], [place], [place] and [place]. This disclosure is being madepursuant to the Care Everywhere program and may not contain all informatio navailable regarding this patient. Last updated 18.[facility] [employer] Allergies Active Allergy Reactions Criticality Noted Date Comments Adhesive Sensitivity Urticaria Medium 11/04/2019 Aspirin GI Discomfort Low 11/04/2019 Reaction: GI upset, Codeine Nausea and/or Vomiting Low 12/21/2018 Hydrocodone-Acetaminop hen Dizziness Low 11/04/2019 Reaction: Dizziness, Latex Urticaria High 11/04/2019 Hives Medications * Be aware that medications may not be up to date on this document. Alwaysverify current medications with the patient. Lactobacillus (PROBIOTIC ACIDOPHILUS PO) Take 500 mg [...] Diarrhea 04/27/2020 05/25/2020 Sinusitis 04/27/2020 05/25/2020 Immunizations Immunization Administration Dates Next Due INFLUENZA VACCINE, QUADR. 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 [place] [address] Health Maintenance Due Date Last Done Comments [...] 2024 05/15/2021, 04/18/2021, 09/04/2020, Additional history exists DTAP/TDAP/TD VACCINES (2 - Td or Tdap) 03/15/2024 03/15/2014 DEPRESSION SCREENING 05/19/2024 INFLUENZA VACCINE (Season Ended) 2025 03/03/2023, 03/10/2020, 03/18/2014 PAP with HPV 02/18/2027 02/18/2022, 10/17, 02/13/2018 HEPATITIS C SCREENING Completed 02/05/2021 HIB VACCINE Aged Out No longer eligi ble based on patient's age to complete this topic HPV VACCINE Aged Out No longer eligi ble based on patient's age to complete this topic MENINGOCOCCAL (Group B) VACCINE SHARED DECISION-MAKING Aged Out No longer eligible based on patient's age to complete this topic MENINGOCOCCAL GROUPS A/C/Y/W VACCINE Aged Out No longer eligible based [...] 10:47 AM CDT Malignant neoplasm of vulva HEPATITIS C RNA QUANTITATIVE 02/05/2021 12:06 PM CDT Polyarthralgia from Last 3 Months or Most Recently Relevant to Health Maintenance Results * HPV DETECTION HIGH RISK FITO (02/18/2022 10:47 AM CDT) High Risk Human Papilloma Result Not detected Not detected 02/22/2022 3:14 PM CDT [facility] High Risk Human Papilloma Interp 02/22/2022 3:14 PM CDT [facility] Comment:High Risk Human Brian lloma Virus was Not Detected. Pathology/Cytolo gy MISCELLANEOUS SAMPLES / Unknown 02/18/2022 10:47 AM CDT 02/19/2022 11:54 AM CDT Narrative [facility] - 02/22/2022 3:14 PM CDT Nucleic acid isolated from the specimen was analyzed with a nucleic acid amplification test (FDA approved Gen-Probe HPV Assay) to detect high risk human papilloma virus (Types: 16, 18, 31, 33, 35, 39, 45, 51, 52, 56, 58, 59, 66, and 68). The reference range is Not Detected . Comment: These test results should not be used as the sole basis for clinical assessment and treatment of patients. These results should always be correlated with other available data (cytology, histology, and clinical information). Rober Villatoro MD LAB - MICROBIOLOGY ORDERABLES nal Result Performing Organization Address [facility] Co de Phone Number [facility] [address] [place] [address], [facility] [phone] * HEPATITIS C RNA QUANTITATIVE (02/05/2021 12:06 [...] (1.18 Log IU/mL to 8.00 Log IU/mL). The analytical performance characteristics of this assay have been determined by [employer]. The modifications have not been cleared or approved by the FDA. This assay has been validated pursuant to the CLIA regulations and is used for clinical purposes. For more information on this test, go to: http://education.Panelfly/faq/HSD43o8 (This link is being provided for informational/ educational purposes only.) Test Performed at: [facility] [employer] [address] [place] [address] CARLOS MANUEL SALCEDO DO,MPH 02/05/2021 12:0 6 PM CDT 02/05/2021 12:13 PM CDT Mariya Enciso MD LAB - CHEMISTRY ORDERABLES nal Result Performing Organization Address City/[facility]/ZIP Co de Phone Number [facility] [address] [place] [address] from Last 3 Months or Most Recently Relevant to Health Maintenance Insurance [address] [facility] Care Teams Drapery And Upholstery Measurer Relationship Specialty Start Date End Date Shy Lafleur APRN-NICOLAS [address] [place] [address] [place] [address] PCP - General Family Medicine 03/15/24
--- OUTSIDE RECORDS SUMMARY | 2024-09-11 15:16 | XMS_ITS | Data Portability ---
Author Organization [place] [facility] [employer], Main Office Address [address] [place] [address] Assessment Encounter Date Assessment Date Assessment LastModified [...] worsen suddenly or change she will call. [email or web address] Not available 03/15/2024 12:41:04 Plan of Treatment Reminders Order Date Submit Date Provider Last Modified By Organization Details Last Modified Time Details Appointments Follow Up 30 2024 08:30A M Shy Lafleur NP Not available Not available Not available Lab None recorded. Referral dermatolo gist referral - Please call patient to schedule an appointme nt. Thank you. 2023 [email or web address] Malka Barber NP, [address] [facility], [place], [address], 04/13/2024 08:53:55 physical therapist referral 2023 [facility] [place] [facility], [address], [place], [address], 04/29/2024 13:21:50 Procedures None recorded. Surgeries None recorded. Imaging XR, cervical spine, 2 or 3 view 2023 [email or web address] [facility] [place], [address], [place], [address], 03/15/2024 12:38:58 XR, shoulder 2023 024 [email or web address] [facility] [place], [address], [place], [address], 03/15/2024 12:36:33 Medication Orders ergocalci ferol (vitamin D2) 1,250 mcg (50,000 unit) capsule 2023 [id number], [address], [place], [phone], 03/16/2024 10:11:10 Zepbound 2.5 mg/0.5 mL subcutane ous pen injector 2023 024 [id number], [address], [place], [phone], 03/16/2024 10:26:46 celecoxib 200 mg capsule 2023 024 [email or web address] [facility][id number], [address] [facility], [place], [place], [phone], 03/15/2024 12:24:05 Patient TargetsNo targets recorded. Patient InstructionsNo instructions recorded. Reason for Referral Physical Therapist Referral for Neck pain Referring Physician: Adarsh Nicole, Orthopedic Surgery, Encounter Date: 03/15/2024 Registered Appraiser Referral for S kin lesion Please call patient to schedule an appointment. Thank you. Referring Physician: Shy Lafleur, Family Medicine, Encounter Date: 03/16/2024 Results Created Date Observation Date Name Description Value Unit Range Abnormal Flag Note LastModifiedBy Organization Detail LastModifiedTime 06/16/19 25 06/16/2024 rapid flu (A+B) Flu A negati ve Not Available [address], [place], [address], 06/16/2024 14:31:39 06/16/19 25 06/16/2024 rapid flu (A+B) Flu B negati ve Not Available [address], [place], [address], 06/16/2024 14:31:39 06/16/19 25 06/16/2024 rapid strep group A, throa t STREP A negati ve Not Available [address], [place], [address], 06/16/2024 14:31:23 08/20/19 25 08/19/2024 urina lysis , dipst ick Leukocytes (reference range: negative martin/ l) Negati ve Not Available [address], [place], [address], 08/19/2024 14:29:40 08/20/19 25 08/19/2024 urina lysis , dipst ick Nitrite (reference rage: negative mg/dl) negati ve Not Available [address], [place], [address], 08/19/2024 14:29:40 08/20/19 25 08/19/2024 urina lysis , dipst ick Urobilinogen (reference range: 0.2-1 mg/dl) 1 Not Available [address], [place], [address], 08/19/2024 14:29:40 08/20/19 25 08/19/2024 urina lysis , dipst ick Protein (reference range: negative mg/dl) Negati ve Not Available [address], [place], [address], 08/19/2024 14:29:40 08/20/19 25 08/19/2024 urina lysis , dipst ick pH (reference range: 5-7) 5.5 Not Available [address], [place], [address], 08/19/2024 14:29:40 08/20/19 25 08/19/2024 urina lysis , dipst ick Blood (reference range: negative Casimiro/ l) Negati ve Not Available [address], [place], [address], 08/19/2024 14:29:40 08/20/19 25 08/19/2024 urina lysis , dipst ick Specific [place] (reference range: 1.005-1.030) 1.025 Not Available [address], [place], [address], 08/19/2024 14:29:40 08/20/19 25 08/19/2024 urina lysis , dipst ick Ketone (reference range: negative mg/dl) Negati ve Not Available [address], [place], [address], 08/19/2024 14:29:40 08/20/19 25 08/19/2024 urina lysis , dipst ick Bilirubin (reference range: negative mg/dl) Negati ve Not Available [address], [place], [address], 08/19/2024 14:29:40 08/20/19 25 08/19/2024 urina lysis , dipst ick Glucose (reference range: negative mg/dl) Negati ve Not Available [address], [place], [address], 08/19/2024 14:29:40 08/20/19 25 08/19/2024 urina lysis , dipst ick Appearance Clear Not Available [address], [place], [address], 08/19/2024 14:29:40 08/20/19 25 08/19/2024 urina lysis , dipst ick Color Yellow Not Available [address], [place], [address], 08/19/2024 14:29:40 03/15/20 24 XR, shoul juan No observ ation record ed. [email or web address] [facility] [place] [address], [place], [address], 03/15/2024 12:36:31 03/15/20 24 XR, cervi evelina spine , 2 or 3 view No observ ation record ed. [email or web address] [facility] [place] [address], [place], [address], 03/15/2024 12:38:56 03/30/20 24 03/30/2024 CT, abdom en + pelvi s, w/ contr ast No observ ation record ed. [email or web address] [place] [address] [facility] [address], [place], [address], 03/31/2024 12:00:41 06/22/19 25 06/21/2024 CT, brain , w/o contr ast No observ ation record ed. [email or web address] [facility] [address], [place], [address], 06/22/2024 13:13:49 Result Notes None recorded. Problems Name Problem SNOMED Code Status Onset Date Resolution Date Notes Provider Name and Address Organization Details Recorded Time Irritable bowel syndrome 45920961 Active Not Available [facility] 3 02:50:48 Tendinitis of right shoulder 2310150344687 101 Active 2019 Not Available [facility] 3 02:50:48 Rupture of rotator cuff of right shoulder 5541509046091 9103 Active 2021 Not Available [facility] 3 02:50:48 Ganglion cyst of right volar wrist 4646822442146 9109 Active 2021 Not Available [facility] 3 02:50:48 Pain of right shoulder joint 0557508841385 9100 Active 2019 Not Available [facility] 3 02:50:48 Cobalamin deficiency 027514812 Active 2021 Not Available [facility] 3 02:50:48 Cellulitis and abscess of toe 295116520 Active Not Available [facility] 3 02:50:48 Corder - lesion 024686250 Active Not Available [facility] 3 02:50:48 Partial thickness rotator cuff tear 553231870 Active 2019 Not Available [facility] 3 02:50:48 Abdominal pain 78199846 Active Not Available [facility] 3 02:50:48 Ankle pain 250768692 Active Not Available [facility] 3 02:50:48 Pain in right hand 2578781363676 09 Active 2021 Not Available [facility] 3 02:50:48 Vitamin D deficiency 63332886 Active 2021 Not Available [facility] 3 02:50:48 Depressive disorder 80599533 Active Not Available [facility] 3 02:50:49 Sinusitis 81101059 Active Not Available [facility] 3 02:50:49 Migraine 72644754 Active Not Available [facility] 3 02:50:49 Vertigo 110420147 Active Not Available [facility] 3 02:50:49 Obesity 184200961 Active Not Available [facility] 3 02:50:49 Anxiety 50413044 Active Not Available [facility] 3 02:50:49 Hyperlipid emia 58208231 Active 2021 Not Available [facility] 3 02:50:49 Premenstru al dysphoric disorder 023019 Active Not Available [facility] 3 02:50:49 Diarrhea 05553678 Active Not Available [facility] 3 02:50:49 Obstructiv e sleep apnea syndrome 69033769 Active Not Available [facility] 3 02:50:49 Neck pain 41116499 Active 2020 Not Available [facility] 3 02:50:49 Spinal stenosis in cervical region 54059953 Active 2019 Not Available [facility] 3 02:50:50 Herpes simplex 27042116 Active Not Available [facility] 3 02:50:50 Tobacco dependence syndrome 20296355 Active Not Available [facility] 3 02:50:50 Tonsilliti s 80297921 Active Not Available [facility] 3 02:50:50 Lipoma 63297123 Active Not Available [facility] 3 02:50:50 Primary malignant neoplasm of vulva 11763356 Active colpo Dec 2014 Not Available [facility] 3 02:50:50 Hearing loss 39701169 Active 2022 Yevgeniy Agrawal, [employer]PERVIS[employer] [address], [address], [place], [address] , [place] [facility] 3 18:08:50 Upper respirator y infection 65670720 Active 2022 BOBBY Hahn [address], [address], [place], [address] , [place] [facility] 3 10:40:54 Serum creatinine below reference range 744072289 Active 2022 BOBBY Hahn [address], [address], [place], [address] , [place] [facility] 3 11:23:11 Partial thickness rotator cuff tear 294609219 Active 2022 Any Anitaerwin restrepo, [place] [facility] 3 16:53:57 Carpal tunnel syndrome of right wrist 9507232125472 08 Active 2022 Any restrepo, [place] [facility] 3 13:01:55 Acute sinusitis 40602748 Active 2022 Geri Garcia MD [address], [address], [place], [address] , [facility] 3 13:10:43 Dry eyes 803235297 Active 2023 Geri Garcia MD [address], [address], [place], [address] , [facility] 4 12:57:41 Seasonal allergic rhinitis 577115203 Active 2023 MAYRA Spence [address], [address], [place], [address] , [place] [facility] 4 09:51:37 Poor focus 617241673 Active 2023 MAYRA Spence [address], [address], [place], [address] , [place] [facility] 4 09:58:13 Cervical spondylosi s 152530170 Active 2023 NAN Bustos [address], [address], [place], [address] , [facility] 4 12:39:15 Skin lesion 97954006 Active 2023 MAYRA Spence [address], [address], [place], [address] , [facility] 4 10:27:07 Seasonal allergy 079139829 Active 2024 MAYRA Spence [address], [address], [place], [address] , [facility] 5 12:05:26 Sore throat 041008984 Active 2024 Chaparrita Gomez RN null, [facility] 5 14:31:30 Dysuria 14883652 Active 2024 Chaparrita Gomez RN null, [facility] 5 14:29:41 Problem Notes None recorded. Procedures Surgical History Date Name Laterality Status Provider Name and Address Organization Details Recorded Time 08/16/19 23 Ortho - Cortisone Injection completed Eyal Munroe MD [address], [facility] [address], [place], [address], [facility] 08/15/2022 11:38:00 procedure on ankle completed Clarissa Covarrubias [employer]SEMBLY SUPERVISOR [place] [facility] 03/15/2024 10:56:12 Shoulder completed Clarissa Covarrubias [employer]SEM[employer] SUPER[employer]OR [place] [facility] 03/15/2024 10:56:38 Ablation completed Clarissa Covarrubias [employer]SEMBL[employer] SUPERVISOR [place] [facility] 03/15/2024 10:57:42 Endoscopy completed Not Available [facility] 0 07/17/2022 02:44:34 Tubal Ligation completed Clarissa fenton CNA [place] [facility] 03/15/2024 10:56:23 Colonoscopy completed Not Available [facility] 07/17/2022 02:44:34 Imaging Results Imaging Date Name Status LastModified by Organiz ation Details LastModified Time 03/15/2024 XR, shoulder completed [email or web address] [facility] [place] [address] [facility] [address], [place], [address], 03/15/2024 12:36:31 03/15/2024 XR, cervical spine, 2 or 3 view completed [email or web address] [facility] [place] [address] [facility] [address], [place], [address], 03/15/2024 12:38:56 03/30/2024 CT, abdomen + pelvis, w/ contrast completed [address], [place], [address], 03/31/2024 12:00:41 06/21/2024 CT, brain, w/o contrast completed [address], [address], 06/22/2024 13:13:49 Procedure Notes None recorded. Medical Equipment None Reported. Allergies Allergen ID Allergen Name Allergen Category Reaction Reaction Severity Criticality Documentation Date Start Date Code Code System Note Provider Name and Address Organization Details Recorded Time 4748 acetamino phen / hydrocodo ne medicatio n Not available Not available Not available 07/17/2022 34588 2 RxNorm Not Available [facility] 3 03:00:32 4749 acetamino phen / oxycodone medicatio n Not available Not available Not available 07/17/2022 38722 3 RxNorm Not Available [facility] 3 03:00:32 4750 codeine medicatio n Not available Not available Not available 07/17/2022 2670 RxNorm sick, dizzy Clarissa Satish, ASSEMBLY SUPERVISOR kaye, [place] [facility] 3 10:48:56 4751 aspirin medicatio n Not available Not available Not available 07/17/2022 1191 RxNorm Not Available [facility] 3 03:00:32 00795 phentermi ne medicatio n facial swelling severe high 02/09/20242023 8152 RxNorm Juaquin Damon RN null, [place] [facility] 4 10:11:33 Medications Name Sig Start Date [...] THREE TIMES DAILY NEEDED FOR MUSCLE SPASM active Not Available Not Available No t Available amoxicillin 500 mg capsule TK 1 [...] 20 mg by injection route. 11/21 completed [facility]: 0003- 0494- 20 Not Available Not Available [...] administe red by the provider 06/29 completed [facility]: 0409- 4276- 17 Not Available Not Available [...] Updated DateTime 03/15/2024 154.94 cm 34 kg/m2 07025.63 g Clarissa Covarrubias CNA [place] [employer] [facility] [employer] 03/15/2024 10:53:05 Date Recorded Body height Body mass index (BMI) Body weight Body temperature Heart rate Oxygen saturation Oxygen saturation in Arterial blood by Pulse oximetry Systolic blood pressure Diastolic blood pressure Provider Name and Address Organization Details Last Updated DateTime 154.94 cm 34.2 kg/m2 02936.2 2 g 97.7 [degF] 70 /min 99 % 99 % 130 mm[Hg] 76 mm[Hg] Juaquin Damon RN [facility] [employer] 10:05:39 Date Recorded Body height Provider Name an d Address Organization Details Last Updated DateTime 06/16/2024 154.94 cm Chaparrita Gomez RN [facility] [employer] 06/16/2024 14:30:22 Social History Question Answer Notes LastModified by Organizat ion Details LastModified Time Tobacco Smoking Status Current Every Day Smoker Marlin restrepo [facility] [employer] 11/21/2022 13:56:41 Do You Have An Advance Directive? No [id number] Information not available 07/17/2022 What Is Your Level Of Alcohol Consumption? None [email or web address] Information not available 11/21/2022 What Is Your Level Of Caffeine Consumption? Moderate [id number] Information not available 07/17/2022 How Much Tobacco Do You Chew? None [id number] Information not available 07/17/2022 In The 14 Days Before Symptom Onset, Have You Had Close Contact With A Laboratory-confir med COVID-19 While That Case Was Ill? No [email or web address] Information not available 09/18/2022 In The 14 Days Before Symptom Onset, Have You Had Close Contact With A Person Who Is Under Investigation For COVID-19 While That Person Was Ill? No Information not available 09/18/2022 What Type Of Diet Are You Following? REGULAR [id number] Information not available 07/17/2022 Which Illicit Or Recreational Drugs Have You Used? None [email or web address] Information not available 09/18/2022 Do You Or Have You Ever Used E-cigarettes Or Vape? Never Used Electronic Cigarettes Information not available 09/18/2022 Are There Any Guns Present In Your Home? No [email or web address] Information not available 09/18/2022 What Was The Date Of Your Most Recent Tobacco Screening? 07/03/2021 [email or web address] Information not available 09/18/2022 Do You Use Your Seat Belt Or Car Seat Routinely? Yes [email or web address] Information not available 09/18/2022 At What Age Did You Start Smoking Tobacco? 17 [email or web address] Information not available 09/18/2022 Do You Or Have You Ever Used Smokeless Tobacco? Never Used Smokeless Tobacco [id number] Information not available 07/17/2022 How Much Tobacco Do You Smoke? 0.25 PPD 1 Pack In 2 Weeks Information not available 03/15/2024 Do You Participate In Social Media? Yes [email or web address] Information not available 09/18/2022 Do You Feel Stressed (tense, Restless, Nervous, Or Anxious, Or Unable To Sleep At Night)? [id number] [email or web address] Information not available 09/18/2022 Do You Use Sunscreen Routinely? Yes [email or web address] Information not available 09/18/2022 Sex: Female Functional Status Question Answer Note LastModified by Organizat ion Details LastModified Time What is your exercise level? None [id number] Information not available 07/17/2022 Mental Status None recorded. Family History Relationship Description Onset Age of this Age Resolved Age Notes LastModified by Organization Details LastModified Time Maternal Grandfather Mitral valve prolapse [email or web address] Not available 2022 10:28:34 Maternal Grandfather Family history of malignant neoplasm [email or web address] Not available 2022 10:28:34 Maternal Grandmother Mitral valve prolapse Not available 2022 10:28:34 Maternal Grandmother Hypertensive disorder [id number] Not available 07/17/2022 02:44:37 Father Family history of stroke [email or web address] Not available 2022 10:28:34 Father Hypertensive disorder Not available 2022 10:52:48 Father Heart disease [id number] Not available 07/17/2022 02:44:37 Paternal Grandmother Diabetes [...] 1 N POLIO N LUNG DISEASE/DISORDER N COPD N RADIATION / CHEMOTHERAPY N Other # 2 N BLOOD DISEASES N SURGERY N EAR OR HEARING PROBLEMS N MUMPS N BOWEL PROBLEMS N FEMALE PROBLEMS / INFECTIONS N DEPRESSION (INCLUDING POST ) N STROKE/TIA N THYROID DISEASE N ULCERS N BENIGN PROSTATIC HYPERPLASIA N MEASLES N CERVICALGIA N TB SKIN TEST N MYOCARDIAL INFARCTION N OBESITY N PARAP[place]IA N GERD/NAUSEA N ANEURYSM N URINARY/BLADDER/KIDNEY PROBLEMS [...] HAVE YOU BEEN HOSPITALIZED OR SEEN IN [facility] IN THE PAST YEAR ? N ATHEROSCLEROSIS [...] dose 04/18/2021 completed Danielle Pineda APRN [address], [address], [place], [address], [employer] [facility] [employer] 01/27/2024 10:53:05 COVID-19, mRNA, LNP-S, PF, 100 mcg/0.5mL dose or 50 mcg/0.25mL dose 09/04/2020 completed Danielle Pineda APRN [address], [address], [place], [address], [employer] [facility] [employer] [facility] 01/27/2024 10:53:04 COVID-19, mRNA, LNP-S, PF, 100 mcg/0.5mL dose or 50 mcg/0.25mL dose 08/13/2020 completed Danielle Pineda APRN [address], [address], [place], [address], [employer] [facility] [employer] 01/27/2024 10:53:04 [facility] 05/21/2019 completed Not Available [facility] 07/17/2022 03:00:18 Influenza, split virus, quadrivalent, PF 03/18/2014 completed Not Available [facility] 03:00:18 Tdap 03/15/2014 completed Not Available [facility] 07/17/2022 03:00:18 Influenza, split virus, quadrivalent, PF 03/10/2020 completed Not Available [facility] 03:00:18 COVID-19, mRNA, LNP-S, PF, 30 mcg/0.3 mL dose 08/13/2020 completed Danielle Pineda APRN [address], [address], [place], [address], [facility] [employer] [facility] [employer] [facility] 01/27/2024 10:53:04 COVID-19, mRNA, LNP-S, PF, 30 mcg/0.3 mL dose 09/04/2020 completed Danielle Pineda APRN [address], [address], [place], [address], [facility] [employer] [facility] [employer] [facility] 01/27/2024 10:53:04 COVID-19, mRNA, LNP-S, PF, 30 mcg/0.3 mL dose 05/15/2021 completed Danielle Pineda APRN [address], [place], [address], [facility] [employer] [facility] 01/27/2024 10:53:05 Influenza, MDCK, quadrivalent, PF 03/03/2023 completed Danielle Pineda APRN [address], [place], [address], [facility] [employer] [facility] [employer] [facility] 01/27/2024 10:53:11 COVID-19, mRNA, LNP-S, PF, 50 mcg/0.5 mL 03/03/2023 completed Danielle Pineda APRN [address], [address], [place], [address], [facility] [employer] [facility] 01/27/2024 10:53:11 Past Encounters Encounter ID Performer Location Encounter Start Date Encounter Closed Date Diagnosis/Indication Diagnosis SNOMED-CT Code Diagnosis ICD10 Code Diagnosis Note [id number] [facility] [place] [address] [place] [address] 07/27/2020 00:00:00 07/27/2020 11:50:02 [id number] [facility] [place] [address] [place] [address] 08/08/2020 00:00:00 08/08/2020 21:10:42 [id number] [facility] [place] [address] [place] [address] 08/10/2020 00:00:00 08/10/2020 12:29:38 [id number] [facility] [place] [address] [place] [address] 09/15/2020 00:00:00 09/15/2020 12:37:27 [id number] [facility] [place] [address] [place] [address] 10/12/2020 00:00:00 10/12/2020 19:50:33 [id number] [facility] [place] [address] [facility] [address] [place] [address] 10/19/2020 00:00:00 10/19/2020 10:34:20 [id number] [facility] [place] [address] [place] [address] 12/06/2020 00:00:00 12/06/2020 10:38:40 [id number] [facility] [place] [address] [place] [address] 12/18/2020 00:00:00 12/18/2020 12:06:11 [id number] [facility] [place] [address] [place] [address] 03/08/2021 00:00:00 03/08/2021 16:12:53 [id number] [facility] [place] [address] [place] [address] 06/05/2021 00:00:00 06/05/2021 13:43:23 [id number] [facility] [place] [address] [place] [address] 07/03/2021 00:00:00 07/03/2021 16:24:09 [id number] [facility] [place] [address] [place] [address] 07/24/2021 00:00:00 07/24/2021 12:32:34 [id number] [facility] [address] [facility] [address] [place] [address] 07/30/2021 00:00:00 07/30/2021 16:21:30 [id number] [facility] [place] [address] [place] [address] 08/30/2021 00:00:00 08/30/2021 10:29:55 [id number] [facility] [address] [place] [address] [address] [place] [address] 10/25/2021 00:00:00 10/25/2021 16:40:12 [id number] [facility] [place] [address] [place] [address] 11/13/2021 00:00:00 11/13/2021 10:38:36 [id number] [facility] [place] [address] [place] [address] 11/15/2021 00:00:00 11/15/2021 10:16:46 [id number] [facility] [place] [address] [place] [address] 01/17/2022 00:00:00 01/17/2022 09:46:22 [id number] [facility] [address] [facility] [address] [place] [address] 05/17/2022 00:00:00 05/17/2022 20:31:44 [id number] Eyal Munroe MD [facility] [place] [address] [place] [address] 08/15/2022 10:32:19 08/15/2022 12:30:53 Neck pain 21985509 M54.2 Spinal leoncio nosis in cervical region 79212673 M48.02 Partial th ickness rotator cuff tear 075517178 M75.102 Rupture of rotator cuff of right shoulder 7058539176 6468269 M75.101 [id number] BOBBY Hahn [facility] [address] [facility] [address] [place] [address] 09/04/2022 10:12:21 09/04/2022 10:47:54 Cobalamin deficiency 643702805 E53.8 Hearing loss 89162813 H9 1.90 New problemAud iology referral generated [...] isn't sure which side it is. Hyperlipidemia 32614738 E78.5 Discussed need for regular exercise, increase intake of water/vege tables/fib er. Decrease the amount of greasy/fat ty/fried foods in diet. Consider/s tart taking a daily fish oil supplement . Obesity 452245810 E66.9 Advised eat 3 meals daily with 1-2 healthy snacks, eliminate caloric drinks, no grazing btw meals, reduce packaged foods, portion control, modificati on of cooking style, low fat/low sugar items, 30 minutes of exercise at least 3x/week, reduce emotional/ stress eating, increase fruits/veg etables, take 15-20 minutes to eat. Vitamin D deficiency 347 28954 E55.9 Upper resp iratory infection 70012831 J06.9 New complaintP atient presented with symptoms [...] to 2 weeks if symptoms not improving. [id number] BOBBY Hahn [facility] [address] [facility] [address] [place] [address] 09/18/2022 10:28:10 09/18/2022 11:42:54 Hyperlipidemia 41299863 E78.5 Chronictot al 226, ldl 151 (09/04/22)D iscussed need for regular exercise, increase intake of water/vege tables/fib er. Decrease the amount of greasy/fat ty/fried foods in diet. Consider/s tart taking a daily fish oil supplement . Patient in formed - test result 127999191 Z71.2 Reviewed lab results with patient. Discussed abnormal cholestero l levels, low serum creatinine and treatment recommenda tions as above. Serum crea tinine below reference range 566505233 R79.89 New finding on labsEncour aged pt to increase water intake to 2-3L per day, decrease or eliminate intake of sugary/caf feinated beverages. Hearing loss 79686383 H9 1.90 No change since last visit.Jesus ology referral generated prior to office visit. Pt advised referral has been sent twice. Documented sent with fax confirmati ons on 08/28 & 09/04. Pain of ri ght shoulder joint 0403777132 8349944 M25.511 ChronicCur rently scheduled for surgery on [...] in detailpart ial thickness rotator cuff tear [id number] Eyal Munroe MD [facility] [place] [address] [place] [address] 10/22/2022 14:37:59 10/22/2022 15:14:23 Rupture of rotator cuff of right shoulder 0315944442 8200067 M75.101 [id number] Eyal Munroe MD [facility] [place] [address] [place] [address] 11/21/2022 13:34:44 11/21/2022 14:43:31 Tendinitis of right shoulder 8667077517 905385 M75.91 Rupture of rotator cuff of right shoulder 6195264949 2330360 M75.101 Pain of ri ght shoulder joint 3105886705 3374000 M25.511 [id number] Eyal Munroe MD [facility] [place] [address] [place] [address] 12/19/2022 10:47:02 12/19/2022 11:46:23 Rupture of rotator cuff of right shoulder 9584424190 0961400 M75.101 Tendinitis of right shoulder 3848653131 562757 M75.91 [id number] Eyal Munroe MD [facility] [place] [address] [place] [address] 01/16/2023 12:50:55 01/16/2023 13:23:52 Rupture of rotator cuff of right shoulder 2663808487 1991430 M75.101 Tendinitis of right shoulder 9509973311 352514 M75.91 Carpal scott nancy syndrome of right wrist 5837623940 47439 G56.01 [id number] NAN Bustos [facility] [place] [address] [place] [address] 02/13/2023 14:04:28 02/13/2023 14:40:49 Partial thickness rotator cuff tear 309553910 M75.102 Carpal scott nancy syndrome of right wrist 9257722916 12476 G56.01 [id number] Geri Garcia MD [facility] Primary Care Henrietta dean [address] [facility] [address] [place] [address] 06/05/2023 14:46:04 06/05/2023 17:33:47 [id number] MAYRA Spence [facility] Primary Care Henrietta dean [address] [facility] [address] [place] [address] 01/26/2024 08:58:49 01/26/2024 10:38:45 Adult health examination 439542116 Z00.00 Z00.01 Discussed medication compliance and routine follow up.Discuss ed annual eye and dental exams.Disc ussed healthy diet and exercise.W ill check screening labs as listed below.[place] noscopy and Mammogram UTD.Review ed vaccine records and made recommenda tions. Hyperlipidemia 52234414 E78.5 Will check labs as listed below. Vitamin D deficiency 347 84543 E55.9 Will update labs as listed below. Tobacco de pendence syndrome 07746181 F17.200 Patient has attempted to quit smoking, was successful for a few weeks and then started again. Patient is not open to assistance with smoking cessation. Primary ma lignant neoplasm of vulva 91434317 C51.[address] Villatoro at [facility]-n ext appt in February.PA P will be updated in February. Rupture of rotator cuff of right shoulder 6711221647 1063433 M75.101 Doing well, no concerns at this time. Depressive disorder 3548 9007 F32.A Patient is doing well.Will continue medication as listed below. Obesity 997693117 E66.9 Will start medication as listed below. Patient will follow up in one month, sooner if needed.Susie fair is aware that this medication is a controlled substance and a stimulant. Discussed controlled substance policy with patient, patient verbalized understand ing.Patien t verbalized understand ing of potential side effects. Seasonal a llergic rhinitis 816246214 J30.2 Patient does not believe that Cetirizine is working like it use to, would like to switch to Loratadine . Poor focus 837975264 H52 .7 Patient would like to speak with therapist about OCD/ADHD. Patient does not want to be put on medication , patient would like to learn ways to work through symptoms. [id number] MAYRA Spence [facility] [address] [facility] [address] [place] [address] 02/06/2024 09:14:27 02/06/2024 09:31:01 [id number] NAN Bustos [facility] [place] [address] [place] [address] 03/15/2024 10:39:59 03/15/2024 11:54:34 Tendinitis of right shoulder 4818854641 547646 M75.91 Pain of ri ght shoulder joint 4849795677 1972024 M25.511 Neck pain 14958723 M54.2 Cervical spondylosis 387 193914 M47.117 [id number] MAYRA Spence [facility] Primary Care [address] [place] [address] 03/16/2024 10:00:44 03/16/2024 11:18:15 Vitamin D deficiency 67297415 E55.9 Will update labs as listed below. Dietary ma nagement surveillance 046351269 Z71.3 BMI 34.2 Skin lesion 86845186 L98 .9 [id number] MAYRA Spence [facility] [address] [facility] [address] [place] [address] 06/16/2024 14:16:29 06/16/2024 14:33:30 [id number] MAYRA Spence [facility] Primary [facility] [address] [facility] [address] [place] [address] 08/19/2024 14:27:47 08/19/2024 14:36:25 Health Concerns Section Related Observation LastModified by Organization Detai ls LastModified Time None Recorded Concern Status LastModified by Organization Details LastModified Time None Recorded Advance Directives Directive N: Payers Encounter Date Sequence Insurance Name Policy Number Policy Pires Covered Member ID Pires Member ID Guarantor Name 02/06/2024 1 [facility] ON OR AFTER 11/16/20 (MEDICAID REPLACEMENT - HMO) Kathy Carter Carol [id number] Kathy Carter Carol 03/15/[address] [facility] ON OR AFTER 11/16/20 (MEDICAID REPLACEMENT - HMO) Kathy Carter Carol [id number] Kathy Carter Carol 03/16/[address] [facility] ON OR AFTER 11/16/20 (MEDICAID REPLACEMENT - HMO) Kathy Carter Carol [id number] Kathy Carter Carol 06/16/[address] [facility] ON OR AFTER 11/16/20 (MEDICAID REPLACEMENT - HMO) Kathy Carter Carol [id number] Kathy Carter Carol 08/19/[address] [facility] ON OR AFTER 11/16/20 (MEDICAID REPLACEMENT - HMO) Kathy Carter Carol [id number] Kathy Emma Carol Notes Date Note Type Note Provider Name and Address Organization Details Recorded Time 03/15/2024 text/html The patient returns we have [...] her more she also ran out of [employer] which has made her neck pain also [...] today with the patient. NAN Bustos [address], [place], [address], [employer] 03/15/2024 12:41:26 03/16/2024 text/html Patient is a [...] of cancer. Patient's concern came from her DETECTIVE when there were changes noticed in her pelvic region which she is currently having testing done on. MAYRA Spence [address], [place], [address], [employer] 03/16/2024 10:52:26 OBGyn Episode No OBEpisode recorded.
--- OUTSIDE RECORDS SUMMARY | 2024-09-11 15:16 | XMS_ITS | Encounter Summary ---
Author Organization [facility] Health Address [address] [facility] [address] [place] [address] Care Team Providers Care Dinkey Engineer Name Role Phone AgrawalYevgeniy ZIPPER LINING FOLDER-CAR DUMPER Primary Care Provider Shy Lafleur ZIPPER LINING FOLDER-CAR DUMPER Primary Care Provider + Encounter Details Date Type Department Care Team (Late st Contact Info) Description 02/19/2021 Telephone [facility] [address] [place] [address] Mariya Enciso MD [address] [place] [address] Social History Tobacco Use Types Packs/Day Years [...] on file Legal 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 Enciso to TEL or VID what ever is best. Please advise. Patient Call Back number: [phone] documented in this encounter Plan of Treatment Upcoming Encounters Date Type Department Care Team (Late st Contact Info) Description 03/14/2025 2:30 PM CDT Office Visit [facility] - RESIDENTIAL DOOR INSTALLER [address] [facility] [address] [place] [address] Rober Villatoro MD [address] [facility] [address] [place] [address] documented as of this encounter Visit Diagnoses Not on filedocumented in this encounter Care Teams Dinkey Engineer Relationship Specialty Start Date End Date Yevgeniy Agrawal APRN-NICOLAS [address] [place] [address] PCP - General 10/04/20 03/14/24 Shy Lafleur APRN-CAR DUMPER [address] [place] [address] PCP - General Family Medicine 03/15/24 documented as of this encounter
--- OUTSIDE RECORDS SUMMARY | 2024-09-11 15:16 | XMS_ITS | Encounter Summary ---
Author Organization [facility] Health Address [address] [place] [address] Care Team Providers Care Silhouette Artist Name Role Phone Shy Lafleur Cyn GARZAN-OUTSIDE B2B SALES Primary Care Provider + Reason for Visit * Reason Onset Date Comments Question 03/19/2024 Encounter Details Date Type Department Care Team (Late st Contact Info) Description 03/19/2024 Telephone [facility] - UNDERWRITING SPECIALIST [address] [facility] [place] [address] Rober Villatoro MD [address] [facility] [address] [place] [address] Question Social History Tobacco Use Types Packs/Day [...] on file 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 for pt to get a ct abdomin [place] .. ( [place] [address]) Please fx to #[phone] B# [phone] documented in this encounter Plan of Treatment Upcoming Encounters Date Type Department Care Team (Late st Contact Info) Description 03/14/2025 2:30 PM CDT Office Visit [facility] - UNDERWRITING SPECIALIST [address] [facility] [address] [place] [address] Rober Villatoro MD [address] [facility] [address] [place] [address] documented as of this encounter Goals Goal Patient Goal Type Associated Problems Recent Progress Patient-Stated? Author Mobility General No Dena Hartmann, RN Note: Expected end date: 08/16/2021 The goal is to maintain or improve your mobility at the optimum level for you. Interventions: documented as of this encounter Visit Diagnoses Not on filedocumented in this encounter Care Teams Silhouette Artist Relationship Specialty Start Date End Date Shy Lafleur, BUSINESS LAW TEACHER-OUTSIDE B2B SALES [address] [place] [phone] PCP - General Family Medicine 03/15/24 documented as of this encounter
--- OUTSIDE RECORDS SUMMARY | 2024-09-11 15:16 | XMS_ITS | Encounter Summary ---
Author Organization [facility] Health Address [address] [place] [address] Care Team Providers Care Waste Water Plant Operator Name Role Phone Unknown, Provider Primary Care Provider Geri Alatorre MD Primary Care Provider [phone] Yevgeniy Agrawal R D ENGINEER-[facility] Primary Care Provider Shy Lafleur R D ENGINEER-[facility] Primary Care Provider + Reason for Visit * Reason Onset Date Comments Results 09/29/2019 Encounter Details Date Type Department Care Team (Late st Contact Info) Description 09/29/2019 Telephone [facility] [address] [place], [place] [phone] [place] [address] [place] [address] [address] [place], [place] [id number] Results Social History Tobacco Use Types Packs/Day Years Used Date Smoking Tobacco: Every Day Smokeless Tobacco: Never Alcohol Use Standard Drinks/Week Comments No 0 (1 standard drink = 0.6 oz pur e alcohol) Comments No Sex and Gender Information Value Date Recorded Sex Assigned at Not on file Legal 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 - GROUND CONTROL APPROACH TECHNICIAN [address] [facility] [address] [place] [address] Rober Villatoro MD [address] [facility] [address] [place] [address] documented as of this encounter Visit Diagnoses Not on filedocumented in this encounter Care Teams Waste Water Plant Operator Relationship Specialty Start Date End Date Unknown, Provider PCP - General 10/09/17 04/26/20 Geri Garcia MD [address] [place] [address] PCP - General 04/27/20 10/03/20 Yevgeniy Agrawal APRN-YARD ATTENDANT [address] [place] [address] PCP - General 10/04/20 03/14/24 Shy Lafleur APRN-YARD ATTENDANT [address] [place] [address] PCP - General Family Medicine 03/15/24 documented as of this encounter
--- OUTSIDE RECORDS SUMMARY | 2024-09-11 15:16 | XMS_ITS ---
Author Organization [facility] [address] Address [address] [place] [address] Care Team Providers Care Media Analytics Manager Name Role Phone Shy Lafleur NP Primary Care Provider [phone] Rober Villatoro MD Unavailable Jeyson Angelo MD Unavailable Active Problems Patient Care Coordination No te [...] on 02/17/2023 which revealed the following: FINDINGS: Bag Patcher image is unremarkable. Limited evaluation of the [...] approach, but her BMI of 36.6 [address] consultant the way of excellent visualization for the [...] Abdominal pain 04/21/2023 Chest pain, unspecified 04/21/2023 [place] 04/21/2023 Depressive disorder 04/21/2023 Diarrhea 04/21/2023 Syncope [...] colpo Dec 2014 Sleep apnea 07/02/2011 Current Treatment and Therapy Plans No current plan information found. Past Treatment and Therapy Plans No past plan information found. Lifetime Dose Tracking * Chemical Lifetime Dose Automatic Entry Manual Entr y Fluoro Time 2.75 minutes 2.75 minutes 0 minutes Air kerma at the reference point (Ka,r) 256.2 mGy 2 56.2 mGy 0 mGy
--- OUTSIDE RECORDS SUMMARY | 2024-09-11 15:17 | XMS_ITS | Encounter Summary ---
Author Organization [facility] Health Address [address] [facility] [place] [address] Care Team Providers Care Gsa Coordinator Name Role Phone AgrawalYevgeniy HOME ECONOMIST-CHALK EXTRUDING MACHINE OPERATOR Primary Care Provider Shy Lafleur HOME ECONOMIST-CHALK EXTRUDING MACHINE OPERATOR Primary Care Provider + Reason for Visit * Reason Onset Date Comments Reschedule Appointment 01/31/2022 Encounter Details Date Type Department Care Team (Late st Contact Info) Description 01/31/2022 Telephone [facility] [address] [place], [place] [phone] Rober Villatoro MD [address] [facility] [address] [place], [place] [phone] Reschedule Appointment Social History Tobacco Use Types [...] on file Legal 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 Author Mobility General No Dena Hartmann, RN Note: Expected end date: 08/16/2021 The goal is to maintain or improve your mobility at the optimum level for you. Interventions: documented as of this encounter Visit Diagnoses Not on filedocumented in this encounter Care Teams Gsa Coordinator Relationship Specialty Start Date End Date Yevgeniy Agrawal, HOME ECONOMIST-CHALK EXTRUDING MACHINE OPERATOR [address] [place] [address] PCP - General 10/04/20 03/14/24 Shy Lafleur HOME ECONOMIST-CHALK EXTRUDING MACHINE OPERATOR [address] [place] [address] PCP - General Family Medicine 03/15/24 documented as of this encounter
--- OUTSIDE RECORDS SUMMARY | 2024-09-11 15:17 | XMS_ITS | Continuity of Care Document ---
Author Organization [facility] Address [address] [place] [address] Phone Care Team Providers Care Director Outpatient Services Name Role Phone Bunch OD, Griffin Unavailable Unavailable Procedures Procedure Date Eye Exam & Treatment Refraction Advance Directives Directive Yes / No Effective Date File Name No Information Encounters Encounter Description Practice Location Reason(s) For Visit Diagnoses Date Provider Providers Copied on Encounter [facility], [address], [place], [place], [id number], [place] tel:[phone] [facility] No Information [phone] Bunch OD Griffin. [address], [place], [address], [place]. tel:[phone] Family History Family Member Type Diagnosis Age At Onset No Information Payers Payer name Insurance type Covered democrat ID Authoriza tion(s) Medicaid [facility] [id number] Social History Type Description Quantity Date Captured [...]
[2024-09-11 15:19] VITALS: BP 110/71; PULSE 96; RESP 16; TEMP 36.7; O2SAT 100
--- NOTE | 2024-09-11 15:26 | ED.ABDPAIN ---
HPI - Abdominal Pain General Chief Complaint: Abdominal Pain Stated Complaint: abd pain, back pain Time Seen by Provider: 09/11/24 15:20 Focused HPI: Patient is a 49-year-old female who presents to the ER with complaints of left lower quadrant abdominal pain that radiates to her back. She reports the pain started earlier this morning. Patient reports the pain worsens her she takes deep breaths. She endorses a history of a diverticulum resection on June 30, 2024. Patient also reports she had COVID over [place] but has had a negative test since then. She reports she believes she had a kidney stone approximately 15-20 years ago. Patient denies any recent fevers, constipation, chest pain, or blood in her urine. GENERAL: Well-appearing, well-nourished, and in no acute distress. HEAD: Normocephalic, atraumatic. CHEST: Clear to auscultation. ?No respiratory distress. HEART: Regular rate and rhythm.? NEURO: ?Alert and oriented x3. ABD: + BS, no increased pain with palpation Patient screened in triage and initial orders placed.? ?Additional care and disposition to be based upon?diagnostic testing and treatment. Related Data Home Medications ?Medication ?Instructions ?Recorded ?Confirmed ?Last Taken ?Type cetirizine 10 mg tablet (Zyrtec) 10 mg PO DAILY 11/12/20 08/21/23 Unknown History bupropion HCl 100 mg tablet,12 hr 100 mg PO BID 03/06/22 08/21/23 10/09/22 06:50 History sustained-release celecoxib 200 mg capsule 200 mg PO DAILY 03/06/22 08/21/23 Unknown History naltrexone 50 mg tablet 50 mg PO HS 03/06/22 08/21/23 Unknown History pantoprazole 40 mg tablet,delayed 40 mg PO DIRECTED 05/29/22 08/21/23 Unknown History release Lactobacillus 1 cap PO DAILY 10/02/22 08/21/23 Unknown History acidophilus-Bifidobac.animalis 2.5 billion cell capsule (Daily Probiotic) cyanocobalamin (vitamin B-12) 1,000 mcg PO DAILY 10/02/22 08/21/23 Unknown History 1,000 mcg tablet Allergies Allergy/AdvReac Type Severity Reaction Status Date / Time latex Allergy Severe Rash Verified 08/21/23 16:40 codeine Allergy Intermediate Nausea and Verified 08/21/23 16:40 Vomiting hydrocodone AdvReac Intermediate MAKES HER Verified 08/21/23 16:40 LOOPY AND SHAKEY aspirin AdvReac Mild Other Verified 08/21/23 16:40 phentermine AdvReac Unknown Unknown Verified 06/21/24 19:21 topiramate AdvReac Unknown Unknown Verified 06/21/24 19:21 Review of Systems Review of Systems: All systems reviewed & are unremarkable except as noted in HPI and below PMFSH Past Medical History Medical History Obesity PMDD (premenstrual dysphoric disorder) Depression Anxiety Arthritis Vulvar cancer HSV-1 (herpes simplex virus 1) infection Hiatal hernia with GERD and esophagitis Celiac disease IBS (irritable bowel syndrome) Migraine Surgical History Surgical History History of orthopedic surgery Right ankle, hardware from a trampoline accident History of bladder surgery Ablation 2011 H/O tubal ligation Family History Family History Grandparent Family history of cardiac disorder Father Family history of heart disease in male family member before age 55 Other Hypertension Social History Social History Smoking packs per day: 0.25 Smoking cigarettes per day: 5.0 Years smoked: 30 Smoking pack-years: 7.50 Smoking status: Current some day smoker Tobacco type: cigarettes Additional smoking assessment comments: HAS BEEN CUTING BACK RECENTLY Alcohol intake: never Substance use: never Substance use type: does not use Living arrangements: with family Gender identity (if verbalized by the patient): Female Spiritual care concerns: No Exam Narrative: GENERAL: Well appearing, well-nourished, non-toxic, in no acute distress. HEAD: Normocephalic, atraumatic. NECK: Supple. No adenopathy, no masses. RESPIRATORY: Airway patent, respirations nonlabored. Clear to auscultation bilaterally, no rales, rhonchi, wheezing. CARDIOVASCULAR: Regular rate and rhythm without murmurs, rubs, or gallops. Peripheral pulses 2+ and equal bilaterally. ABDOMINAL: Soft, nontender, nondistended, no hepatosplenomegaly. Normoactive BS. MUSCULOSKELETAL: Moves all extremities. Strength/ROM intact without gross deformities. SKIN: Warm, dry, normal color. No rashes. NEURO: A&O X3. Speech clear. Cranial nerves II-XII intact. No ataxic movements. PSYCHIATRIC: Appropriate mood and affect. Normal interaction. Course Vital Signs Vital signs: Vital Signs Temperature 36.7 C 09/11/24 15:19 Pulse Rate 96 09/11/24 15:19 Respiratory Rate 16 09/11/24 15:19 Blood Pressure 110/71 09/11/24 15:19 Pulse Oximetry 100 09/11/24 15:19 Oxygen Delivery Room Air 09/11/24 15:19 Temperature 36.7 C 09/11/24 15:19 Pulse Rate 96 09/11/24 15:19 Respiratory Rate 16 09/11/24 15:19 Blood Pressure 110/71 09/11/24 15:19 Pulse Oximetry 100 09/11/24 15:19 Oxygen Delivery Room Air 09/11/24 15:19 MDM - Abdominal Pain MDM Narrative Medical decision making narrative: Patient is a 49-year-old female who presents to the ER with complaints of left lower quadrant abdominal pain that radiates to her back. She reports the pain started earlier this morning. Patient reports the pain worsens her she takes deep breaths. She endorses a history of a diverticulum resection on June 30, 2024. Patient also reports she had COVID over [facility] but has had a negative test since then. She reports she believes she had a kidney stone approximately 15-20 years ago. Patient denies any recent fevers, constipation, chest pain, or blood in her urine. Labs Ordered: CBC, CMP, lipase, UA Imaging Ordered: CT abdomen pelvis with con Medications Ordered: 1 L normal saline IV bolus Results: Pt's CT scan indicates 1. No evidence of appendicitis, diverticulitis or obstruction. 2. Small sliding hiatus hernia. Diagnosis: Abdominal pain of unknown origin Patient Education/Shared MDM: Results of imaging and blood work shared with patient. She endorses no change in her intermittent abdominal pain during her ER visit. Patient strongly advised to maintain hydration status upon discharge and follow-up with her GI specialist as soon as possible. She will be discharged home with no new prescriptions. Strict return precautions provided. Patient verbalized understanding and is in agreement with plan. Vital signs stable at time of discharge. All questions answered. Differential Diagnosis Differential diagnosis: Likely abdominal pain, acute appendicitis, calculus of kidney, constipation, diverticulitis, gastroenteritis and small bowel obstruction Lab Data Attestation: I reviewed the patient's lab results. 09/11/24 16:27 09/11/24 16:27 Labs: Lab Results 09/11/24 09/11/24 Range/Units 16:20 16:27 WBC 7.9 (4.5-10.0) K/mm3 RBC 4.22 (4.2-5.4) M/mm3 Hgb 11.8 L (12.0-15.0) g/dL Hct 37.1 (37.0-47.0) % MCV 87.9 (80-100) fl MCH 28.0 (26-34) pg MCHC 31.8 L (32-36) g/dl RDW 13.0 (11.5-14.5) % Plt Count 282 (150-375) k/mm3 MPV 9.3 (7.4-10.4) fl Immature Gran % (Auto) 0.3 (0-0.5) % Neut % (Auto) 51.6 (45.5-73.1) % Lymph % (Auto) 40.3 (18.3-44.2) % [place] % (Auto) 6.6 (2.6-8.5) % Eos % (Auto) 0.8 (0-4.4) % Baso % (Auto) 0.4 (0.2-1.2) % Lymph # (Auto) 3.18 (0.9-3.2) K/mm3 [place] # (Auto) 0.5 (0.1-0.6) K/mm3 Eos # (Auto) 0.1 (0-0.3) K/mm3 Baso # (Auto) 0.0 (0.0-0.1) K/mm3 Abs Immat Gran (auto) 0.02 (0.00-0.031) K/mm3 Absolute Neuts (auto) 4.1 (1.3-6.7) K/mm3 Absolute Nucleated RBC 0.000 (0.0-0.012) K/mm3 Nucleated RBC % 0.0 (0.0-0.2) % Sodium 140 (137-145) mmol/L Potassium 3.4 (3.4-5.0) mmol/L Chloride 102 (98-107) mmol/L Carbon Dioxide 31 H (22-30) mmol/L Anion Gap 7 (4-12) mmol/L BUN 10 (7-17) mg/dL Creatinine 0.64 L (0.7-1.0) mg/dL Estim Creat Clear Calc 82 ml/min Estimated GFR > 60 (59 - ) Glucose 104 (65-110) mg/dL Calcium 9.0 (8.4-10.2) mg/dL Total Bilirubin 0.6 (0.2-1.3) mg/dL AST 21 (14-36) U/L ALT 14 (6-35) U/L Alkaline Phosphatase 69 (38-126) U/L Total Protein 7.0 (6.3-8.2) g/dL Albumin 4.2 (3.5-5.1) g/dL Lipase 60 (23-300) U/L Urine Color Yellow (Yellow) Urine Appearance Clear (Clear) Urine pH 5.5 (5.0-9.0) Ur Specific [place] 1.008 (1.001-1.035) Urine Protein Negative (Negative) mg/dL Urine Glucose (UA) Negative (Negative) mg/dL Urine Ketones Negative (Negative) mg/dL Ur Blood (Man) Negative (Negative) Urine Nitrate Negative (Negative) Urine Bilirubin Negative (Negative) Urine Urobilinogen 0.2 (<2.0) mg/dL Leukocyte Esterase Rfl Negative (Negative) DELMA/UL Imaging Data Attestation: I personally reviewed and interpreted this imaging study as follows: Radiologist's impression: ITS Impressions Abdomen/Pelvis CT 09/11/24 17:51 IMPRESSION: 1. No evidence of appendicitis, diverticulitis or obstruction. 2. Small sliding hiatus hernia. Discharge Plan Discharge Clinical Impression: Abdominal pain Patient Disposition: Home Condition: Stable Instructions: Antibiotic Form, Abdominal Pain (ED) Additional Instructions: Please return to the ER with any worsening symptoms. Follow-up with primary care provider and your GI specialist as soon as possible. Take all regularly scheduled medications as prescribed. Patient Language: Spanish Prescriptions: No Action pantoprazole 40 mg tablet,delayed release (DR/EC) 40 mg PO DIRECTED lidocaine [Lidoderm] 5 % adhesive patch,medicated 1 patch topical DAILY Qty: 15 0RF Rx Instructions: leave on most painful area for up to 12 hrs baclofen 10 mg tablet 10 mg PO TID PRN (Reason: muscle pain) Qty: 10 0RF cetirizine [Zyrtec] 10 mg tablet 10 mg PO DAILY celecoxib 200 mg capsule 200 mg PO DAILY naltrexone 50 mg tablet 50 mg PO HS Rx Instructions: GIVEN FOR WEIGHT LOSS bupropion HCl 100 mg tablet sustained-release 12 hr 100 mg PO BID Rx Instructions: GIVEN FOR WEIGHT LOSS meclizine 12.5 mg tablet 12.5 mg PO TID PRN (Reason: dizziness) Qty: 10 0RF cyanocobalamin (vitamin B-12) 1,000 mcg Tablet 1,000 mcg PO DAILY Daily Probiotic 2.5 billion cell Capsule 1 cap PO DAILY cyclobenzaprine 10 mg tablet 10 mg PO TID PRN (Reason: muscle spasm) Qty: 20 0RF Follow-up/Referrals: Miquel,Shy Bailey NP [Primary Care Provider] - Time of Disposition: 19:24
[2024-09-11 16:32] LABS: Add Urine Microscopic? NO; Appearance Urine Clear (Clear); Bilirubin Urine Negative (Negative); Blood Urine Negative (Negative); Color Urine Yellow (Yellow); Glucose Urine UA Negative (Negative); Ketones Urine Negative (Negative); Leukocyte Esterase Ur Negative LEU/UL (Negative); Nitrate Urine Negative (Negative); Protein Urine Negative (Negative); Specific Grav Ur 1.008 (1.001-1.035); Urobilinogen Urine 0.2 mg/dL (<2.0); pH Urine 5.5 (5.0-9.0)
--- OUTSIDE RECORDS SUMMARY | 2024-09-11 16:47 | XMS_ITS | Clinical Summary ---
Author Organization [facility] Address [facility] [place] [address] Care Team Providers Care Toddler Guide Name Role Phone Unavailable Primary Care Provider [...]
--- OUTSIDE RECORDS SUMMARY | 2024-09-11 16:47 | XMS_ITS | Encounter Summary ---
Author Organization [facility] Address [address] [place] [address] Care Team Providers Care Refinery Operator Alkylation Name Role Phone AgrawalYevgeniy INDUSTRIAL INSULATOR-HVAC/R SERVICE TECHNICIAN Primary Care Provider Shy Lafleur INDUSTRIAL INSULATOR-HVAC/R SERVICE TECHNICIAN Primary Care Provider + Reason for Visit * Reason Onset Date Comments Pre Authorization 03/02/2024 Encounter Details Date Type Department Care Team (Late st Contact Info) Description 03/02/2024 Telephone [facility] - CRIME ANALYST [address] [place] [address] Rober Villatoro MD [address] [facility] [address] [place], [place] [id number] Pre Authorization Social History Tobacco Use Types [...] on file 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 CB: [phone] documented in this encounter Plan of Treatment Upcoming Encounters Date Type Department Care Team (Late st Contact Info) Description 03/14/2025 2:30 PM CDT Office Visit [facility] - CRIME ANALYST [address] [place] [address] Rober Villatoro MD [address] [place] [address] documented as of this encounter Goals Goal Patient Goal Type Associated Problems Recent Progress Patient-Stated? Author Mobility General No Dena Hartmann RN Note: Expected end date: 08/16/2021 The goal is to maintain or improve your mobility at the optimum level for you. Interventions: documented as of this encounter Visit Diagnoses Not on filedocumented in this encounter Care Teams Refinery Operator Alkylation Relationship Specialty Start Date End Date Yevgeniy Agrawal APRN-HVAC/R SERVICE TECHNICIAN [address] [place] [address] PCP - General 10/04/20 03/14/24 Shy Lafleur APRN-HVAC/R SERVICE TECHNICIAN [address] [place] [address] PCP - General Family Medicine 03/15/24 documented as of this encounter
--- OUTSIDE RECORDS SUMMARY | 2024-09-11 16:47 | XMS_ITS | Encounter Summary ---
Author Organization [facility] Health Address [address] [place] [address] Care Team Providers Care Simplex Operator Name Role Phone Shy Lafleur Cyn GARZAN-CREDIT AUTHORIZER Primary Care Provider + Reason for Visit * Reason Onset Date Comments Question 03/19/2024 Encounter Details Date Type Department Care Team (Late st Contact Info) Description 03/19/2024 Telephone [facility] - MECHANICAL EQUIPMENT TEST ENGINEER [address] [facility] [place] [address] Rober Villatoro MD [address] [facility] [address] [place] [address] Question Social History Tobacco Use Types Packs/Day [...] on file 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 for pt to get a ct abdomin scan .. ( [place] [address]) Please fx to #[phone] B# [phone] documented in this encounter Plan of Treatment Upcoming Encounters Date Type Department Care Team (Late st Contact Info) Description 03/14/2025 2:30 PM CDT Office Visit [facility] - MECHANICAL EQUIPMENT TEST ENGINEER [address] [place] [address] Rober Villatoro MD [address] [place] [address] documented as of this encounter Goals Goal Patient Goal Type Associated Problems Recent Progress Patient-Stated? Author Mobility General No Dena Hartmann, RN Note: Expected end date: 08/16/2021 The goal is to maintain or improve your mobility at the optimum level for you. Interventions: documented as of this encounter Visit Diagnoses Not on filedocumented in this encounter Care Teams Simplex Operator Relationship Specialty Start Date End Date Shy Lafleur, ARTICULATION OFFICER-CREDIT AUTHORIZER [address] [place] [phone] PCP - General Family Medicine 03/15/24 documented as of this encounter
--- OUTSIDE RECORDS SUMMARY | 2024-09-11 16:47 | XMS_ITS | Clinical Summary ---
Author Organization [facility] Address [address] [place] [address] Care Team Providers Care Automatic Mold Sander Name Role Phone Shy Lafleur Cyn GOTTLIEB-MANAGEMENT ENGINEER Primary Care Provider + Source Comments [facility],non-owned Affiliates and Associated Physician Practices is amultiple site organization consisting of ambulatory clinics and hospital sitesin [place], [place], [place] and [place]. This disclosure is being madepursuant to the Care Everywhere program and may not contain all informatio navailable regarding this patient. 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 Pathology/Cytolo gy MISCELLANEOUS SAMPLES / Unknown 02/18/2022 10:47 AM CDT 02/19/2022 11:54 AM CDT Narrative [facility] - 02/22/2022 3:14 PM CDT [...] MICROBIOLOGY ORDERABLES nal Result Performing Organization Address [facility] Co de Phone Number [facility] [address] [place] [address], [facility] [phone] * HEPATITIS C RNA QUANTITATIVE (02/05/2021 12:06 [...] of this assay have been determined by [employer]. The modifications have not been cleared or approved by the FDA. This assay has been validated pursuant to the CLIA regulations and is used for clinical purposes. For more information on this test, go to: http://education.[employer]/faq/YDY17k4 (This link is being provided for informational/ educational purposes only.) Test Performed at: [facility] [address] [place] [address] CARLOS MANUEL SALCEDO DO,MPH 02/05/2021 12:0 6 PM CDT 02/05/2021 12:13 PM CDT Mariya Enciso MD LAB - CHEMISTRY ORDERABLES nal Result Performing Organization Address City/[facility]/ZIP Co de Phone Number [facility] [address] [place] [address] from Last 3 Months or Most Recently Relevant to Health Maintenance Insurance [address] [facility] Care Teams Automatic Mold Sander Relationship Specialty Start Date End Date Shy Lafleur APRN-NICOLAS [address] [place] [address] [place] [address] PCP - General Family Medicine 03/15/24
--- OUTSIDE RECORDS SUMMARY | 2024-09-11 16:47 | XMS_ITS ---
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 Haydee Harding NP 10/08/2023 1426 This is a 48-year-old female patient returning [...] Abdominal pain 04/21/2023 Chest pain, unspecified 04/21/2023 [place] 04/21/2023 Depressive disorder 04/21/2023 Diarrhea 04/21/2023 Syncope [...]
--- OUTSIDE RECORDS SUMMARY | 2024-09-11 16:47 | XMS_ITS | Referral Summary ---
Author Organization [facility] [address] Address [address] [place] [address] Care Team Providers Care Projects Manager Name Role Phone Shy Lafleur NP Primary Care Provider Rober Villatoro MD Unavailable Jeyson Angelo MD Unavailable [phone] Encounters Date Type Department Care Team Description 07/27/2024 Telephone [facility] Surgery [address] [place] [address] [address] [place] [address] Hayede Hrading, PARVIN 07/20/2024 Orders Only [facility] Surgery [address] [facility] Advanced [facility] 8th [place] [address] [place] [address] Haydee Harding, SOCIAL SCIENCES PROFESSOR Hiatal hernia (Primary Dx) 07/19/2024 11:15 AM TEACHER THEATER ARTS - 07/19/2024 11:59 PM TEACHER THEATER ARTS Hospital Encounter [facility] MOB 1 DIAG IMG [address] [place] [address] Achalasia Discharge Disposition: Discharge to home or self care 07/19/2024 2:45 PM TEACHER THEATER ARTS Office Visit [facility] Surgery [address] [place] [address] [address] [place] [address] Haydee Harding, SOCIAL SCIENCES PROFESSOR Post-operative state (Primary Dx) 07/14/2024 Orders Only [facility] Surgery [address] [facility] 8th [place] [address] [place] [address] Haydee Harding NP Achalasia (Primary Dx) 07/06/2024 Orders Only [facility] Surgery [address] [place] [address] Haydee Harding NP 06/30/2024 6:20 AM TEACHER THEATER ARTS - 07/02/2024 12:11 PM TEACHER THEATER ARTS Hospital Encounter [address] [address] Jeyson Angelo MD Achalasia Discharge Disposition: Discharge to home or self care 07/01/2024 Telephone [facility] Cardiothoracic Surgery [address] [facility] 8th Floor [address] Room [address] [address] Albania Schmidt RMA 07/01/2024 Telephone [facility] Surgery [address] [place] [address] Amanda Rivera 06/30/2024 7:35 AM TEACHER THEATER ARTS - 06/30/2024 11:05 AM TEACHER THEATER ARTS Surgery [facility] OR [address] [place] [address] Jeyson Angelo MD ROBOTIC ASSISTED LAPAROSCOPIC HELLER MYOTOMY WITH RESECTION OF AN ESOPHAGEAL DIVERTICULUM 06/30/2024 7:29 AM TEACHER THEATER ARTS Anesthesia Event [facility] OR [address] [place] [address] Gino Roe MD Taylor-White, Carlotta A., NP 06/23/2024 11:00 AM TEACHER THEATER ARTS Pre-Admission Testing [facility] PreAdmission Testing [address] [place] [address] Pre-op exam 06/14/2024 Orders Only [facility] PreAdmission Testing [address] [place] [address] Lilian Lafleur, RN from Last 3 Months [...] on 02/17/2023 which revealed the following: FINDINGS: Internet Marketing Director image is unremarkable. Limited evaluation of the [...] approach, but her BMI of 36.6 [address] of excellent visualization for the [...] evaluation and discussion. Haydee Harding NP 10/08/2023 [id number] This is a 48-year-old female patient returning [...] Abdominal pain 04/21/2023 Chest pain, unspecified 04/21/2023 Deer 04/21/2023 Depressive disorder 04/21/2023 Diarrhea 04/21/2023 Syncope [...] drink = 0.6 oz pur e alcohol) [facility] Utilities Answer Date Recorded In the past 12 months has e electric, gas, oil, or water [employer] threatened to shut off services in your [...] often do you attend chur ch or cheondoism services? 1 to 4 times per year 07/01/2024 Do you belong to any clubs o r organizations such as sabianism groups, unions, fraternal or athletic groups, or [...] any time in the past 12 [facility], were you homeless or living in a retirement (including now)? No 07/01/2024 Personal Safety Answer Date Recorded Have you ever been in or are you currently in a harmful physical or emotional relationship or is someone making you feel afraid or unsafe? Denies 06/30/2024 Comments No Sex and Gender Information Value Date Recorded Sex Assigned at Not on file Legal Sex Female 4:05 AM TEACHER THEATER ARTS Gender Identity Not on file Sexual Orientation Not on file Last Filed Vital Signs Vital Sign Reading Time Taken Comments Blood Pressure 101/70 07/19/2024 2:18 PM TEACHER THEATER ARTS Pulse 66 07/19/2024 2:16 PM TEACHER THEATER ARTS Temperature 36.5 C (97.7 F) 07/19/2024 2:16 PM TEACHER THEATER ARTS Respiratory Rate 16 07/19/2024 2:16 PM TEACHER THEATER ARTS Oxygen Saturation 95% 07/19/2024 2:16 PM TEACHER THEATER ARTS Inhaled Oxygen Concentration - - Weight 74.4 kg (164 lb) 07/19/2024 2:16 PM TEACHER THEATER ARTS n o shoes Height 152.4 cm (5') 07/19/2024 2:16 PM TEACHER THEATER ARTS no s hoes Body Mass Index 32.03 07/19/2024 2:16 PM TEACHER THEATER ARTS Plan of Treatment Not on file Medical Devices Implanted Type Area Clay Machine Operator Device Identifier Shelf Expiration Date Model / Serial / Lot Wire-Inner Part Of Right Ankle-Plate And 7 Screws Right: Ankle Procedures Procedure Name Priority Date/Time Associated Diagnosis Comments XR CHEST PA LATERAL 2 VIEWS Schedule Routine, Read Routine (OP Routine) 07/19/2024 1:51 PM TEACHER THEATER ARTS Achalasia EGFR Routine 07/02/2024 3:56 AM TEACHER THEATER ARTS BASIC METABOLIC PANEL Routine 07/02/2024 3:56 AM TEACHER THEATER ARTS CBC WITHOUT DIFFERENTIAL Routine 025 3:56 AM TEACHER THEATER ARTS ECG 12-LEAD STAT 07/01/2024 3:27 PM TEACHER THEATER ARTS FL ESOPHAGRAM, SINGLE CONTRAST IP Routine 0 07/01/2024 10:37 AM TEACHER THEATER ARTS EGFR Routine 07/01/2024 2:37 AM TEACHER THEATER ARTS BASIC METABOLIC PANEL Routine 07/01/2024 2:37 AM TEACHER THEATER ARTS CBC WITHOUT DIFFERENTIAL Routine 025 2:37 AM TEACHER THEATER ARTS PHOSPHORUS Routine 06/30/2024 4:43 PM TEACHER THEATER ARTS MAGNESIUM Routine 06/30/2024 4:43 PM TEACHER THEATER ARTS SURGICAL PATHOLOGY Routine 06/30/2024 9:41 AM TEACHER THEATER ARTS Achalasia SC AN PROCEDURE PLACEHOLDER Routine 06/19 7:52 AM TEACHER THEATER ARTS SC AN ELECTIVE ENDOTRACHEAL AIRWAY Routine 06/30/2024 7:52 AM TEACHER THEATER ARTS ESOPHAGOGASTRODUODENOSCOPY 06/30 7:30 AM TEACHER THEATER ARTS Achalasia XI MYOTOMY - LAPAROSCOPIC ROBOTIC ASSISTED - HELLER 06/30/2024 7:30 AM TEACHER THEATER ARTS Achalasia B ABO / RH CONFIRMATION TESTING Routine 06/30/2024 6:43 AM TEACHER THEATER ARTS EGFR Routine 06/23/2024 11:15 AM TEACHER THEATER ARTS Pre-op exam DIFFERENTIAL AUTO Routine 06/23/2024 11:15 AM TEACHER THEATER ARTS Pre-op exam ANTIBODY SCREEN Routine 06/23/2024 11:15 AM TEACHER THEATER ARTS Pre-op exam ABO/RH Routine 06/23/2024 11:15 AM TEACHER THEATER ARTS Pre-op exam COMPREHENSIVE METABOLIC PANEL Routine 11:15 AM TEACHER THEATER ARTS Pre-op exam CBC WITH AUTO DIFFERENTIAL Routine 06/23 11:15 AM TEACHER THEATER ARTS Pre-op exam TYPE AND SCREEN 14 DAY Routine 11:15 AM TEACHER THEATER ARTS Pre-op exam from Last 3 Months Results * XR Chest Pa Lateral 2 Views (07/19/2024 1:51 PM TEACHER THEATER ARTS) Anatomical Region Laterality Modality Body, Chest N/A Computed Radiogr aphy 07/22/2024 7:21 AM TEACHER THEATER ARTS Narrative 07/22/2024 7:23 AM TEACHER THEATER ARTS EXAM DESCRIPTION: XR CHEST PA LATERAL 2 [...] Thomas Mckeon M.D. RB: RB Report ID: [id number] Reading Location: [place] [address] Procedure Note Thomas Mckeon MD - 07/22/2024 [...] Thomas Mckeon M.D. RB: RB Report ID: [id number] Reading Location: [place] [address] us Haydee Harding SOCIAL SCIENCES PROFESSOR IMG XR PROCEDURES Final Re sult * eGFR (07/02/2024 3:56 AM TEACHER THEATER ARTS) eGFR >90 >=60 mL/min/1. 73 m2 Comment: [...] last reviewed 2021. Blood 07/02/2024 3:56 AM TEACHER THEATER ARTS 07/02/2024 4:37 AM TEACHER THEATER ARTS Macario [place] LAB BLOOD ORDERABLES Yeny tellez Result [place] [id number] [facility] Department [place] [address] * (ABNORMAL) CBC without differential (07/02/2024 3:56 AM TEACHER THEATER ARTS) WBC 14.5(H) 3.8 - 9.9 K/cumm Hgb 10.5(L) 11.9 - 15.5 g/dL [facility] Hct 31.7(L) 35.6 - 45.5 % [facility] Plt 184 150 - 400 K/cumm [facility] MPV 10.0 9.1 - 12.3 fL [facility] RBC 3.56(L) 3.90 - 5.20 M/cumm [facility] MCV 89.0 81.3 - 96.4 fL [facility] MCH 29.5 27.1 - 33.3 pg [facility] MCHC 33.1 32.3 - 35.7 g/dL [facility] RDW CV 12.6 11.1 - 14.9 % [facility] RDW SD 40.9 35.7 - 48.1 fL [facility] NRBC abs 0.00 0.00 - 0.01 K/cumm [facility] Blood 07/02/2024 3:56 AM TEACHER THEATER ARTS 07/02/2024 4:37 AM TEACHER THEATER ARTS Macario [place] LAB BLOOD ORDERABLES Yeny l Result Performing Organization Address [facility] Co de Phone Number NAVARR[facility] [address] [place] [address] * Basic metabolic panel (07/02/2024 3:56 AM TEACHER THEATER ARTS) [facility] Sodium 138 135 - 145 mmol/L Potassium, pl 3.6 3.3 - 4.9 mmol/L [facility] Chloride 105 97 - 110 mmol/L [facility] CO2 26 22 - 32 mmol/L [facility] Anion gap 7 2 - 15 mmol/L [facility] BUN 13 6 - 25 mg/dL [facility] Creatinine 0.61 0.60 - 1.10 mg/dL [facility] Glucose 103 70 - 199 mg/dL [facility] Comment: Interpretive Data Fasting glucose >/= 126 [...] 2022. Calcium 8.8 8.5 - 10.3 mg/dL [facility] Blood 07/02/2024 3:56 AM TEACHER THEATER ARTS 07/02/2024 4:37 AM TEACHER THEATER ARTS Macario [place] LAB BLOOD ORDERABLES Yeny l Result Performing Organization Address [facility]/ZIP Co de Phone Number [address] [place] [address] * ECG 12 lead (07/01/2024 3:27 PM TEACHER THEATER ARTS) [facility] Ventricular Rate EKG/Min 112 BPM [facility] Atrial Rate [address] [facility] SC-Interval (MSEC) [address] [facility] QRS-Interval (MSEC) 88 ms [facility] QT-Interval (MSEC) 322 ms [facility] QTc 439 ms [facility] P Spivey 35 degrees [facility] R Spivey -16 degrees [facility] T Spivey 18 degrees [facility] Diagnosis Sinus tachycardia When compared with ECG of 24-JUL-2011 20:27, No significant change Confirmed by OSVALDO DO M.D. ([id number]) on 07/02/2024 8:37:38 PM [facility] 07/01/2024 3:27 PM TEACHER THEATER ARTS 07/02/2024 8:37 PM TEACHER THEATER ARTS us Eyad [place] ECG ORDERABLES Final R esult [facility] * [place] Esophagram, Single Contrast (07/01/2024 10:37 AM TEACHER THEATER ARTS) Anatomical Region Laterality Modality Body N/A Computed Radiogr aphy, Computed Radiography 07/01/2024 10:4 4 AM TEACHER THEATER ARTS Narrative 07/01/2024 10:49 AM TEACHER THEATER ARTS EXAM DESCRIPTION: FL ESOPHAGRAM BARIUM SWALLOW TO STOMACH, SINGLE CONTRAST REASON FOR STUDY: Post esophageal diverticulum resection yesterday. Evaluate for leak. COMPARISON: Esophagram 02/17/2023 RADIATION DOSE: Dose: 238.6 mGy Reference Air Kerma (Ka,r) TECHNIQUE: Under fluoroscopic guidance, patient ingested water soluble contrast . FINDINGS: Initial java security engineer images show mild blunting of the left [...] Minor Siddiqui M.D. LB T: Report ID: [id number] Reading Location: [id number] Procedure Note Minor Siddiqui MD - 07/01/2024 EXAM DESCRIPTION: FL ESOPHAGRAM BARIUM SWALLOW TO STOMACH, SINGLECONTRAST REASON FOR STUDY: Post esophageal diverticulum resection yesterday. Evaluate for leak. COMPARISON: Esophagram 02/17/2023 RADIATION DOSE: Dose: 238.6 mGy Reference Air Kerma (Ka,r) TECHNIQUE: Under fluoroscopic guidance, patient ingested water soluble contrast . FINDINGS: Initial java security engineer images show mild blunting of the left [...] by Minor Siddiqui M.D. T: Report ID: [id number] Reading Location: [id number] Macario [place] IML[place] FLUOROSCOPY PROCEDURE S Final Result * eGFR (07/01/2024 2:37 AM TEACHER THEATER ARTS) eGFR >90 >=60 mL/min/1. 73 m2 Comment: [...] last reviewed 2021. Blood 07/01/2024 2:37 AM TEACHER THEATER ARTS 07/01/2024 3:24 AM TEACHER THEATER ARTS [facility] [place] LAB BLOOD ORDERABLES Yeny l Result Performing Organization Address [facility] Co de Phone Number NAVARRO [address] [place] [address] * (ABNORMAL) CBC without differential (07/01/2024 2:37 AM TEACHER THEATER ARTS) WBC 16.8(H) 3.8 - 9.9 K/cumm Hgb 12.0 11.9 - 15.5 g/dL [facility] Hct 37.0 35.6 - 45.5 % [facility] Plt 214 150 - 400 K/cumm [facility] MPV 9.5 9.1 - 12.3 fL [facility] RBC 4.05 3.90 - 5.20 M/cumm [facility] MCV 91.4 81.3 - 96.4 fL [facility] MCH 29.6 27.1 - 33.3 pg [facility] MCHC 32.4 32.3 - 35.7 g/dL [facility] RDW CV 12.7 11.1 - 14.9 % [facility] RDW SD 41.6 35.7 - 48.1 fL [facility] NRBC abs 0.00 0.00 - 0.01 K/cumm [facility] Blood 07/01/2024 2:37 AM TEACHER THEATER ARTS 07/01/2024 3:24 AM TEACHER THEATER ARTS [facility] [place] [facility] BLOOD ORDERABLES Yeny l Result Performing Organization Address [facility] Co de Phone Number ROSA[address] [place] [address] * Basic metabolic panel (07/01/2024 2:37 AM TEACHER THEATER ARTS) Sodium 139 135 - 145 mmol/L Potassium, pl 4.5 3.3 - 4.9 mmol/L [facility] Chloride 104 97 - 110 mmol/L [facility] CO2 28 22 - 32 mmol/L [facility] Anion gap 7 2 - 15 mmol/L [facility] BUN 19 6 - 25 mg/dL [facility] Creatinine 0.72 0.60 - 1.10 mg/dL [facility] Glucose 123 70 - 199 mg/dL [facility] Comment: Interpretive Data Fasting glucose >/= 126 [...] 2022. Calcium 9.2 8.5 - 10.3 mg/dL [facility] Blood 07/01/2024 2:37 AM TEACHER THEATER ARTS 07/01/2024 3:[address] TEACHER THEATER ARTS [facility] [place] LAB BLOOD ORDERABLES Yeny l Result Performing Organization Address [facility] Co de Phone Number [address] [place] [address] * Phosphorus (06/30/2024 4:43 PM TEACHER THEATER ARTS) Pathologist [facility] Phosphorus, pl 3.7 2.3 - 4.5 mg/dL Blood 06/30/2024 4:43 PM TEACHER THEATER ARTS 06/30/2024 5:[address] [facility] [place] LAB BLOOD ORDERABLES Yeny l Result Performing Organization Address [facility] Co de Phone Number [address] [place] [address] * Magnesium (06/30/2024 4:43 PM TEACHER THEATER ARTS) Magnesium 1.5 1.4 - 2.5 mg/dL Blood 06/30/2024 4:43 PM TEACHER THEATER ARTS 06/30/2024 5:08 PM TEACHER THEATER ARTS Macariochris [place] LAB BLOOD ORDERABLES Yeny rosalinda Result [facility] [address] Department [place] [address] * Surgical pathology (06/30/2024 9:41 AM TEACHER THEATER ARTS) Tissue specimen (specimen) (Diverticulum, esophageal, small bowel or bladder) 06/30/2024 9:41 AM TEACHER THEATER ARTS Narrative PATHOLOGY [facility] - 07/05/2024 1:53 PM TEACHER THEATER ARTS [facility] Department of Pathology [address] [place] [address] Note to Patients: This report may contain [...] : 1975 (Age: 49) Gender: F Address: [address] [place] [address] Hospital #: [id number] Service: Cardiothoracic Location: Patient Type: [facility] INPATIENT Taken: 06/30/2024 Received: 06/30/2024 Accessioned: 06/30/2024 [...] No polyps or masses are grossly identified. Laborer Landscape sections are submitted as follows: A1 Stapled resection margin, en face A2-A3 Full-thickness sections of esophagus Sebastian Martinez jjmhb/07/01/2024 09:51 YONG Schaeffer, PA ([facility]) Microscopic slide review and interpretation for this case was performed at [facility], Department of Surgical Pathology, [address] [facility], [place] [id number], [place] [id number] CLIA # [id number] Jeyson Angelo MD LAB PATHOLOGY ORDERABLES Yeny rosalinda Result PATHOLOGY [facility] * SC AN ELECTIVE ENDOTRACHEAL AIRWAY, SC AN PROCEDURE PLACEHOLDER (06/30/2024 7:52 AM TEACHER THEATER ARTS) Narrative Shelley Munroe CRNA - 06/30/2024 7:52 AM TEACHER THEATER ARTS Shelley Munroe CRNA 06/30/2024 7:59 AM Airway Patient location: OR Urgency: elective Indications for airway management: anesthesia Difficult airway: no Staff: Placed by: Anesthesiologist: Gino Roe MD PEDIATRIC DERMATOLOGIST: Shelley Munroe CRNA Emergent airway documentation: Risks [...] / Rh Confirmation Testing (06/30/2024 6:43 AM TEACHER THEATER ARTS) Pathologist [facility] ABO/Rh Confirmation AB Positive [facility] Blood 06/30/2024 6:43 AM TEACHER THEATER ARTS 06/30/2024 6:58 AM TEACHER THEATER ARTS Jeyson Angelo MD LAB BLOOD ORDERABLES Final Re sult [facility] [address] [facility] Department [place] [address] [facility]HB * eGFR (06/23/2024 11:15 AM TEACHER THEATER ARTS) Pathologist [facility] eGFR >90 >=60 mL/min/1. 73 m2 Comment: [...] reviewed 2021. Blood 06/23/2024 11:1 5 AM TEACHER THEATER ARTS 06/23/2024 11:31 AM TEACHER THEATER ARTS Haydee Harding SOCIAL SCIENCES PROFESSOR LAB BLOOD ORDERABLES Final Result [facility] [address] [facility] Department [place] [address] * Differential, auto (06/23/2024 11:15 AM TEACHER THEATER ARTS) Pathologist [facility] Neutrophil abs 3.9 1.5 - 6.5 K/cumm Imm gran abs 0.0 0.0 - 0.1 K/cumm [facility] Lymphocyte abs 2.2 0.8 - 3.3 K/cumm [facility] Monocyte abs 0.4 0.2 - 0.8 K/cumm [facility] Eosinophil abs 0.1 0.0 - 0.5 K/cumm [facility] Basophil abs 0.0 0.0 - 0.1 K/cumm [facility] Neutrophil pct 58.9 % [facility] Comment: Interpretive Data Percent cell count reference ranges are not reported, since discordance with absolute values may lead to misinterpretation of CBC data. Current Interpretive Data was last revised on 2017. Imm gran pct 0.2 % [facility] Comment: Interpretive Data Percent cell count reference ranges are not reported, since discordance with absolute values may lead to misinterpretation of CBC data. Current Interpretive Data was last revised on 2017. Lymphocyte pct 32.6 % [facility] Comment: Interpretive Data Percent cell count reference ranges are not reported, since discordance with absolute values may lead to misinterpretation of CBC data. Current Interpretive Data was last revised on 2017. Monocyte pct 5.9 % [facility] Comment: Interpretive Data Percent cell count reference ranges are not reported, since discordance with absolute values may lead to misinterpretation of CBC data. Current Interpretive Data was last revised on 2017. Eosinophil pct 1.8 % [facility] Comment: Interpretive Data Percent cell count reference ranges are not reported, since discordance with absolute values may lead to misinterpretation of CBC data. Current Interpretive Data was last revised on 2017. Basophil pct 0.6 % [facility] Comment: Interpretive Data Percent cell count reference ranges are not reported, since discordance with absolute values may lead to misinterpretation of CBC data. Current Interpretive Data was last revised on 2017. Blood 06/23/2024 11:1 5 AM TEACHER THEATER ARTS 06/23/2024 11:31 AM TEACHER THEATER ARTS Haydee Harding SOCIAL SCIENCES PROFESSOR LAB BLOOD ORDERABLES Final Result [facility] [address] [facility] Department [place] [address] * (ABNORMAL) CBC with auto differential (06/23/2024 11:15 AM TEACHER THEATER ARTS) WBC 6.6 3.8 - 9.9 K/cumm Hgb 13.3 11.9 - 15.5 g/dL [facility] Hct 40.1 35.6 - 45.5 % [facility] Plt 260 150 - 400 K/cumm [facility] MPV 8.9(L) 9.1 - 12.3 fL [facility] RBC 4.57 3.90 - 5.20 M/cumm [facility] MCV 87.7 81.3 - 96.4 fL [facility] MCH 29.1 27.1 - 33.3 pg [facility] MCHC 33.2 32.3 - 35.7 g/dL [facility] RDW CV 12.5 11.1 - 14.9 % [facility] RDW SD 39.7 35.7 - 48.1 fL [facility] NRBC abs 0.00 0.00 - 0.01 K/cumm [facility] Blood 06/23/2024 11:1 5 AM TEACHER THEATER ARTS 06/23/2024 11:31 AM TEACHER THEATER ARTS Haydee Harding NP LAB BLOOD ORDERABLES Final Result Performing Organization Address [facility] de Phone Number [address] [address] * ABO/Rh (06/23/2024 11:15 AM TEACHER THEATER ARTS) ABO/Rh AB Positive Blood 06/23/2024 11:1 5 AM TEACHER THEATER ARTS 06/23/2024 11:30 AM TEACHER THEATER ARTS Narrative [facility] - 06/23/2024 12:14 PM TEACHER THEATER ARTS Is this test being ordered in advance for a procedure?->Yes Expected date of procedure:->06/02/24 Has the patient been transfused in the past 3 months?->No Has the patient been in the past 3 months?->No Haydee Harding NP LAB BLOOD BANK TEST ORDERA BLES Final Result Performing Organization Address [facility] de Phone Number [address] [address] * Antibody screen (06/23/2024 11:15 AM TEACHER THEATER ARTS) Tom, indirect, Gel Interpretation Negative ABSC Blood 06/23/2024 11:1 5 AM TEACHER THEATER ARTS 06/23/2024 11:30 AM TEACHER THEATER ARTS Narrative [facility] - 06/23/2024 12:14 PM TEACHER THEATER ARTS Is this test being ordered in advance for a procedure?->Yes Expected date of procedure:->1/15/25 Has the patient been transfused in the past 3 months?->No Has the patient been in the past 3 months?->No us Haydee Harding SOCIAL SCIENCES PROFESSOR LAB BLOOD BANK TEST ORDERA BLES Final Result [facility] [address] [facility] Department [place] [address] * (ABNORMAL) Comprehensive metabolic panel (06/23/2024 11:15 AM TEACHER THEATER ARTS) Sodium 138 135 - 145 mmol/L Potassium, pl 4.0 3.3 - 4.9 mmol/L [facility] Comment:Hemolyzed; Potassium value may be falsely elevated by as much as 1.0 mmol/L. Suggest redraw and reanalysis. Chloride 104 97 - 110 mmol/L [facility] CO2 26 22 - 32 mmol/L [facility] Anion gap 8 2 - 15 mmol/L [facility] BUN 14 6 - 25 mg/dL [facility] Creatinine 0.59(L) 0.60 - 1.10 mg/dL [facility] Glucose 76 70 - 199 mg/dL [facility] Comment: Interpretive Data Fasting glucose >/= 126 [...] 2022. Calcium 9.4 8.5 - 10.3 mg/dL [facility] Bilirubin, total 0.3 0.1 - 1.2 mg/dL [facility] Protein, pl 7.1 6.5 - 8.5 g/dL [facility] Albumin 4.2 3.5 - 5.0 g/dL [facility] Alk phos 77 40 - 130 Units/L [facility] ALT 5(L) 7 - 45 Units/L [facility] AST 20 10 - 45 Units/L [facility] Comment:Hemolyzed; result ma y be falsely elevated Blood 06/23/2024 11:1 5 AM TEACHER THEATER ARTS 06/23/2024 11:31 AM TEACHER THEATER ARTS Haydee Harding SOCIAL SCIENCES PROFESSOR LAB BLOOD ORDERABLES Final Result [facility] [address] [facility] Department [place] [address] from Last 3 Months Insurance [facility] Advance Directives For more information, please contact: [phone] * Full Code (Latest Code Status on File) Date Activated Date Inactivated Comments 06/30/2024 2:47 PM 07/02/2024 4:11 PM Care Teams Projects Manager Relationship Specialty Start Date End Date Shy Lafleur NP [address] [place] [address] PCP - General Family Medicine 02/23/24 Rober Villatoro MD [address] [facility] [address] [place] [address] Referring Physician Obstetrics and Gynecology 06/23/24 Jeyson Angelo MD [id number] [place] [address] Surgeon Thoracic Surgery 07/02/24
--- OUTSIDE RECORDS SUMMARY | 2024-09-11 16:47 | XMS_ITS | CONTINUITY OF CARE DOCUMENT ---
Author Name daquan markdior Address Unknown Organization [facility] Address [address] [facility] [address] [place] [address] Phone [phone] Care Team Providers Care Television Service Engineer Name Role Phone Mayelin CARDOSO, Chente Unavailable BOUCHRA CARDOSO RASHMIN Unavailable BOUCHRA CARDOSO RASHMIN Unavailable [phone] PROBLEMS Condition Status Date Provider Notes CHEST PAIN-06/30 NUC EF 59 active ? León Pearson RN OBESITY active ? Chente Dick MD SYNCOPE active ? Chente Dick MD DIZZINESS-06/30 ECHO EF 60 active ? León Pearson RN SLEEP APNEA active Chente Dick MD ENCOUNTERS Date Type Provider Location Encounter Diagnosis - In-person encounter Office Visit Chente Dick MD [facility] - In-person encounter Office Visit Chente Dick MD [facility] - In-person encounter Office Visit Chente Dick MD [facility] CHEST PAIN-06/30 NUC EF 59OBESITYSYNCOPEDI ZZINESS-06/30 ECHO EF 60SLEEP APNEA VITAL SIGNS Date Observation Value Provider blood pressure, diastolic 68 mm[Hg] Donnell Pearsno RN blood pressure, systolic 113 mm[Hg] León [...] Coverage type [place] [employer] alliance party ID [facility] Medicaid 0 [id number] TREATMENT PLAN Date Name Performer routine: B [...] Stress Echocardiogram, NEGATIVE for myocardial ischemia. - [facility] (07/25/2011) H CT: 38.7 (07/24/2011) Platelets: 231 (07/24/2011) C reat: 0.61 (07/24/2011) Na+: 139 (07/24/2011) K+: 3.7 (07/24/2011) O rders: E KG (CPT-96321) Chente Dick MD routine: B P today: [...] Stress Echocardiogram, NEGATIVE for myocardial ischemia. - [facility] (07/25/2011) Chente Dick MD routine: T [...] Stress Echocardiogram, NEGATIVE for myocardial ischemia. - [facility] (07/25/2011) Chente Dick MD follow up: O rders: E KG (CPT-09872) BP today: 120/80 Prior BP: 109/70 (07/02/2011) [...] () Orders: S tress Test - Adenosine (03307) C omplete Echo (CPT-58172) Chente Dick MD chest pain : O rders: S tress Test - Adenosine (80400) C omplete Echo (CPT-28445) S leep Study (*) Chente Dick MD chest pain : B P today: 109/70 Prior BP: / () Orders: S tress Test - Adenosine (35121) C omplete Echo (CPT-54131) Cehnte Dick MD Date Name Sleep Study Complete Echo Stress Test - Adenos ine HISTORY OF PROCEDURES Procedure Date Procedure Name Provider Procedure Notes S tatus EKG Chente Dick MD complete d EKG Chente Dick MD complete d
--- OUTSIDE RECORDS SUMMARY | 2024-09-11 16:47 | XMS_ITS | Encounter Summary ---
Author Organization [facility] Address [address] [place] [address] Care Team Providers Care Regional Geodetic Advisor Name Role Phone AgrawalYevgeniy OVERLAY OPERATOR-CRM MARKETING SPECIALIST Primary Care Provider Shy Lafleur OVERLAY OPERATOR-CRM MARKETING SPECIALIST Primary Care Provider + Encounter Details Date Type Department Care Team (Late st Contact Info) Description 02/19/2021 Telephone [facility] [address] [place] [address] Mariya Enciso MD [address] [place] [id number] Social History Tobacco Use Types Packs/Day Years [...] on file 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 Enciso to TEL or VID what ever is best. Please advise. Patient Call Back number: [phone] documented in this encounter Plan of Treatment Upcoming Encounters Date Type Department Care Team (Late st Contact Info) Description 03/14/2025 2:30 PM CDT Office Visit [facility] [address] [place] [address] Rober Villatoro MD [address] [facility] [address] [place] [address] documented as of this encounter Visit Diagnoses Not on filedocumented in this encounter Care Teams Regional Geodetic Advisor Relationship Specialty Start Date End Date Yevgeniy Agrawal APRN-NICOLAS [address] [place] [address] PCP - General 10/04/20 03/14/24 Shy Lafleur APRN-CRM MARKETING SPECIALIST [address] [address] PCP - General Family Medicine 03/15/24 documented as of this encounter
--- OUTSIDE RECORDS SUMMARY | 2024-09-11 16:47 | XMS_ITS | Continuity of Care Document ---
Author Organization [facility] Address [address] [place] [address] Phone Care Team Providers Care Calenderer Name Role Phone Bunch OD, Griffin Unavailable Unavailable Procedures Procedure Date Eye Exam & Treatment Refraction Advance Directives Directive Yes / No Effective Date File Name No Information Encounters Encounter Description Practice Location Reason(s) For Visit Diagnoses Date Provider Providers Copied on Encounter [facility], [address], [place], [place], [id number], [place] tel:[phone] [facility] No Information [phone] Bunch OD Griffin. [address] , [address], [place], [address], [place]. tel:[phone] Family History Family Member Type Diagnosis Age At Onset No Information Payers Payer name Insurance type Covered constitution party ID Authoriza tion(s) Medicaid [facility] [id number] Social History Type Description Quantity Date Captured [...]
--- OUTSIDE RECORDS SUMMARY | 2024-09-11 16:47 | XMS_ITS | Clinical Summary ---
Author Organization [facility] [place] [address] Address [address] [place] [address] Care Team Providers Care Revenue Analyst Name Role Phone Shy Lafleur NP Primary Care Provider [phone] Rober Villatoro MD Unavailable Jeyson Angelo MD Unavailable [phone] Allergies Active Allergy Reactions Criticality Noted [...] on 02/17/2023 which revealed the following: FINDINGS: Marketing Associate image is unremarkable. Limited evaluation of the [...] approach, but her BMI of 36.6 would in home tutor the way of excellent visualization for the [...] Abdominal pain 04/21/2023 Chest pain, unspecified 04/21/2023 [place] 04/21/2023 Depressive disorder 04/21/2023 Diarrhea 04/21/2023 Syncope [...] Type Department Care Team Description 07/27/2024 Telephone [facility] [address] [place] [address] [place] [phone] Haydee Harding, PARVIN 07/20/2024 Orders Only [facility] [address] [facility] 8th [place] [address] [place] [address] Haydee Harding, PARVIN Hiatal hernia (Primary Dx) 07/19/2024 2:45 PM BLACK AND WHITE PRINTER OPERATOR Office Visit [facility] [address] [facility] [address] [place] [address] Haydee Harding NP Post-operative state (Primary Dx) 07/19/2024 11:15 AM BLACK AND WHITE PRINTER OPERATOR - 07/19/2024 11:59 PM BLACK AND WHITE PRINTER OPERATOR Hospital Encounter [facility] MOB 1 DIAG IMG 1414 [place] [address] Achalasia Discharge Disposition: Discharge to home or self care 07/14/2024 Orders Only [facility] [address] [facility] 8th [place] [address] [place] [address] Haydee Harding, PARVIN Achalasia (Primary Dx) 07/06/2024 Orders Only [facility] [facility] [address] [place] [address] Haydee Harding, PARVIN 07/01/2024 Telephone [facility] Cardiothoracic Surgery [facility] [facility] 8th Floor [address] Room [address] [address] Albania Schmidt RMA 07/01/2024 Telephone [facility] [facility] [address] [place] [address] Amanda Rivera 06/30/2024 7:35 AM BLACK AND WHITE PRINTER OPERATOR - 06/30/2024 11:05 AM BLACK AND WHITE PRINTER OPERATOR Surgery [facility] [place] [address] [place] [address] Jeyson Angelo MD ROBOTIC ASSISTED LAPAROSCOPIC HELLER MYOTOMY WITH RESECTION OF AN ESOPHAGEAL DIVERTICULUM 06/30/2024 7:29 AM BLACK AND WHITE PRINTER OPERATOR Anesthesia Event [facility] [place] [address] [place] [address] Gino Roe MD Taylor-White, Carlotta A., NP 06/30/2024 6:20 AM BLACK AND WHITE PRINTER OPERATOR - 07/02/2024 12:11 PM BLACK AND WHITE PRINTER OPERATOR Hospital Encounter [facility] [id number] [place] [address] Jeyson Angelo MD Achalasia Discharge Disposition: Discharge to home or self care 06/23/2024 11:00 AM BLACK AND WHITE PRINTER OPERATOR Pre-Admission Testing [facility] PreAdmission Testing [address] [place] [address] Pre-op exam 06/14/2024 Orders Only [facility] PreAdmission Testing [address] [place] [address] Lilian Lafleur RN from Last 3 Months [...] drink = 0.6 oz pur e alcohol) [facility] Utilities Answer Date Recorded In the past [...] often do you attend chur ch or adventism services? 1 to 4 times per year 07/01/2024 Do you belong to any clubs o r organizations such as rastafari groups, unions, fraternal or athletic groups, or [...] any time in the past [address] [place], were you homeless or living in a intermediate (including now)? No 07/01/2024 Personal Safety Answer Date Recorded Have you ever been in or are you currently in a harmful physical or emotional relationship or is someone making you feel afraid or unsafe? Denies 06/30/2024 Comments No Sex and Gender Information Value Date Recorded Sex Assigned at Not on file Legal Sex Female 4:05 AM BLACK AND WHITE PRINTER OPERATOR Gender Identity Not on file Sexual Orientation Not on file Obstetrics History Last Filed Vital Signs Vital Sign Reading Time Taken Comments Blood Pressure 101/70 07/19/2024 2:18 PM BLACK AND WHITE PRINTER OPERATOR Pulse 66 07/19/2024 2:16 PM BLACK AND WHITE PRINTER OPERATOR Temperature 36.5 C (97.7 F) 07/19/2024 2:16 PM BLACK AND WHITE PRINTER OPERATOR Respiratory Rate 16 07/19/2024 2:16 PM BLACK AND WHITE PRINTER OPERATOR Oxygen Saturation 95% 07/19/2024 2:16 PM BLACK AND WHITE PRINTER OPERATOR Inhaled Oxygen Concentration - - Weight 74.4 kg (164 lb) 07/19/2024 2:16 PM BLACK AND WHITE PRINTER OPERATOR n o shoes Height 152.4 cm (5') 07/19/2024 2:16 PM BLACK AND WHITE PRINTER OPERATOR no s hoes Body Mass Index 32.03 07/19/2024 2:16 PM BLACK AND WHITE PRINTER OPERATOR Plan of Treatment Health Maintenance Due Date [...] this topic Medical Devices Implanted Type Area Tray Filler Device Identifier Shelf Expiration Date Model / Serial / Lot Wire-Inner Part Of Right Ankle-Plate And 7 Screws Right: Ankle Procedures Procedure Name Priority Date/Time Associated Diagnosis Comments XR CHEST PA LATERAL 2 VIEWS Schedule Routine, Read Routine (OP Routine) 07/19/2024 1:51 PM BLACK AND WHITE PRINTER OPERATOR Ach[place] EGFR Routine 07/02/2024 3:56 AM BLACK AND WHITE PRINTER OPERATOR BASIC METABOLIC PANEL Routine 07/02/2024 3:56 AM BLACK AND WHITE PRINTER OPERATOR CBC WITHOUT DIFFERENTIAL Routine 025 3:56 AM BLACK AND WHITE PRINTER OPERATOR ECG 12-LEAD STAT 07/01/2024 3:27 PM BLACK AND WHITE PRINTER OPERATOR FL ESOPHAGRAM, SINGLE CONTRAST IP Routine 0 07/01/2024 10:37 AM BLACK AND WHITE PRINTER OPERATOR EGFR Routine 07/01/2024 2:37 AM BLACK AND WHITE PRINTER OPERATOR BASIC METABOLIC PANEL Routine 07/01/2024 2:37 AM BLACK AND WHITE PRINTER OPERATOR CBC WITHOUT DIFFERENTIAL Routine 025 2:37 AM BLACK AND WHITE PRINTER OPERATOR PHOSPHORUS Routine 06/30/2024 4:43 PM BLACK AND WHITE PRINTER OPERATOR MAGNESIUM Routine 06/30/2024 4:43 PM BLACK AND WHITE PRINTER OPERATOR SURGICAL PATHOLOGY Routine 06/30/2024 9:41 AM BLACK AND WHITE PRINTER OPERATOR Achalasia DC AN PROCEDURE PLACEHOLDER Routine 06/19 7:52 AM BLACK AND WHITE PRINTER OPERATOR DC AN ELECTIVE ENDOTRACHEAL AIRWAY Routine 06/30/2024 7:52 AM BLACK AND WHITE PRINTER OPERATOR ESOPHAGOGASTRODUODENOSCOPY 06/30 7:30 AM BLACK AND WHITE PRINTER OPERATOR Achalasia XI MYOTOMY - LAPAROSCOPIC ROBOTIC ASSISTED - HELLER 06/30/2024 7:30 AM BLACK AND WHITE PRINTER OPERATOR Achalasia B ABO / RH CONFIRMATION TESTING Routine 06/30/2024 6:43 AM BLACK AND WHITE PRINTER OPERATOR EGFR Routine 06/23/2024 11:15 AM BLACK AND WHITE PRINTER OPERATOR Pre-op exam DIFFERENTIAL AUTO Routine 06/23/2024 11:15 AM BLACK AND WHITE PRINTER OPERATOR Pre-op exam ANTIBODY SCREEN Routine 06/23/2024 11:15 AM BLACK AND WHITE PRINTER OPERATOR Pre-op exam ABO/RH Routine 06/23/2024 11:15 AM BLACK AND WHITE PRINTER OPERATOR Pre-op exam COMPREHENSIVE METABOLIC PANEL Routine 11:15 AM BLACK AND WHITE PRINTER OPERATOR Pre-op exam CBC WITH AUTO DIFFERENTIAL Routine 06/23 11:15 AM BLACK AND WHITE PRINTER OPERATOR Pre-op exam TYPE AND SCREEN 14 DAY Routine 11:15 AM BLACK AND WHITE PRINTER OPERATOR Pre-op exam from Last 3 Months Results * XR Chest Pa Lateral 2 Views (07/19/2024 1:51 PM BLACK AND WHITE PRINTER OPERATOR) Anatomical Region Laterality Modality Body, Chest N/A Computed Radiogr aphy 07/22/2024 7:21 AM BLACK AND WHITE PRINTER OPERATOR Narrative 07/22/2024 7:23 AM BLACK AND WHITE PRINTER OPERATOR EXAM DESCRIPTION: XR CHEST PA LATERAL 2 [...] Thomas Mckeon M.D. RB: RB Report ID: [id number] Reading Location: [id number] Procedure Note Thomas Mckeon MD - 07/22/2024 [...] Thomas Mckeon M.D. RB: TORI Report ID: [id number] Reading Location: [place] [address] us Haydee Harding METAL BURRER IMG XR PROCEDURES Final Re sult * eGFR (07/02/2024 3:56 AM BLACK AND WHITE PRINTER OPERATOR) eGFR >90 >=60 mL/min/1. 73 m2 Comment: [...] last reviewed 2021. Blood 07/02/2024 3:56 AM BLACK AND WHITE PRINTER OPERATOR 07/02/2024 4:37 AM BLACK AND WHITE PRINTER OPERATOR [facility] [place] LAB BLOOD ORDERABLES Yeny l Result Performing Organization Address [facility] Co de Phone Number [facility] [address] [place] [address] * (ABNORMAL) CBC without differential (07/02/2024 3:56 AM BLACK AND WHITE PRINTER OPERATOR) WBC 14.5(H) 3.8 - 9.9 K/cumm Hgb 10.5(L) 11.9 - 15.5 g/dL [facility] Hct 31.7(L) 35.6 - 45.5 % [facility] Plt 184 150 - 400 K/cumm [facility] MPV 10.0 9.1 - 12.3 fL [facility] RBC 3.56(L) 3.90 - 5.20 M/cumm [facility] MCV 89.0 81.3 - 96.4 fL [facility] MCH 29.5 27.1 - 33.3 pg [facility] MCHC 33.1 32.3 - 35.7 g/dL [facility] RDW CV 12.6 11.1 - 14.9 % [facility] RDW SD 40.9 35.7 - 48.1 fL [facility] NRBC abs 0.00 0.00 - 0.01 K/cumm [facility] Blood 07/02/2024 3:56 AM BLACK AND WHITE PRINTER OPERATOR 07/02/2024 4:37 AM BLACK AND WHITE PRINTER OPERATOR [facility] [place] LAB BLOOD ORDERABLES Yeny l Result Performing Organization Address [facility] [address]/ZIP Co de Phone Number [facility] [address] [place] [address] * Basic metabolic panel (07/02/2024 3:56 AM BLACK AND WHITE PRINTER OPERATOR) [facility] Sodium 138 135 - 145 mmol/L Potassium, pl 3.6 3.3 - 4.9 mmol/L [facility] Chloride 105 97 - 110 mmol/L [facility] CO2 26 22 - 32 mmol/L [facility] Anion gap 7 2 - 15 mmol/L [facility] BUN 13 6 - 25 mg/dL [facility] Creatinine 0.61 0.60 - 1.10 mg/dL [facility] Glucose 103 70 - 199 mg/dL [facility] Comment: Interpretive Data Fasting glucose >/= [...] 2022. Calcium 8.8 8.5 - 10.3 mg/dL [facility] Blood 07/02/2024 3:56 AM BLACK AND WHITE PRINTER OPERATOR 07/02/2024 4:37 AM BLACK AND WHITE PRINTER OPERATOR us Macariochris [place] LAB BLOOD ORDERABLES Yeny tellez Result [facility] [address] [facility] Department [place] [address] * ECG 12 lead (07/01/2024 3:27 PM BLACK AND WHITE PRINTER OPERATOR) [facility] Ventricular Rate EKG/Min 112 BPM [facility] Atrial Rate 112 BPM [facility] DC-Interval (MSEC) 146 ms [facility] QRS-Interval (MSEC) 88 ms [facility] QT-Interval (MSEC) 322 ms [facility] QTc 439 ms [facility] P Lloyd 35 degrees [facility] R Lloyd -16 degrees [facility] T Lloyd 18 degrees [facility] Diagnosis Sinus tachycardia When compared with ECG of 24-JUL-2011 20:27, No significant change Confirmed by OSVALDO DO M.D. ([id number]) on 07/02/2024 8:37:38 PM [facility] 07/01/2024 3:27 PM BLACK AND WHITE PRINTER OPERATOR 07/02/2024 8:37 PM BLACK AND WHITE PRINTER OPERATOR Eyad [place] ECG ORDERABLES Final R esult [facility] * FL Esophagram, Single Contrast (07/01/2024 10:37 AM BLACK AND WHITE PRINTER OPERATOR) Anatomical Region Laterality Modality Body N/A Computed Radiogr aphy, Computed Radiography 07/01/2024 10:4 4 AM BLACK AND WHITE PRINTER OPERATOR Narrative 07/01/2024 10:49 AM BLACK AND WHITE PRINTER OPERATOR EXAM DESCRIPTION: FL ESOPHAGRAM BARIUM SWALLOW TO STOMACH, SINGLE CONTRAST REASON FOR STUDY: Post esophageal diverticulum resection yesterday. Evaluate for leak. COMPARISON: Esophagram 02/17/2023 RADIATION DOSE: Dose: 238.6 mGy Reference Air Kerma (Ka,r) TECHNIQUE: Under fluoroscopic guidance, patient ingested water soluble contrast . FINDINGS: Initial sql server consultant images show mild blunting of the left [...] Minor Siddiqui M.D. LB T: Report ID: [id number] Reading Location: [id number] Procedure Note Minor Siddiqui MD - 07/01/2024 EXAM DESCRIPTION: FL ESOPHAGRAM BARIUM SWALLOW TO STOMACH, SINGLECONTRAST REASON FOR STUDY: Post esophageal diverticulum resection yesterday. Evaluate for leak. COMPARISON: Esophagram 02/17/2023 RADIATION DOSE: Dose: 238.6 mGy Reference Air Kerma (Ka,r) TECHNIQUE: Under fluoroscopic guidance, patient ingested water soluble contrast . FINDINGS: Initial sql server consultant images show mild blunting of the left [...] by Minor Siddiqui M.D. T: Report ID: [id number] Reading Location: [place] [address] Macario Connor [place] IM FLUOROSCOPY PROCEDURE S Final Result * eGFR (07/01/2024 2:37 AM BLACK AND WHITE PRINTER OPERATOR) eGFR >90 >=60 mL/min/1. 73 m2 Comment: [...] last reviewed 2021. Blood 07/01/2024 2:37 AM BLACK AND WHITE PRINTER OPERATOR 07/01/2024 3:24 AM BLACK AND WHITE PRINTER OPERATOR Macario [place] LAB BLOOD ORDERABLES Yeny l Result Performing Organization Address City/[facility]/ZIP Co de Phone Number [facility] [address] [place] [address] * (ABNORMAL) CBC without differential (07/01/2024 2:37 AM BLACK AND WHITE PRINTER OPERATOR) WBC 16.8(H) 3.8 - 9.9 K/cumm Hgb 12.0 11.9 - 15.5 g/dL [facility] Hct 37.0 35.6 - 45.5 % [facility] Plt 214 150 - 400 K/cumm [facility] MPV 9.5 9.1 - 12.3 fL [facility] RBC 4.05 3.90 - 5.20 M/cumm [facility] MCV 91.4 81.3 - 96.4 fL [facility] MCH 29.6 27.1 - 33.3 pg [facility] MCHC 32.4 32.3 - 35.7 g/dL [facility] RDW CV 12.7 11.1 - 14.9 % [facility] RDW SD 41.6 35.7 - 48.1 fL [facility] NRBC abs 0.00 0.00 - 0.01 K/cumm [facility] Blood 07/01/2024 2:37 AM BLACK AND WHITE PRINTER OPERATOR 07/01/2024 3:24 AM BLACK AND WHITE PRINTER OPERATOR Macario [place] LAB BLOOD ORDERABLES Yeny l Result Performing Organization Address [facility] [address]/ZIP Co de Phone Number [facility] [address] [address] * Basic metabolic panel (07/01/2024 2:37 AM BLACK AND WHITE PRINTER OPERATOR) Sodium 139 135 - 145 mmol/L Potassium, pl 4.5 3.3 - 4.9 mmol/L [facility] Chloride 104 97 - 110 mmol/L [facility] CO2 28 22 - 32 mmol/L [facility] Anion gap 7 2 - 15 mmol/L [facility] BUN 19 6 - 25 mg/dL [facility] Creatinine 0.72 0.60 - 1.10 mg/dL [facility] Glucose 123 70 - 199 mg/dL [facility] Comment: Interpretive Data Fasting glucose >/= [...] 2022. Calcium 9.2 8.5 - 10.3 mg/dL [facility] Blood 07/01/2024 2:37 AM BLACK AND WHITE PRINTER OPERATOR 07/01/2024 3:24 AM BLACK AND WHITE PRINTER OPERATOR [facility] [place] LAB BLOOD ORDERABLES Yeny l Result Performing Organization Address [facility] [address]/[facility] Co de Phone Number [address] [place] [address] * Phosphorus (06/30/2024 4:43 PM BLACK AND WHITE PRINTER OPERATOR) [facility] Phosphorus, pl 3.7 2.3 - 4.5 mg/dL Blood 06/30/2024 4:43 PM BLACK AND WHITE PRINTER OPERATOR 06/30/2024 5:08 PM BLACK AND WHITE PRINTER OPERATOR [facility] Connor Rivera [place] LAB BLOOD ORDERABLES Yeny l Result Performing Organization Address [facility] [address] [facility] Co de Phone Number [address] [address] * Magnesium (06/30/2024 4:43 PM BLACK AND WHITE PRINTER OPERATOR) [facility] Magnesium 1.5 1.4 - 2.5 mg/dL Blood 06/30/2024 4:43 PM BLACK AND WHITE PRINTER OPERATOR 06/30/2024 5:08 PM BLACK AND WHITE PRINTER OPERATOR us Macario [place] LAB BLOOD ORDERABLES Yeny rosalinda Result [facility] [address] Department [place] [address] * Surgical pathology (06/30/2024 9:41 AM BLACK AND WHITE PRINTER OPERATOR) Tissue specimen (specimen) (Diverticulum, esophageal, small bowel or bladder) 06/30/2024 9:41 AM BLACK AND WHITE PRINTER OPERATOR Narrative PATHOLOGY [facility] - 07/05/2024 1:53 PM BLACK AND WHITE PRINTER OPERATOR [facility] Department of Pathology [address] [place] [address] Note to Patients: This report may contain [...] : 1975 (Age: 49) Gender: F Address: [address] [place] [address] Hospital #: [id number] Service: Cardiothoracic Location: Patient Type: [facility] INPATIENT Taken: 06/30/2024 Received: 06/30/2024 Accessioned: [...] No polyps or masses are grossly identified. Pig Handler sections are submitted as follows: A1 Stapled resection margin, en face A2-A3 Full-thickness sections of esophagus Sebastian Martinez jjmhb/07/01/2024 09:51 YONG Schaeffer, NAN ([facility]) Microscopic slide review and interpretation for this case was performed at [facility], Department of Surgical Pathology, [address] [id number], [place] [address] CLIA # [id number] Jeyson Angelo MD LAB PATHOLOGY ORDERABLES Yeny tellez Result PATHOLOGY [facility] * DC AN ELECTIVE ENDOTRACHEAL AIRWAY, DC AN PROCEDURE PLACEHOLDER (06/30/2024 7:52 AM BLACK AND WHITE PRINTER OPERATOR) Narrative Shelley Munroe CRNA - 06/30/2024 7:52 AM BLACK AND WHITE PRINTER OPERATOR Shelley Munroe CRNA 06/30/2024 7:59 AM Airway Patient location: OR Urgency: elective Indications for airway management: anesthesia Difficult airway: no Staff: Placed by: Anesthesiologist: Gino Roe MD PHOTOGRAMMETRIC COMPILATION SPECIALIST: Shelley Munroe CRNA Emergent airway documentation: Risks [...] / Rh Confirmation Testing (06/30/2024 6:43 AM BLACK AND WHITE PRINTER OPERATOR) ABO/Rh Confirmation AB Positive [facility] Blood 06/30/2024 6:43 AM BLACK AND WHITE PRINTER OPERATOR 06/30/2024 6:58 AM BLACK AND WHITE PRINTER OPERATOR Jeyson Angelo MD LAB BLOOD ORDERABLES Final Re sult [facility] [address] [facility] Department [place] [address] [facility] * eGFR (06/23/2024 11:15 AM BLACK AND WHITE PRINTER OPERATOR) Pathologist [facility] eGFR >90 >=60 mL/min/1. 73 m2 Comment: [...] reviewed 2021. Blood 06/23/2024 11:1 5 AM BLACK AND WHITE PRINTER OPERATOR 06/23/2024 11:31 AM BLACK AND WHITE PRINTER OPERATOR Haydee Harding METAL BURRER LAB BLOOD ORDERABLES Final Result Performing Organization Address City/State/[facility] Co de Phone Number [facility] [address] [facility] Department [place] [address] * Differential, auto (06/23/2024 11:15 AM BLACK AND WHITE PRINTER OPERATOR) Pathologist [facility] Neutrophil abs 3.9 1.5 - 6.5 K/cumm Imm gran abs 0.0 0.0 - 0.1 K/cumm [facility] Lymphocyte abs 2.2 0.8 - 3.3 K/cumm [facility] Monocyte abs 0.4 0.2 - 0.8 K/cumm [facility] Eosinophil abs 0.1 0.0 - 0.5 K/cumm [facility] Basophil abs 0.0 0.0 - 0.1 K/cumm [facility] Neutrophil pct 58.9 % [facility] Comment: Interpretive Data Percent cell count reference ranges are not reported, since discordance with absolute values may lead to misinterpretation of CBC data. Current Interpretive Data was last revised on 2017. Imm gran pct 0.2 % [facility] Comment: Interpretive Data Percent cell count [...] revised on 2017. Monocyte pct 5.9 % [facility] Comment: Interpretive Data Percent cell count reference ranges are not reported, since discordance with absolute values may lead to misinterpretation of CBC data. Current Interpretive Data was last revised on 2017. Eosinophil pct 1.8 % [facility] Comment: Interpretive Data Percent cell count reference ranges are not reported, since discordance with absolute values may lead to misinterpretation of CBC data. Current Interpretive Data was last revised on 2017. Basophil pct 0.6 % [facility] Comment: Interpretive Data Percent cell count reference ranges are not reported, since discordance with absolute values may lead to misinterpretation of CBC data. Current Interpretive Data was last revised on 2017. Blood 06/23/2024 11:1 5 AM BLACK AND WHITE PRINTER OPERATOR 06/23/2024 11:31 AM BLACK AND WHITE PRINTER OPERATOR us Haydee Harding METAL BURRER LAB BLOOD ORDERABLES Final Result [place] [id number] [facility] Department [place] [address] * (ABNORMAL) CBC with auto differential (06/23/2024 11:15 AM BLACK AND WHITE PRINTER OPERATOR) WBC 6.6 3.8 - 9.9 K/cumm Hgb 13.3 11.9 - 15.5 g/dL [facility] Hct 40.1 35.6 - 45.5 % [facility] Plt 260 150 - 400 K/cumm [facility] MPV 8.9(L) 9.1 - 12.3 fL [facility] RBC 4.57 3.90 - 5.20 M/cumm [facility] MCV 87.7 81.3 - 96.4 fL [facility] MCH 29.1 27.1 - 33.3 pg [facility] MCHC 33.2 32.3 - 35.7 g/dL [facility] RDW CV 12.5 11.1 - 14.9 % [facility] RDW SD 39.7 35.7 - 48.1 fL [facility] NRBC abs 0.00 0.00 - 0.01 K/cumm [facility] Blood 06/23/2024 11:1 5 AM BLACK AND WHITE PRINTER OPERATOR 06/23/2024 11:31 AM BLACK AND WHITE PRINTER OPERATOR us Haydee Harding NP LAB BLOOD ORDERABLES Final Result Performing Organization Address [facility] de Phone Number [address] [address] * ABO/Rh (06/23/2024 11:15 AM BLACK AND WHITE PRINTER OPERATOR) ABO/Rh AB Positive Blood 06/23/2024 11:1 5 AM BLACK AND WHITE PRINTER OPERATOR 06/23/2024 11:30 AM BLACK AND WHITE PRINTER OPERATOR Narrative [facility] - 06/23/2024 12:14 PM BLACK AND WHITE PRINTER OPERATOR Is this test being ordered in advance for a procedure?->Yes Expected date of procedure:->06/02/24 Has the patient been transfused in the past 3 months?->No Has the patient been in the past 3 months?->No us Haydee Harding NP LAB BLOOD BANK TEST ORDERA BLES Final Result Performing Organization Address [facility] de Phone Number [address] [address] * Antibody screen (06/23/2024 11:15 AM BLACK AND WHITE PRINTER OPERATOR) Tom, indirect, Gel Interpretation Negative ABSC Blood 06/23/2024 11:1 5 AM BLACK AND WHITE PRINTER OPERATOR 06/23/2024 11:30 AM BLACK AND WHITE PRINTER OPERATOR Narrative [facility] - 06/23/2024 12:14 PM BLACK AND WHITE PRINTER OPERATOR Is this test being ordered in advance for a procedure?->Yes Expected date of procedure:->06/02/24 Has the patient been transfused in the past 3 months?->No Has the patient been in the past 3 months?->No us Haydee D. Versluys METAL BURRER LAB BLOOD BANK TEST ORDERA BLES Final Result [facility] [address] [facility] Department [place] [address] * (ABNORMAL) Comprehensive metabolic panel (06/23/2024 11:15 AM BLACK AND WHITE PRINTER OPERATOR) Sodium 138 135 - 145 mmol/L Potassium, pl 4.0 3.3 - 4.9 mmol/L [facility] Comment:Hemolyzed; Potassium value may be falsely elevated by as much as 1.0 mmol/L. Suggest redraw and reanalysis. Chloride 104 97 - 110 mmol/L [facility] CO2 26 22 - 32 mmol/L [facility] Anion gap 8 2 - 15 mmol/L [facility] BUN 14 6 - 25 mg/dL [facility] Creatinine 0.59(L) 0.60 - 1.10 mg/dL [facility] Glucose 76 70 - 199 mg/dL [facility] Comment: Interpretive Data Fasting glucose >/= [...] 2022. Calcium 9.4 8.5 - 10.3 mg/dL [facility] Bilirubin, total 0.3 0.1 - 1.2 mg/dL [facility] Protein, pl 7.1 6.5 - 8.5 g/dL [facility] Albumin 4.2 3.5 - 5.0 g/dL [facility] Alk phos 77 40 - 130 Units/L [facility] ALT 5(L) 7 - 45 Units/L [facility] AST 20 10 - 45 Units/L [facility] Comment:Hemolyzed; result ma y be falsely elevated Blood 06/23/2024 11:1 5 AM BLACK AND WHITE PRINTER OPERATOR 06/23/2024 11:31 AM BLACK AND WHITE PRINTER OPERATOR Haydee Harding [facility] BLOOD ORDERABLES Final Result Performing Organization Address City/State/[facility] Phone Number [facility] [address] [facility] [place] [address] from Last 3 Months Insurance IDMO [facility] Advance Directives For more information, please contact: [phone] * Full Code (Latest Code Status on File) Date Activated Date Inactivated Comments 06/30/2024 2:47 PM 07/02/2024 4:11 PM Care Teams Revenue Analyst Relationship Specialty Start Date End Date Shy Lafleur NP [address] [place] [address] PCP - General Family Medicine 02/23/24 Rober Villatoro MD [address] [facility] [address] [place] [address] Referring Physician Obstetrics and Gynecology 06/23/24 Jeyson Angelo MD [id number] [place] [address] Surgeon Thoracic Surgery 07/02/24
--- OUTSIDE RECORDS SUMMARY | 2024-09-11 16:47 | XMS_ITS | Encounter Summary ---
Author Organization [facility] Health Address [address] [place] [address] Care Team Providers Care Emergency Medicine Medical Director Name Role Phone Unknown, Provider Primary Care Provider Geri Alatorre MD Primary Care Provider [phone] Yevgeniy Agrawal CERTIFIED REGISTERED NURSE [facility] Primary Care Provider Shy Lafleur CERTIFIED REGISTERED NURSE [facility] Primary Care Provider + Reason for Visit * Reason Onset Date Comments Results 09/29/2019 Encounter Details Date Type Department Care Team (Late st Contact Info) Description 09/29/2019 Telephone [facility] [address] [place], [place] [id number] [place] [address] [place] [address] [address] [place], [place] [id number] Results Social History Tobacco Use Types Packs/Day Years Used Date Smoking Tobacco: Every Day Smokeless Tobacco: Never Alcohol Use Standard Drinks/Week Comments No 0 (1 standard drink = 0.6 oz pur e alcohol) Comments No Sex and Gender Information Value Date Recorded Sex Assigned at Not on file Legal Sex Female 6:16 AM CASE MANAGEMENT ASSISTANT Gender Identity Not on file Sexual Orientation [...] Description 03/14/2025 2:30 PM CDT Office Visit [facility] - FANCY NEEDLEWORKER [address] [facility] [address] [place] [address] Rober Villatoro MD [address] [facility] [address] [place] [address] documented as of this encounter Visit Diagnoses Not on filedocumented in this encounter Care Teams Emergency Medicine Medical Director Relationship Specialty Start Date End Date Unknown, Provider PCP - General 10/09/17 04/26/20 Geri Garcia MD [address] [place] [address] PCP - General 04/27/20 10/03/20 Yevgeniy Agrawal APRN-MANAGER WATER [address] [place] [address] PCP - General 10/04/20 03/14/24 Shy Lafleur APRN-MANAGER WATER [address] [place] [address] PCP - General Family Medicine 03/15/24 documented as of this encounter
--- OUTSIDE RECORDS SUMMARY | 2024-09-11 16:48 | XMS_ITS | Encounter Summary ---
Author Organization [facility] Health Address [address] [place] [address] Care Team Providers Care Skidder Runner Name Role Phone AgrawalYevgeniy CARPENTRY TEACHER-ALLIANCE MANAGER Primary Care Provider Shy Lafleur CARPENTRY TEACHER-ALLIANCE MANAGER Primary Care Provider + Reason for Visit * Reason Onset Date Comments Reschedule Appointment 01/31/2022 Encounter Details Date Type Department Care Team (Late st Contact Info) Description 01/31/2022 Telephone [facility] [address] [place], [place] [id number] Rober Villatoro MD [address] [facility] [address] [place], [place] [phone] Reschedule Appointment Social History Tobacco Use Types [...] on file Legal Sex Female 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 Author Mobility General No Dena Hartmann, RN Note: Expected end date: 08/16/2021 The goal is to maintain or improve your mobility at the optimum level for you. Interventions: documented as of this encounter Visit Diagnoses Not on filedocumented in this encounter Care Teams Skidder Runner Relationship Specialty Start Date End Date Yevgeniy Agrawal, CARPENTRY TEACHER-ALLIANCE MANAGER [address] [place] [phone] PCP - General 10/04/20 03/14/24 Shy Lafleur CARPENTRY TEACHER-ALLIANCE MANAGER [address] [place] [id number] PCP - General Family Medicine 03/15/24 documented as of this encounter
[2024-09-11 17:01] LABS: Basophils Percent Auto 0.4 % (0.2-1.2); Eosinophils Absolute Auto 0.1 K/mm3 (0-0.3); Eosinophils Percent Auto 0.8 % (0-4.4); Hematocrit 37.1 % (37.0-47.0); Hemoglobin 11.8 g/dL (12.0-15.0); Immature Granulocyte Absolute 0.02 K/mm3 (0.00-0.031); Immature Granulocyte Percent A 0.3 % (0-0.5); Lymphocytes Absolute Auto 3.18 K/mm3 (0.9-3.2); Lymphocytes Percent Auto 40.3 % (18.3-44.2); Mean Corpuscular HGB Conc 31.8 g/dl (32-36); Mean Corpuscular Volume 87.9 fl (80-100); Mean Platelet Volume 9.3 fl (7.4-10.4); Monocytes Absolute Auto 0.5 K/mm3 (0.1-0.6); Monocytes Percent Auto 6.6 % (2.6-8.5); Neutrophils Absolute Auto 4.1 K/mm3 (1.3-6.7); Neutrophils Percent Auto 51.6 % (45.5-73.1); Platelet Count Result 282 k/mm3 (150-375); Red Blood Count 4.22 M/mm3 (4.2-5.4); White Blood Count 7.9 K/mm3 (4.5-10.0)
[2024-09-11 17:15] LABS: Alanine Aminotransferase 14 U/L (6-35); Albumin Level 4.2 g/dL (3.5-5.1); Alkaline Phosphatase 69 U/L (38-126); Anion Gap 7 mmol/L (4-12); Aspartate Amino Transferase 21 U/L (14-36); Bilirubin,Total 0.6 mg/dL (0.2-1.3); Blood Urea Nitrogen 10 mg/dL (7-17); Carbon Dioxide 31 mmol/L (22-30); Chloride 102 mmol/L (98-107); Estimated CRCL calculation 82 ml/min; Estimated Glomerular Filt Rate > 60; Glucose 104 mg/dL (65-110); Lipase 60 U/L (23-300); Potassium 3.4 mmol/L (3.4-5.0); Sodium 140 mmol/L (137-145)
[2024-09-11] MEDS: SODIUM CHLORIDE 0.9% IV 1,000 ML 999 ML IV CONT (17:52)
[2024-09-11 20:25] VITALS: BP 106/74; PULSE 72; RESP 166; O2SAT 98
== END 2024-09-11 20:23 | disposition home or self-care (01) ==
PROVIDERS: Emergency Provider Registered Nurse; PCP Nurse Practitioner Family
DX: R10.32 Left lower quadrant pain (principal); E66.9 Obesity, unspecified; Z68.30 Body mass index [BMI] 30.0-30.9, adult; M19.90 Unspecified osteoarthritis, unspecified site; K90.0 Celiac disease; K21.00 Gastro-esophageal reflux disease with esophagitis, without bleeding; K44.9 Diaphragmatic hernia without obstruction or gangrene; K58.9 Irritable bowel syndrome, unspecified; F41.9 Anxiety disorder, unspecified; F32.A Depression, unspecified; F17.210 Nicotine dependence, cigarettes, uncomplicated; Z86.16 Personal history of COVID-19; Z85.44 Personal history of malignant neoplasm of other female genital organs; Z79.899 Other long term (current) drug therapy
CPT/HCPCS: 36415; 74177; 80053; 81003; 83690; 85025; 96360; 99284; J7030; Q9967

== ENCOUNTER 2024-09-28 14:13 | Emergency (ER) | payer OTHER, SELFPAY ==
[2024-09-28 14:26] VITALS: BP 114/78; PULSE 96; RESP 20; TEMP 36.6; O2SAT 99
[2024-09-28 14:48] LABS: EDSTREPNEGPOS1 Negative (Negative)
--- NOTE | 2024-09-28 14:55 | ED.URI ---
HPI - URI/Sore Throat General Chief Complaint: Upper Respiratory Infection Stated Complaint: sore throat Time Seen by Provider: 09/28/24 14:56 History of Present Illness HPI Narrative: 49-year-old female presented for complaint of cough, sore throat, and nasal congestion and drainage. Onset 6 days. Taking DayQuil and NyQuil for symptoms. Patient tested negative for COVID and flu at home 3 days ago. Endorses a history of strep throat and says this feels similar. Denies shortness of breath, wheezing nausea vomiting, diarrhea, fevers or lethargy. Related Data Home Medications ?Medication ?Instructions ?Recorded ?Confirmed ?Last Taken ?Type cetirizine 10 mg tablet (Zyrtec) 10 mg PO DAILY 11/12/20 08/21/23 Unknown History bupropion HCl 100 mg tablet,12 hr 100 mg PO BID 03/06/22 08/21/23 10/09/22 06:50 History sustained-release celecoxib 200 mg capsule 200 mg PO DAILY 03/06/22 08/21/23 Unknown History naltrexone 50 mg tablet 50 mg PO HS 03/06/22 08/21/23 Unknown History pantoprazole 40 mg tablet,delayed 40 mg PO DIRECTED 05/29/22 08/21/23 Unknown History release Lactobacillus 1 cap PO DAILY 10/02/22 08/21/23 Unknown History acidophilus-Bifidobac.animalis 2.5 billion cell capsule (Daily Probiotic) cyanocobalamin (vitamin B-12) 1,000 mcg PO DAILY 10/02/22 08/21/23 Unknown History 1,000 mcg tablet Allergies Allergy/AdvReac Type Severity Reaction Status Date / Time latex Allergy Severe Rash Verified 09/28/24 14:23 codeine Allergy Intermediate Nausea and Verified 09/28/24 14:23 Vomiting hydrocodone AdvReac Intermediate MAKES HER Verified 09/28/24 14:23 LOOPY AND SHAKEY aspirin AdvReac Mild Other Verified 09/28/24 14:23 phentermine AdvReac Unknown Unknown Verified 09/28/24 14:23 topiramate AdvReac Unknown Unknown Verified 09/28/24 14:23 Review of Systems Review of Systems: CONSTITUTIONAL: Denies body aches, fever, chills, or sweats. EYES: Denies visual changes, redness, or discharge. ENT: reports sore throat rhinorrhea, congestion, or denies otalgia. CARDIOVASCULAR: Denies chest pain, palpitations, or edema. RESPIRATORY: Denies dyspnea. GASTROINTESTINAL: Denies abdominal pain, nausea, vomiting, or diarrhea. SKIN: Denies rash NEUROLOGIC: Denies headache [facility] Past Medical History Medical History Obesity PMDD (premenstrual dysphoric disorder) Depression Anxiety Arthritis Vulvar cancer HSV-1 (herpes simplex virus 1) infection Hiatal hernia with GERD and esophagitis Celiac disease IBS (irritable bowel syndrome) Migraine Surgical History Surgical History History of orthopedic surgery Right ankle, hardware from a trampoline accident History of bladder surgery Ablation 2011 H/O tubal ligation Family History Family History Grandparent Family history of cardiac disorder Father Family history of heart disease in male family member before age 55 Other Hypertension Social History Social History Smoking packs per day: 0.25 Smoking cigarettes per day: 5.0 Years smoked: 30 Smoking pack-years: 7.50 Smoking status: Current some day smoker Tobacco type: cigarettes Additional smoking assessment comments: HAS BEEN CUTING BACK RECENTLY Alcohol intake: never Substance use: never Substance use type: does not use Living arrangements: with family Gender identity (if verbalized by the patient): Female Spiritual care concerns: No Exam Narrative: GENERAL: well-appearing, no acute distress. EYES: conjunctivae clear ENT: Mucous membranes moist. nasal congestion. TM pearly patel with normal light reflex bilaterally; no tragal tenderness. Oropharynx erythematous without lesions. Tonsils enlarged 1+ and without exudate. No drooling, no hoarseness, no trismus, uvula midline. No tripod positioning, hot potato voice, or soft palate swelling. NECK: Supple. No lymphadenopathy CHEST: Clear to auscultation, breath sounds equal. No respiratory distress, speaks in full sentences. HEART: Regular rate and rhythm. No murmur heard. SKIN: Warm, dry, no rash. NEURO: Alert and oriented x3. Course Course Emergency Course: Patient is aware of diagnosis, understands and agrees to treatment plan. Anticipatory guidance given. Patient agrees to follow-up as directed and is aware of reasons to seek care at the emergency department. Portions of this record may have been created with voice recognition software Level of Care: Express Care Visit Vital Signs Vital signs: Vital Signs Temperature 97.9 F 09/28/24 14:26 Pulse Rate 96 09/28/24 14:26 Respiratory Rate 20 09/28/24 14:26 Blood Pressure 114/78 09/28/24 14:26 Pulse Oximetry 99 09/28/24 14:26 Oxygen Delivery Room Air 09/28/24 14:26 Temperature 97.9 F 09/28/24 14:26 Pulse Rate 96 09/28/24 14:26 Respiratory Rate 20 09/28/24 14:26 Blood Pressure 114/78 09/28/24 14:26 Pulse Oximetry 99 09/28/24 14:26 Oxygen Delivery Room Air 09/28/24 14:26 MDM - URI/Sore Throat MDM Narrative Medical decision making narrative: neg strep result reviewed with pt. Advise supportive treatments. Patient is appropriate for outpatient treatment and follow-up. Differential Diagnosis Differential diagnosis: Likely upper respiratory infection, viral infection and pharyngitis Lab Data Labs: Lab Results 09/28/24 Range/Units 14:22 POC Grp A Strep Screen Negative (Negative) Discharge Plan Discharge Clinical Impression: Upper respiratory infection Patient Disposition: Home Condition: Stable Instructions: Antibiotic Form, Upper Respiratory Infection (ED) Additional Instructions: Rapid strep swab was negative today You will be notified in a few days if the culture comes back positive for strep, and appropriate antibiotics will be called in at that time. if symptoms are due to a viral illness, it is not treated with antibiotics. Viral symptoms can be present for up to 10-14 days. Recommendations: Flonase spray and continue Zyrtec for sinus congestion Cough syrup may cause drowsiness; avoid driving or take it at night time. Tylenol every 8 hours as needed for pain/fever Soft foods, cool liquids, warm tea. Gargle with warm saltwater twice a day. Chloraseptic spray and throat lozenges. Rest and stay hydrated. --Follow up with your PCP --Go to the ER immediately if you cannot swallow your saliva, trouble breathing/wheezing, throat swelling, pain is persistent and severe Patient Language: Egyptian Prescriptions: No Action pantoprazole 40 mg tablet,delayed release (DR/EC) 40 mg PO DIRECTED lidocaine [Lidoderm] 5 % adhesive patch,medicated 1 patch topical DAILY Qty: 15 0RF Rx Instructions: leave on most painful area for up to 12 hrs baclofen 10 mg tablet 10 mg PO TID PRN (Reason: muscle pain) Qty: 10 0RF cetirizine [Zyrtec] 10 mg tablet 10 mg PO DAILY celecoxib 200 mg capsule 200 mg PO DAILY naltrexone 50 mg tablet 50 mg PO HS Rx Instructions: GIVEN FOR WEIGHT LOSS bupropion HCl 100 mg tablet sustained-release 12 hr 100 mg PO BID Rx Instructions: GIVEN FOR WEIGHT LOSS meclizine 12.5 mg tablet 12.5 mg PO TID PRN (Reason: dizziness) Qty: 10 0RF cyanocobalamin (vitamin B-12) 1,000 mcg Tablet 1,000 mcg PO DAILY Daily Probiotic 2.5 billion cell Capsule 1 cap PO DAILY cyclobenzaprine 10 mg tablet 10 mg PO TID PRN (Reason: muscle spasm) Qty: 20 0RF Follow-up/Referrals: Miquel,Shy Bailey NP [Primary Care Provider] - Stand Alone Forms: Work/School Release IP Time of Disposition: 15:06
== END 2024-09-28 15:10 | disposition home or self-care (01) ==
PROVIDERS: Emergency Provider Nurse Practitioner Family; PCP Nurse Practitioner Family
DX: J06.9 Acute upper respiratory infection, unspecified (principal); F17.210 Nicotine dependence, cigarettes, uncomplicated; K90.0 Celiac disease; M19.90 Unspecified osteoarthritis, unspecified site; E66.9 Obesity, unspecified; F41.9 Anxiety disorder, unspecified; F32.A Depression, unspecified
CPT/HCPCS: 87081; 87880; 99213; G0463

== ENCOUNTER 2025-01-03 15:27 | Emergency (ER) | payer SELFPAY ==
--- NOTE | ~2025-01-03 | XR_ITS ---
EXAMINATION: XR chest 2V 01/03/2025 15:56 INDICATION: Left upper chest pain COMPARISON: 06/21/2024 FINDINGS: The lungs are clear. The cardiomediastinal silhouette is within normal limits. There are no pleural effusions. There is no pneumothorax suspected. Small hiatal hernia. IMPRESSION: 1: NO ACUTE CARDIOPULMONARY DISEASE. If symptoms persist or worsen, consider a short-term follow-up study or additional imaging for furthe r assessment. Reviewed, dictated and finalized at location A. IMPRESSION: 1: NO ACUTE CARDIOPULMONARY DISEASE. If symptoms persist or worsen, consider a short-term follow-up study or additio nal imaging for further assessment.
[2025-01-03 15:29] VITALS: BP 111/74; PULSE 90; RESP 18; TEMP 36.3; O2SAT 97
--- NOTE | 2025-01-03 15:33 | ECG_ITS ---
Test Date: 2025-01-03 15:32:25 Measurements Intervals [place] Rate: 90 P: 38 GA: 138 QRS: -8 QRSD: 92 T: 30 QT: 339 QTc: 415 Interpretive Statements SINUS RHYTHM LOW QRS VOLTAGE IN PRECORDIAL LEADS MINIMAL Q WAVES- HIGH LATERAL LEADS BASELINE ARTIFACT- I, II, AVR, AVL, AVF, V1-V2, V4-V6 BORDERLINE ECG No previous ECG available for comparison Electronically Signed On 01-03-2025 16:30:15 CDT by Shahriar Cheung D.O.
[2025-01-03 16:07] LABS: Hematocrit 38.4 % (37.0-47.0); Hemoglobin 12.4 g/dL (12.0-15.0); Immature Granulocyte Percent A 0.3 % (0-0.5); Lymphocytes Absolute Auto 2.64 K/mm3 (0.9-3.2); Mean Corpuscular HGB Conc 32.3 g/dl (32-36); Mean Corpuscular Hemoglobin 27.7 pg (26-34); Mean Corpuscular Volume 85.9 fl (80-100); Nucleated Red Blood Cells Absolute Auto 0.000 K/mm3 (0.0-0.012); Nucleated Red Blood Cells Perc 0.0 % (0.0-0.2); Platelet Count Result 382 k/mm3 (150-375); Red Blood Count 4.47 M/mm3 (4.2-5.4); White Blood Count 9.1 K/mm3 (4.5-10.0)
[2025-01-03 16:17] LABS: INR 1.0; Prothrombin Time 12.8 Seconds (11.1-14.7)
[2025-01-03 16:18] LABS: Partial Thromboplastin Time 30.1 Seconds (22.3-36.8)
[2025-01-03 16:21] LABS: Alanine Aminotransferase 12 U/L (6-35); Albumin Level 4.4 g/dL (3.5-5.1); Alkaline Phosphatase 90 U/L (38-126); Anion Gap 10 mmol/L (4-12); Aspartate Amino Transferase 23 U/L (14-36); Bilirubin,Total 0.4 mg/dL (0.2-1.3); Blood Urea Nitrogen 10 mg/dL (7-17); Calcium 9.6 mg/dL (8.4-10.2); Carbon Dioxide 24 mmol/L (22-30); Chloride 104 mmol/L (98-107); Estimated CRCL calculation 82 ml/min; Estimated Glomerular Filt Rate > 60; Glucose 94 mg/dL (65-110); Lipase 104 U/L (23-300); Potassium 4.0 mmol/L (3.4-5.0); Sodium 138 mmol/L (137-145); Total Protein 8.2 g/dL (6.3-8.2)
[2025-01-03 16:33] LABS: Troponin I < 0.012 ng/mL (0.000-0.034)
--- NOTE | 2025-01-03 16:51 | ED.CHESTPAIN ---
HPI - Chest Pain General Chief Complaint: Chest Pain <Poppy Lund PA-C - Last Filed: 01/04/25 10:10> Stated Complaint: left sided CP, SOB <Poppy Lund PA-C - Last Filed: 01/04/25 10:10> Time Seen by Provider: 01/03/25 16:51 <Poppy Lund PA-C - Last Filed: 01/04/25 10:10> Focused HPI: This is a 49 year old female that presents to the ER for left sided chest pain. Ongoing intermittently today. Reports she has felt generally unwell the last couple of days. Also reports a headache. Reports fatigue. Reports family history of CAD. Reports some shortness of breath. GENERAL: Well-appearing, well-nourished, and in no acute distress. HEAD: Normocephalic, atraumatic. CHEST: Clear to auscultation. ?No respiratory distress. HEART: Regular rate and rhythm.? NEURO: ?Alert and oriented x3. Patient screened in triage and initial orders placed.? ?Additional care and disposition to be based upon?diagnostic testing and treatment. <Poppy Lund PA-C - Last Filed: 01/04/25 10:10> History of Present Illness HPI narrative: I agree with the above HPI <Madhav Chatman MD - Last Filed: 01/04/25 00:53> Related Data Home Medications: Home Medications ?Medication ?Instructions ?Recorded ?Confirmed ?Last Taken ?Type cetirizine 10 mg tablet (Zyrtec) 10 mg PO DAILY 11/12/20 08/21/23 Unknown History bupropion HCl 100 mg tablet,12 hr 100 mg PO BID 03/06/22 08/21/23 10/09/22 06:50 History sustained-release celecoxib 200 mg capsule 200 mg PO DAILY 03/06/22 08/21/23 Unknown History naltrexone 50 mg tablet 50 mg PO HS 03/06/22 08/21/23 Unknown History pantoprazole 40 mg tablet,delayed 40 mg PO DIRECTED 05/29/22 08/21/23 Unknown History release Lactobacillus 1 cap PO DAILY 10/02/22 08/21/23 Unknown History acidophilus-Bifidobac.animalis 2.5 billion cell capsule (Daily Probiotic) cyanocobalamin (vitamin B-12) 1,000 mcg PO DAILY 10/02/22 08/21/23 Unknown History 1,000 mcg tablet <Poppy Lund PA-C - Last Filed: 01/04/25 10:10> Allergies/Adverse Reactions: Allergies Allergy/AdvReac Type Severity Reaction Status Date / Time latex Allergy Severe Rash Verified 01/03/25 21:59 codeine Allergy Intermediate Nausea and Verified 01/03/25 21:59 Vomiting hydrocodone AdvReac Intermediate MAKES HER Verified 01/03/25 21:59 LOOPY AND SHAKEY aspirin AdvReac Mild Other Verified 01/03/25 21:59 phentermine AdvReac Unknown Unknown Verified 01/03/25 21:59 topiramate AdvReac Unknown Unknown Verified 01/03/25 21:59 <Poppy Lund PA-C - Last Filed: 01/04/25 10:10> Review of Systems Review of Systems: All systems reviewed & are unremarkable except as noted in HPI and below <Madhav Chatman MD - Last Filed: 01/04/25 00:53> [facility] Past Medical History Medical History: Medical History Obesity PMDD (premenstrual dysphoric disorder) Depression Anxiety Arthritis Vulvar cancer HSV-1 (herpes simplex virus 1) infection Hiatal hernia with GERD and esophagitis Celiac disease IBS (irritable bowel syndrome) Migraine <Poppy Lund PA-C - Last Filed: 01/04/25 10:10> Surgical History Surgical History: Surgical History History of orthopedic surgery Right ankle, hardware from a trampoline accident History of bladder surgery Ablation 2011 H/O tubal ligation <Poppy Lund PA-C - Last Filed: 01/04/25 10:10> Family History Family History: Family History Grandparent Family history of cardiac disorder Father Family history of heart disease in male family member before age 55 Other Hypertension <Poppy Lund PA-C - Last Filed: 01/04/25 10:10> Social History Social History: Social History Smoking packs per day: 0.25 Smoking cigarettes per day: 5.0 Years smoked: 30 Smoking pack-years: 7.50 Smoking status: Current some day smoker Tobacco type: cigarettes Additional smoking assessment comments: HAS BEEN CUTING BACK RECENTLY Alcohol intake: never Substance use: never Substance use type: does not use Living arrangements: with family Gender identity (if verbalized by the patient): Female Spiritual care concerns: No <Poppy Lund PA-C - Last Filed: 01/04/25 10:10> Exam Narrative: APPEARANCE: Well appearing, no pain, no distress, well-nourished. HEAD: normocephalic, atraumatic. EYES: PERRLA/EOMI, conjunctivae clear. NOSE: Normal no drainage EARS:TMS clear with good light reflex. THROAT: Pharynx clear, no exudate. NECK: Supple. No adenopathy, no masses. RESPIRATORY: Airway patent, respirations nonlabored. Clear to auscultation bilaterally, no rales, rhonchi, wheezing. CARDIOVASCULAR: Regular rate and rhythm without murmurs rubs or gallops. ABDOMINAL: Soft, nontender, nondistended, normal bowel sounds MUSCULOSKELETAL: Moves all extremities. Strength/ROM intact, No edema, No calf tenderness. NEURO: Alert. Cranial nerves II through XII intact. Good gait. Good coordination SKIN: Warm, dry. Normal Color <Madhav Chatman MD - Last Filed: 01/04/25 00:53> Course Vital Signs Vital signs: Vital Signs Temperature 97.4 F L 01/03/25 15:29 Pulse Rate 90 01/03/25 15:29 Respiratory Rate 18 01/03/25 15:29 Blood Pressure 111/74 01/03/25 15:29 Pulse Oximetry 97 01/03/25 15:29 Oxygen Delivery Room Air 01/03/25 15:29 Temperature 97.4 F L 01/03/25 15:29 Pulse Rate 91 01/03/25 21:59 Respiratory Rate 20 01/03/25 21:59 Blood Pressure 112/76 01/03/25 21:59 Pulse Oximetry 99 01/03/25 21:59 Oxygen Delivery Room Air 01/03/25 21:12 <Poppy Lund PA-C - Last Filed: 01/04/25 10:10> Vital Signs Temperature 97.4 F L 01/03/25 15:29 Pulse Rate 90 01/03/25 15:29 Respiratory Rate 18 01/03/25 15:29 Blood Pressure 111/74 01/03/25 15:29 Pulse Oximetry 97 01/03/25 15:29 Oxygen Delivery Room Air 01/03/25 15:29 Temperature 97.4 F L 01/03/25 15:29 Pulse Rate 91 01/03/25 21:59 Respiratory Rate 20 01/03/25 21:59 Blood Pressure 112/76 01/03/25 21:59 Pulse Oximetry 99 01/03/25 21:59 Oxygen Delivery Room Air 01/03/25 21:12 <Madhav Chatman MD - Last Filed: 01/04/25 00:53> MDM - Chest Pain MDM Narrative Medical decision making narrative: 49-year-old female present to the emergency department for evaluation for left-sided chest wall pain. Patient states the pain has since resolved patient denies any pain complaint. Patient is afebrile with no leukocytosis and hemoglobin of 12.4. Patient has an INR of 1.0. No acute abnormalities on the CMP patient had negative serial troponins. Chest x-ray shows no acute cardiopulmonary mallet a and EKG shows normal sinus rhythm. Patient declined any medications for pain control. Patient was encouraged close follow-up with her primary care physician. <Madhav Chatman MD - Last Filed: 01/04/25 00:53> Differential Diagnosis Differential diagnosis: Likely fracture of rib, pneumothorax, stable angina, unstable angina pectoris, atypical chest pain, st elevation myocardial infarction, costochondritis, chest pain and biliary colic <Madhav Chatman MD - Last Filed: 01/04/25 00:53> Lab Data Attestation: I reviewed the patient's lab results. <Madhav Chatman MD - Last Filed: 01/04/25 00:53> Result diagrams: 01/03/25 15:39 01/03/25 15:39 <Poppy Lund PA-C - Last Filed: 01/04/25 10:10> Labs: Lab Results 01/03/25 01/03/25 Range/Units 15:39 19:43 WBC 9.1 (4.5-10.0) K/mm3 RBC 4.47 (4.2-5.4) M/mm3 Hgb 12.4 (12.0-15.0) g/dL Hct 38.4 (37.0-47.0) % MCV 85.9 (80-100) fl MCH 27.7 (26-34) pg MCHC 32.3 (32-36) g/dl RDW 13.1 (11.5-14.5) % Plt Count 382 H (150-375) k/mm3 MPV 8.9 (7.4-10.4) fl Immature Gran % (Auto) 0.3 (0-0.5) % Neut % (Auto) 61.8 (45.5-73.1) % Lymph % (Auto) 29.0 (18.3-44.2) % [place] % (Auto) 7.0 (2.6-8.5) % Eos % (Auto) 1.4 (0-4.4) % Baso % (Auto) 0.5 (0.2-1.2) % Lymph # (Auto) 2.64 (0.9-3.2) K/mm3 [place] # (Auto) 0.6 (0.1-0.6) K/mm3 Eos # (Auto) 0.1 (0-0.3) K/mm3 Baso # (Auto) 0.1 (0.0-0.1) K/mm3 Abs Immat Gran (auto) 0.03 (0.00-0.031) K/mm3 Absolute Neuts (auto) 5.6 (1.3-6.7) K/mm3 Absolute Nucleated RBC 0.000 (0.0-0.012) K/mm3 Nucleated RBC % 0.0 (0.0-0.2) % PT 12.8 (11.1-14.7) Seconds INR 1.0 APTT 30.1 (22.3-36.8) Seconds Sodium 138 (137-145) mmol/L Potassium 4.0 (3.4-5.0) mmol/L Chloride 104 (98-107) mmol/L Carbon Dioxide 24 (22-30) mmol/L Anion Gap 10 (4-12) mmol/L BUN 10 (7-17) mg/dL Creatinine 0.62 L (0.7-1.0) mg/dL Estim Creat Clear Calc 82 ml/min Estimated GFR > 60 (59 - ) Glucose 94 (65-110) mg/dL Calcium 9.6 (8.4-10.2) mg/dL Total Bilirubin 0.4 (0.2-1.3) mg/dL AST 23 (14-36) U/L ALT 12 (6-35) U/L Alkaline Phosphatase 90 (38-126) U/L Troponin I < 0.012 < 0.012 (0.000-0.034) ng/mL Total Protein 8.2 (6.3-8.2) g/dL Albumin 4.4 (3.5-5.1) g/dL Lipase 104 (23-300) U/L <Poppy Lund PA-C - Last Filed: 01/04/25 10:10> Lab Results 01/03/25 01/03/25 Range/Units 15:39 19:43 WBC 9.1 (4.5-10.0) K/mm3 RBC 4.47 (4.2-5.4) M/mm3 Hgb 12.4 (12.0-15.0) g/dL Hct 38.4 (37.0-47.0) % MCV 85.9 (80-100) fl MCH 27.7 (26-34) pg MCHC 32.3 (32-36) g/dl RDW 13.1 (11.5-14.5) % Plt Count 382 H (150-375) k/mm3 MPV 8.9 (7.4-10.4) fl Immature Gran % (Auto) 0.3 (0-0.5) % Neut % (Auto) 61.8 (45.5-73.1) % Lymph % (Auto) 29.0 (18.3-44.2) % [place] % (Auto) 7.0 (2.6-8.5) % Eos % (Auto) 1.4 (0-4.4) % Baso % (Auto) 0.5 (0.2-1.2) % Lymph # (Auto) 2.64 (0.9-3.2) K/mm3 [place] # (Auto) 0.6 (0.1-0.6) K/mm3 Eos # (Auto) 0.1 (0-0.3) K/mm3 Baso # (Auto) 0.1 (0.0-0.1) K/mm3 Abs Immat Gran (auto) 0.03 (0.00-0.031) K/mm3 Absolute Neuts (auto) 5.6 (1.3-6.7) K/mm3 Absolute Nucleated RBC 0.000 (0.0-0.012) K/mm3 Nucleated RBC % 0.0 (0.0-0.2) % PT 12.8 (11.1-14.7) Seconds INR 1.0 APTT 30.1 (22.3-36.8) Seconds Sodium 138 (137-145) mmol/L Potassium 4.0 (3.4-5.0) mmol/L Chloride 104 (98-107) mmol/L Carbon Dioxide 24 (22-30) mmol/L Anion Gap 10 (4-12) mmol/L BUN 10 (7-17) mg/dL Creatinine 0.62 L (0.7-1.0) mg/dL Estim Creat Clear Calc 82 ml/min Estimated GFR > 60 (59 - ) Glucose 94 (65-110) mg/dL Calcium 9.6 (8.4-10.2) mg/dL Total Bilirubin 0.4 (0.2-1.3) mg/dL AST 23 (14-36) U/L ALT 12 (6-35) U/L Alkaline Phosphatase 90 (38-126) U/L Troponin I < 0.012 < 0.012 (0.000-0.034) ng/mL Total Protein 8.2 (6.3-8.2) g/dL Albumin 4.4 (3.5-5.1) g/dL Lipase 104 (23-300) U/L <Madhav Chatman MD - Last Filed: 01/04/25 00:53> Imaging Data Radiologist's impression: Impressions Chest X-Ray 01/03/25 16:00 IMPRESSION: 1: NO ACUTE CARDIOPULMONARY DISEASE. If symptoms persist or worsen, consider a short-term follow-up study or additional imaging for further assessment. <Madhav Chatman MD - Last Filed: 01/04/25 00:53> ECG Data EKG #1: EKG Interpretation: normal rate, sinus rhythm, no ectopy, non-specific ST changes, normal QRS, normal QT and NL axis <Madhav Chatman MD - Last Filed: 01/04/25 00:53> Critical Care Time Critical Care Time Critical Care Time: No <Poppy Lund PA-C - Last Filed: 01/04/25 10:10> Discharge Plan Discharge Clinical Impression: Acute chest wall pain <Poppy Lund PA-C - Last Filed: 01/04/25 10:10> Patient Disposition: Home <CRICKET Joya Last Filed: 01/04/25 10:10> Condition: Stable <CRICKET Joya Last Filed: 01/04/25 10:10> Instructions: Antibiotic Form, Chest Wall Pain (ED) <Poppy Lund PA-C - Last Filed: 01/04/25 10:10> Additional Instructions: Have close follow-up with your primary care physician for additional outpatient cardiac testing. Tylenol and muscle relaxants for pain control. If you have any worsening symptoms then please call or return to the emergency department. <Poppy Lund PA-C - Last Filed: 01/04/25 10:10> Patient Language: Ghanaian <Poppy Lund PA-C - Last Filed: 01/04/25 10:10> Prescriptions: New cyclobenzaprine 10 mg tablet 10 mg PO BID PRN (Reason: muscle spasm) Qty: 14 0RF No Action pantoprazole 40 mg tablet,delayed release (DR/EC) 40 mg PO DIRECTED lidocaine [Lidoderm] 5 % adhesive patch,medicated 1 patch topical DAILY Qty: 15 0RF Rx Instructions: leave on most painful area for up to 12 hrs baclofen 10 mg tablet 10 mg PO TID PRN (Reason: muscle pain) Qty: 10 0RF cetirizine [Zyrtec] 10 mg tablet 10 mg PO DAILY celecoxib 200 mg capsule 200 mg PO DAILY naltrexone 50 mg tablet 50 mg PO HS Rx Instructions: GIVEN FOR WEIGHT LOSS bupropion HCl 100 mg tablet sustained-release 12 hr 100 mg PO BID Rx Instructions: GIVEN FOR WEIGHT LOSS meclizine 12.5 mg tablet 12.5 mg PO TID PRN (Reason: dizziness) Qty: 10 0RF cyanocobalamin (vitamin B-12) 1,000 mcg Tablet 1,000 mcg PO DAILY Daily Probiotic 2.5 billion cell Capsule 1 cap PO DAILY cyclobenzaprine 10 mg tablet 10 mg PO TID PRN (Reason: muscle spasm) Qty: 20 0RF <Poppy Lund PA-C - Last Filed: 01/04/25 10:10> Follow-up/Referrals: Miquel,Shy Bailey NP [Primary Care Provider, Unknown] <Poppy Lund PA-C - Last Filed: 01/04/25 10:10> Quality HEART score for chest pain patients History: slightly suspicious <Madhav Chatman MD - Last Filed: 01/04/25 00:53> ECG: normal <Madhav Chatman MD - Last Filed: 01/04/25 00:53> Age: > 45 and < 65 years <Madhav Chatman MD - Last Filed: 01/04/25 00:53> Risk factors: 1 or 2 risk factors <Madhav Chatman MD - Last Filed: 01/04/25 00:53> Troponin: < or = to 1x normal limit <Madhav Chatman MD - Last Filed: 01/04/25 00:53> Heart score: 2 <Poppy Lund PA-C - Last Filed: 01/04/25 10:10> 2 <Madhav Chatman MD - Last Filed: 01/04/25 00:53>
[2025-01-03 20:13] LABS: Troponin I < 0.012 ng/mL (0.000-0.034)
[2025-01-03 20:55] VITALS: PULSE 94
[2025-01-03 20:58] VITALS: BP 115/73; PULSE 97; RESP 19; O2SAT 98
[2025-01-03 21:12] VITALS: O2SAT 99
--- OUTSIDE RECORDS SUMMARY | 2025-01-03 21:29 | XMS_ITS ---
Author Organization [facility] [address] Address [address] [place] [address] Care Team Providers Care Brick Loader Name Role Phone Shy Lafleur NP Primary Care Provider [phone] Rober Villatoro MD Unavailable [phone] Jeyson Angelo MD Unavailable [phone] Active Problems Patient Care Coordination No te [...] on 02/17/2023 which revealed the following: FINDINGS: Prison Guard image is unremarkable. Limited evaluation of the [...] approach, but her BMI of 36.[address] of excellent visualization for the [...] here for further discussion and evaluation. Haydee Harding, PARVIN 10/20/2024 1504 This is a 49-year-old female patient presenting back to the clinic today for a three-month follow-up after undergoing a laparoscopic Heller myotomy with esophageal diverticulum resection on 06/30/[address] Angelo. She is here for further evaluation and discussion. She was last seen in clinic on 07/19/2024 for a post operative visit at which point in time she was doing well and tolerating a diet without difficulty, but she continued to have neuropathic pain around the surgical sites for which she was prescribed gabapentin. She is scheduled for a chest x-ray prior to her visit today. All imaging available on file for review. She is here for further evaluation and discussion. Problem Noted Date Diagnosed Date Dysuria 08/19/2024 Sore throat 06/15/2024 Seasonal allergies 06/06/2024 Seasonal allergic rhinitis 01/26/2024 Unspecified disorder of refraction 01/26/2024 Lipoma 10/20/2023 Dry eyes 06/01/2023 Achalasia 04/28/2023 Abdominal pain 04/21/2023 Chest pain, unspecified 04/21/2023 [place] 04/21/2023 Depressive disorder 04/21/2023 Diarrhea 04/21/2023 Syncope [...]
--- OUTSIDE RECORDS SUMMARY | 2025-01-03 21:30 | XMS_ITS | Clinical Summary ---
Author Organization [facility] [address] Address [address] [place] [address] Care Team Providers Care Splash Line Operator Name Role Phone Shy Lafleur NP Primary Care Provider [phone] Rober Villatoro MD Unavailable Jeyson Angelo MD Unavailable [phone] Allergies Active Allergy Reactions Criticality Noted [...] nausea or vomiting 20 tablet 5 Active Additional Information Patient not taking.Reported on 10/25/[address] (PROTONIX) 40 mg EC tabletIndicatio ns:Gastroesopha geal reflux disease, unspecified whether esophagitis present Take 1 tablet (40 mg total) by mouth daily 90 tablet [address] (PROTONIX) 40 mg EC tabletIndicatio ns:Gastroesopha geal reflux disease, unspecified whether esophagitis present TAKE 1 TABLET(40 MG) BY MOUTH DAILY 30 tablet 5 025 Discontin ued(Reord er) [...] on 02/17/2023 which revealed the following: FINDINGS: Bulk Picker image is unremarkable. Limited evaluation of the [...] approach, but her BMI of 36.6 would machine clothing man the way of excellent visualization for the [...] here for further evaluation and discussion. Haydee HardingPARVIN 10/08/2023 1424 This is a 48-year-old female [...] Abdominal pain 04/21/2023 Chest pain, unspecified 04/21/2023 [place] 04/21/2023 Depressive disorder 04/21/2023 Diarrhea 04/21/2023 Syncope [...] Encounters Date Type Department Care Team Description 12/22/2024 Orders Only [facility] [address] [place] [id number] Haydee Harding, PARVIN Gastroesophageal reflux disease, unspecified whether esophagitis present 11/02/2024 Telephone [facility] [address] [place] [address] [facility] [address] [place] [address] [place] [address] Jeyson Angelo MD 10/27/2024 Telephone [facility] 8th [place] [address] [place] [address] Jeyson Angelo MD 10/27/2024 Orders Only [facility] Surgery [facility] 8th [place] [address] [place] [id number] Haydee Harding, PARVIN Esophageal diverticulum (Primary Dx) 10/25/2024 3:30 PM CDT Office Visit [facility] [address] [place] [address] Jeyson Angelo MD Esophageal diverticulum 10/25/2024 3:09 PM CDT - 10/25/2024 11:59 PM CDT Hospital Encounter [facility] DIAG IMG [address] [place] [address] Hiatal hernia Discharge Disposition: Discharge to home or self care from Last 3 Months Immunizations Immunization Administration [...] Date Comments Migraines Malignant neoplasm of vulva IBS (irritable bowel syndrome) Arthritis Depression Heartburn [...] Types Packs/Day Years Used Date Smoking Tobacco: Some Days Cigarettes Last attempted to quit: 04/18/2024 Passive Smoke Exposure: Past Smokeless Tobacco: Former Tobacco Cessation:Ready to Q uit: Not Asked; Counseling Given: Not Answered Alcohol Use Standard Drinks/Week Comments Not Currently 0 (1 standard drink = 0.6 oz pur e alcohol) [facility] Utilities Answer Date Recorded In the past 12 months has [employer] electric, gas, oil, or water company threatened to shut off services in your home? No 07/01/2024 Social Connection and Isolation Panel Answer Date Recorded In a typical week, how many times do you talk on the phone with family, friends, or neighbors? More than three times a week 07/01/2024 How often do you get togethe r with friends or relatives? More than three times a week 07/01/2024 How often do you attend chur ch or hoahaoism services? 1 to 4 times per year 07/01/2024 Do you belong to any clubs o r organizations such as gnosticist groups, unions, fraternal or athletic groups, or school groups? No 07/01/2024 How often do you attend meet ings of the clubs or organizations you belong to? Never 07/01/2024 Are you , , di vorced, , never , or living with a partner? Living with partner 07/01/2024 AUDIT-C Answer Date Recorded Q1: How often do you have a drink containing alcohol? Never 10/25/2024 Q2: How many drinks containi ng alcohol do you have on a typical day when you are drinking? Patient does not drink Frequency of Binge Drinking Not on file 01/2025 Overall Financial Resource Strain (CARDIA) Answe r [...] any time in the past 12 m [facility], were you homeless or living in a penitentiary (including now)? No 07/01/2024 Personal Safety Answer Date Recorded Have you ever been in or are you currently in a harmful physical or emotional relationship or is someone making you feel afraid or unsafe? Denies 06/30/2024 Comments No Sex and Gender Information Value Date Recorded Sex Assigned at Not on file Legal Sex Female 4:05 AM [employer] Gender Identity Not on file Sexual Orientation Not on file Obstetrics History Last Filed Vital Signs Vital Sign Reading Time Taken Comments Blood Pressure 111/75 10/25/2024 4:07 PM CDT Pulse 79 10/25/2024 4:07 PM CDT Temperature 36.8 C (98.3 F) 10/25/2024 4:07 PM CDT Respiratory Rate 16 07/19/2024 2:16 PM [employer] Oxygen Saturation 99% 10/25/2024 4:07 PM CDT Inhaled Oxygen Concentration - - Weight 72.9 kg (160 lb 11.5 oz) 10/25/2024 4:07 PM CDT Height 152.4 cm (5') 07/19/2024 2:16 PM [employer] no s roxy Body Mass Index 31.39 07/19/2024 2:16 PM [employer] Plan of Treatment Health Maintenance Due Date Last Done Comments Breast Cancer Screening-Mammogram 1974 Colon Cancer Screening-Colonoscopy 1974 Depression Screening 1974 Hepatitis C Screening 1974 Hepatitis B Screening 01/05/1992 Regular Well Visit/Exam 18-64 01/05/1992 Pneumococcal vaccine <65 (1 of 2 - PCV) 1993 Cervical Cancer Screening 02/18/2023 02/18/2022 Zoster Vaccine (1 of 2) 01/05/2024 Covid-19 Vaccine (2023-2 5 season) 2024 03/03/2023, 05/15/2021, 04/18/2021, Additional history exists DTaP/Tdap/Td Vaccine (2 - Td or Tdap) 03/15/2024 03/15/2014 Influenza Vaccine (#1) 2025 3, 03/10/2020, 03/18/2014 Medical Devices Implanted Type Area Hardware Engineer Device Identifier Shelf Expiration Date Model / Serial / Lot Wire-Inner Part Of Right Ankle-Plate And 7 Screws Right: Ankle Procedures Procedure Name Priority Date/Time Associated Diagnosis Comments XR CHEST PA LATERAL 2 VIEWS Schedule Routine, Read Routine (OP Routine) 10/25/2024 3:15 PM CDT Hiatal hernia from Last 3 Months Results * XR Chest Pa Lateral 2 Views (10/25/2024 3:15 PM CDT) Anatomical Region Laterality Modality Body, Chest N/A Computed Radiogr aphy 10/28/2024 5:53 PM CDT Narrative 10/28/2024 5:54 PM CDT EXAM DESCRIPTION: XR CHEST PA LATERAL 2 VIEWS REASON FOR STUDY: Hiatal hernia Follow up, indigestion, feels like some food still gets hung up TECHNIQUE: Frontal and lateral radiographic views of the chest were acquired. COMPARISON: 07/19/2024 FINDINGS: LUNGS/PLEURA: There is no focal infiltrate or evidence of pneumothorax. No significant pleural effusion. Mild eventration right hemidiaphragm. HEART/MEDIASTINUM: The heart size is normal. Normal mediastinal and hilar contours. LINES/TUBES: None. BONES: No acute findings. OTHER: No other significant finding. IMPRESSION: No active cardiopulmonary disease. THIS IS AN ELECTRONICALLY VERIFIED FINAL REPORT 10/28/2024 5:54 PM - Electronically signed by George Ames M.D. RW: KIKI Report ID: [id number] Reading Location: [id number] Procedure Note George Ames MD - 10/28/2024 EXAM DESCRIPTION: XR CHEST PA LATERAL 2 VIEWS REASON FOR STUDY: Hiatal hernia Follow up, indigestion, feels like some food still gets hung up TECHNIQUE: Frontal and lateral radiographic views of the chest wereacquired. COMPARISON: 07/19/2024 FINDINGS: LUNGS/PLEURA: There is no focal infiltrate or evidence of pneumothorax. No significant pleural effusion. Mild eventration right hemidiaphragm. HEART/MEDIASTINUM: The heart size is normal. Normal mediastinal and hilar contours. LINES/TUBES: None. BONES: No acute findings. OTHER: No other significant finding. IMPRESSION: No active cardiopulmonary disease. THIS IS AN ELECTRONICALLY VERIFIED FINAL REPORT 10/28/2024 5:54 PM - Electronically signed by George Ames M.D. RW: KIKI Report ID: [id number] Reading Location: [id number] Haydee Tello [employer] IMG XR PROCEDURES Final Re sult from Last 3 Months Insurance [facility] Advance Directives For more information, please contact: [phone] * Full Code (Latest Code Status on File) Date Activated Date Inactivated Comments 06/30/2024 2:47 PM 07/02/2024 4:11 PM Care Teams Splash Line Operator Relationship Specialty Start Date End Date Shy Lafleur NP [address] [place] [address] PCP - General Family Medicine 02/23/24 Rober Villatoro MD [address] [address] Referring Physician Obstetrics and Gynecology 06/23/24 Jeyson Angelo MD [address] [address] Surgeon Thoracic Surgery 07/02/24
--- OUTSIDE RECORDS SUMMARY | 2025-01-03 21:30 | XMS_ITS | Clinical Summary ---
Author Organization [facility] Address [facility] [place] [address] Care Team Providers Care Header Up Name Role Phone Unavailable Primary Care Provider [...]
[2025-01-03 21:58] VITALS: BP 112/76; PULSE 91; RESP 20; O2SAT 99
[2025-01-03 21:59] VITALS: BP 112/76; PULSE 91; RESP 20; O2SAT 99
== END 2025-01-03 22:02 | disposition home or self-care (01) ==
LOC: ANHED 21:28
PROVIDERS: Student in an Organized Health Care Education/Training Program; Emergency Provider Emergency Medicine; PCP Nurse Practitioner Family
DX: R07.89 Other chest pain (principal); F32.A Depression, unspecified; F41.9 Anxiety disorder, unspecified; M19.90 Unspecified osteoarthritis, unspecified site
CPT/HCPCS: 36415; 71046; 80053; 83690; 84484; 85025; 85610; 85730; 93005; 99284